=== PATIENT | male | born 1965 | race Caucasian/White ===

== ENCOUNTER 2016-12-27 15:36 | Emergency (ER) | payer OTHER, MEDICARE ==
[~2016-12-27] VITALS: Ht 170.2 cm; Wt 65.8 kg
[~2016-12-27 15:36] MED LIST: ALPRAZOLAM1 MG PO; ALPRAZOLAM2 MG PO; ALREX OT; AMOXICILLIN500 M1 PO; AZELASTINE HYDRO6 ML OPH; BACTRIM DS 8001 TAB PO; BENADRYL ALLERG25 M1 PO; BROMFED DM COU118 ML PO; CLINDAMYCIN HY300 MG PO; COMBIVENT RESPI1 SPR PO; CYCLOBENZAPRINE10 M1 PO; ENDOCET 325 MG-1 TA1 PO; EPIPEN ADULT A0.3 MG SC; FLEXERIL PO; FLEXERIL10 MG PO; HYDROCODONE/ACE1 TA1 PO; LEVETIRACETAM750 MG PO; LIDODERM 5% PAT1 PAT TOP; NAPROSYN500 MG PO; NORCO 325 MG-51 TAB PO; OMEPRAZOLE20 MG PO; OXY IR5 MG PO; OXYCODONE/APAP1 TAB PO; OXYCODONE5 M1 PO; OXYCONTIN15 MG PO; PERCOCET 325 MG1 TA2 PO; PERCOCET 325 MG1 TAB PO; TAMIFLU 75MG75 MG PO; TAMIFLU75 MG PO; TESSALON PERLE100 MG PO; TORADOL10 MG PO; TRAMADOL HCL50 M1 PO; TRAMADOL50 MG PO; TRAZODONE100 MG PO; TRAZODONE150 MG PO; TYLENOL TAB 32325 MG PO; ULTRAM(MONOGRAP50 MG PO; VICODIN 300 MG-1 TAB PO; VICODIN ES 3001 TAB PO; VICOPROFEN 7.51 TAB PO; VISTARIL25 M1 PO; XANAX1 MG PO; XANAX2 MG PO; ZITHROMAX Z-PA250 M1 PO; ZOFRAN ODT4 MG PO; ZOFRAN4 M1 SL; ZOLPIDEM TARTRA10 M1 PO; ZOLPIDEM TARTRA10 MG PO
--- NOTE | 2016-12-27 15:44 | ED PSYCHIATRIC COMPLAINT ---
History of Present Illness General Chief Complaint: General Adult Stated Complaint: FOUND UNRESPONSIVE Source: patient Exam Limitations: no limitations Vital Signs & Intake/Output Vital Signs & Intake/Output Vital Signs Date Time Temp Pulse Resp B/P B/P Pulse O2 O2 Flow FiO2 Mean Ox Delivery Rate 12/279 82 18 121/87 99 Room Air 12/27 1831 97.1 83 16 130/86 99 Nasal 3.0L Cannula 12/27 1549 Room Air 12/27 1549 87 12 114/77 92 Room Air ED Intake and Output 12/28 0000 12/27 1200 Intake Total Output Total Balance Patient 145 lb Weight Weight Estimated Measurement Method Allergies Coded Allergies: adalimumab (Severe, ANAPHYLAXIS 03/02/16) shellfish derived (Severe, SOB, SWELLING 03/02/16) venom-honey bee (BEE VENOM (HONEY BEE)) (Severe, SWELLING 03/02/16) Iodinated Contrast- Oral and IV Dye (IODINATED CONTRAST MEDIA - IV DYE) (UNKNOWN PER PT 03/02/16) infliximab (BLOTCHES, HIVES, DYSPNEA 03/02/16) Reconcile Medications Albuterol Sulfate 2.5 MG/3 ML (0.083 %) VIAL.NEB 1 Vial INH/ASHLEY AD PRN ASTHMA (Reported) Alprazolam 1 MG TABLET 1 TAB PO TID ANXIETY (Reported) Ipratropium/Albuterol Sulfate (Combivent Respimat Inhal [place]) 20 MCG-100 MCG/ ACTUATION MIST.INHAL 1 PUFF INH PRN ASTHMA (Reported) Levetiracetam (Keppra) 750 MG TABLET 2 TAB PO BID SEIZURES (Reported) Zolpidem Tartrate 10 MG TABLET 1 TAB PO QPMP SLEEP (Reported) Triage Nurses Notes Reviewed? yes Onset: Abrupt Duration: unknown duration HPI: 51-year-old male brought into emergency room after being found unresponsive at home by his parents. Was reports that there was some medical marijuana as well as cocaine and heroin found nearby. Patient denies any drug use. Denies alcohol use. He reports that he got sleepy and fell asleep on the couch because he does not sleep well and normally. Denies any pain currently. Slurring his words. Denies any other associated symptoms. (ABEL HART) Past History Medical History Any Pertinent Medical History? 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 No (ABEL HART) Review of Systems Review of Systems Constitutional: Reports: no symptoms. EENTM: Reports: no symptoms. Respiratory: Reports: no symptoms. Cardiovascular: Reports: no symptoms. GI: Reports: no symptoms. Genitourinary: Reports: no symptoms. Musculoskeletal: Reports: no symptoms. Skin: Reports: no symptoms. Neurological/Psychological: Reports: see HPI. Hematologic/Endocrine: Reports: no symptoms. Immunologic/Allergic: Reports: no symptoms. All Other Systems: Reviewed and Negative (ABEL HART) Physical Exam Physical Exam General Appearance: mild distress, intoxicated Head: atraumatic Eyes: Bilateral: normal appearance. Ears, Nose, Throat: normal ENT inspection, hearing grossly normal Neck: normal inspection Respiratory: normal breath sounds, no respiratory distress Cardiovascular: regular rate/rhythm Gastrointestinal: soft, non-tender Extremities: normal range of motion Neurological/Psychiatric: alert Appearance/Memory/Insight: disheveled Behavoir/Eye Contact/Speech: cooperative Thoughts/Hallucinations: no apparent hallucination Skin: intact, normal color, warm/dry SAD PERSONS Done? 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 1540 Active URINE DRUGS OF ABUSE 12/27 1540 Complete TROPONIN LEVEL 12/27 1540 Complete ETHANOL 12/27 1540 Complete COMPREHENSIVE METABOLIC PANEL 12/27 1540 Complete CBC WITHOUT DIFFERENTIAL 12/27 154 Complete EKG 12/27 1540 Active Laboratory Tests 12/27/16 1830: Urine Opiates Screen > 4000.00 H, Methadone Screen < 40, Barbiturate Screen < 60, Ur Phencyclidine Scrn < 6.00, Amphetamines Screen < 100, U Benzodiazepines Scrn > 800 H, Urine Cocaine Screen < 50, Urine Cannabis Screen < 5.00 12/27/16 1600: Anion Gap 13, Estimated GFR > 60, BUN/Creatinine Ratio 14.5, Glucose 108 H, Calcium 9.7, Total Bilirubin 0.4, AST 20, ALT 41, Alkaline Phosphatase 69, Troponin I < 0.01, Total Protein 7.8, Albumin 4.6, Globulin 3.2, Albumin/ Globulin Ratio 1.4, CBC w Diff NO MAN DIFF REQ, RBC 5.36, MCV 72.7 L, MCH 22.3 L, RDW 16.7 H, MPV 7.8, Gran % 80.9 H, Lymphocytes % 11.1 L, Monocytes % 4.4, Eosinophils % 3.3, Basophils % 0.3, Absolute Lymphocytes 1.6, Absolute Monocytes 0.6, Absolute Eosinophils 0.5, Absolute Basophils 0, PUBS MCHC 30.7 L, Serum Alcohol < 10.0 Initial ED EKG: normal intervals, normal p-waves, normal sinus rhythm, rate (88) Prior EKG: unchanged (JOJO CONTEH,ABEL) Departure Departure Disposition: HOME OR SELF CARE Condition: Stable Clinical Impression Primary Impression: Polysubstance abuse Referrals: ANGI SAGASTUME MD (PCP/Family) Additional Instructions: Use your Narcan at home as needed. You have declined seeing crisis at this time and wants to leave AGAINST MEDICAL ADVICE. Follow-up with [facility] for possible inpatient management. Address: [address] [place] [address], [place] [phone] Hours: Closed now Please go over all results of today's visit with your primary care doctor. Contact your primary care doctor to let them know you were here in the emergency room. There may be nonspecific findings which may not be related to your visit today here in the emergency room but may require further evaluation and chronic monitoring by your primary care doctor. If you had a laceration today the chance of foreign body always remains. You should follow-up with your primary care doctor for recheck in 3-5 days for a wound check. If you had an x-ray done there is a chance that a fracture could have been missed on initial read and you should follow-up with your primary care doctor for repeat x-rays if symptoms persist. If your blood pressure was elevated here in the emergency room please have rechecked by her primary care doctor within the next 48 hours by your primary care doctor. If you were prescribed a narcotic here in the emergency room or any type of controlled substances you're not allowed to drive while taking this medication or operate any type of heavy machinery. Narcotics can make you feel lightheaded dizziness nausea and can cause constipation. You may need to pick out hand a stool softener. Thank you for choosing [facility] emergency room. Please return to the emergency room immediately if you have any other concerns worsening of symptoms. Departure Forms: Customer Survey General Discharge Information Comments 12/27/2016 8:49:35 PM Patient is alert and oriented and clinically sober here in the emergency room. He is capable of making his own medical decisions. He is not suicidal or homicidal. He has been recommended the patient stayed to be further monitored and she crisis and he is refusing. His mother is here and she is going to drive him home. She will further observe him at home. He has no complaints of chest pain. No complaints of shortness of breath. He is verbally leaving AGAINST MEDICAL ADVICE. Case discussed with Dr. Beckman. Return if any concerns worsening symptoms. (JOJO CONTEH,ABEL) PA/CRM CONSULTANT Co-Sign Statement Statement: ED Attending supervision documentation- [] I saw and evaluated the patient. I have also reviewed all the pertinent lab results and diagnostic results. I agree with the findings and the plan of care as documented in the PA's/CRM CONSULTANT's documentation. [x] I have reviewed the ED Record and agree with the PA's/CRM CONSULTANT's documentation. [] Additions or exceptions (if any) to the PAs/CRM CONSULTANT's note and plan are summarized below: [] (TERESA CAPPS,TAWNYA Perez)
[2016-12-27 16:10] LABS: ABSOLUTE BASOPHIL COUNT 0 /CUMM (0.0-0.2); ABSOLUTE EOSINOPHIL COUNT 0.5 /CUMM (0.0-0.7); ABSOLUTE LYMPH COUNT 1.6 /CUMM (1.2-3.4); ABSOLUTE MONOCYTE COUNT 0.6 /CUMM (0.10-0.60); BASOPHIL % 0.3 % (0.0-2.0); GRANULOCYTE % 80.9 % (42.2-75.2); MEAN PLATELET VOLUME 7.8 FL (7.4-10.4); RED BLOOD CELL CT 5.36 /CUMM (4.70-6.10); WHITE BLOOD CELL COUNT 14.6 /CUMM (4.8-10.8)
[2016-12-27 16:27] LABS: MEAN CORPUSCULAR HGB 22.3 PG (27.0-31.0); MEAN CORPUSCULAR VOLUME 72.7 FL (80.0-94.0)
[2016-12-27 16:28] LABS: EOSINOPHIL % 3.3 % (0-5); MEAN CORPUSCULAR HGB CONC 30.7 G/DL (33.0-37.0); PLATELET COUNT 366 /CUMM (130-400); RBC DISTRIBUTION WIDTH 16.7 % (11.5-14.5)
[2016-12-27] MEDS ORDERED: COMBIVENT RESPIM4 GM INH (17:15)
[2016-12-27] MEDS ORDERED: KEPPRA750 M1 PO (17:15)
[2016-12-27] MEDS ORDERED: ALPRAZOLAM1 M2 PO (17:15)
[2016-12-27] MEDS ORDERED: ALBUTEROL2.5 MG/3 M INH/SOL (17:16)
[2016-12-27 20:49] VITALS: BP 121/87
== END 2016-12-27 21:06 ==
LOC: ERH 15:36
PROVIDERS: Physician Assistant Medical
DX: F12.10 Cannabis abuse, uncomplicated (principal); F14.10 Cocaine abuse, uncomplicated; F11.10 Opioid abuse, uncomplicated
CPT/HCPCS: 80307; 93005; 93010; 96374; 96375; G0480; J2310; J2405

== ENCOUNTER 2017-10-22 13:11 | Inpatient (IN) | payer OTHER, MEDICARE ==
[~2017-10-22] VITALS: Ht 172.7 cm; Wt 75.7 kg
[~2017-10-22 13:11] MED LIST changes: +ALBUTEROL2.5 MG/3 M INH/SOL; +ALPRAZOLAM0.5 M4 PO; +ASPIRIN EC81 M1 PO; +ATIVAN1 M1 PO; +COMBIVENT RESPIM4 GM INH; +ESCITALOPRAM OX10 MG PO; +KEPPRA750 M1 PO
[2017-10-22 13:56] LABS: ABSOLUTE BASOPHIL COUNT 0 /CUMM (0.0-0.2); ABSOLUTE EOSINOPHIL COUNT 0 /CUMM (0.0-0.7); ABSOLUTE GRANULOCYTE CT 26.5 /CUMM (1.4-6.5); ABSOLUTE LYMPH COUNT 0.8 /CUMM (1.2-3.4); ABSOLUTE MONOCYTE COUNT 1.1 /CUMM (0.10-0.60); BASOPHIL % 0.1 % (0.0-2.0); EOSINOPHIL % 0.1 % (0-5); GRANULOCYTE % 93.4 % (42.2-75.2); HEMATOCRIT 50.6 % (42-52); MEAN CORPUSCULAR HGB 27.7 PG (27.0-31.0); MEAN CORPUSCULAR HGB CONC 32.2 G/DL (33.0-37.0); MEAN CORPUSCULAR VOLUME 86.1 FL (80.0-94.0); MEAN PLATELET VOLUME 7.9 FL (7.4-10.4); PLATELET COUNT 280 /CUMM (130-400); RBC DISTRIBUTION WIDTH 15.3 % (11.5-14.5); RED BLOOD CELL CT 5.88 /CUMM (4.70-6.10); WHITE BLOOD CELL COUNT 28.3 /CUMM (4.8-10.8)
--- NOTE | 2017-10-22 14:02 | ED GENERAL ADULT ---
See Addendum History of Present Illness General Chief Complaint: ETOH/Drug Related Complaint Stated Complaint: OD, ?SEIZURE, FALL W/HEAD STRIKE, HYPOGLYCEMIA Source: patient, family, EMS Exam Limitations: no limitations Vital Signs & Intake/Output Vital Signs & Intake/Output Vital Signs Date Time Temp Pulse Resp B/P B/P Pulse O2 O2 Flow FiO2 Mean Ox Delivery Rate 10/22 1729 97.2 85 14 118/78 99 Nasal 2.0L Cannula 10/22 1612 97.2 84 14 123/66 97 Nasal 2.0L Cannula 10/22 1432 70/44 10/22 1348 96 Room Air 10/22 1318 97.1 101 16 97 Room Air Allergies Coded Allergies: adalimumab (Severe, ANAPHYLAXIS 03/02/16) shellfish derived (Severe, SOB, SWELLING 03/02/16) venom-honey bee (BEE VENOM (HONEY BEE)) (Severe, SWELLING 03/02/16) Iodinated Contrast- Oral and IV Dye (IODINATED CONTRAST MEDIA - IV DYE) (UNKNOWN PER PT 03/02/16) infliximab (BLOTCHES, HIVES, DYSPNEA 03/02/16) Triage Note: PT BIBA FROM HOME WITH MULTIPLE COMPLAINTS. PER EMS, PT LIVES AT HOME WITH HIS MOTHER. SHE WALKED INTO PT'S ROOM AND FOUND HIM UNRESPONSIVE ON THE FLOOR WITH SOME CYANOSIS. MOTHER ADMINISTERED 0.4 NARCAN INTRANASALLY WITH SOME EFFECT. EMS ON SCENE ADMINISTERED ANOTHER 0.4 INTRANASALLY AND PT WAS AWAKE AND ALERT. CYANOSIS RESOLVED. PT ARRIVES AWAKE. DENIES NARCOTIC USE. STATES HE CANNOT RECALL WHAT HE TOOK, BUT THAT HIS UNRESPONSIVENESS "MIGHT BE FROM A SEIZURE". MEMORY DEFICIT DUE TO SEIZURE HX. MOTHER AT BEDSIDE TO ANSWER H&P QUESTIONS. PER EMS, PT BLOOD GLUCOSE ON SCENE 39 WITH NO HX OF DM. SBP IN 90s. 250mL D-10 ADMINISTERED EN ROUTE WITH IMPROVEMENT TO 131. Triage Nurses Notes Reviewed? yes Onset: Gradual Duration: hour(s): Timing: single episode today Injury Environment: home Severity: severe HPI: 52yo male with hx of substance abuse, seizures, crohn's disease BIBA from home for possible overdose. Per EMS patient was found unresponsive by his mother who is a RN. Mother reports that he was foaming at the mouth, his eyes were rolling back, he appeared blue. Mother gave him 0.4 intranasal Narcan and noticed marginal effect. Upon EMS arrival patient was administered with second dose of 0.4 nasal Narcan. Patient became alert and awake with resolving cyanosis. Finger stick glucose level was 39, patient medicated with IV D-10 in route to hospital. Patient states he does not remember taking any medication today, he denies drug use. He does not remember incident from this morning. Patient currently complaining of pain in right arm. Patient denies suicidal ideation or intent, he denies intentional overdose. Patient denies dyspnea, pleuritic pain, chest pain. (Nydia CONTEH,Verna Tate) Reconcile Medications Albuterol Sulfate 2.5 MG/3 ML (0.083 %) VIAL.NEB 1 Vial INH/ASHLEY AD PRN ASTHMA (Reported) Alprazolam 0.5 MG TABLET 1 TAB PO 4 TIMES/DAY ANXIETY (Reported) Escitalopram Oxalate 10 MG TABLET 1 TAB PO DAILY MENTAL HEALTH (Reported) Ipratropium/Albuterol Sulfate (Combivent Respimat Inhal [place]) 20 MCG-100 MCG/ ACTUATION MIST.INHAL 1 PUFF INH PRN ASTHMA (Reported) Levetiracetam (Keppra) 750 MG TABLET 2 TAB PO BID SEIZURES (Reported) Multivitamin (Daily Multiple Vitamin) 1 EACH TABLET 1 TAB PO DAILY VITAMIN SUPPORT (Reported) Zolpidem Tartrate 10 MG TABLET 1 TAB PO QPMP SLEEP (Reported) (Shayy CAPPS,Otis Shields) Past History Medical History Any Pertinent Medical History? 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 FATHER, ; Cause: MVA (motor vehicle accident). Hx Contributory? No (Verna Meyers) Review of Systems Review of Systems Constitutional: Reports: see HPI. EENTM: Reports: no symptoms. Respiratory: Reports: no symptoms. Cardiovascular: Reports: no symptoms. GI: Reports: no symptoms. Genitourinary: Reports: no symptoms. Musculoskeletal: Reports: see HPI. Skin: Reports: no symptoms. Neurological/Psychological: Reports: see HPI. Hematologic/Endocrine: Reports: no symptoms. Immunologic/Allergic: Reports: no symptoms. All Other Systems: Reviewed and Negative (Nydia CONTEH,Verna Tate) Physical Exam Physical Exam General Appearance: alert, awake Head: atraumatic, normal appearance Eyes: Bilateral: normal appearance, PERRL, EOMI. Ears, Nose, Throat: hearing grossly normal Neck: posterior cervical tenderness without deformity Respiratory: normal breath sounds, no respiratory distress, lungs clear, abrasion to left chest Cardiovascular: regular rate/rhythm Gastrointestinal: normal bowel sounds, soft, non-tender, no organomegaly, colostomy bag present Back: normal inspection, normal range of motion Extremities: tenderness to right shoulder with limited ROM Neurologic/Psych: awake, alert, oriented x 3 Skin: abrasion to left chest Core Measures ACS in differential dx? Yes CVA/TIA Diagnosis: No Sepsis Present: No Sepsis Focused Exam Completed? No (Nydia CONTEH,Verna Tate) Progress Differential Diagnoses I considered the following diagnoses in my evaluation of the patient: [Drug intoxication, drug overdose, sepsis, electrolyte abnormality, acute intracranial abnormality, cholecystitis, fracture] Plan of Care: Orders Procedure Date/time Status LACTIC ACID 10/22 2115 Active Admit to inpatient 10/22 1942 Active EKG 10/22 1904 Active Tejeda, Insertion/Removal/Asses 10/22 1826 Active CULTURE,URINE 10/22 1826 Active Seizure Precautions 10/22 1819 Active Precautions 10/22 1819 Active CULTURE,URINE 10/22 1819 Active LOWER RESPIRATORY CULTURE 10/22 1819 Active Add-on Test (ER Only) 10/22 1817 Active LACTIC ACID 10/22 1815 Active Patient Data 10/22 1806 Active Patient Data 10/22 1753 Active BLOOD CULTURE 10/22 1748 Active Add-on Test (ER Only) 10/22 1709 Active Add-on Test (ER Only) 10/22 1436 Active ACETOMINOPHEN 10/22 1344 Complete TROPONIN LEVEL 10/22 1344 Complete SALICYLATE 10/22 1344 Complete MAGNESIUM 10/22 1344 Complete CREATINE PHOSPHOKINASE 10/22 1344 Complete URINE DRUG SCREEN FOR ER ONLY 10/22 1334 Complete URINALYSIS 10/22 1334 Complete ETHANOL 10/22 133 Complete COMPREHENSIVE METABOLIC PANEL 10/22 133 Complete CBC WITHOUT DIFFERENTIAL 10/22 133 Complete EKG 10/22 133 Active Current Medications Sig/Leigh Ann Start time Last Medication Dose Stop Time Status Admin Sodium Chloride 1,000 ML BOLUS ONE 10/22 1830 AC (Normal Saline 0.9%) 10/22 2028 Dextrose/Water 1,000 ML ONCE ONE 10/22 1445 AC 10/22 (D5W 1000) 10/23 2123 1505 Laboratory Tests 10/22/17 1400: Urine Opiates Screen 1659.00, Methadone Screen 68, Barbiturate Screen 88, Ur Phencyclidine Scrn < 6.00, Amphetamines Screen 149, U Benzodiazepines Scrn > 800 H, Urine Cocaine Screen > 1000 H, Urine Cannabis Screen 7.70, Urinalysis LIGHT H, Urine Color YEL, Urine Clarity HAZY H, Urine pH 6.0, Ur Specific [place] >= 1.030, Urine Protein 30 H, Urine Ketones NEG, Urine Nitrite NEG, Urine Bilirubin NEG, Urine Urobilinogen 0.2, Ur Leukocyte Esterase NEG, Ur Microscopic SEDIMENT EXAMINED, Urine RBC 1-3, Urine WBC 1-3 H, Ur Epithelial Cells FEW, Urine Bacteria RARE H, Hyaline Casts RARE H, Granular Casts RARE H, Urine Mucus MANY H, Urine Hemoglobin MOD H, Urine Glucose NEG 10/22/17 1344: Anion Gap 30 H, Estimated GFR 19 L, BUN/Creatinine Ratio 5.9 L, Glucose 211 H, Calcium 8.4, Magnesium 2.7 H, Total Bilirubin 0.7, AST 338 H, ALT 165 H, Alkaline Phosphatase 127 H, Creatine Kinase 13068 H, Troponin I 1.05 *H, Total Protein 8.2, Albumin 5.1 H, Globulin 3.1, Albumin/Globulin Ratio 1.6, CBC w Diff MAN DIFF ORDERED, RBC 5.88, MCV 86.1, MCH 27.7, MCHC 32.2 L, RDW 15.3 H, MPV 7.9, Gran % 93.4 H, Lymphocytes % 2.7 L, Monocytes % 3.7, Eosinophils % 0.1, Basophils % 0.1, Absolute Granulocytes 26.5 H, Segmented Neutrophils 68, Band Neutrophils 19 H, Absolute Lymphocytes 0.8 L, Lymphocytes 2 L, Monocytes 9, Absolute Monocytes 1.1 H, Absolute Eosinophils 0, Absolute Basophils 0, Metamyelocytes 2 H, Normocytic RBCs VERIFIED, Normochromic RBCs VERIFIED, Salicylates < 1.0, Acetaminophen < 10.0 L, Serum Alcohol < 10.0 Microbiology 10/22 184 BLOOD: Blood Culture - RECD 10/22 1826 URINE ROUT: Urine Culture - ORD 10/22 1818 URINE ROUT: Urine Culture - ORD 10/22 181 LOWER RESP: Respiratory Culture - ORD 10/22 1818 LOWER RESP: Gram Stain - ORD 10/22 1748 BLOOD: Blood Culture - ORD Patient arrives hypotensive, medicated with 2 L normal saline, 1 L D5. Patient has hyperkalemia, right bundle branch block on EKG however no peaked T waves. Patient medicated with IV calcium gluconate, dextrose, insulin. Patient's labs also show acute kidney injury. We'll obtain a noncontrast scan of head/neck, chest, abdomen/pelvis. CT head and neck is within normal limits. CT abdomen shows fluid around the gallbladder, possible acute gallbladder pathology. Patient has leukocytosis and hypotension. We'll treat empirically with broad-spectrum antibiotics. Meropenim. Urine drug screen is positive for benzodiazepines, opiates, cocaine. Patient's blood pressure has responded appropriately to fluid bolus. Given findings and patient's labs he requires ICU admission. Dr. Lucas spoke with Dr. Díaz regarding this patient's ICU admission. Diagnostic Imaging: Viewed by Me: CT Scan. Discussed w/RAD: CT Scan. Radiology Impression: PATIENT: PHYLLIS ASHLEY PRESENT AGE: 52 PATIENT ACCOUNT NO: [id number] : 67 LOCATION: [facility] ORDERING PHYSICIAN: Verna CONTEH SERVICE DATE: 10/22/17 EXAM TYPE: CAT - CT CERV SPINE WO IV CONTRAST; CT HEAD WO IV CONTRAST EXAMINATION: CT HEAD AND CERVICAL SPINE. CLINICAL INFORMATION: Status post overdose with head strike. Evaluate for intracranial hemorrhage. COMPARISON: CT scan of the head 2015. TECHNIQUE: Coding Tech images were obtained. CT acquisition of the head and cervical spine was performed without intravenous administration of contrast. Data was reformatted into multiplanar images at the acquisition workstation. DLP : 1031.37 mGy-cm. FINDINGS: Head: There is no acute intracranial hemorrhage or abnormal extra-axial collection. No intracranial mass effect or midline shift. Lateral and third ventricles are normal. No hydrocephalus. Moreno-white matter differentiation is grossly preserved and there is no evidence of acute territorial infarct. The calvarium and skull base are intact. Scattered foci of venous gas are visualized within the right distribution clerk space, right parapharyngeal space, and right orbit. Mastoid air cells and middle ear cavities are well-aerated. Visualized paranasal sinuses are well-aerated. Cervical spine: Alignment is normal. Vertebral body heights are preserved. There is no evidence of acute fracture. No abnormal prevertebral soft tissue swelling. There are chronic changes of an anterior cervical discectomy and fusion at C6-C7. The C5 and C6 vertebral segments are also chronically fused. Grossly no evidence of canal compromise. Uncovertebral joint spurring causes mild to moderate neuroforaminal encroachment at multiple levels. Venous gas is visualized within the right internal jugular vein, right subclavian vein, and innominate vein. Visualized lung apices are clear. IMPRESSION: Head: No acute intracranial hemorrhage. There are multiple foci of the venous gas within the neck and face that were presumably introduced with line placement. Cervical spine: No acute cervical spinal fracture. There chronic changes of an anterior cervical discectomy and fusion at C6-C7. Bridging bone fuses the C5-C7 vertebral segments. DICTATED BY: Yannick Mcclendon MD DATE/TIME DICTATED:10/22/171628 CONTRACT ADMINISTRATION MANAGER:CISCO DATE/TIME TRANSCRIBED:10/22/171628 CONFIDENTIAL, DO NOT COPY WITHOUT APPROPRIATE AUTHORIZATION. <Electronically signed in Other Vendor System> SIGNED BY: Yannick Mcclendon MD 10/22/17 1641, PATIENT: PHYLLIS ASHLEY PRESENT AGE: 52 PATIENT ACCOUNT NO: [id number] : 67 LOCATION: [facility] ORDERING PHYSICIAN: Verna CONTEH SERVICE DATE: 10/22/17022 EXAM TYPE: CAT - CT ABD & PELVIS W/O IV CONTRAS; CT CHEST WO IV CONTRAST EXAMINATION: CT CHEST, ABDOMEN AND PELVIS WITHOUT CONTRAST CLINICAL INFORMATION: Trauma. Abrasions to chest. Rib fracture. Overdose. JEAN. COMPARISON: CT abdomen and pelvis 02/09/2017. CTA chest 03/26/2017. TECHNIQUE: Multidetector volumetric CT imaging of the chest, abdomen and pelvis was obtained without oral or IV contrast. Coronal and sagittal reformatted images are performed at CT scanner. DLP: 520.12 mGy-cm. FINDINGS: CT CHEST: Lungs: The lungs are clear with no evidence of inflammation or nodules. Mediastinum: The mediastinum is normal. Pleura: There is no pleural effusion. No pleural mass or thickening. Axilla: No lymphadenopathy. CT ABDOMEN AND PELVIS: Liver, Gallbladder, and Biliary Tree: The liver is normal in size, shape, and attenuation. No focal hepatic lesion or biliary ductal dilatation is present. There is edema surrounding the gallbladder in the right upper quadrant and some of this fluid extends around the inferior liver margin. The gallbladder is moderately filled. There is no calcified stone in the gallbladder and there is no dilatation of the biliary tree. Pancreas: No acute change of the pancreas. No mass. No pancreatic duct dilatation. Spleen: Spleen normal in size and contour. No focal lesion. Adrenal Glands: Adrenal glands are normal in size. No focal mass. Kidneys and Ureters: There is a nonobstructive stone in the midpole of the left kidney measuring 2 mm. There is no ureteral calculi. There is no hydronephrosis. Bladder: Unremarkable. Gastrointestinal Tract: Status post right -sided colostomy with resection of the left colon with placement of a Todd's pouch. There is no acute change of the bowel. No bowel obstruction. No bowel wall thickening or edema. Mesentery: No focal inflammation. No free fluid. No free air. Abdominal Wall: No significant hernia is appreciated. Lymph Nodes: Normal. Vascular: There are small air collections in the vasculature in the upper extremities. Air droplets seen in the right subclavian vein and the right jugular vein and also there is a small air droplet also in the left subclavian vein. Correlate with iatrogenic etiology, IV punctures. Pelvic Viscera: Unremarkable. Osseous Structures: Orthopedic plate and screw at lower cervical spine from fusion. No acute osseous abnormality. No fracture. IMPRESSION: 1. Fluid around the gallbladder and inferior right lobe of liver. This raises question of biliary disease. This can be further assessed with right upper quadrant ultrasound. 2. Status post colostomy. Status post resection of the left colon with placement of a Todd's pouch. No acute change of the bowel. 3. Nonobstructive 2 mm stone in the midpole of left kidney. No hydronephrosis. DICTATED BY: Garcia Charlton MD DATE/TIME DICTATED:10/22/171631 CONTRACT ADMINISTRATION MANAGER :CISCO DATE/TIME TRANSCRIBED:10/22/171631 CONFIDENTIAL, DO NOT COPY WITHOUT APPROPRIATE AUTHORIZATION. <Electronically signed in Other Vendor System> SIGNED BY: Garcia Charlton MD 10/22/17 6086 Initial ED EKG: sinus rhythm @96bpm, IVCD Prior EKG: changed (03/27/17) (Nydia CONTEH,Verna Tate) Comments: 10/22/2017 4:14:06 PM I've just evaluated Phyllis for the second time during his emergency department visit. He is increasingly more alert and is complaining of pain. I've advised him that I cannot give him narcotic pain relievers given his presentation and a particular his low blood pressure on presentation. Fortunately his blood pressure has now normalized with IV fluid resuscitation. 10/22/2017 6:24:58 PM I have discussed this patient's case with Dr. Díaz. He agrees with ICU admission. Fortunately the patient's blood pressure is now normal. I will order a repeat basic metabolic panel to monitor renal functions and potassium. I will notify the house staff Dr. Díaz's recommendation for nephrology consult. 10/22/2017 7:42:49 PM patient is being evaluated by Dr. Díaz and admission orders are being placed. Dr. Díaz was concerned that the patient might be having an acute [place]. His repeat EKG shows improvement in the patient's right bundle-branch pattern and it appears to be resolving with treatment of his hyperkalemia. The patient also has acute rhabdomyolysis, acute kidney injury and an elevated troponin level likely due to the patient's overall clinical condition and likely prolonged unresponsive episode at home. (Shayy CAPPS,Otis Shields) Departure Departure Disposition: STILL A PATIENT Condition: Stable Clinical Impression Primary Impression: Hyperkalemia Secondary Impressions: Acute kidney injury Drug overdose Qualifiers: Encounter type: initial encounter Injury intent: accidental or unintentional Qualified Code: T50.901A - Poisoning by unspecified drugs, medicaments and biological substances, accidental (unintentional), initial encounter Polysubstance abuse Referrals: Fredy Pérez MD (PCP/Family) Departure Forms: Customer Survey General Discharge Information Admission Note Spoke With: Bre CAPPS,Puma Pedersen Documentation of Exam: Documentation of any treatments & extenuating circumstances including Concerns Regarding Discharge (functional status, medication knowledge or non-compliance, living conditions, etc.) that warrant an admission rather than observation: [ Acute kidney injury with hyperkalemia requiring IV fluids, ICU monitoring, repeat labs, fluid around gallbladder requiring ultrasound to assess for possible biliary infectious process., leukocytosis, requiring broad-spectrum IV antibiotics, patient presented initially hypotensive, close monitoring of vital signs as necessary, premature discharge medically unsafe] (Nydia CONTEH,Verna Tate) PA/FLOOR TECH Co-Sign Statement Statement: ED Attending supervision documentation- [X] I saw and evaluated the patient. I have also reviewed all the pertinent lab results and diagnostic results. I agree with the findings and the plan of care as documented in the PA's/FLOOR TECH's documentation. Patient presents for evaluation of possible overdose. He was found by his mother at home on the floor cyanotic. Physical examination reveals somewhat lethargic but otherwise interactive patient with mild abrasions of the face and chest. [] I have reviewed the ED Record and agree with the PA's/FLOOR TECH's documentation. [] Additions or exceptions (if any) to the PAs/FLOOR TECH's note and plan are summarized below: [] (Shayy CAPPS,Otis Shields) Critical Care Note Critical Care Note Critical Care Time: 30-74 min (Otis Lucas MD)
[2017-10-22] MEDS ORDERED: DAILY MULTIPLE1 EACH PO (14:49)
--- NOTE | 2017-10-22 16:41 | CT SCAN REPORT ---
EXAMINATION: CT HEAD AND CERVICAL SPINE. CLINICAL INFORMATION: Status post overdose with head strike. Evaluate for intracranial hemorrhage. COMPARISON: CT scan of the head 05/15/2016. TECHNIQUE: Revenue Collector images were obtained. CT acquisition of the head and cervical spine was performed without intravenous administration of contrast. Data was reformatted into multiplanar images at the acquisition workstation. DLP: 1031.37 mGy-cm. FINDINGS: Head: There is no acute intracranial hemorrhage or abnormal extra-axial collection. No intracranial mass effect or midline shift. Lateral and third ventricles are normal. No hydrocephalus. Moreno-white matter differentiation is grossly preserved and there is no evidence of acute territorial infarct. The calvarium and skull base are intact. Scattered foci of venous gas are visualized within the right mill tender warm up space, right parapharyngeal space, and right orbit. Mastoid air cells and middle ear cavities are well-aerated. Visualized paranasal sinuses are well-aerated. Cervical spine: Alignment is normal. Vertebral body heights are preserved. There is no evidence of acute fracture. No abnormal prevertebral soft tissue swelling. There are chronic changes of an anterior cervical discectomy and fusion at C6-C7. The C5 and C6 vertebral segments are also chronically fused. Grossly no evidence of canal compromise. Uncovertebral joint spurring causes mild to moderate neuroforaminal encroachment at multiple levels. Venous gas is visualized within the right internal jugular vein, right subclavian vein, and innominate vein. Visualized lung apices are clear. IMPRESSION: Head: No acute intracranial hemorrhage. There are multiple foci of the venous gas within the neck and face that were presumably introduced with line placement. Cervical spine: No acute cervical spinal fracture. There chronic changes of an anterior cervical discectomy and fusion at C6-C7. Bridging bone fuses the C5-C7 vertebral segments.
--- NOTE | 2017-10-22 17:25 | CT SCAN REPORT ---
EXAMINATION: CT CHEST, ABDOMEN AND PELVIS WITHOUT CONTRAST CLINICAL INFORMATION: Trauma. Abrasions to chest. Rib fracture. Overdose. JEAN. COMPARISON: CT abdomen and pelvis 02/09/2017. CTA chest 03/26/2017. TECHNIQUE: Multidetector volumetric CT imaging of the chest, abdomen and pelvis was obtained without oral or IV contrast. Coronal and sagittal reformatted images are performed at CT scanner. DLP: 520.12 mGy-cm. FINDINGS: CT CHEST: Lungs: The lungs are clear with no evidence of inflammation or nodules. Mediastinum: The mediastinum is normal. Pleura: There is no pleural effusion. No pleural mass or thickening. Axilla: No lymphadenopathy. CT ABDOMEN AND PELVIS: Liver, Gallbladder, and Biliary Tree: The liver is normal in size, shape, and attenuation. No focal hepatic lesion or biliary ductal dilatation is present. There is edema surrounding the gallbladder in the right upper quadrant and some of this fluid extends around the inferior liver margin. The gallbladder is moderately filled. There is no calcified stone in the gallbladder and there is no dilatation of the biliary tree. Pancreas: No acute change of the pancreas. No mass. No pancreatic duct dilatation. Spleen: Spleen normal in size and contour. No focal lesion. Adrenal Glands: Adrenal glands are normal in size. No focal mass. Kidneys and Ureters: There is a nonobstructive stone in the midpole of the left kidney measuring 2 mm. There is no ureteral calculi. There is no hydronephrosis. Bladder: Unremarkable. Gastrointestinal Tract: Status post right-sided colostomy with resection of the left colon with placement of a Todd's pouch. There is no acute change of the bowel. No bowel obstruction. No bowel wall thickening or edema. Mesentery: No focal inflammation. No free fluid. No free air. Abdominal Wall: No significant hernia is appreciated. Lymph Nodes: Normal. Vascular: There are small air collections in the vasculature in the upper extremities. Air droplets seen in the right subclavian vein and the right jugular vein and also there is a small air droplet also in the left subclavian vein. Correlate with iatrogenic etiology, IV punctures. Pelvic Viscera: Unremarkable. Osseous Structures: Orthopedic plate and screw at lower cervical spine from fusion. No acute osseous abnormality. No fracture. IMPRESSION: 1. Fluid around the gallbladder and inferior right lobe of liver. This raises question of biliary disease. This can be further assessed with right upper quadrant ultrasound. 2. Status post colostomy. Status post resection of the left colon with placement of a Todd's pouch. No acute change of the bowel. 3. Nonobstructive 2 mm stone in the midpole of left kidney. No hydronephrosis.
--- NOTE | 2017-10-22 18:38 | RADIOLOGY REPORT ---
EXAMINATION: XR SHOULDER, RIGHT CLINICAL INFORMATION: Shoulder pain. COMPARISON: None TECHNIQUE: Three views of the right shoulder. FINDINGS: No fracture. No dislocation. The glenohumeral joint and acromioclavicular joint are normal. No soft tissue calcification. Orthopedic plate and screw at lower cervical spine. IMPRESSION: Normal right shoulder.
--- NOTE | 2017-10-22 19:46 | History & Physical ---
General Information and [facility] MD Statement: I have seen and personally examined PHYLLIS ASHLEY and documented this H&P. The patient is a 52 year old M who presented with a patient stated chief complaint of episode of unresponsiveness this morning.[]. Source of Information: patient, family Exam Limitations: clinical condition, poor historian History of Present Illness: Patient is 52-year-old gentleman with past medical history significant for polysubstance abuse, benzo dependent, history of seizures on Keppra, history of asthma, history of Crohn's disease diagnosed in 1988 status post colon resection with colostomy bag, history of rectal fistula, severe cervical spine radiculopathy, anxiety/depression and narcotic dependency was brought in by ambulance when mother found him unresponsive around 9 AM this morning. Patient doesn't remember much of that event and most of the history was taken from his mother who was present at the time of interview. According to his mother who is RN that he was doing fine until 11:30 PM last night before going to bed. Around 9 AM this morning when she went to check on him she found him on corner of his bed where his head was stuck to side lamp and she found him unresponsive/ unconsciousness with blackish stuff coming out of his nose and also had peripheral cyanosis. She gave him intranasal Narcan 0.4 mg and he was slightly awake but later on again was very drowsy and lethargic when she called EMS around 12 midday. On arrival he was given again a dose of 0.4 mg Narcan with significant improvement in his mental status. He was also found to have hypoglycemia at that point and was given dextrose. By the time he came to ER he was alert and oriented. He denied any chest pain, chest pressure, headache, any urinary or bowel complaints. He felt very nauseous and had coffee-ground emesis in ER while I was interviewing him. His emesis as well as stool from ostomy bag were strongly guaiac positive. Patient with refusing any medications overdose even though on telling that his urine is showing benzos, opiates and cocaine. He said he doesn't remember anything what happened last night but he admits that he was partying with his friends and please note some cocaine but he refused injecting any heat when or other substances. He doesn't remember what happened last night. Mother denied any any fecal or urinary incontinence or tongue biting on finding him this morning. According to mother patient was very depressed and under a lot of stress lately and she is aware and sure that he is getting some kind of drugs most likely Xanax/cocaine from his friends or buying from streets. There is no history of melena, coffee-ground emesis or bleeding per rectum/ hematemesis in the past. Patient also denied any alcohol abuse. Patient is at home with his mother and his prescribed send exam Ambien are under her control. Initially on admission he was hypotensive to blood pressure 70/44 but responded well to fluid resuscitation. He remained afebrile. Admission labs are significant for WBC count 28.3, hemoglobin 16.3, hematocrit 50.6, platelet 280, Sodium 140, potassium 7.3, chloride 92, carbon dioxide 18, anion gap 30, BUN 20, creatinine 3.4, glucose 211, serum osmolality 303, magnesium 2.7, AST 338, ALT 165, creatinine kinase 89504, troponin 1.05, Urine toxicology showed positive for benzos and cocaine Initial EKG showed garsia waves in v4, V5 and V6, right bundle branch block which is new, T-wave inversions in anterolateral leads. Allergies/Medications Allergies: Coded Allergies: adalimumab (Severe, ANAPHYLAXIS 03/02/16) shellfish derived (Severe, SOB, SWELLING 03/02/16) venom-honey bee (BEE VENOM (HONEY BEE)) (Severe, SWELLING 03/02/16) Iodinated Contrast- Oral and IV Dye (IODINATED CONTRAST MEDIA - IV DYE) (UNKNOWN PER PT 03/02/16) infliximab (BLOTCHES, HIVES, DYSPNEA 03/02/16) Home Med list Albuterol Sulfate 2.5 MG/3 ML (0.083 %) VIAL.NEB 1 Vial INH/ASHLEY AD PRN ASTHMA (Reported) Alprazolam 0.5 MG TABLET 1 TAB PO 4 TIMES/DAY ANXIETY (Reported) Escitalopram Oxalate 10 MG TABLET 1 TAB PO DAILY MENTAL HEALTH (Reported) Ipratropium/Albuterol Sulfate (Combivent Respimat Inhal [place]) 20 MCG-100 MCG/ ACTUATION MIST.INHAL 1 PUFF INH PRN ASTHMA (Reported) Levetiracetam (Keppra) 750 MG TABLET 2 TAB PO BID SEIZURES (Reported) Multivitamin (Daily Multiple Vitamin) 1 EACH TABLET 1 TAB PO DAILY VITAMIN SUPPORT (Reported) Zolpidem Tartrate 10 MG TABLET 1 TAB PO QPMP SLEEP (Reported) Compliance With Home Meds: UNKNOWN Past History Travel History Traveled to [place] past 21 day No Medical History Neurological: seizure, SEVERE HEADACHES EENT: NONE Cardiovascular: NONE Respiratory: asthma, L COLLAPSED LUNG Gastrointestinal: Crohn's disease Hepatic: NONE Renal: NONE Musculoskeletal: fracture, ARTHRITIS RUPTURED DISC RIBS,LEGS,KNEE FX Psychiatric: anxiety, chronic pain disorder, insomnia Endocrine: NONE Blood Disorders: NONE Cancer(s): NONE 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 FATHER, ; Cause: MVA (motor vehicle accident). Psychosocial History Services at Home: None ETOH Use: 6 Functional Ability ADLs Independent: dressing, eating, toileting, bathing. Ambulation: independent Review of Systems Review of Systems Constitutional: Denies: chills, diaphoresis, fever. EENTM: Denies: double vision, visual changes. Cardiovascular: Denies: chest pain, edema, orthopena. Respiratory: Denies: hemoptysis, orthopnea, short of breath. GI: Reports: abdominal pain, nausea, vomiting. Genitourinary: Denies: frequency, hematuria. Musculoskeletal: Reports: muscle pain. Denies: gout. Skin: Reports: see HPI. Exam & Diagnostic Data Last 24 Hrs of Vital Signs/I&O Vital Signs Date Time Temp Pulse Resp B/P B/P Pulse O2 O2 Flow FiO2 Mean Ox Delivery Rate 10/22 2126 94.3 84 18 111/73 97 Nasal 2.0L Cannula 10/22 1937 97.3 84 16 112/74 99 Nasal 2.0L Cannula 10/22 1833 97.4 88 16 106/71 98 Nasal 2.0L Cannula 10/22 1729 97.2 85 14 118/78 99 Nasal 2.0L Cannula 10/22 1612 97.2 84 14 123/66 97 Nasal 2.0L Cannula 10/22 1432 70/44 05 1348 96 Room Air 10/22 1318 97.1 101 16 97 Room Air Physical Exam General Appearance Alert, Oriented X3, Cooperative, No Acute Distress Skin multiple bruises on for head and right arm HEENT Atraumatic, PERRLA, EOMI Neck Supple, No JVD Cardiovascular Regular Rate, Normal S1, Normal S2 Lungs Normal Air Movement Abdomen Soft, slight epigastric tenderness Colostomy bag in place no erythema around Neurological Normal Speech, Strength at 5/5 X4 Ext, Normal Tone, Sensation Intact Extremities No Clubbing, No Cyanosis, No Edema Diagnostic Data EKG Results garsia waves in v4, V5 and V6, right bundle branch block which is new, T-wave inversions in anterolateral leads. Other Results XAM TYPE: CAT - CT ABD & PELVIS W/O IV CONTRAS; CT CHEST WO IV CONTRAST EXAMINATION: CT CHEST, ABDOMEN AND PELVIS WITHOUT CONTRAST CLINICAL INFORMATION: Trauma. Abrasions to chest. Rib fracture. Overdose. JEAN. COMPARISON: CT abdomen and pelvis 02/09/2017. CTA chest 03/26/2017. TECHNIQUE: Multidetector volumetric CT imaging of the chest, abdomen and pelvis was obtained without oral or IV contrast. Coronal and sagittal reformatted images are performed at CT scanner. DLP: 520.12 mGy-cm. FINDINGS: CT CHEST: Lungs: The lungs are clear with no evidence of inflammation or nodules. Mediastinum: The mediastinum is normal. Pleura: There is no pleural effusion. No pleural mass or thickening. Axilla: No lymphadenopathy. CT ABDOMEN AND PELVIS: Liver, Gallbladder, and Biliary Tree: The liver is normal in size, shape, and attenuation. No focal hepatic lesion or biliary ductal dilatation is present. There is edema surrounding the gallbladder in the right upper quadrant and some of this fluid extends around the inferior liver margin. The gallbladder is moderately filled. There is no calcified stone in the gallbladder and there is no dilatation of the biliary tree. Pancreas: No acute change of the pancreas. No mass. No pancreatic duct dilatation. Spleen: Spleen normal in size and contour. No focal lesion. Adrenal Glands: Adrenal glands are normal in size. No focal mass. Kidneys and Ureters: There is a nonobstructive stone in the midpole of the left kidney measuring 2 mm. There is no ureteral calculi. There is no hydronephrosis. Bladder: Unremarkable. Gastrointestinal Tract: Status post right-sided colostomy with resection of the left colon with placement of a Todd's pouch. There is no acute change of the bowel. No bowel obstruction. No bowel wall thickening or edema. Mesentery: No focal inflammation. No free fluid. No free air. Abdominal Wall: No significant hernia is appreciated. Lymph Nodes: Normal. Vascular: There are small air collections in the vasculature in the upper extremities. Air droplets seen in the right subclavian vein and the right jugular vein and also there is a small air droplet also in the left subclavian vein. Correlate with iatrogenic etiology, IV punctures. Pelvic Viscera: Unremarkable. Osseous Structures: Orthopedic plate and screw at lower cervical spine from fusion. No acute osseous abnormality. No fracture. IMPRESSION: 1. Fluid around the gallbladder and inferior right lobe of liver. This raises question of biliary disease. This can be further assessed with right upper quadrant ultrasound. 2. Status post colostomy. Status post resection of the left colon with placement of a Todd's pouch. No acute change of the bowel. 3. Nonobstructive 2 mm stone in the midpole of left kidney. No hydronephrosis. Assessment/Plan Assessment: Patient is 52-year-old gentleman with past medical history significant for polysubstance abuse, benzo dependent, history of seizures on Keppra, history of asthma, history of Crohn's disease diagnosed in 1988 status post colon resection with colostomy bag, history of rectal fistula, severe cervical spine radiculopathy, anxiety/depression and narcotic dependency was brought in by ambulance when mother found him unresponsive around 9 AM this morning. On initial evaluation he was found to have most probably cocaine induced myocardial injury/UT, acute kidney injury with hyperkalemia due to drug overdose with oliguria/anuria, most probably cocaine induced rhabdomyolysis and leukocytosis, severe high anion gap metabolic acidosis/lactic acidosis, drug induced gastritis/peptic ulcer disease with coffee-ground emesis and transaminitis which most likely again drug induced. We will admit him in ICU and will take care for the following problems: Problem #1 elevated troponins with acute EKG changes could be cocaine induced myocardial infarction/cocaine induced coronary vasospasm Cardiology was called and patient was discussed with as a bar. For now we will monitor him closely and treat him conservatively with IV fluid hydration. Patient cannot get IV heparin given GI bleed. We will not start him on aspirin. As he has cocaine overdose we would not give him any beta blockers. In case he he would need any antihypertensives can give nitroglycerin or calcium channel aaron. His initial troponin which were add-on on admission labs came back 1.05 and repeat was 1.25. Cardiology was informed and if there is any dramatic change in his troponin or if he developed any acute EKG changes or chest pain we will inform cardiology stat and if needed would be transferred for cardiac cath. Of note patient is allergic to contrast and had acute kidney injury with creatinine of 3.4. We will trend troponins and EKGs Echocardiogram Cardiology will see patient in morning until urgent. Problem #2 severe hyperkalemia with EKG changes In ER patient was given insulin, dextrose and calcium gluconate for hyperkalemia. His potassium was 7.3 on admission and repeat after 5 hours was 5.6. We will give him Kayexalate and will recheck labs at 2 AM. EKG changes were slightly Riverted. Watch for any arrhythmias Problem #3 AK I most likely drug-induced/drug overdose Nephrology was called stat and patient was discussed with Dr. Goldsmith in detail around 8 PM. On his request stat labs were sent and get call back from him after an hour. On admission straight cath was done and 200 mL of guera colored urine was taken out. Tejeda's catheter was placed around 9 PM which initially patient was refusing but later on agreed. Only 60 mL of cold colored urine was taken out. Of note patient received almost 3500 mL of fluids in ER. At this point went repeat lab shows his potassium was trending down but his creatinine stayed same we will treat him conservatively with fluid management. We will give him D5 with 3 ampules/150 mEq of bicarbonate at rate 200 for now and will monitor output closely. We'll repeat his labs around 2 AM again. If he remained oliguric in next 12 hours according to nephrology he might need dialysis. We will call nephrology around 5 AM in the morning and will update and discuss further management. Dr. Glez will be here tomorrow morning and Dr. Goldsmith will update him. No NSAIDs or nephrotoxic's. Problem #4 rhabdomyolysis with elevated creatinine phosphokinase Conservative management with aggressive fluid hydration. Problem #5 transaminitis We will do right upper quadrant ultrasound and we'll check LFTs in a.m. Problem #6 high anion gap metabolic acidosis/lactic acidosis We will do ABGs on him. We will trend lactic acid We will start him on dextrose with and 50 mg of bicarbonate. We will monitor him closely if at any point he will be fluid overload or become hypoxic/chest crackles on auscultation will cut down fluids and inform nephrology. Problem #7 coffee-ground emesis most likely drug-induced gastritis Gastroenterology was called stat and Dr. Hong call back. Patient was discussed with him and he recommended IV Protonix and he is okay to keep him nothing by mouth and he will see patient tomorrow morning. If in case he will develop any further overt GI bleed we will call him stat. We will check CBCs at 2 AM and then ATN. Problem #8 history of Crohn's disease status post colon resection/colostomy Ostomy care, nothing by mouth Problem #9 leukocytosis could be due to cocaine toxicity/patient might aspirate with aspiration pneumonitis We will start him on Unasyn for probable aspiration pneumonitis. Will repeat chest x-ray in a.m. Problem #10 complaining of right shoulder/right arm pain Status post fall Chest x-ray was negative for any fracture. If he remained in significant pain we will consider right upper extremity CAT scan. We will call orthopedics. Problem #11 history of anxiety and depression/multiple events of overdose/benzos withdrawal We will call psychiatry in a.m. As he is benzos dependent we will give him Ativan when necessary for withdrawal. We will request social work consult as well Patient is full code We will keep him nothing by mouth Mechanical DVT prophylaxis As Ranked By This Provider Problem List: 1. Drug overdose Qualifiers Encounter type: initial encounter Injury intent: accidental or unintentional Qualified Code: T50.901A - Poisoning by unspecified drugs, medicaments and biological substances, accidental (unintentional), initial encounter 2. Acute kidney injury 3. Hyperkalemia 4. Elevated troponin 5. Polysubstance overdose Core Measures/Misc (03/07) Acute Coronary Syndrome ACS Diagnosis: Yes Congestive Heart Failure Congestive Heart Failure Diagnosis No Cerebrovascular Accident CVA/TIA Diagnosis: No VTE (View Protocol) VTE Risk Factors Age>40 No Mechanical VTE Prophylaxis d/t N/A MechProphylax Ordered No VTE Pharm Prophylaxis d/t Bleeding (Active) Sepsis (View protocol) Sepsis Present: No Resident Review Statement Resident Statement: examined this patient
--- NOTE | 2017-10-22 21:11 | ULTRASOUND REPORT ---
EXAMINATION: US ABDOMEN LIMITED CLINICAL INFORMATION: Transaminitis.. COMPARISON: CT from 02/09/2017 TECHNIQUE: Real-time imaging of the right upper quadrant abdominal viscera. FINDINGS: PANCREAS: Normal. LIVER: The liver appears enlarged with increased echogenicity. There is coarse echotexture. No biliary ductal dilatation or focal lesion. GALLBLADDER: The gallbladder demonstrates a thick wall, measuring up to 0.5 cm. There may be trace pericholecystic fluid. The gallbladder is physiologically distended without evidence of stones, sludge or polyps. COMMON BILE DUCT: Normal in caliber measuring 0.3 cm in diameter. RIGHT KIDNEY: Normal. No hydronephrosis. No renal calculi or focal parenchymal lesions. The kidney measures 10.7 cm in maximum dimension. FREE FLUID: None. IMPRESSION: Gallbladder wall thickening. No gallstones are seen. Trace pericholecystic fluid also present. These findings can be seen in the setting of liver disease, although acalculus cholecystitis is not excluded. There is hepatomegaly with increased hepatic echogenicity and coarse liver echotexture. While this could represent hepatic steatosis, underlying liver disease is also possible.
[2017-10-22 22:00] VITALS: BP 92/0
[2017-10-23] VITALS (12 sets, daily range): BP systolic 11–130; BP diastolic 0–97
[2017-10-23 03:16] LABS: ABSOLUTE BASOPHIL COUNT 0 /CUMM (0.0-0.2); ABSOLUTE EOSINOPHIL COUNT 0 /CUMM (0.0-0.7); ABSOLUTE GRANULOCYTE CT 27.6 /CUMM (1.4-6.5); ABSOLUTE LYMPH COUNT 0.7 /CUMM (1.2-3.4); ABSOLUTE MONOCYTE COUNT 1.1 /CUMM (0.10-0.60); BASOPHIL % 0 % (0.0-2.0); EOSINOPHIL % 0 % (0-5); GRANULOCYTE % 94.1 % (42.2-75.2); HEMATOCRIT 53.7 % (42-52); MEAN CORPUSCULAR HGB CONC 32.1 G/DL (33.0-37.0); MEAN CORPUSCULAR VOLUME 84.2 FL (80.0-94.0); MEAN PLATELET VOLUME 8.8 FL (7.4-10.4); PLATELET COUNT 194 /CUMM (130-400); RBC DISTRIBUTION WIDTH 15.4 % (11.5-14.5); RED BLOOD CELL CT 6.38 /CUMM (4.70-6.10); WHITE BLOOD CELL COUNT 29.4 /CUMM (4.8-10.8)
--- NOTE | 2017-10-23 07:15 | RADIOLOGY REPORT ---
EXAMINATION: XR PORTABLE CHEST CLINICAL INFORMATION: Unresponsive, emesis. Assess for aspiration pneumonia. COMPARISON: Portable chest 03/26/2017, 2 view chest 06/04/2015. TECHNIQUE: Portable upright AP view of the chest was obtained. FINDINGS: Exam is performed with slight lordotic patient positioning. There is subtle coarsening markings bilateral infrahilar regions which could be related to aspiration. The remainder of the lungs are clear. There is no dense airspace consolidation and no effusion. The costophrenic sulci are clear. The heart is normal in size and the hilar and mediastinal contours are normal. Bony structures are stable. IMPRESSION: Subtle coarsening bronchovascular markings bilateral infrahilar regions. This could be related to aspiration. Lungs otherwise clear. No effusion.
--- NOTE | 2017-10-23 08:46 | PN- Resident CRCU ---
Juan Jose Coronado 10/23/17 0842: Subjective HPI/CRCU Issues: Mr Stallworth was in mild distress this am. He was concerned about pain in his right upper extremity, and also had pain on the right side of the chest. No dyspnea. 24 Hour Events: MAXIMUM TEMPERATURE 97.1, respiration 18-20 Pulse rate 79-80, normal sinus rhythm Blood pressure 95-117/69-84 95% oxygen saturation, on 2 L nasal cannula. Total input 1986, output 545 ml. Urine output approximately 30 ml/hr. Objective Vital Signs & I&O Last 8 Hrs of Vitals and I&O: Vital Signs Date Time Temp Pulse Resp B/P B/P Pulse O2 O2 Flow FiO2 Mean Ox Delivery Rate 10/23 0600 81 18 89/75 05/ 0400 97.1 80 18 104/84 05/ 0400 95 Nasal 2.0L Cannula 10/23 0200 80 18 11/69 05/05 0000 96.6 80 20 117/70 05/05 0000 96.6 80 20 102/0 94 Nasal 2.0L Cannula 10/23 0000 94 Nasal 2.0L Cannula 05/ 2200 96.4 08 18 92/0 05/ 2200 96 Nasal 2.0L Cannula 05/ 2126 97.3 84 18 111/73 97 Nasal 2.0L Cannula 05/ 1937 97.3 84 16 112/74 99 Nasal 2.0L Cannula 05/04 1833 97.4 88 16 106/71 98 Nasal 2.0L Cannula 05/04 1729 97.2 85 14 118/78 99 Nasal 2.0L Cannula 05/ 1612 97.2 84 14 123/66 97 Nasal 2.0L Cannula 05/04 1432 70/44 05/04 1348 96 Room Air 05/04 1318 97.1 101 16 97 Room Air Intake & Output /05 1600 05/05 0800 05/05 0000 Intake Total 1792 1999 Output Total 345 Balance 1447 1999 Intake, IV 1792 1999 Output, Urine 345 Patient 161 lb Weight Weight Bed scale Measurement Method Exam General Appearance: mild distress Other Physical Findings: General Exam: AAOx3, No acute distress, Skin: No rashes, ulcer on the chest wall , likey rug injury;HEENT: PERRLA, EOMI;Neck: Supple, No JVD, No cervical lymphadenopathy;CVS: Reg Rate, Normal S1,S2, No MGR; Resp: Normal air entry, no ronchi/rales;Abdomen: Soft, No tenderness, Normal Bowel Sounds, colostomy bag in place.;Neuro: Normal Speech, Strength 5/5 b/l x 4 extremities, Sensation intact, CN III-XII NL, Reflexes 2+;Extremities: No cyanosis, no pedal edema, weakness and tenderness in right upper extremity, paresthesias on the right upper extermity. Biceps, triceps 2+ reflexes. Impression/Plan Impression/Problem List Impression: Mr Cabrales is a 52 year old man w/ a PMHx of polysubstance abuse, benzodiazepine use, Seizures, Asthma, Crohns disease( dx'ed 1988, s/p colon resection w/ colostomy bag ), h/o rectal fistula, cervial spine radiculopathy, anxiety was brought to the hospital with a chief concern of altered mental status, and unresponsiveness on a.m. of 10/22/2017. He was last known to be normal the night prior to presentation to the hospital. Reported recreational use of cocaine the night prior to the admission. He was found to be unresponsive by the patient's family, and was given Narcan. He was found to be covered in dark vomitus at that time, and did not respond to verbal or tactile stimuli. He was found to be lying on the right side, and hit his head on the coffee table. EMS was called after a few hours, and was given another narcan with some response in mentation. As per the pt, he did not have any re- collection of the events, except the going to bed. As per the notes, he was hypotensive at the time of presentatin to the ER, but didnt have any chest pain, dyspnea or palpitations. He was alert and oritented at the time of presentation. Vitals at the time of presentation. temp 97.1, WI 84, BP 70/44 ( improved to 123/66 after fluid resuscitation ), pulse ox 87% on room air. Currently on 2 L supplemental oxygen, SC. Pertinent lab findings- WBC 28.3 (5/)-->29.4 (5/)-->21.4 (5/) Granulocytosis, 93%, band neutrophils 19, left shift. Platelet count 280(5/)-->194(10/22)-->173(10/23) Electrolytes: Sodium 140 Potassium 7.3 (10/22)-->5.6(10/22)--> 6.5 (10/23) -->5.1 (10/23) Chloride 92(10/22)-->96 (10/23) Calcium 8.4 (10/22)-->5.9, Corrected 6.7 (10/23) Albumin 3.0. Phosphorous 7.8(10/22)-->5.5 (10/23) Magnesium 2.7(10/22)-->1.4(10/23) Liver chemistries: AST 338(10/22)-->908(10/23)-->975 (10/23) ? muscle breakdown ALT 165(10/22)-->381(10/22)-->454(10/23) Alk phos 127 Alb 3.0 INR- ordered. Renal funciton: BUN 20(10/22)-->27 (10/23) Sr Cr 3.4 (10/22)-->3.4 (10/23) Glucose 211 Lactic acid: 9.6-->7.1-->5.7-->5.8-->4.6 [place] [address]-->[address]796 Troponin I 1.05-->1.25-->0.85 PH 7.12, PCO2 37, PO2 85, pH 7.29, PCO2 44, PO2 86 Normal osmolal gap. U tox negative for salicylates, opiates 1659, negative for Tylenol, benzodiazepines greater than 800, cocaine greater than 1000, alcohol less than 10. EKG showed mckinnon waves, and non specific repolarization abnormaliites. No STTWI. Cultures: 1. Blood- pending. 2. Respiratory- pending 3. Urine- pending. Imaging: CT ABD & PELVIS W/O IV CONTRAST and CT CHEST WO IV CONTRAST 1. Fluid around the gallbladder and inferior right lobe of liver. This raises question of biliary disease. This can be further assessed with right upper quadrant ultrasound. 2. Status post colostomy. Status post resection of the left colon with placement of a Todd's pouch. No acute change of the bowel. 3. Nonobstructive 2 mm stone in the midpole of left kidney. No hydronephrosis. CT CERV SPINE WO IV CONTRAST; CT HEAD WO IV CONTRAST Head: No acute intracranial hemorrhage. There are multiple foci of the venous gas within the neck and face that were presumably introduced with line placement. Cervical spine: No acute cervical spinal fracture. There chronic changes of an anterior cervical discectomy and fusion at C6-C7. Bridging bone fuses the C5-C7 vertebral segments. US-LIMITED ABDOMEN Gallbladder wall thickening. No gallstones are seen. Trace pericholecystic fluid also present. These findings can be seen in the setting of liver disease, although acalculus cholecystitis is not excluded. There is hepatomegaly with increased hepatic echogenicity and coarse liver echotexture. While this could represent hepatic steatosis, underlying liver disease is also possible. XRY-SHOULDER COMPLETE-RIGHT No fracture. No dislocation. The glenohumeral joint and acromioclavicular joint are normal. No soft tissue calcification. Orthopedic plate and screw at lower cervical spine. XRY-PORTABLE CHEST XRAY Subtle coarsening bronchovascular markings bilateral infrahilar regions. This could be related to aspiration. Lungs otherwise clear. No effusion. Etiology in his case is likely acute cocaine toxicity, likely leading to electrolyte abnormalities, rhabdomyolysis, hypocalcemia, and acute kidney injury. Importantly, BP is currently stable, and doesnt have any tachycardia at this time, but likely had some cocaine induced cardiac ischemia with slightly elevated cardiac enzymes, which trended down. He had anion gap metabolic acidosis, and normal osmolal gap likely from JEAN and cocaine use, which is normalized with NaHCO3 drip. Hyperkalemia is due to rhabdomyolysis and JEAN, which should be aggressively treated w/ glucose+insulin at this time, and given his colostomy, suspect SPSS will be helpful. Other electrolytes such as hypocalcemia ( corrected low ), and hyperphosphatemia is due to his rhabdomyolysis, and would treat with calcium gluconate slowly. Other issues, of elevated AST+ALT and normal Alk phos could be due to acute liver failure, rhabdomyolysis contributing to elevated AST or cocaine induce transaminitis. US abdomen and CT adomen negative for any acute pathology. Other causes such as hepatic steatosis could be contributing. There is no acute GI blood loss at this time, and would attribute this GI bleed to cocaine induced gastritis, and currently on protonix. In regards to leucocytosis, it could be due to aspiration pneumonitis and would continue to treat with unasyn pending cultures. He should be on seizure precautions, since cocaine can cause decrease seizure threshold. Problem list: 1. Cocaine toxicity 2. Rhabdoymyolysis 4. Acute kidney injury 5. Anion gap metabolic acidosis 6. Leucocytosis, Sepsis 7. Lactic acidosis 8. Acute liver injury 9. Upper GI bleed 10. Hypocalcemia 11. Hyperphosphatemia 13. Hyperkalemia 14. h/o Crohns s/p colostomy 15. Right shoulder injury 16. Elevated cardiac enzymes secondary to cocaine use 17. Hypomagnesemia 18. Polysubstance abuse 19. Chronic benzodiazepine use. 20. h/o seizures Plan: 1. Respiratory- Stable at this time. - No e/o consolidation on CT scan - Aspiration pneumonitis in differential. - Continue Unasyn at this time. - Titrate off oxygen as tolerated. 2. Infectious- leukocytosis. - Monitor for any fever, worsening leukocytosis. - Continue antibiotics, pending cultures. - If he is stable, reevaluate the need for antibiotics. 3. Circulatory- elevated cardiac enzymes, hypotension - Cardiac enzymes trended. - Monitor for any chest pain, dyspnea; if worse, get a chest x-ray. - For tachycardia, avoid all beta blockers at this time. - Use nitroglycerin, or calcium channel blockers if needed as per wet end operator. - Monitor for any hypertension - Treat hypotension with fluids. Evaluate the need for central line. - No ASA or anticoagulation at this time. 4. Metabolic-acute kidney injury, rhabdomyolysis, electrolyte abnormalities - Continue to monitor CK every 12 hours, then daily - Check electrolytes, kidney function every 4 hourly, and decreased frequency to every 12 hourly if normal. - Monitor blood glucose levels given acute liver injury, and rhabdomyolysis - Strict ins and outs. - Bicarb drip to be changed to NS at 150ml/hr. 5. Hematology-monitor leukocytosis - Platelet stable at this time. 6. Alimentary-transaminitis, upper GI bleed - Check INR, and monitor for any further bleeding. -Continue Protonix at this time. -GI evaluation. - Avoid antiplatelets, anticoagulants at this time. - Strictly no NSAIDs - If needed, would need Tylenol very conservatively 7. Neurology- pain control, paresthesias in right upper extremity - Ortho evaluation done. - CT of the right arm, if worse. - Benzodiazepines for cocaine use and avoid benzodiazepine withdrawal. #1 DVT prophylaxis- Alps #2 nothing by mouth #3 full-code #1 Central line- none #2 Arterial line- none #3 Larson catheter- present 10/22/17 #4 Rectal tube- none. #5 NG tube- none. #6 IV/peripheral line- present 10/22/17 #7 IV drips- NS @150ml/hr #8 Vent settings none. #9 pressors- none. Evaluate the need for Hemodialysis cath, if electrolytes worsen as per Nephrology. Consults: #1 nephrology-Dr. Glez #2 cardiology-Dr. Loomis #3 gastroenterology-Dr. Hong Problem List: 1. Drug overdose 2. Acute kidney injury 3. Hyperkalemia 4. Demand ischemia of myocardium 5. Elevated troponin 6. Polysubstance overdose 7. Benzodiazepine dependence 8. Leukocytosis Pain Ratin Tomorrow's Labs & Rationales: right upper extremtiy Plan DVT/Prophylaxis: mechanical Bre [facility] [facility] 10/23/17 0911: Objective Current Medications: Current Medications Sig/Leigh Ann Start time Last Medication Dose Route Stop Time Status Admin Acetaminophen 1,000 MG ONCE ONE 10/22 1715 DC 10/22 N/A 1 UNIT IV 10/22 1729 1724 Acetaminophen 0 .STK-MED ONE 10/22 1711 DC IV Ampicillin Sodium/ 1,500 MG Q6H 10/23 0400 AC 10/23 Sulbactam Sodium IV 0313 Sodium Chloride 100 ML Ampicillin Sodium/ 0 .STK-MED ONE 10/22 2043 DC Sulbactam Sodium .ROUTE Ampicillin Sodium/ 1,500 MG Q6 10/22 1957 DC 10/22 Sulbactam Sodium IV 2051 Sodium Chloride 100 ML Calcium Gluconate 1 GM ONCE ONE 10/23 0500 DC 10/23 Sodium Chloride 100 ML IV 10/23 0559 0500 Calcium Gluconate 0 .STK-MED ONE 10/22 1507 DC IV Calcium Gluconate 1 GM ONCE ONE 10/22 1445 DC 10/22 Sodium Chloride 100 ML IV 10/22 1544 1505 Dextrose 25 GM ONCE ONE 10/23 0415 DC 05 IV 10/23 0416 0416 Dextrose 25 GM ONCE ONE 10/22 1445 DC 05/ IV 10/22 1446 1505 Dextrose/Sodium 1,000 ML Q8H 10/23 1999 DC 05 Chloride IV 2032 Dextrose/Water 1,000 ML ONCE ONE 10/22 1445 DC 05/ IV 10/22 2124 1505 Insulin Human Regular 6 UNITS ONCE ONE 10/23 0415 DC 05 IV 10/23 0416 0417 Insulin Human Regular 6 UNITS ONCE ONE 10/22 1445 DC 05 IV 10/22 1446 1505 Levetiracetam 1,500 MG Q12 10/23 1999 AC 10/22 N/A 1 UNIT IV 203 Lorazepam 0 .STK-MED ONE 10/22 2017 DC .ROUTE Lorazepam 1 MG Q6-PRN PRN 10/23 1999 AC 10/23 IV 0301 Meropenem 1 GM ONCE ONE 10/22 1800 DC 10/22 IV 10/22 1801 2051 Morphine Sulfate 1 MG Q6P PRN 10/23 1999 AC 10/23 IV 0650 Naloxone HCl 0.4 MG ONCE ONE 10/22 171 DC 10/22 IV 10/22 1716 1435 Naloxone HCl 0 .STK-MED ONE 10/22 1436 DC .ROUTE Nitroglycerin 0.5 GM Q6 PRN 10/22 2199 AC TOP Ondansetron HCl 0 .STK-MED ONE 10/22 171 DC .ROUTE Ondansetron HCl 4 MG ONCE ONE 10/22 1715 DC 10/22 IV 10/22 1716 1724 Pantoprazole Sodium 40 MG Q5H 10/22 2114 AC 10/23 Sodium Chloride 100 ML IV 030 Pantoprazole Sodium 0 .STK-MED ONE 10/22 202 DC IV Pantoprazole Sodium 40 MG BID 10/23 1999 DC 10/22 IV 203 Sodium Bicarbonate 150 MEQ CONTINOUS INFUSION 10/23 0300 CAN Dextrose/Water 1,000 ML IV 10/23 0759 Sodium Bicarbonate 150 MEQ Q5H 10/23 030 AC 10/23 Dextrose/Water 1,000 ML IV 0452 Sodium Bicarbonate 150 MEQ Q5H 10/22 220 DC Dextrose/Water 1,000 ML IV Sodium Bicarbonate 150 MEQ Q5H 10/22 220 DC Dextrose/Water 1,000 ML IV 10/23 0259 Sodium Bicarbonate 100 MEQ Q6H 10/22 2115 DC Dextrose/Water 1,000 ML IV Sodium Chloride 1,000 ML Q13H 10/22 2345 DC 05/ IV 2353 Sodium Chloride 1,000 ML BOLUS ONE 10/22 2030 DC 05/04 IV 10/22 2128 205 Sodium Chloride 1,000 ML BOLUS ONE 10/22 1830 DC 05/ IV 10/22 202 1902 Sodium Chloride 1,000 ML BOLUS ONE 10/22 1445 DC 05/ IV 10/22 1544 1454 Sodium Chloride 1,000 ML BOLUS ONE 10/22 1345 DC 05/04 IV / 1444 1345 Sodium Polystyrene 60 ML ONCE ONE 10/22 2114 DC Sulfonate PO 10/23 2115 Attending MD Review Statement Attending Sign Off Attending Cosign Statement: I have: examined this patient, reviewed al EMR data, personally reviewd images, discussd w/resident/PA/SCREEDMAN/LABORER, discussed mgmt plan w/terry, discussed mgmt plan w/CM, discussed mgmt plan w/pt, agreed w/resident/PA/SCREEDMAN/LABORER, amended to note. Other Findings: Seen and examined independently Still has pain in the rt arm and in the abg site Skin abarasion pain in the ant chest Awake and appears more comfortable Intake & Output 10/23 1600 10/23 0800 10/23 0000 Intake Total 1792 1999 Output Total 345 Balance 1447 1999 Intake, IV 1792 1999 Output, Urine 345 Patient 161 lb Weight Weight Bed scale Measurement Method Laboratory Tests 10/23 10/23 10/23 10/23 10/23 0825 0825 0620 0500 0230 Blood Gas pH (7.35 - 7.45 PH) 7.29 *L pCO2 (35 - 45 TORR) 44 pO2 (80 - 100 TORR) 86 HCO3 (21 - 28 MEQ/L) 20 L ABG O2 Sat (Measured) (>96.0 %) 95.0 L Carboxyhemoglobin (1.5 - 5.0 %) 0.4 L O2 Concentration % 2L O2 Delivery Method NC Chemistry Sodium Pending Potassium Pending Chloride Pending Carbon Dioxide Pending Anion Gap Pending BUN Pending Creatinine Pending Glucose Pending Lactic Acid (0.7 - 2.1 mmol/L) Pending 5.8 H 5.7 H Calcium Pending Phosphorus Pending Magnesium Pending Total Bilirubin Pending AST Pending ALT Pending Creatine Kinase Pending Albumin Pending Hematology CBC w Diff Pending WBC Pending RBC Pending Hgb Pending Hct Pending MCV Pending MCH Pending MCHC Pending RDW Pending Plt Count Pending MPV Pending Miscellaneous Phlebotomy Draw Site LEFT RADIAL 10/23 10/23 0230 0030 Chemistry Sodium (137 - 145 mmol/L) 136 L Potassium (3.5 - 5.1 mmol/L) 6.5 *H Chloride (98 - 107 mmol/L) 99 Carbon Dioxide (22 - 30 mmol/L) 19 L Anion Gap (5 - 16) 19 H BUN (9 - 20 mg/dL) 25 H Creatinine (0.7 - 1.2 mg/dL) 3.1 H Estimated GFR (>60 ml/min) 21 L Glucose (65 - 99 mg/dL) 251 H Lactic Acid (0.7 - 2.1 mmol/L) 7.1 H Calcium (8.4 - 10.2 mg/dL) 5.7 *L Phosphorus (2.5 - 4.5 mg/dL) 7.8 H Magnesium (1.6 - 2.3 mg/dL) 1.5 L Total Bilirubin (0.2 - 1.3 mg/dL) 0.5 AST (17 - 59 U/L) 908 H ALT (21 - 72 U/L) 381 H Troponin I (<0.11 ng/ml) 0.85 *H Albumin (3.5 - 5.0 g/dL) 3.2 L Hematology CBC w Diff MAN DIFF ORDERED WBC (4.8 - 10.8 /CUMM) 29.4 H RBC (4.70 - 6.10 /CUMM) 6.38 H Hgb (14.0 - 18.0 G/DL) 17.2 Hct (42 - 52 %) 53.7 H MCV (80.0 - 94.0 FL) 84.2 MCH (27.0 - 31.0 PG) 27.0 MCHC (33.0 - 37.0 G/DL) 32.1 L RDW (11.5 - 14.5 %) 15.4 H Plt Count (130 - 400 /CUMM) 194 MPV (7.4 - 10.4 FL) 8.8 Gran % (42.2 - 75.2 %) 94.1 H Lymphocytes % (20.5 - 51.1 %) 2.3 L Monocytes % (1.7 - 9.3 %) 3.6 Eosinophils % (0 - 5 %) 0 Basophils % (0.0 - 2.0 %) 0 Absolute Granulocytes (1.4 - 6.5 /CUMM) 27.6 H Segmented Neutrophils (42.2 - 75.2 %) 85 H Band Neutrophils (0.0 - 5.0 %) 12 H Absolute Lymphocytes (1.2 - 3.4 /CUMM) 0.7 L Lymphocytes (20.5 - 51.1 %) 2 L Monocytes (1.7 - 9.3 %) 1 L Absolute Monocytes (0.10 - 0.60 /CUMM) 1.1 H Eosinophils (0 - 5.0 %) 0 Absolute Eosinophils (0.0 - 0.7 /CUMM) 0 Absolute Basophils (0.0 - 0.2 /CUMM) 0 Platelet Estimate (ADEQUATE) ADEQUATE Normochromic RBCs VERIFIED Poikilocytosis 1+ 10/22 10/22 10/22 10/22 2245 5 2025 2025 Blood Gas pH (7.35 - 7.45 PH) 7.12 *L pCO2 (35 - 45 TORR) 37 pO2 (80 - 100 TORR) 85 HCO3 (21 - 28 MEQ/L) 12 L ABG O2 Sat (Measured) (>96.0 %) 94.0 L P-50 (Temp Corrected) Y Carboxyhemoglobin (1.5 - 5.0 %) 0.7 L O2 Concentration % 2L Temperature (97.0 - 100.0 FARH) 96.4 L O2 Delivery Method NC Chemistry Sodium (137 - 145 mmol/L) 139 Potassium (3.5 - 5.1 mmol/L) 5.6 H Chloride (98 - 107 mmol/L) 97 L Carbon Dioxide (22 - 30 mmol/L) 15 L Anion Gap (5 - 16) 27 H BUN (9 - 20 mg/dL) 21 H Creatinine (0.7 - 1.2 mg/dL) 3.4 H Estimated GFR (>60 ml/min) 19 L BUN/Creatinine Ratio (7 - 25 %) 6.2 L Lactic Acid (0.7 - 2.1 mmol/L) Cancelled 9.6 H Creatine Kinase (55 - 170 U/L) > 40171 H Troponin I (<0.11 ng/ml) 1.25 *H Miscellaneous Phlebotomy Draw Site RIGHT RADIAL 10/22 1400 Chemistry Creatine Kinase Cancelled Urines Urinalysis LIGHT H Urine Color (YEL,AMB,STR) YEL Urine Clarity (CLEAR) HAZY H Urine pH (5.0 - 8.0) 6.0 Ur Specific [place] (1.001 - 1.035) >= 1.030 Urine Protein (NEG,<30 MG/DL) 30 H Urine Ketones (NEG) NEG Urine Nitrite (NEG) NEG Urine Bilirubin (NEG) NEG Urine Urobilinogen (0.1 - 1.0 EU/dl) 0.2 Ur Leukocyte Esterase (NEG) NEG Ur Microscopic SEDIMENT EXAMINED Urine RBC (0 - 5 /HPF) 1-3 Urine WBC (0 - 2 /HPF) 1-3 H Ur Epithelial Cells (NONE,FEW) FEW Urine Bacteria (NEG/NONE) RARE H Hyaline Casts (0/LPF) RARE H Granular Casts (NONE /LPF) RARE H Urine Mucus (FEW,NONE) MANY H Urine Hemoglobin (NEG) MOD H Urine Glucose (N MG/DL) NEG 10/22 10/22 1400 1344 Chemistry Sodium (137 - 145 mmol/L) 140 Potassium (3.5 - 5.1 mmol/L) 7.3 *H Chloride (98 - 107 mmol/L) 92 L Carbon Dioxide (22 - 30 mmol/L) 18 L Anion Gap (5 - 16) 30 H BUN (9 - 20 mg/dL) 20 Creatinine (0.7 - 1.2 mg/dL) 3.4 H Estimated GFR (>60 ml/min) 19 L BUN/Creatinine Ratio (7 - 25 %) 5.9 L Glucose (65 - 99 mg/dL) 211 H Serum Osmolality (285 - 295 MOSM/KG) 303 H Calcium (8.4 - 10.2 mg/dL) 8.4 Magnesium (1.6 - 2.3 mg/dL) 2.7 H Total Bilirubin (0.2 - 1.3 mg/dL) 0.7 AST (17 - 59 U/L) 338 H ALT (21 - 72 U/L) 165 H Alkaline Phosphatase (< 127 U/L) 127 H Creatine Kinase (55 - 170 U/L) 58675 H Troponin I (<0.11 ng/ml) 1.05 *H Total Protein (6.3 - 8.2 g/dL) 8.2 Albumin (3.5 - 5.0 g/dL) 5.1 H Globulin (1.9 - 4.2 gm/dL) 3.1 Albumin/Globulin Ratio (1.1 - 2.2 %) 1.6 Hematology CBC w Diff MAN DIFF ORDERED WBC (4.8 - 10.8 /CUMM) 28.3 H RBC (4.70 - 6.10 /CUMM) 5.88 Hgb (14.0 - 18.0 G/DL) 16.3 Hct (42 - 52 %) 50.6 MCV (80.0 - 94.0 FL) 86.1 MCH (27.0 - 31.0 PG) 27.7 MCHC (33.0 - 37.0 G/DL) 32.2 L RDW (11.5 - 14.5 %) 15.3 H Plt Count (130 - 400 /CUMM) 280 MPV (7.4 - 10.4 FL) 7.9 Gran % (42.2 - 75.2 %) 93.4 H Lymphocytes % (20.5 - 51.1 %) 2.7 L Monocytes % (1.7 - 9.3 %) 3.7 Eosinophils % (0 - 5 %) 0.1 Basophils % (0.0 - 2.0 %) 0.1 Absolute Granulocytes (1.4 - 6.5 /CUMM) 26.5 H Segmented Neutrophils (42.2 - 75.2 %) 68 Band Neutrophils (0.0 - 5.0 %) 19 H Absolute Lymphocytes (1.2 - 3.4 /CUMM) 0.8 L Lymphocytes (20.5 - 51.1 %) 2 L Monocytes (1.7 - 9.3 %) 9 Absolute Monocytes (0.10 - 0.60 /CUMM) 1.1 H Absolute Eosinophils (0.0 - 0.7 /CUMM) 0 Absolute Basophils (0.0 - 0.2 /CUMM) 0 Metamyelocytes (0.0 - 1.0 %) 2 H Normocytic RBCs VERIFIED Normochromic RBCs VERIFIED Toxicology Salicylates (0 - 20.0 mg/dL) < 1.0 Urine Opiates Screen (>2000 NG/ML) 1659.00 Methadone Screen (>300 NG/ML) 68 Acetaminophen (10.0 - 30.0 ug/mL) < 10.0 L Barbiturate Screen (>200 NG/ML) 88 Ur Phencyclidine Scrn (>25 NG/ML) < 6.00 Amphetamines Screen (>1000 NG/ML) 149 U Benzodiazepines Scrn (>200 NG/ML) > 800 H Urine Cocaine Screen (>300 NG/ML) > 1000 H Urine Cannabis Screen (>50 NG/ML) 7.70 Serum Alcohol (<10 MG/DL) < 10.0 Urines Urine Osmolality (300 - 1000 MOSM/KG) 832 Ur Random Creatinine (mg/dL) 399.8 Ur Random Sodium (30 - 90 mmol/L) 15 L Ur Random Potassium (mmol/L) 135.2 Fraction Sodium Excret (<1% %) 0.1 Microbiology Date/Time Procedure - Status Source Growth 10/23 023 Urine Culture - RECD URINE ROUT 10/22 2229 Surveillance Culture - RECD UPPER RESP 10/22 2229 Surveillance Culture - RECD GI 10/22 2025 Blood Culture - RECD BLOOD 10/22 2002 Urine Culture - CAN URINE ROUT Cancelled: Cancelled via OE: PT NOW HAS LARSON 10/22 184 Blood Culture - RECD BLOOD 10/22 1818 Urine Culture - CAN URINE ROUT Cancelled: Cancelled via OE: PT NOW HAS LARSON 10/22 1818 Respiratory Culture - COLB LOWER RESP 10/22 1818 Gram Stain - COLB LOWER RESP General Appearance: alert, awake Head: atraumatic, normal appearance Eyes: Bilateral: normal appearance, PERRL, EOMI. Ears, Nose, Throat: hearing grossly normal Neck: posterior cervical tenderness without deformity Respiratory: normal breath sounds, no respiratory distress, lungs clear, abrasion to left chest Cardiovascular: regular rate/rhythm Gastrointestinal: normal bowel sounds, soft, non-tender, no organomegaly, colostomy bag present Back: normal inspection, normal range of motion Extremities: tenderness to right shoulder with limited ROM no sig evidence of necrotizing fascitis Neurologic/Psych: awake, alert, oriented x 3 IMPRESSION Patient is a 52-year-old male with history of seizure disorder, polysubstance abuse, asthma, crohn's disease s/p colostomy, arthritis and anxiety presents to the ER with decreased mental status with drug overdose with multiple substances, (prob unintentional) issues Resolving Sig met acidosis with muliple organ failure and dysfunction Cocaine and benzo od Rhabdo sig no evidence of necrotizing fascitis, but pt has rt arm pain Acute renal failiure with hyperkalemia with mild improvement renal to see Acute TX due to cocaine and rule out acs, prob cocaine induced heart injury vs mi, with lateral wall changes in the ekg Sig UGI bleed with vomiting with coffeeground yesterday with no drop in crit needs to be monitored REsolving Hig anion gap acidosis due to lactic acidosis FLuid around the gb with altered lft needs ultrasound and no clinical evidence of harshal PRevious colon resection / colostosy S/p fall and injury to the rt upper ext rule out soft tissue and bony injury Previous c spine surg with djd REC IVF to continue with FAD Follow sugar and rx hyperglycemia/hypoglycemia Watch ekg Iv ppi drip Larson to cont Cardio/renal and gi eval now Benzo with iv lorazepam for tachy and benzo withdrawal and rx of cocaine toxicity Ortho to see to eval rt upper arm injury and if worse ct of the rt upper arm Ok with abx Ok with nitro No beta or alpha blockers Follow lft Prog guarded Discussed with the patient's mother yesterday Pt critically ill tts 36
[2017-10-23 09:37] LABS: ABSOLUTE BASOPHIL COUNT 0 /CUMM (0.0-0.2); ABSOLUTE EOSINOPHIL COUNT 0 /CUMM (0.0-0.7); ABSOLUTE GRANULOCYTE CT 19.9 /CUMM (1.4-6.5); ABSOLUTE LYMPH COUNT 0.6 /CUMM (1.2-3.4); ABSOLUTE MONOCYTE COUNT 0.9 /CUMM (0.10-0.60); BASOPHIL % 0 % (0.0-2.0); EOSINOPHIL % 0 % (0-5); GRANULOCYTE % 93.1 % (42.2-75.2); HEMATOCRIT 52.6 % (42-52); MEAN CORPUSCULAR HGB CONC 31.9 G/DL (33.0-37.0); MEAN CORPUSCULAR VOLUME 84.6 FL (80.0-94.0); PLATELET COUNT 173 /CUMM (130-400); RBC DISTRIBUTION WIDTH 15.3 % (11.5-14.5); RED BLOOD CELL CT 6.21 /CUMM (4.70-6.10); WHITE BLOOD CELL COUNT 21.4 /CUMM (4.8-10.8)
--- NOTE | 2017-10-23 10:45 | Cons- Nephrology ---
General Information and HPI Consulting Request Date of Consult: 10/23/17 Requested By: Fredy Pérez MD Reason for Consult: jean History of Present Illness: 52 yo male with historyof substance abuse, asthma, Chron's disease (s/p colonic resection), seizure disorder. Mother found him unresponsive yesterday AM. He admits to using cocaine the night before. When he came to the ED his creatinine was 3.4, had normal creatiine in 2017. He was mildley acidotic, intial potassium of 7.3. He has refused kayexalte, was given insulin and glucose. [place] [id number]. He was making about 50 cc of urine per hour but this has decreased. He was intially hypotensive but now has normal bp not on any pressors. Tox screen positive for cocaine and benzodiazepines. FH: negative for kidney disease SH: no cigarette smoking, occassional EtOH. Allergies/Medications Allergies: Coded Allergies: adalimumab (Severe, ANAPHYLAXIS 03/02/16) shellfish derived (Severe, SOB, SWELLING 03/02/16) venom-honey bee (BEE VENOM (HONEY BEE)) (Severe, SWELLING 03/02/16) Iodinated Contrast- Oral and IV Dye (IODINATED CONTRAST MEDIA - IV DYE) (UNKNOWN PER PT 03/02/16) infliximab (BLOTCHES, HIVES, DYSPNEA 03/02/16) Home Med List: Albuterol Sulfate 2.5 MG/3 ML (0.083 %) VIAL.NEB 1 Vial INH/ASHLEY AD PRN ASTHMA (Reported) Alprazolam 0.5 MG TABLET 1 TAB PO 4 TIMES/DAY ANXIETY (Reported) Escitalopram Oxalate 10 MG TABLET 1 TAB PO DAILY MENTAL HEALTH (Reported) Ipratropium/Albuterol Sulfate (Combivent Respimat Inhal [place]) 20 MCG-100 MCG/ ACTUATION MIST.INHAL 1 PUFF INH PRN ASTHMA (Reported) Levetiracetam (Keppra) 750 MG TABLET 2 TAB PO BID SEIZURES (Reported) Multivitamin (Daily Multiple Vitamin) 1 EACH TABLET 1 TAB PO DAILY VITAMIN SUPPORT (Reported) Zolpidem Tartrate 10 MG TABLET 1 TAB PO QPMP SLEEP (Reported) Review of Systems Review of Systems: Negative except as noted above. 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 FATHER, ; Cause: MVA (motor vehicle accident). Psychosocial History Services at Home: None Smoking Status: Former Smoker ETOH Use: 6 Functional Ability ADLs Independent: dressing, eating, toileting, bathing. Ambulation: independent Exam & Diagnostic Data Vital Signs and I&O Vital Signs Date Time Temp Pulse Resp B/P B/P Pulse O2 O2 Flow FiO2 Mean Ox Delivery Rate 10/23 0600 81 18 89/75 05/ 0400 97.1 80 18 104/84 10/23 0400 95 Nasal 2.0L Cannula 10/23 0200 80 18 11/69 05/05 0000 96.6 80 20 117/70 0505 0000 96.6 80 20 102/0 94 Nasal 2.0L Cannula 10/23 0000 94 Nasal 2.0L Cannula 10/22 2200 96.4 08 18 92/0 05/ 2200 96 Nasal 2.0L Cannula / 2126 97.3 84 18 111/73 97 Nasal 2.0L Cannula 05/ 1937 97.3 84 16 112/74 99 Nasal 2.0L Cannula 05/ 1833 97.4 88 16 106/71 98 Nasal 2.0L Cannula 05/ 1729 97.2 85 14 118/78 99 Nasal 2.0L Cannula / 1612 97.2 84 14 123/66 97 Nasal 2.0L Cannula 05/04 1432 70/44 05/04 1348 96 Room Air 05/04 1318 97.1 101 16 97 Room Air Intake & Output 10/23 1600 05/05 0400 05/04 1600 05/ 0400 / 1600 05/ 0400 Intake Total 1792 1999 Output Total 345 Balance 1447 1999 Intake, IV 1792 1999 Output, Urine 345 Patient 161 lb Weight Weight Bed scale Measurement Method Physical Exam: Awake, NAD VS as above Eyes: anicteric, PERRLA. Neck: no mass or thryomegaly Nodes: negative cervical/inguinal Skin: no rash or induration CV: no rub/ murmur Abd: ileostomy with watery stools, nontender Exts: no edema, decreased pedal pulses Neuro: A&O, CN intact, no asterixis. Results Pertinent Lab Results: Laboratory Tests 10/23 10/23 10/23 0825 0825 0620 Blood Gas pH (7.35 - 7.45 PH) 7.29 *L pCO2 (35 - 45 TORR) 44 pO2 (80 - 100 TORR) 86 HCO3 (21 - 28 MEQ/L) 20 L ABG O2 Sat (Measured) (>96.0 %) 95.0 L Carboxyhemoglobin (1.5 - 5.0 %) 0.4 L O2 Concentration % 2L O2 Delivery Method NC Chemistry Sodium (137 - 145 mmol/L) 137 Potassium (3.5 - 5.1 mmol/L) 5.1 Chloride (98 - 107 mmol/L) 96 L Carbon Dioxide (22 - 30 mmol/L) 25 Anion Gap (5 - 16) 15 BUN (9 - 20 mg/dL) 27 H Creatinine (0.7 - 1.2 mg/dL) 3.4 H Estimated GFR (>60 ml/min) 19 L Glucose (65 - 99 mg/dL) 169 H Lactic Acid (0.7 - 2.1 mmol/L) 4.6 H Calcium (8.4 - 10.2 mg/dL) 5.9 *L Phosphorus (2.5 - 4.5 mg/dL) 5.5 H Magnesium (1.6 - 2.3 mg/dL) 1.4 L Total Bilirubin (0.2 - 1.3 mg/dL) 0.6 AST (17 - 59 U/L) 975 H ALT (21 - 72 U/L) 454 H Creatine Kinase (55 - 170 U/L) Pending Albumin (3.5 - 5.0 g/dL) 3.0 L Hematology CBC w Diff MAN DIFF ORDERED WBC (4.8 - 10.8 /CUMM) 21.4 H RBC (4.70 - 6.10 /CUMM) 6.21 H Hgb (14.0 - 18.0 G/DL) 16.7 Hct (42 - 52 %) 52.6 H MCV (80.0 - 94.0 FL) 84.6 MCH (27.0 - 31.0 PG) 27.0 MCHC (33.0 - 37.0 G/DL) 31.9 L RDW (11.5 - 14.5 %) 15.3 H Plt Count (130 - 400 /CUMM) 173 MPV (7.4 - 10.4 FL) 9.0 Gran % (42.2 - 75.2 %) 93.1 H Lymphocytes % (20.5 - 51.1 %) 2.8 L Monocytes % (1.7 - 9.3 %) 4.1 Eosinophils % (0 - 5 %) 0 Basophils % (0.0 - 2.0 %) 0 Absolute Granulocytes (1.4 - 6.5 /CUMM) 19.9 H Segmented Neutrophils (42.2 - 75.2 %) 79 H Band Neutrophils (0.0 - 5.0 %) 14 H Absolute Lymphocytes (1.2 - 3.4 /CUMM) 0.6 L Lymphocytes (20.5 - 51.1 %) 6 L Monocytes (1.7 - 9.3 %) 1 L Absolute Monocytes (0.10 - 0.60 /CUMM) 0.9 H Absolute Eosinophils (0.0 - 0.7 /CUMM) 0 Absolute Basophils (0.0 - 0.2 /CUMM) 0 Platelet Estimate (ADEQUATE) ADEQUATE Normocytic RBCs VERIFIED Normochromic RBCs VERIFIED Miscellaneous Phlebotomy Draw Site LEFT RADIAL 10/23 10/23 10/23 0500 0230 0230 Chemistry Sodium (137 - 145 mmol/L) 136 L Potassium (3.5 - 5.1 mmol/L) 6.5 *H Chloride (98 - 107 mmol/L) 99 Carbon Dioxide (22 - 30 mmol/L) 19 L Anion Gap (5 - 16) 19 H BUN (9 - 20 mg/dL) 25 H Creatinine (0.7 - 1.2 mg/dL) 3.1 H Estimated GFR (>60 ml/min) 21 L Glucose (65 - 99 mg/dL) 251 H Lactic Acid (0.7 - 2.1 mmol/L) 5.8 H 5.7 H Calcium (8.4 - 10.2 mg/dL) 5.7 *L Phosphorus (2.5 - 4.5 mg/dL) 7.8 H Magnesium (1.6 - 2.3 mg/dL) 1.5 L Total Bilirubin (0.2 - 1.3 mg/dL) 0.5 AST (17 - 59 U/L) 908 H ALT (21 - 72 U/L) 381 H Troponin I (<0.11 ng/ml) 0.85 *H Albumin (3.5 - 5.0 g/dL) 3.2 L Hematology CBC w Diff MAN DIFF ORDERED WBC (4.8 - 10.8 /CUMM) 29.4 H RBC (4.70 - 6.10 /CUMM) 6.38 H Hgb (14.0 - 18.0 G/DL) 17.2 Hct (42 - 52 %) 53.7 H MCV (80.0 - 94.0 FL) 84.2 MCH (27.0 - 31.0 PG) 27.0 MCHC (33.0 - 37.0 G/DL) 32.1 L RDW (11.5 - 14.5 %) 15.4 H Plt Count (130 - 400 /CUMM) 194 MPV (7.4 - 10.4 FL) 8.8 Gran % (42.2 - 75.2 %) 94.1 H Lymphocytes % (20.5 - 51.1 %) 2.3 L Monocytes % (1.7 - 9.3 %) 3.6 Eosinophils % (0 - 5 %) 0 Basophils % (0.0 - 2.0 %) 0 Absolute Granulocytes (1.4 - 6.5 /CUMM) 27.6 H Segmented Neutrophils (42.2 - 75.2 %) 85 H Band Neutrophils (0.0 - 5.0 %) 12 H Absolute Lymphocytes (1.2 - 3.4 /CUMM) 0.7 L Lymphocytes (20.5 - 51.1 %) 2 L Monocytes (1.7 - 9.3 %) 1 L Absolute Monocytes (0.10 - 0.60 /CUMM) 1.1 H Eosinophils (0 - 5.0 %) 0 Absolute Eosinophils (0.0 - 0.7 /CUMM) 0 Absolute Basophils (0.0 - 0.2 /CUMM) 0 Platelet Estimate (ADEQUATE) ADEQUATE Normochromic RBCs VERIFIED Poikilocytosis 1+ 10/23 10/22 10/22 10/22 0030 9024 8932 2025 Blood Gas pH (7.35 - 7.45 PH) 7.12 *L pCO2 (35 - 45 TORR) 37 pO2 (80 - 100 TORR) 85 HCO3 (21 - 28 MEQ/L) 12 L ABG O2 Sat (Measured) (>96.0 %) 94.0 L P-50 (Temp Corrected) Y Carboxyhemoglobin (1.5 - 5.0 %) 0.7 L O2 Concentration % 2L Temperature (97.0 - 100.0 FARH) 96.4 L O2 Delivery Method NC Chemistry Lactic Acid (0.7 - 2.1 mmol/L) 7.1 H Cancelled 9.6 H Miscellaneous Phlebotomy Draw Site RIGHT RADIAL 10/22 Chemistry Sodium (137 - 145 mmol/L) 139 Potassium (3.5 - 5.1 mmol/L) 5.6 H Chloride (98 - 107 mmol/L) 97 L Carbon Dioxide (22 - 30 mmol/L) 15 L Anion Gap (5 - 16) 27 H BUN (9 - 20 mg/dL) 21 H Creatinine (0.7 - 1.2 mg/dL) 3.4 H Estimated GFR (>60 ml/min) 19 L BUN/Creatinine Ratio (7 - 25 %) 6.2 L Creatine Kinase (55 - 170 U/L) > 98024 H Cancelled Troponin I (<0.11 ng/ml) 1.25 *H 10/22 10/22 1400 1400 Toxicology Urine Opiates Screen (>2000 NG/ML) 1659.00 Methadone Screen (>300 NG/ML) 68 Barbiturate Screen (>200 NG/ML) 88 Ur Phencyclidine Scrn (>25 NG/ML) < 6.00 Amphetamines Screen (>1000 NG/ML) 149 U Benzodiazepines Scrn (>200 NG/ML) > 800 H Urine Cocaine Screen (>300 NG/ML) > 1000 H Urine Cannabis Screen (>50 NG/ML) 7.70 Urines Urinalysis LIGHT H Urine Color (YEL,AMB,STR) YEL Urine Clarity (CLEAR) HAZY H Urine pH (5.0 - 8.0) 6.0 Ur Specific [place] (1.001 - 1.035) >= 1.030 Urine Protein (NEG,<30 MG/DL) 30 H Urine Ketones (NEG) NEG Urine Nitrite (NEG) NEG Urine Bilirubin (NEG) NEG Urine Urobilinogen (0.1 - 1.0 EU/dl) 0.2 Ur Leukocyte Esterase (NEG) NEG Ur Microscopic SEDIMENT EXAMINED Urine RBC (0 - 5 /HPF) 1-3 Urine WBC (0 - 2 /HPF) 1-3 H Ur Epithelial Cells (NONE,FEW) FEW Urine Bacteria (NEG/NONE) RARE H Hyaline Casts (0/LPF) RARE H Granular Casts (NONE /LPF) RARE H Urine Mucus (FEW,NONE) MANY H Urine Hemoglobin (NEG) MOD H Urine Osmolality (300 - 1000 MOSM/KG) 832 Ur Random Creatinine (mg/dL) 399.8 Ur Random Sodium (30 - 90 mmol/L) 15 L Ur Random Potassium (mmol/L) 135.2 Fraction Sodium Excret (<1% %) 0.1 Urine Glucose (N MG/DL) NEG 10/22 1344 Chemistry Sodium (137 - 145 mmol/L) 140 Potassium (3.5 - 5.1 mmol/L) 7.3 *H Chloride (98 - 107 mmol/L) 92 L Carbon Dioxide (22 - 30 mmol/L) 18 L Anion Gap (5 - 16) 30 H BUN (9 - 20 mg/dL) 20 Creatinine (0.7 - 1.2 mg/dL) 3.4 H Estimated GFR (>60 ml/min) 19 L BUN/Creatinine Ratio (7 - 25 %) 5.9 L Glucose (65 - 99 mg/dL) 211 H Serum Osmolality (285 - 295 MOSM/KG) 303 H Calcium (8.4 - 10.2 mg/dL) 8.4 Magnesium (1.6 - 2.3 mg/dL) 2.7 H Total Bilirubin (0.2 - 1.3 mg/dL) 0.7 AST (17 - 59 U/L) 338 H ALT (21 - 72 U/L) 165 H Alkaline Phosphatase (< 127 U/L) 127 H Creatine Kinase (55 - 170 U/L) 69433 H Troponin I (<0.11 ng/ml) 1.05 *H Total Protein (6.3 - 8.2 g/dL) 8.2 Albumin (3.5 - 5.0 g/dL) 5.1 H Globulin (1.9 - 4.2 gm/dL) 3.1 Albumin/Globulin Ratio (1.1 - 2.2 %) 1.6 Hematology CBC w Diff MAN DIFF ORDERED WBC (4.8 - 10.8 /CUMM) 28.3 H RBC (4.70 - 6.10 /CUMM) 5.88 Hgb (14.0 - 18.0 G/DL) 16.3 Hct (42 - 52 %) 50.6 MCV (80.0 - 94.0 FL) 86.1 MCH (27.0 - 31.0 PG) 27.7 MCHC (33.0 - 37.0 G/DL) 32.2 L RDW (11.5 - 14.5 %) 15.3 H Plt Count (130 - 400 /CUMM) 280 MPV (7.4 - 10.4 FL) 7.9 Gran % (42.2 - 75.2 %) 93.4 H Lymphocytes % (20.5 - 51.1 %) 2.7 L Monocytes % (1.7 - 9.3 %) 3.7 Eosinophils % (0 - 5 %) 0.1 Basophils % (0.0 - 2.0 %) 0.1 Absolute Granulocytes (1.4 - 6.5 /CUMM) 26.5 H Segmented Neutrophils (42.2 - 75.2 %) 68 Band Neutrophils (0.0 - 5.0 %) 19 H Absolute Lymphocytes (1.2 - 3.4 /CUMM) 0.8 L Lymphocytes (20.5 - 51.1 %) 2 L Monocytes (1.7 - 9.3 %) 9 Absolute Monocytes (0.10 - 0.60 /CUMM) 1.1 H Absolute Eosinophils (0.0 - 0.7 /CUMM) 0 Absolute Basophils (0.0 - 0.2 /CUMM) 0 Metamyelocytes (0.0 - 1.0 %) 2 H Normocytic RBCs VERIFIED Normochromic RBCs VERIFIED Toxicology Salicylates (0 - 20.0 mg/dL) < 1.0 Acetaminophen (10.0 - 30.0 ug/mL) < 10.0 L Serum Alcohol (<10 MG/DL) < 10.0 Imaging/Other Studies: CT of abdomen with normal kidneys Assessment/Plan Assessment/Recommendations Assessment: JEAN from [place], cocaine use. Unclear exactly how long patient was unresponsive as already had signficant renal failure on presentation. He has amild anion gap and lactic acidosis at present. Serum bicarb normalized with drip. Potassium currently acceptable but part of this may be due to shift with insulin /glucose. Not clear how effective kayexalate would be as patient does not have colon. Currenly not volume overloaded. Recommendations: Would d/c IV bicarb for now, give another liter NS fluid bolus and place back on NS at 200 cc/hr. Repeat labs in 4 hours. If calcium continues to drop may need some IV replacement, would give an amp of calcium gluconate (10 cc of 10% solution)over one hour. Run in slowly as don't wish acute spike in calcium given hyperphophatemia. Repleating magnesium may help raise calcium as well. Discussed with patient that he may need dialysis if potassium worsens, gets fluid overloaded or other severe electrolyte disorders. He is agreeable if necessary. Please rehcheck labs every 4 hours for now so we can trend potassium /bicarb/calciuim.
--- NOTE | 2017-10-23 12:47 | Cons- Cardiology ---
General Information and HPI Consulting Request Date of Consult: 10/23/17 Requested By: Fredy Pérez MD Reason for Consult: positive troponins and EKG changes History of Present Illness: Very pleasant 52 year old gentleman, who consumed cocaine and opiates 2 nights ago and was found unconscious on his bed by his mother in the morning, who had seen him in his usual state the previous eveing. Patient also had coffee ground appearing blood at the nostrils. He was taken to the ED, where he was found to have CPK 36881, metabolic acidosis with lactatemia, acute kidney injury and positive troponins. Patient has been hydrated aggressively and has recovered consciousness after receiving narcan. He mostly complains of pain in the right arm and left sternal border, where he has what appears to be a friction rash. He denies chest pains otherwise, denies palpitations at the moment, denies SOB. Patient has not experienced chest pains in the past, functional capacity is normal for age. There is no history of bleeding, hematochezia, hematemesis. He does have a long standing history of polysubstance abuse. Allergies/Medications Allergies: Coded Allergies: adalimumab (Severe, ANAPHYLAXIS 03/02/16) shellfish derived (Severe, SOB, SWELLING 03/02/16) venom-honey bee (BEE VENOM (HONEY BEE)) (Severe, SWELLING 03/02/16) Iodinated Contrast- Oral and IV Dye (IODINATED CONTRAST MEDIA - IV DYE) (UNKNOWN PER PT 03/02/16) infliximab (BLOTCHES, HIVES, DYSPNEA 03/02/16) Home Med List: Albuterol Sulfate 2.5 MG/3 ML (0.083 %) VIAL.NEB 1 Vial INH/ASHLEY AD PRN ASTHMA (Reported) Alprazolam 0.5 MG TABLET 1 TAB PO 4 TIMES/DAY ANXIETY (Reported) Escitalopram Oxalate 10 MG TABLET 1 TAB PO DAILY MENTAL HEALTH (Reported) Ipratropium/Albuterol Sulfate (Combivent Respimat Inhal [place]) 20 MCG-100 MCG/ ACTUATION MIST.INHAL 1 PUFF INH PRN ASTHMA (Reported) Levetiracetam (Keppra) 750 MG TABLET 2 TAB PO BID SEIZURES (Reported) Multivitamin (Daily Multiple Vitamin) 1 EACH TABLET 1 TAB PO DAILY VITAMIN SUPPORT (Reported) Zolpidem Tartrate 10 MG TABLET 1 TAB PO QPMP SLEEP (Reported) Current Medications: Current Medications Sig/Leigh Ann Start time Last Medication Dose Route Stop Time Status Admin Acetaminophen 1,000 MG ONCE ONE 10/22 1715 DC 10/22 N/A 1 UNIT IV 10/22 1729 1724 Acetaminophen 0 .STK-MED ONE 10/22 1711 DC IV Ampicillin Sodium/ 1,500 MG Q6H 10/23 0400 AC 10/23 Sulbactam Sodium IV 0954 Sodium Chloride 100 ML Ampicillin Sodium/ 0 .STK-MED ONE 10/22 2043 DC Sulbactam Sodium .ROUTE Ampicillin Sodium/ 1,500 MG Q6 10/22 1957 DC 10/22 Sulbactam Sodium IV 205 Sodium Chloride 100 ML Calcium Gluconate 1 GM ONCE ONE 10/23 0500 DC 10/23 Sodium Chloride 100 ML IV 10/23 0559 0500 Calcium Gluconate 0 .STK-MED ONE 10/22 1507 DC IV Calcium Gluconate 1 GM ONCE ONE 10/22 1445 DC 10/22 Sodium Chloride 100 ML IV 10/22 1544 1505 Dextrose 25 GM ONCE ONE 10/23 0415 DC 05 IV 05 0416 0416 Dextrose 25 GM ONCE ONE 10/22 1445 DC 05/ IV 05/ 1446 1505 Dextrose/Sodium 1,000 ML Q8H 10/23 1999 DC 05 Chloride IV 2032 Dextrose/Water 1,000 ML ONCE ONE 10/22 1445 DC 05/ IV 05/ 2124 1505 Insulin Human Regular 6 UNITS ONCE ONE 10/23 0415 DC 05 IV 05 0416 0417 Insulin Human Regular 6 UNITS ONCE ONE 10/22 1445 DC 05/ IV 05/ 1446 1505 Levetiracetam 1,500 MG Q12 10/23 1999 AC 10/23 N/A 1 UNIT IV 0954 Lorazepam 0 .STK-MED ONE 10/22 2017 DC .ROUTE Lorazepam 1 MG Q6-PRN PRN 10/23 1999 AC 05 IV 1110 Magnesium Sulfate 1 GM ONCE ONE 10/23 1100 AC Dextrose/Water 100 ML IV 10/23 1459 Meropenem 1 GM ONCE ONE 10/22 1800 DC 05 IV 10/22 1801 2051 Morphine Sulfate 1 MG ONCE ONE 10/23 1245 AC IV 10/23 1246 Morphine Sulfate 1 MG Q6P PRN 10/23 1999 AC 10/23 IV 0650 Naloxone HCl 0.4 MG ONCE ONE 10/22 171 DC / IV 10/22 171 1435 Naloxone HCl 0 .STK-MED ONE 10/22 1436 DC .ROUTE Nitroglycerin 0.5 GM Q6 PRN 10/22 220 AC TOP Ondansetron HCl 0 .STK-MED ONE 10/22 171 DC .ROUTE Ondansetron HCl 4 MG ONCE ONE 10/22 171 DC 10/22 IV 10/22 1716 1724 Pantoprazole Sodium 40 MG Q5H 10/22 2114 AC 10/23 Sodium Chloride 100 ML IV 0953 Pantoprazole Sodium 0 .STK-MED ONE 10/22 2028 DC IV Pantoprazole Sodium 40 MG BID 10/23 1999 DC 10/22 IV 2032 Sodium Bicarbonate 150 MEQ CONTINOUS INFUSION 10/23 0300 CAN Dextrose/Water 1,000 ML IV 10/23 0759 Sodium Bicarbonate 150 MEQ Q5H 10/23 0300 DC 05 Dextrose/Water 1,000 ML IV 0954 Sodium Bicarbonate 150 MEQ Q5H 10/22 220 DC Dextrose/Water 1,000 ML IV Sodium Bicarbonate 150 MEQ Q5H 10/22 220 DC Dextrose/Water 1,000 ML IV 10/23 0259 Sodium Bicarbonate 100 MEQ Q6H 10/22 2114 DC Dextrose/Water 1,000 ML IV Sodium Chloride 1,000 ML BOLUS ONE 10/23 1030 DC 05/05 IV 10/23 1129 1030 Sodium Chloride 1,000 ML ONCE ONE 10/23 1030 AC IV 10/23 1709 Sodium Chloride 1,000 ML Q13H 10/22 2345 DC 05/ IV 2353 Sodium Chloride 1,000 ML BOLUS ONE 10/22 2030 DC 05/ IV 10/22 2129 2051 Sodium Chloride 1,000 ML BOLUS ONE 10/22 1830 DC 05/ IV 10/22 2029 1902 Sodium Chloride 1,000 ML BOLUS ONE 10/22 1445 DC 05/04 IV 10/22 1544 1454 Sodium Chloride 1,000 ML BOLUS ONE 10/22 1345 DC 05/04 IV / 1444 1345 Sodium Polystyrene 60 ML ONCE ONE 10/22 211 DC Sulfonate PO 10/23 2115 Past History Travel History Traveled to [place] past 21 day No Medical History Neurological: seizure, SEVERE HEADACHES EENT: NONE Cardiovascular: NONE Respiratory: asthma, L COLLAPSED LUNG Gastrointestinal: Crohn's disease Hepatic: NONE Renal: NONE Musculoskeletal: fracture, ARTHRITIS RUPTURED DISC RIBS,LEGS,KNEE FX Psychiatric: anxiety, chronic pain disorder, insomnia Endocrine: NONE Blood Disorders: NONE Cancer(s): NONE EXHIBITS MANAGER/Reproductive: NONE Surgical History Surgical History: DISCECTOMY R MENISCUS/ACL Family History Relations & Conditions If Any: MOTHER, ; Cause: Cancer. FATHER, ; Cause: MVA (motor vehicle accident). Psychosocial History Services at Home: None Smoking Status: Former Smoker ETOH Use: 6 Functional Ability ADLs Independent: dressing, eating, toileting, bathing. Ambulation: independent Exam & Diagnostic Data Vital Signs and I&O Vital Signs Date Time Temp Pulse Resp B/P B/P Pulse O2 O2 Flow FiO2 Mean Ox Delivery Rate 05/05 1200 97.6 87 16 109/74 05/05 1200 97 Nasal 1.0L Cannula 05/05 1000 97.4 84 16 98/0 05/05 0800 97.4 80 16 92/70 05/05 0800 96 Nasal 2.0L Cannula 05/05 0800 97.4 80 16 92/70 96 Nasal 2.0L Cannula 05/05 0600 81 18 89/75 05/05 0400 97.1 80 18 104/84 05/05 0400 95 Nasal 2.0L Cannula 05/05 0200 80 18 11/69 05/05 0000 96.6 80 20 117/70 05/05 0000 96.6 80 20 102/0 94 Nasal 2.0L Cannula 05/05 0000 94 Nasal 2.0L Cannula 05/04 2200 96.4 08 18 92/0 05/04 2200 96 Nasal 2.0L Cannula 05/04 2126 97.3 84 18 111/73 97 Nasal 2.0L Cannula 05/04 1937 97.3 84 16 112/74 99 Nasal 2.0L Cannula 05/04 1833 97.4 88 16 106/71 98 Nasal 2.0L Cannula 05/04 1729 97.2 85 14 118/78 99 Nasal 2.0L Cannula 05/04 1612 97.2 84 14 123/66 97 Nasal 2.0L Cannula 05/04 1432 70/44 05/04 1348 96 Room Air 05/04 1318 97.1 101 16 97 Room Air Intake & Output 10/23 0000 10/22 0810/22 0000 Intake Total 1792 1999 Output Total 345 Balance 1447 1999 Intake, IV 1791999 Output, Urine 345 Patient 161 lb Weight Weight Bed scale Measurement Method Physical Exam General Appearance: no apparent distress, alert, awake Head: atraumatic Neck: supple, trachea mid line (no JVD) Respiratory: lungs clear (no wheezing.), rash on left sternal border Cardiovascular: regular rate/rhythm, no audible murmur, no friction rub, normal apical impact. Gastrointestinal: normal bowel sounds, soft, non-tender Extremities: normal capillary refill, no edema Labs/Sean Results: Laboratory Tests 10/23 10/23 10/23 0825 0825 0620 Blood Gas pH (7.35 - 7.45 PH) 7.29 *L pCO2 (35 - 45 TORR) 44 pO2 (80 - 100 TORR) 86 HCO3 (21 - 28 MEQ/L) 20 L ABG O2 Sat (Measured) (>96.0 %) 95.0 L Carboxyhemoglobin (1.5 - 5.0 %) 0.4 L O2 Concentration % 2L O2 Delivery Method NC Chemistry Sodium (137 - 145 mmol/L) 137 Potassium (3.5 - 5.1 mmol/L) 5.1 Chloride (98 - 107 mmol/L) 96 L Carbon Dioxide (22 - 30 mmol/L) 25 Anion Gap (5 - 16) 15 BUN (9 - 20 mg/dL) 27 H Creatinine (0.7 - 1.2 mg/dL) 3.4 H Estimated GFR (>60 ml/min) 19 L Glucose (65 - 99 mg/dL) 169 H Lactic Acid (0.7 - 2.1 mmol/L) 4.6 H Calcium (8.4 - 10.2 mg/dL) 5.9 *L Phosphorus (2.5 - 4.5 mg/dL) 5.5 H Magnesium (1.6 - 2.3 mg/dL) 1.4 L Total Bilirubin (0.2 - 1.3 mg/dL) 0.6 AST (17 - 59 U/L) 975 H ALT (21 - 72 U/L) 454 H Creatine Kinase (55 - 170 U/L) > 32920 H Albumin (3.5 - 5.0 g/dL) 3.0 L Hematology CBC w Diff MAN DIFF ORDERED WBC (4.8 - 10.8 /CUMM) 21.4 H RBC (4.70 - 6.10 /CUMM) 6.21 H Hgb (14.0 - 18.0 G/DL) 16.7 Hct (42 - 52 %) 52.6 H MCV (80.0 - 94.0 FL) 84.6 MCH (27.0 - 31.0 PG) 27.0 MCHC (33.0 - 37.0 G/DL) 31.9 L RDW (11.5 - 14.5 %) 15.3 H Plt Count (130 - 400 /CUMM) 173 MPV (7.4 - 10.4 FL) 9.0 Gran % (42.2 - 75.2 %) 93.1 H Lymphocytes % (20.5 - 51.1 %) 2.8 L Monocytes % (1.7 - 9.3 %) 4.1 Eosinophils % (0 - 5 %) 0 Basophils % (0.0 - 2.0 %) 0 Absolute Granulocytes (1.4 - 6.5 /CUMM) 19.9 H Segmented Neutrophils (42.2 - 75.2 %) 79 H Band Neutrophils (0.0 - 5.0 %) 14 H Absolute Lymphocytes (1.2 - 3.4 /CUMM) 0.6 L Lymphocytes (20.5 - 51.1 %) 6 L Monocytes (1.7 - 9.3 %) 1 L Absolute Monocytes (0.10 - 0.60 /CUMM) 0.9 H Absolute Eosinophils (0.0 - 0.7 /CUMM) 0 Absolute Basophils (0.0 - 0.2 /CUMM) 0 Platelet Estimate (ADEQUATE) ADEQUATE Normocytic RBCs VERIFIED Normochromic RBCs VERIFIED Miscellaneous Phlebotomy Draw Site LEFT RADIAL 10/23 10/23 10/23 0500 0230 0230 Chemistry Sodium (137 - 145 mmol/L) 136 L Potassium (3.5 - 5.1 mmol/L) 6.5 *H Chloride (98 - 107 mmol/L) 99 Carbon Dioxide (22 - 30 mmol/L) 19 L Anion Gap (5 - 16) 19 H BUN (9 - 20 mg/dL) 25 H Creatinine (0.7 - 1.2 mg/dL) 3.1 H Estimated GFR (>60 ml/min) 21 L Glucose (65 - 99 mg/dL) 251 H Lactic Acid (0.7 - 2.1 mmol/L) 5.8 H 5.7 H Calcium (8.4 - 10.2 mg/dL) 5.7 *L Phosphorus (2.5 - 4.5 mg/dL) 7.8 H Magnesium (1.6 - 2.3 mg/dL) 1.5 L Total Bilirubin (0.2 - 1.3 mg/dL) 0.5 AST (17 - 59 U/L) 908 H ALT (21 - 72 U/L) 381 H Troponin I (<0.11 ng/ml) 0.85 *H Albumin (3.5 - 5.0 g/dL) 3.2 L Hematology CBC w Diff MAN DIFF ORDERED WBC (4.8 - 10.8 /CUMM) 29.4 H RBC (4.70 - 6.10 /CUMM) 6.38 H Hgb (14.0 - 18.0 G/DL) 17.2 Hct (42 - 52 %) 53.7 H MCV (80.0 - 94.0 FL) 84.2 MCH (27.0 - 31.0 PG) 27.0 MCHC (33.0 - 37.0 G/DL) 32.1 L RDW (11.5 - 14.5 %) 15.4 H Plt Count (130 - 400 /CUMM) 194 MPV (7.4 - 10.4 FL) 8.8 Gran % (42.2 - 75.2 %) 94.1 H Lymphocytes % (20.5 - 51.1 %) 2.3 L Monocytes % (1.7 - 9.3 %) 3.6 Eosinophils % (0 - 5 %) 0 Basophils % (0.0 - 2.0 %) 0 Absolute Granulocytes (1.4 - 6.5 /CUMM) 27.6 H Segmented Neutrophils (42.2 - 75.2 %) 85 H Band Neutrophils (0.0 - 5.0 %) 12 H Absolute Lymphocytes (1.2 - 3.4 /CUMM) 0.7 L Lymphocytes (20.5 - 51.1 %) 2 L Monocytes (1.7 - 9.3 %) 1 L Absolute Monocytes (0.10 - 0.60 /CUMM) 1.1 H Eosinophils (0 - 5.0 %) 0 Absolute Eosinophils (0.0 - 0.7 /CUMM) 0 Absolute Basophils (0.0 - 0.2 /CUMM) 0 Platelet Estimate (ADEQUATE) ADEQUATE Normochromic RBCs VERIFIED Poikilocytosis 1+ 10/23 10/22 10/22 10/22 0030 2245 2114 2025 Blood Gas pH (7.35 - 7.45 PH) 7.12 *L pCO2 (35 - 45 TORR) 37 pO2 (80 - 100 TORR) 85 HCO3 (21 - 28 MEQ/L) 12 L ABG O2 Sat (Measured) (>96.0 %) 94.0 L P-50 (Temp Corrected) Y Carboxyhemoglobin (1.5 - 5.0 %) 0.7 L O2 Concentration % 2L Temperature (97.0 - 100.0 FARH) 96.4 L O2 Delivery Method NC Chemistry Lactic Acid (0.7 - 2.1 mmol/L) 7.1 H Cancelled 9.6 H Miscellaneous Phlebotomy Draw Site RIGHT RADIAL 10/22 Chemistry Sodium (137 - 145 mmol/L) 139 Potassium (3.5 - 5.1 mmol/L) 5.6 H Chloride (98 - 107 mmol/L) 97 L Carbon Dioxide (22 - 30 mmol/L) 15 L Anion Gap (5 - 16) 27 H BUN (9 - 20 mg/dL) 21 H Creatinine (0.7 - 1.2 mg/dL) 3.4 H Estimated GFR (>60 ml/min) 19 L BUN/Creatinine Ratio (7 - 25 %) 6.2 L Creatine Kinase (55 - 170 U/L) > 11037 H Cancelled Troponin I (<0.11 ng/ml) 1.25 *H 10/22 10/22 1400 1400 Toxicology Urine Opiates Screen (>2000 NG/ML) 1659.00 Methadone Screen (>300 NG/ML) 68 Barbiturate Screen (>200 NG/ML) 88 Ur Phencyclidine Scrn (>25 NG/ML) < 6.00 Amphetamines Screen (>1000 NG/ML) 149 U Benzodiazepines Scrn (>200 NG/ML) > 800 H Urine Cocaine Screen (>300 NG/ML) > 1000 H Urine Cannabis Screen (>50 NG/ML) 7.70 Urines Urinalysis LIGHT H Urine Color (YEL,AMB,STR) YEL Urine Clarity (CLEAR) HAZY H Urine pH (5.0 - 8.0) 6.0 Ur Specific [place] (1.001 - 1.035) >= 1.030 Urine Protein (NEG,<30 MG/DL) 30 H Urine Ketones (NEG) NEG Urine Nitrite (NEG) NEG Urine Bilirubin (NEG) NEG Urine Urobilinogen (0.1 - 1.0 EU/dl) 0.2 Ur Leukocyte Esterase (NEG) NEG Ur Microscopic SEDIMENT EXAMINED Urine RBC (0 - 5 /HPF) 1-3 Urine WBC (0 - 2 /HPF) 1-3 H Ur Epithelial Cells (NONE,FEW) FEW Urine Bacteria (NEG/NONE) RARE H Hyaline Casts (0/LPF) RARE H Granular Casts (NONE /LPF) RARE H Urine Mucus (FEW,NONE) MANY H Urine Hemoglobin (NEG) MOD H Urine Osmolality (300 - 1000 MOSM/KG) 832 Ur Random Creatinine (mg/dL) 399.8 Ur Random Sodium (30 - 90 mmol/L) 15 L Ur Random Potassium (mmol/L) 135.2 Fraction Sodium Excret (<1% %) 0.1 Urine Glucose (N MG/DL) NEG 10/22 1344 Chemistry Sodium (137 - 145 mmol/L) 140 Potassium (3.5 - 5.1 mmol/L) 7.3 *H Chloride (98 - 107 mmol/L) 92 L Carbon Dioxide (22 - 30 mmol/L) 18 L Anion Gap (5 - 16) 30 H BUN (9 - 20 mg/dL) 20 Creatinine (0.7 - 1.2 mg/dL) 3.4 H Estimated GFR (>60 ml/min) 19 L BUN/Creatinine Ratio (7 - 25 %) 5.9 L Glucose (65 - 99 mg/dL) 211 H Serum Osmolality (285 - 295 MOSM/KG) 303 H Calcium (8.4 - 10.2 mg/dL) 8.4 Magnesium (1.6 - 2.3 mg/dL) 2.7 H Total Bilirubin (0.2 - 1.3 mg/dL) 0.7 AST (17 - 59 U/L) 338 H ALT (21 - 72 U/L) 165 H Alkaline Phosphatase (< 127 U/L) 127 H Creatine Kinase (55 - 170 U/L) 85575 H Troponin I (<0.11 ng/ml) 1.05 *H Total Protein (6.3 - 8.2 g/dL) 8.2 Albumin (3.5 - 5.0 g/dL) 5.1 H Globulin (1.9 - 4.2 gm/dL) 3.1 Albumin/Globulin Ratio (1.1 - 2.2 %) 1.6 Hematology CBC w Diff MAN DIFF ORDERED WBC (4.8 - 10.8 /CUMM) 28.3 H RBC (4.70 - 6.10 /CUMM) 5.88 Hgb (14.0 - 18.0 G/DL) 16.3 Hct (42 - 52 %) 50.6 MCV (80.0 - 94.0 FL) 86.1 MCH (27.0 - 31.0 PG) 27.7 MCHC (33.0 - 37.0 G/DL) 32.2 L RDW (11.5 - 14.5 %) 15.3 H Plt Count (130 - 400 /CUMM) 280 MPV (7.4 - 10.4 FL) 7.9 Gran % (42.2 - 75.2 %) 93.4 H Lymphocytes % (20.5 - 51.1 %) 2.7 L Monocytes % (1.7 - 9.3 %) 3.7 Eosinophils % (0 - 5 %) 0.1 Basophils % (0.0 - 2.0 %) 0.1 Absolute Granulocytes (1.4 - 6.5 /CUMM) 26.5 H Segmented Neutrophils (42.2 - 75.2 %) 68 Band Neutrophils (0.0 - 5.0 %) 19 H Absolute Lymphocytes (1.2 - 3.4 /CUMM) 0.8 L Lymphocytes (20.5 - 51.1 %) 2 L Monocytes (1.7 - 9.3 %) 9 Absolute Monocytes (0.10 - 0.60 /CUMM) 1.1 H Absolute Eosinophils (0.0 - 0.7 /CUMM) 0 Absolute Basophils (0.0 - 0.2 /CUMM) 0 Metamyelocytes (0.0 - 1.0 %) 2 H Normocytic RBCs VERIFIED Normochromic RBCs VERIFIED Toxicology Salicylates (0 - 20.0 mg/dL) < 1.0 Acetaminophen (10.0 - 30.0 ug/mL) < 10.0 L Serum Alcohol (<10 MG/DL) < 10.0 Assessment/Plan Assessment/Plan Rise in troponin along with EKG changes in context of cocaine overdose, without evidence of STEMI. Severe rhabdomyolysis along with JEAN in context of cocaine use. Upper GI bleeding, again secondary to tissue ischemia. I would not begin any ASA today. Monitor Hb for 24 first. Echocardiogram. Maintain telemetry as he is still at risk of delayed of coronary vasospams. If chest pain recurrence, morphine and CCB are good options. Avoid betablockers. Patient main requirement is agressive hydration, clearance of CPK. Consult Acknowledgment - Thank you for your consult request.
--- NOTE | 2017-10-23 13:01 | Transfer of Care Summary ---
Hospital Course Course Hospital Course: Mr Cabrales is a 52 year old man w/ a PMHx of polysubstance abuse, benzodiazepine use, Seizures, Asthma, Crohns disease( dx'ed 1988, s/p colon resection w/ colostomy bag ), h/o rectal fistula, cervial spine radiculopathy, anxiety was brought to the hospital with a chief concern of altered mental status, and unresponsiveness on a.m. of 10/22/2017. Reported recreational use of cocaine the night prior to the admission. He was found to be unresponsive by the patient's family, and was found to be covered in dark vomitus at that time, and did not respond to verbal or tactile stimuli. and was given Narcan. He also fell on the right side of the chest and reported injury to the right arm and shoulder. At the time of admission-Vitals temp 97.1, TX 84, BP 70/44 ( improved to 123/66 after fluid resuscitation ), pulse ox 87% on room air. Pertinent lab findings- WBC 28.3 (10/22) bands 19-->10.3(10/26) Platelet count 280(10/22)-->122(/) Hb 16.3(/)-->11.3(/8) Electrolytes: Sodium 140(/)-->139(/8) Potassium 7.3 (5/4)-->3.9(5/5) Chloride 92(/)-->104(/8) Calcium 8.4 (/),5.7(/)-->6.9(/8) Phosphorous 7.8(/)-->4.7(/8) Liver chemistries: AST 338(5/)-->908(5/5)-->975 (5/5)-->340(/8) ALT 165(5/4)-->381(5/4)-->454(5/5)-->230(/8) Alk phos 127(/)-->56(/8) Alb 3.0 INR- 1.39(10/22)-->1.24(/8) Renal funciton: BUN 20(5/4)-->27 (5/5)-->56(5/8) Sr Cr 3.4 (5/4)-->3.4 (5/5)-->8.7(5/8) Glucose 211 Lactic acid: 9.6-->4.6-->1[place] [address]-->26882-->73666(5/8) Troponin I 1.05-->1.25-->0.85 PH 7.12, PCO2 37, PO2 85 pH 7.29, PCO2 44, PO2 86 Normal osmolal gap. U tox negative for salicylates, opiates 1659, negative for Tylenol, benzodiazepines greater than 800, cocaine greater than 1000, alcohol less than 10. EKG showed mckinnon waves, and non specific repolarization abnormaliites. No STTWI. Cultures: 1. Blood- negative 2. Respiratory- negative 3. Urine- negative Imaging: CT ABD & PELVIS W/O IV CONTRAST and CT CHEST WO IV CONTRAST 1. Fluid around the gallbladder and inferior right lobe of liver. This raises question of biliary disease. This can be further assessed with right upper quadrant ultrasound. 2. Status post colostomy. Status post resection of the left colon with placement of a Todd's pouch. No acute change of the bowel. 3. Nonobstructive 2 mm stone in the midpole of left kidney. No hydronephrosis. CT CERV SPINE WO IV CONTRAST; CT HEAD WO IV CONTRAST Head: No acute intracranial hemorrhage. There are multiple foci of the venous gas within the neck and face that were presumably introduced with line placement. Cervical spine: No acute cervical spinal fracture. There chronic changes of an anterior cervical discectomy and fusion at C6-C7. Bridging bone fuses the C5-C7 vertebral segments. US-LIMITED ABDOMEN Gallbladder wall thickening. No gallstones are seen. Trace pericholecystic fluid also present. These findings can be seen in the setting of liver disease, although acalculus cholecystitis is not excluded. There is hepatomegaly with increased hepatic echogenicity and coarse liver echotexture. While this could represent hepatic steatosis, underlying liver disease is also possible. XRY-SHOULDER COMPLETE-RIGHT No fracture. No dislocation. The glenohumeral joint and acromioclavicular joint are normal. No soft tissue calcification. Orthopedic plate and screw at lower cervical spine. XRY-PORTABLE CHEST XRAY Subtle coarsening bronchovascular markings bilateral infrahilar regions. This could be related to aspiration. Lungs otherwise clear. No effusion. Problem list: 1. Cocaine toxicity 2. Rhabdoymyolysis 4. Acute kidney injury 5. Anion gap metabolic acidosis 6. Leucocytosis, Sepsis 7. Lactic acidosis 8. Acute liver injury 9. Upper GI bleed 10. Hypocalcemia 11. Hyperphosphatemia 13. Hyperkalemia 14. h/o Crohns s/p colostomy 15. Right shoulder injury 16. Elevated cardiac enzymes secondary to cocaine use 17. Hypomagnesemia 18. Polysubstance abuse 19. Chronic benzodiazepine use. 20. h/o seizures Plan: He was admitted to intensive care unit for the management of acute kidney injury , and possible coronary spasm secondary to severe rhabdomyolysis from acute cocaine toxicity, likely leading to electrolyte abnormalities, rhabdomyolysis, acute kidney injury. He was initially hypotensive, and responded to fluid challenge. Vitals remained stable while he was in the intensive care unit. He didnt have any tachycardia at this time, but likely had possible cocaine induced cardiac ischemia with slightly elevated cardiac enzymes, which trended down. Troponin I: 1.05-->1.25-->0.85. No beta blockers were given at any time. He was found to have severe rhabdomyolysis secondary to cocaine use, with peak CK of greater than 100,000, and was trended down. This likely led to severe JEAN, with worsening sr creatinine and BUN; BUN 20(/)-->27 (/5)-->56(/8); Sr Cr 3.4 (/)-->3.4 (/5)-->8.7(/8). As per nephrology, the plan is to dialyze if the sr creatinine continues to trend up. Similarly, he had severe electrolyte abnormalities- Hyperkalemia, due to rhabdomyolysis and JEAN, which was treated w/ glucose+insulin, and given his colostomy, SPSS was not used. Other electrolytes such as hypocalcemia ( corrected low ), was treated w/ calcium gluconate. Other issues, of elevated AST+ALT and normal Alk phos was due acute liver failure, rhabdomyolysis contributing to elevated AST or cocaine induce transaminitis were in the differential. US abdomen and CT adomen was negative for any acute pathology. While he was in the ICU, liver enzymes improved. AST 338(5/4)-->908(5/5)-->975 (5/5)-->340(5/8), ALT 165(5/4)-->381(5/4)-->454(5/5)-- >230(5/8). There was also decreasing platelet count that was noted, without unclear etiology. He did not have any further GI blood loss during the stay in the ICU, and presenting symtom of GI bleed was attributed to cocaine induced gastritis, and was treated w/ protonix. No EGD was done. Dr Hong was consulted for advice. In regards to leucocytosis, it could be due to aspiration pneumonitis and would continue to treat with unasyn pending cultures. He was treated w/ bicarb drip for the management of severe Anion gap metabolic acidosis, and was transitioned to NS. Urine output was monitored closely w/ output range 40-50ml hr, averaging. Since he fell on the right side of the arm, and was found to have pain and swelling in the RUE, CT scan was done to rule out any acute pathology. Orthopedic surgery was consulted, who recommended conservative management at this time. He also recommended physical therapy at the time of discharge. #1 DVT prophylaxis- Alps, and changed to pharmacological when he was more stable. #2 diet advanced as tolerated. #3 full-code #1 Central line- none #2 Arterial line- none #3 Tejeda catheter- present 10/22/17 #4 Rectal tube- none. #5 NG tube- none. #6 IV/peripheral line- present 10/22/17 #7 IV drips- NS @50-150ml/hr #8 Vent settings none. #9 pressors- none. Evaluate the need for Hemodialysis cath, if electrolytes worsen as per Nephrology. Consults: #1 nephrology-Dr. Glez/Dr. Dunne #2 cardiology-Dr. Loomis #3 gastroenterology-Dr. Hong Assessment/Plan: as above Attending MD Review Statement Documenting Attending: Maxx CAPPS,Valerio 4. Metabolic-acute kidney injury, rhabdomyolysis, electrolyte abnormalities - Continue to monitor CK every 12 hours, then daily - Check electrolytes, kidney function every 4 hourly, and decreased frequency to every 12 hourly if normal. - Monitor blood glucose levels given acute liver injury, and rhabdomyolysis - Strict ins and outs. - Bicarb drip to be changed to NS at 150ml/hr. 5. Hematology-monitor leukocytosis - Platelet stable at this time. 6. Alimentary-transaminitis, upper GI bleed - Check INR, and monitor for any further bleeding. -Continue Protonix at this time. -GI evaluation. - Avoid antiplatelets, anticoagulants at this time. - Strictly no NSAIDs - If needed, would need Tylenol very conservatively 7. Neurology- pain control, paresthesias in right upper extremity - Ortho evaluation done. - CT of the right arm, if worse. - Benzodiazepines for cocaine use and avoid benzodiazepine withdrawal. #1 DVT prophylaxis- Alps #2 nothing by mouth #3 full-code #1 Central line- none #2 Arterial line- none #3 Tejeda catheter- present 10/22/17 #4 Rectal tube- none. #5 NG tube- none. #6 IV/peripheral line- present 10/22/17 #7 IV drips- NS @150ml/hr #8 Vent settings none. #9 pressors- none. Evaluate the need for Hemodialysis cath, if electrolytes worsen as per Nephrology. Consults: #1 nephrology-Dr. Glez #2 cardiology-Dr. Loomis #3 gastroenterology-Dr. Hong
--- NOTE | 2017-10-23 13:31 | Cons- Psychiatry ---
Psychiatric Consult Date of Consult: 10/23/17 Allergies: Coded Allergies: adalimumab (Severe, ANAPHYLAXIS 03/02/16) shellfish derived (Severe, SOB, SWELLING 03/02/16) venom-honey bee (BEE VENOM (HONEY BEE)) (Severe, SWELLING 03/02/16) Iodinated Contrast- Oral and IV Dye (IODINATED CONTRAST MEDIA - IV DYE) (UNKNOWN PER PT 03/02/16) infliximab (BLOTCHES, HIVES, DYSPNEA 03/02/16) Past History Past Medical History Neurological: seizure, SEVERE HEADACHES EENT: NONE Cardiovascular: NONE Respiratory: asthma, L COLLAPSED LUNG Gastrointestinal: Crohn's disease Hepatic: NONE Renal: NONE Musculoskeletal: fracture, ARTHRITIS RUPTURED DISC RIBS,LEGS,KNEE FX Psychiatric: anxiety, chronic pain disorder, insomnia Endocrine: NONE Blood Disorders: NONE Cancer(s): NONE 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 Patient seen at 12:55 PM. The patient is a 52-year-old single white male with past history of polysubstance abuse. He remembers me from when I did a consult on him on after he was found to be unresponsive by EMS and was given Narcan in the field with a positive response. This episode, the patient again was again found unresponsive. He lives with his mother. Mother administered Narcan with some effect. EMS administered more Narcan and patient woke up and cyanosis resolved. Patient is now on the critical care unit. He has had some EKG changes. Troponins were elevated. Patient has been hyperkalemic. He had some acute kidney injury. He has had rhabdomyolysis with elevated CPK. Also experiencing transaminitis, high anion gap metabolic acidosis/lactic acidosis, coffee ground emesis and he has a history of Crohn's disease status post colon resection/ colostomy. The patient denies this was an intentional overdose. Reports that mother controls and his supply of Ambien and Xanax and doles it out to him every day. He admits to recreational drug use and that this incident relates to an accidental overdose with recreational drugs. He confirms that he used some cocaine and there might have been some heroin involved. He concurs that whenever he took could have been tainted with something like fentanyl. Past psychiatric history: Reports he recently began medication management with Jun Galindo MD. Denies history of inpatient treatment. Denies suicide attempts. Substance use history: Denies use of tobacco. Reports occasional alcohol use. Reports using medical marijuana. He admits to cocaine and some heroin. Lab Serum Alcohol < 10.0 MG/DL 10/22/17 1344 U Benzodiazepines Scrn > 800 NG/ML H 10/22/17 1400 Urine Cocaine Screen > 1000 NG/ML H 10/22/17 1400 Urine Opiates Screen 1659.00 NG/ML 10/22/17 1400 Current medication list reviewed. In March, medications included levetiracetam 750 mg twice daily, Lexapro 10 mg daily and alprazolam 0.5 mg 4 times a day. Allergies: Please see above. Past medical history: Please see above. Family psychiatric and substance use history: Denies family history of mental illness, substance abuse and suicides. Social history: Per my last consult, patient's father was run over and killed by a motorcycle on 04/05/89. Patient lives with his mother. He pays her rent. He is resentful that she limits his freedom to do things. He likes to play [employer]. He would like to have his own cat and she forbids it. Patient does not have his own vehicle. Patient has a sister. Patient is single and has no children. High school graduate. On disability. Per note from March 2017, history of arrest for disorderly conduct in May 2016 and history of arrest for drug paraphernalia in car approximately 2011. Mental status examination: Patient seen in critical care unit. He is on MRSA isolation. He is a middle- aged male dressed in hospital garb, unshaven, wearing a nasal cannula. He is calm, polite and cooperative. He is mildly sedated. Speech is a little slow, normal in volume and tone. Affect is calm and blunted. Rates sad mood about 5/ 10 and anxiety about 6-7/10. Feels hopeless at times. Denies suicidal and homicidal ideation. Denies auditory and visual hallucinations and paranoid ideation. The patient is oriented 3 although he initially gave the month as November but corrected to October on prompting and he gave the year as 2016 but corrected to 2017 on prompting. Insight is limited to fair. Judgment has been poor based on accidental overdoses. Cognition is grossly intact. Memory is grossly intact. IMPRESSION: Status post unintentional overdose with recreational drugs. Polysubstance dependence. Unspecified anxiety disorder. The patient denies that this was an intentional overdose and I believe him. Nonetheless, he is at risk for repeat accidental overdose(s). He would benefit from substance abuse treatment after release. Recommend contacting social insurance adviser for help with referral to either an inpatient rehab or to an IOP. Historically, insurance limitations and benzodiazpines have been impediments to the patient going for substance treatment. Please reconsult psychiatry as needed.
--- NOTE | 2017-10-23 13:36 | Incdntl Nt Psy ---
Incidental Note Notation: Outpatient medications appear to have been: Lexapro 20 mg daily Keppra 750 mg, 4 pills/24 hours Ambien 10 mg qhs Xanax 0.5 mg 4 pills/24 hours Combivent 20/100
[2017-10-23 13:46] LABS: PT 15.2 SEC (9.4-12.5); PTT 27 SEC (25-37)
--- NOTE | 2017-10-23 13:50 | Cons- Gastroenterology ---
General Information and HPI Consulting Request Date of Consult: 10/23/17 Requested By: Fredy Pérez MD Reason for Consult: Hematemesis History of Present Illness: Full note follow The patient has a history of Crohn's, status post colectomy, followed in [place]; no details available. He is apparently not on any IBD medications. He has chronic abdominal pain. He has a history of perianal disease as well. History of substance abuse, including opioid addiction. Noted to have black hematemesis both at home, and in hospital. No recurrence. Diarrhea per ileostomy is usual, but without melena or bright red blood. Usual abdominal pain, persistent in hospital. Allergies/Medications Allergies: Coded Allergies: adalimumab (Severe, ANAPHYLAXIS 03/02/16) shellfish derived (Severe, SOB, SWELLING 03/02/16) venom-honey bee (BEE VENOM (HONEY BEE)) (Severe, SWELLING 03/02/16) Iodinated Contrast- Oral and IV Dye (IODINATED CONTRAST MEDIA - IV DYE) (UNKNOWN PER PT 03/02/16) infliximab (BLOTCHES, HIVES, DYSPNEA 03/02/16) Home Med List: Albuterol Sulfate 2.5 MG/3 ML (0.083 %) VIAL.NEB 1 Vial INH/ASHLEY AD PRN ASTHMA (Reported) Alprazolam 0.5 MG TABLET 1 TAB PO 4 TIMES/DAY ANXIETY (Reported) Escitalopram Oxalate 10 MG TABLET 1 TAB PO DAILY MENTAL HEALTH (Reported) Ipratropium/Albuterol Sulfate (Combivent Respimat Inhal [place]) 20 MCG-100 MCG/ ACTUATION MIST.INHAL 1 PUFF INH PRN ASTHMA (Reported) Levetiracetam (Keppra) 750 MG TABLET 2 TAB PO BID SEIZURES (Reported) Multivitamin (Daily Multiple Vitamin) 1 EACH TABLET 1 TAB PO DAILY VITAMIN SUPPORT (Reported) Zolpidem Tartrate 10 MG TABLET 1 TAB PO QPMP SLEEP (Reported) Current Medications: Current Medications Sig/Leigh Ann Start time Last Medication Dose Route Stop Time Status Admin Acetaminophen 1,000 MG ONCE ONE 10/22 1715 DC 10/22 N/A 1 UNIT IV 10/22 1729 1724 Acetaminophen 0 .STK-MED ONE 10/22 1711 DC IV Ampicillin Sodium/ 1,500 MG Q6H 10/23 0400 AC 10/23 Sulbactam Sodium IV 0954 Sodium Chloride 100 ML Ampicillin Sodium/ 0 .STK-MED ONE 10/22 2043 DC Sulbactam Sodium .ROUTE Ampicillin Sodium/ 1,500 MG Q6 10/22 1957 DC 05 Sulbactam Sodium IV 205 Sodium Chloride 100 ML Calcium Gluconate 1 GM ONCE ONE 10/23 0500 DC 05 Sodium Chloride 100 ML IV 05 0559 0500 Calcium Gluconate 0 .STK-MED ONE 10/22 1507 DC IV Calcium Gluconate 1 GM ONCE ONE 10/22 1445 DC 05 Sodium Chloride 100 ML IV 05 1544 1505 Dextrose 25 GM ONCE ONE 10/23 0415 DC 05 IV 05 0416 0416 Dextrose 25 GM ONCE ONE 10/22 1445 DC 10/22 IV 10/22 1446 1505 Dextrose/Sodium 1,000 ML Q8H 10/23 1999 DC 05 Chloride IV 2032 Dextrose/Water 1,000 ML ONCE ONE 10/22 1445 DC 05/ IV 05 2124 1505 Insulin Human Regular 6 UNITS ONCE ONE 10/23 0415 DC 05 IV 05 0416 0417 Insulin Human Regular 6 UNITS ONCE ONE 10/22 1445 DC 05/ IV 05 1446 1505 Levetiracetam 1,500 MG Q12 10/23 1999 AC 10/23 N/A 1 UNIT IV 0954 Lorazepam 0 .STK-MED ONE 10/22 2017 DC .ROUTE Lorazepam 1 MG Q6-PRN PRN 10/23 1999 AC 10/23 IV 1110 Magnesium Sulfate 1 GM ONCE ONE 10/23 1100 AC 10/23 Dextrose/Water 100 ML IV 10/23 1459 1200 Meropenem 1 GM ONCE ONE 10/22 1800 DC 05/ IV 05/ 1801 2051 Morphine Sulfate 1 MG ONCE ONE 10/23 1245 DC 05 IV 05 1246 1145 Morphine Sulfate 1 MG Q6P PRN 10/23 1999 AC 10/23 IV 0650 Naloxone HCl 0.4 MG ONCE ONE 10/22 1715 DC 05 IV 10/22 1716 1435 Naloxone HCl 0 .STK-MED ONE 10/22 1436 DC .ROUTE Nitroglycerin 0.5 GM Q6 PRN 10/22 2200 AC TOP Ondansetron HCl 0 .STK-MED ONE 10/22 1717 DC .ROUTE Ondansetron HCl 4 MG ONCE ONE 10/22 171 DC 05/ IV 10/22 171 1724 Pantoprazole Sodium 40 MG Q5H 10/22 211 AC 10/23 Sodium Chloride 100 ML IV 0953 Pantoprazole Sodium 0 .STK-MED ONE 10/22 2028 DC IV Pantoprazole Sodium 40 MG BID 10/23 1999 DC 05 IV 203 Sodium Bicarbonate 150 MEQ CONTINOUS INFUSION 10/23 0300 CAN Dextrose/Water 1,000 ML IV 10/23 0759 Sodium Bicarbonate 150 MEQ Q5H 10/23 0300 DC 05 Dextrose/Water 1,000 ML IV 0954 Sodium Bicarbonate 150 MEQ Q5H 10/22 2200 DC Dextrose/Water 1,000 ML IV Sodium Bicarbonate 150 MEQ Q5H 10/22 2200 DC Dextrose/Water 1,000 ML IV 10/23 0259 Sodium Bicarbonate 100 MEQ Q6H 10/22 211 DC Dextrose/Water 1,000 ML IV Sodium Chloride 1,000 ML BOLUS ONE 10/23 1030 DC 05/05 IV 10/23 1129 1030 Sodium Chloride 1,000 ML ONCE ONE 10/23 1030 AC 05 IV 10/23 1709 1244 Sodium Chloride 1,000 ML Q13H 10/22 2345 DC 05/ IV 2353 Sodium Chloride 1,000 ML BOLUS ONE 10/22 2030 DC 05/ IV 10/22 212 2051 Sodium Chloride 1,000 ML BOLUS ONE 10/22 1830 DC 05/ IV 10/22 202 1902 Sodium Chloride 1,000 ML BOLUS ONE 10/22 1445 DC 05/04 IV / 1544 1454 Sodium Chloride 1,000 ML BOLUS ONE 10/22 1345 DC 05/04 IV 05/ 1444 1345 Sodium Polystyrene 60 ML ONCE ONE 10/22 2114 DC Sulfonate PO 10/23 2115 Past History Travel History Traveled to [place] past 21 day No Medical History Neurological: seizure, SEVERE HEADACHES EENT: NONE Cardiovascular: NONE Respiratory: asthma, L COLLAPSED LUNG Gastrointestinal: Crohn's disease Hepatic: NONE Renal: NONE Musculoskeletal: fracture, ARTHRITIS RUPTURED DISC RIBS,LEGS,KNEE FX Psychiatric: anxiety, chronic pain disorder, insomnia Endocrine: NONE Blood Disorders: NONE Cancer(s): NONE 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 FATHER, ; Cause: MVA (motor vehicle accident). Psychosocial History Services at Home: None Smoking Status: Former Smoker ETOH Use: 6 Functional Ability ADLs Independent: dressing, eating, toileting, bathing. Ambulation: independent Exam & Diagnostic Data Vital Signs and I&O Vital Signs Date Time Temp Pulse Resp B/P B/P Pulse O2 O2 Flow FiO2 Mean Ox Delivery Rate 10/23 1200 97.6 87 16 109/74 05 1200 97 Nasal 1.0L Cannula 10/23 1000 97.4 84 16 98/0 / 0800 97.4 80 16 92/70 / 0800 96 Nasal 2.0L Cannula 10/23 0800 97.4 80 16 92/70 96 Nasal 2.0L Cannula / 0600 81 18 89/75 05/ 0400 97.1 80 18 104/84 05/ 0400 95 Nasal 2.0L Cannula 10/23 0200 80 18 11/69 05/05 0000 96.6 80 20 117/70 05/05 0000 96.6 80 20 102/0 94 Nasal 2.0L Cannula 10/23 0000 94 Nasal 2.0L Cannula 10/22 2200 96.4 08 18 92/0 05/ 2200 96 Nasal 2.0L Cannula / 2126 97.3 84 18 111/73 97 Nasal 2.0L Cannula / 1937 97.3 84 16 112/74 99 Nasal 2.0L Cannula / 1833 97.4 88 16 106/71 98 Nasal 2.0L Cannula / 1729 97.2 85 14 118/78 99 Nasal 2.0L Cannula / 1612 97.2 84 14 123/66 97 Nasal 2.0L Cannula 05/04 1432 70/44 05/04 1348 96 Room Air Intake & Output 10/23 1600 05/05 0400 / 1600 10/22 0400 10/21 1600 / 0400 Intake Total 1792 1999 Output Total 345 Balance 1447 1999 Intake, IV 1792 1999 Output, Urine 345 Patient 161 lb Weight Weight Bed scale Measurement Method Physical Exam: Right-sided ileostomy. Abdomen otherwise normal. Results Pertinent Lab Results: Laboratory Tests 10/23 10/23 05 1255 0825 0825 Chemistry Sodium (137 - 145 mmol/L) Pending 137 Potassium (3.5 - 5.1 mmol/L) Pending 5.1 Chloride (98 - 107 mmol/L) Pending 96 L Carbon Dioxide (22 - 30 mmol/L) Pending 25 Anion Gap (5 - 16) Pending 15 BUN (9 - 20 mg/dL) Pending 27 H Creatinine (0.7 - 1.2 mg/dL) Pending 3.4 H Estimated GFR (>60 ml/min) 19 L Glucose (65 - 99 mg/dL) Pending 169 H Lactic Acid (0.7 - 2.1 mmol/L) Pending 4.6 H Calcium (8.4 - 10.2 mg/dL) Pending 5.9 *L Phosphorus (2.5 - 4.5 mg/dL) Pending 5.5 H Magnesium (1.6 - 2.3 mg/dL) Pending 1.4 L Total Bilirubin (0.2 - 1.3 mg/dL) Pending 0.6 AST (17 - 59 U/L) Pending 975 H ALT (21 - 72 U/L) Pending 454 H Creatine Kinase (55 - 170 U/L) > 85913 H Albumin (3.5 - 5.0 g/dL) Pending 3.0 L TSH &T3 &Free T4 Intrp Pending Coagulation PT Pending INR Pending APTT Pending Hematology CBC w Diff MAN DIFF ORDERED WBC (4.8 - 10.8 /CUMM) 21.4 H RBC (4.70 - 6.10 /CUMM) 6.21 H Hgb (14.0 - 18.0 G/DL) 16.7 Hct (42 - 52 %) 52.6 H MCV (80.0 - 94.0 FL) 84.6 MCH (27.0 - 31.0 PG) 27.0 MCHC (33.0 - 37.0 G/DL) 31.9 L RDW (11.5 - 14.5 %) 15.3 H Plt Count (130 - 400 /CUMM) 173 MPV (7.4 - 10.4 FL) 9.0 Gran % (42.2 - 75.2 %) 93.1 H Lymphocytes % (20.5 - 51.1 %) 2.8 L Monocytes % (1.7 - 9.3 %) 4.1 Eosinophils % (0 - 5 %) 0 Basophils % (0.0 - 2.0 %) 0 Absolute Granulocytes (1.4 - 6.5 /CUMM) 19.9 H Segmented Neutrophils (42.2 - 75.2 %) 79 H Band Neutrophils (0.0 - 5.0 %) 14 H Absolute Lymphocytes (1.2 - 3.4 /CUMM) 0.6 L Lymphocytes (20.5 - 51.1 %) 6 L Monocytes (1.7 - 9.3 %) 1 L Absolute Monocytes (0.10 - 0.60 /CUMM) 0.9 H Absolute Eosinophils (0.0 - 0.7 /CUMM) 0 Absolute Basophils (0.0 - 0.2 /CUMM) 0 Platelet Estimate (ADEQUATE) ADEQUATE Normocytic RBCs VERIFIED Normochromic RBCs VERIFIED 10/23 10/23 10/23 0620 0500 0230 Blood Gas pH (7.35 - 7.45 PH) 7.29 *L pCO2 (35 - 45 TORR) 44 pO2 (80 - 100 TORR) 86 HCO3 (21 - 28 MEQ/L) 20 L ABG O2 Sat (Measured) (>96.0 %) 95.0 L Carboxyhemoglobin (1.5 - 5.0 %) 0.4 L O2 Concentration % 2L O2 Delivery Method NC Chemistry Lactic Acid (0.7 - 2.1 mmol/L) 5.8 H 5.7 H Miscellaneous Phlebotomy Draw Site LEFT RADIAL 10/23 10/23 0230 0030 Chemistry Sodium (137 - 145 mmol/L) 136 L Potassium (3.5 - 5.1 mmol/L) 6.5 *H Chloride (98 - 107 mmol/L) 99 Carbon Dioxide (22 - 30 mmol/L) 19 L Anion Gap (5 - 16) 19 H BUN (9 - 20 mg/dL) 25 H Creatinine (0.7 - 1.2 mg/dL) 3.1 H Estimated GFR (>60 ml/min) 21 L Glucose (65 - 99 mg/dL) 251 H Lactic Acid (0.7 - 2.1 mmol/L) 7.1 H Calcium (8.4 - 10.2 mg/dL) 5.7 *L Phosphorus (2.5 - 4.5 mg/dL) 7.8 H Magnesium (1.6 - 2.3 mg/dL) 1.5 L Total Bilirubin (0.2 - 1.3 mg/dL) 0.5 AST (17 - 59 U/L) 908 H ALT (21 - 72 U/L) 381 H Troponin I (<0.11 ng/ml) 0.85 *H Albumin (3.5 - 5.0 g/dL) 3.2 L Hematology CBC w Diff MAN DIFF ORDERED WBC (4.8 - 10.8 /CUMM) 29.4 H RBC (4.70 - 6.10 /CUMM) 6.38 H Hgb (14.0 - 18.0 G/DL) 17.2 Hct (42 - 52 %) 53.7 H MCV (80.0 - 94.0 FL) 84.2 MCH (27.0 - 31.0 PG) 27.0 MCHC (33.0 - 37.0 G/DL) 32.1 L RDW (11.5 - 14.5 %) 15.4 H Plt Count (130 - 400 /CUMM) 194 MPV (7.4 - 10.4 FL) 8.8 Gran % (42.2 - 75.2 %) 94.1 H Lymphocytes % (20.5 - 51.1 %) 2.3 L Monocytes % (1.7 - 9.3 %) 3.6 Eosinophils % (0 - 5 %) 0 Basophils % (0.0 - 2.0 %) 0 Absolute Granulocytes (1.4 - 6.5 /CUMM) 27.6 H Segmented Neutrophils (42.2 - 75.2 %) 85 H Band Neutrophils (0.0 - 5.0 %) 12 H Absolute Lymphocytes (1.2 - 3.4 /CUMM) 0.7 L Lymphocytes (20.5 - 51.1 %) 2 L Monocytes (1.7 - 9.3 %) 1 L Absolute Monocytes (0.10 - 0.60 /CUMM) 1.1 H Eosinophils (0 - 5.0 %) 0 Absolute Eosinophils (0.0 - 0.7 /CUMM) 0 Absolute Basophils (0.0 - 0.2 /CUMM) 0 Platelet Estimate (ADEQUATE) ADEQUATE Normochromic RBCs VERIFIED Poikilocytosis 1+ 10/22 10/22 10/22 10/22 4309 9 2025 2025 Blood Gas pH (7.35 - 7.45 PH) 7.12 *L pCO2 (35 - 45 TORR) 37 pO2 (80 - 100 TORR) 85 HCO3 (21 - 28 MEQ/L) 12 L ABG O2 Sat (Measured) (>96.0 %) 94.0 L P-50 (Temp Corrected) Y Carboxyhemoglobin (1.5 - 5.0 %) 0.7 L O2 Concentration % 2L Temperature (97.0 - 100.0 FARH) 96.4 L O2 Delivery Method NC Chemistry Sodium (137 - 145 mmol/L) 139 Potassium (3.5 - 5.1 mmol/L) 5.6 H Chloride (98 - 107 mmol/L) 97 L Carbon Dioxide (22 - 30 mmol/L) 15 L Anion Gap (5 - 16) 27 H BUN (9 - 20 mg/dL) 21 H Creatinine (0.7 - 1.2 mg/dL) 3.4 H Estimated GFR (>60 ml/min) 19 L BUN/Creatinine Ratio (7 - 25 %) 6.2 L Lactic Acid (0.7 - 2.1 mmol/L) Cancelled 9.6 H Creatine Kinase (55 - 170 U/L) > 69475 H Troponin I (<0.11 ng/ml) 1.25 *H Miscellaneous Phlebotomy Draw Site RIGHT RADIAL 10/22 1400 Chemistry Creatine Kinase Cancelled Urines Urinalysis LIGHT H Urine Color (YEL,AMB,STR) YEL Urine Clarity (CLEAR) HAZY H Urine pH (5.0 - 8.0) 6.0 Ur Specific [place] (1.001 - 1.035) >= 1.030 Urine Protein (NEG,<30 MG/DL) 30 H Urine Ketones (NEG) NEG Urine Nitrite (NEG) NEG Urine Bilirubin (NEG) NEG Urine Urobilinogen (0.1 - 1.0 EU/dl) 0.2 Ur Leukocyte Esterase (NEG) NEG Ur Microscopic SEDIMENT EXAMINED Urine RBC (0 - 5 /HPF) 1-3 Urine WBC (0 - 2 /HPF) 1-3 H Ur Epithelial Cells (NONE,FEW) FEW Urine Bacteria (NEG/NONE) RARE H Hyaline Casts (0/LPF) RARE H Granular Casts (NONE /LPF) RARE H Urine Mucus (FEW,NONE) MANY H Urine Hemoglobin (NEG) MOD H Urine Glucose (N MG/DL) NEG 10/22 10/22 1400 1344 Chemistry Sodium (137 - 145 mmol/L) 140 Potassium (3.5 - 5.1 mmol/L) 7.3 *H Chloride (98 - 107 mmol/L) 92 L Carbon Dioxide (22 - 30 mmol/L) 18 L Anion Gap (5 - 16) 30 H BUN (9 - 20 mg/dL) 20 Creatinine (0.7 - 1.2 mg/dL) 3.4 H Estimated GFR (>60 ml/min) 19 L BUN/Creatinine Ratio (7 - 25 %) 5.9 L Glucose (65 - 99 mg/dL) 211 H Serum Osmolality (285 - 295 MOSM/KG) 303 H Calcium (8.4 - 10.2 mg/dL) 8.4 Magnesium (1.6 - 2.3 mg/dL) 2.7 H Total Bilirubin (0.2 - 1.3 mg/dL) 0.7 AST (17 - 59 U/L) 338 H ALT (21 - 72 U/L) 165 H Alkaline Phosphatase (< 127 U/L) 127 H Creatine Kinase (55 - 170 U/L) 26586 H Troponin I (<0.11 ng/ml) 1.05 *H Total Protein (6.3 - 8.2 g/dL) 8.2 Albumin (3.5 - 5.0 g/dL) 5.1 H Globulin (1.9 - 4.2 gm/dL) 3.1 Albumin/Globulin Ratio (1.1 - 2.2 %) 1.6 Hematology CBC w Diff MAN DIFF ORDERED WBC (4.8 - 10.8 /CUMM) 28.3 H RBC (4.70 - 6.10 /CUMM) 5.88 Hgb (14.0 - 18.0 G/DL) 16.3 Hct (42 - 52 %) 50.6 MCV (80.0 - 94.0 FL) 86.1 MCH (27.0 - 31.0 PG) 27.7 MCHC (33.0 - 37.0 G/DL) 32.2 L RDW (11.5 - 14.5 %) 15.3 H Plt Count (130 - 400 /CUMM) 280 MPV (7.4 - 10.4 FL) 7.9 Gran % (42.2 - 75.2 %) 93.4 H Lymphocytes % (20.5 - 51.1 %) 2.7 L Monocytes % (1.7 - 9.3 %) 3.7 Eosinophils % (0 - 5 %) 0.1 Basophils % (0.0 - 2.0 %) 0.1 Absolute Granulocytes (1.4 - 6.5 /CUMM) 26.5 H Segmented Neutrophils (42.2 - 75.2 %) 68 Band Neutrophils (0.0 - 5.0 %) 19 H Absolute Lymphocytes (1.2 - 3.4 /CUMM) 0.8 L Lymphocytes (20.5 - 51.1 %) 2 L Monocytes (1.7 - 9.3 %) 9 Absolute Monocytes (0.10 - 0.60 /CUMM) 1.1 H Absolute Eosinophils (0.0 - 0.7 /CUMM) 0 Absolute Basophils (0.0 - 0.2 /CUMM) 0 Metamyelocytes (0.0 - 1.0 %) 2 H Normocytic RBCs VERIFIED Normochromic RBCs VERIFIED Toxicology Salicylates (0 - 20.0 mg/dL) < 1.0 Urine Opiates Screen (>2000 NG/ML) 1659.00 Methadone Screen (>300 NG/ML) 68 Acetaminophen (10.0 - 30.0 ug/mL) < 10.0 L Barbiturate Screen (>200 NG/ML) 88 Ur Phencyclidine Scrn (>25 NG/ML) < 6.00 Amphetamines Screen (>1000 NG/ML) 149 U Benzodiazepines Scrn (>200 NG/ML) > 800 H Urine Cocaine Screen (>300 NG/ML) > 1000 H Urine Cannabis Screen (>50 NG/ML) 7.70 Serum Alcohol (<10 MG/DL) < 10.0 Urines Urine Osmolality (300 - 1000 MOSM/KG) 832 Ur Random Creatinine (mg/dL) 399.8 Ur Random Sodium (30 - 90 mmol/L) 15 L Ur Random Potassium (mmol/L) 135.2 Fraction Sodium Excret (<1% %) 0.1 Imaging/Other Studies: CT scan without contrast: IMPRESSION: 1. Fluid around the gallbladder and inferior right lobe of liver. This raises question of biliary disease. This can be further assessed with right upper quadrant ultrasound. 2. Status post colostomy. Status post resection of the left colon with placement of a Todd's pouch. No acute change of the bowel. 3. Nonobstructive 2 mm stone in the midpole of left kidney. No hydronephrosis. Assessment/Plan Assessment/Recommendations: 1. Hematemesis. This appears to be minor, without bright red blood, melena, or drop in hematocrit. Indeed the patient seems to be hemoconcentrated. There is a reported history of peptic ulcer disease (unreliable). Differential diagnosis includes stress gastritis, cocaine-induced gastritis, peptic ulcer, esophagitis, Noemí-Trejo tear, etc. Given current clinical condition and multisystem organ failure, there is no indication for urgent EGD. 2. Elevated LFTs. Likely a combination of ischemic hepatitis and rhabdomyolysis. 3. Crohn's disease. Details of evaluation/management unavailable. Recommendations * Follow-up CBC, LFTs, and INR daily * IV PPI twice a day * No urgent EGD * Call with evidence of rebleeding, especially with significant (red emesis, melena) * Obtain recent office records from [place] [facility]. Consult Acknowledgment - Thank you for your consult request.
--- NOTE | 2017-10-23 15:33 | Event Note ---
Event Note Event Note: Mr Stallworth continues to have pain in his right upper extremity, and CT scan of the right upper extremity was ordered. He was evaluated by Orthopedic surgeon in the am, and reached out to the surgeon, if we need to rule out any worsening swelling that might lead to compartment syndrome. PE revealed, severe pain on movement of right arm, swelling R > L, numbness in right upper extremity, no change in color, radial pulse present. There is a concern for increased swelling unilaterally which could just be from his injury, and increased use of fluids; and reached out to surgeon certified personal chef for evaluation. Await call back. Called the surgical service again, when I didnt get a call back in the next 20 minutes. Await a call back. Spoke to Dr. Gifford, who recommended discuss w/ Dr. Carr. As per Dr. Carr, who said that a surgical PA would evaluate him today. As per the surgical PA who evaluated the pt, who recommended the iv line be removed on right arm. At this time, would watch him closely with neuro checks regularly. Informed Dr. Díaz, and relayed the information to the night team to follow closely. In regards to fluids, which were changed from bicarb drip to NS this am. He was given bolus of one liter to see if there would be an improvement in urine out. Mr Stallworth continued to have improvement in all the lab parameters, but continued to have worsening renal function which was likely due to renal injury secondary to severe rhabdo. DIscussed w/ Dr. Glez and decreased the rate of fluids from 200 cc-->100 cc/hr to avoid fluid overload. Discussed with Mr Stallworth, the possibility of undergoing dialysis, if renal function doesnt improve.
--- NOTE | 2017-10-23 17:10 | CT SCAN REPORT ---
EXAMINATION: CT UPPER EXTREMITY WITHOUT CONTRAST, RIGHT CLINICAL INFORMATION: Evaluate for necrotizing fasciitis or fractures. COMPARISON: None TECHNIQUE: Helical scanning was performed with submillimeter collimation in the axial plane with multiplanar 2-D reconstructions. DLP: 3457.28 mGy-cm FINDINGS: No fractures identified in the right upper extremity. There is a focal intravenous catheter in the volar-medial aspect of the elbow-proximal forearm. There is a small amount of air in the subcutaneous tissues just distal to the catheter. There is scattered subcutaneous edema in the forearm and distal aspect of the upper arm. A moderate amount of streak artifact is identified which somewhat obscures evaluation of the muscles. A few scattered areas of low attenuation in a few of the forearm muscles is of uncertain significance. This could be artifactual. Cannot exclude edema related to possible myositis. In addition, CT is suboptimal for subtle soft tissue abnormalities. IMPRESSION: Intravenous catheter in the volar-medial aspect of the elbow-proximal forearm. There are a few scattered bubbles of air in the subcutaneous tissues distal to the catheter. There is scattered nonspecific subcutaneous edema. There is a suggestion of some low density in a few forearm muscles but this could also be artifact. MRI without and with contrast may be considered for further evaluation. This would be much more sensitive for muscle abnormalities.
[2017-10-23 23:01] LABS: ABSOLUTE BASOPHIL COUNT 0 /CUMM (0.0-0.2); ABSOLUTE EOSINOPHIL COUNT 0 /CUMM (0.0-0.7); ABSOLUTE GRANULOCYTE CT 13.2 /CUMM (1.4-6.5); ABSOLUTE LYMPH COUNT 0.5 /CUMM (1.2-3.4); BASOPHIL % 0 % (0.0-2.0); EOSINOPHIL % 0 % (0-5); MEAN CORPUSCULAR VOLUME 84.4 FL (80.0-94.0); MEAN PLATELET VOLUME 9.2 FL (7.4-10.4); PLATELET COUNT 153 /CUMM (130-400); RBC DISTRIBUTION WIDTH 15.2 % (11.5-14.5); RED BLOOD CELL CT 5.14 /CUMM (4.70-6.10); WHITE BLOOD CELL COUNT 14.7 /CUMM (4.8-10.8)
[2017-10-23 23:05] LABS: HEMATOCRIT 43.4 % (42-52)
[2017-10-23 23:07] LABS: GRANULOCYTE % 89.6 % (42.2-75.2)
[2017-10-24] VITALS (11 sets, daily range): BP systolic 118–159; BP diastolic 70–100
[2017-10-24 03:59] LABS: ABSOLUTE BASOPHIL COUNT 0 /CUMM (0.0-0.2); ABSOLUTE EOSINOPHIL COUNT 0 /CUMM (0.0-0.7); ABSOLUTE GRANULOCYTE CT 10.6 /CUMM (1.4-6.5); ABSOLUTE LYMPH COUNT 0.6 /CUMM (1.2-3.4); ABSOLUTE MONOCYTE COUNT 1.1 /CUMM (0.10-0.60); BASOPHIL % 0.1 % (0.0-2.0); EOSINOPHIL % 0.1 % (0-5); GRANULOCYTE % 86.2 % (42.2-75.2); HEMATOCRIT 40.3 % (42-52); MEAN CORPUSCULAR HGB 27.2 PG (27.0-31.0); MEAN CORPUSCULAR HGB CONC 32.5 G/DL (33.0-37.0); MEAN CORPUSCULAR VOLUME 83.8 FL (80.0-94.0); MEAN PLATELET VOLUME 8.9 FL (7.4-10.4); PLATELET COUNT 140 /CUMM (130-400); RBC DISTRIBUTION WIDTH 15.4 % (11.5-14.5); RED BLOOD CELL CT 4.81 /CUMM (4.70-6.10)
[2017-10-24 04:02] LABS: PT 14.4 SEC (9.4-12.5)
[2017-10-24 04:28] LABS: WHITE BLOOD CELL COUNT 12.4 /CUMM (4.8-10.8)
--- NOTE | 2017-10-24 06:17 | PN- Orthopedic ---
Surgical Brief Attending Note Brief Attending Note: please refer to Dr. Carr's full consult to follow, as he saw pt earlier yesterday. Ortho called yesterday pm to evaluate RUE, ?compartment syndrome. On eval, pt felt his arm was less tender than earlier in the day. RUE with area of firmness distal to elbow, remainder of arm soft. entire are slightly tender. palp brachial/radial pulses. +edema entire arm/hand. limited active ROM, +passive ROM in wrist/elbow, no increased pain with flexion/extension of wrist/elbow. peripheral IV (not being used) in area of question. sensate intact, somewhat limited in affected area- likely due to swelling. no pain out of proportion. Rec: elevate warm compress remove iv in the area of question monitor closely. call ortho if clinically worsens
--- NOTE | 2017-10-24 09:25 | PN- CRCU ---
Subjective HPI/Critical Care Issues: Feels better Events and data reviewed Says his arm pain is much better Occ hiccoughs Urine out put around 30 cc Creat 4.9 Gap Narrowed Creat still very high LFts high wbc down IMPRESSION: Intravenous catheter in the volar-medial aspect of the elbow-proximal forearm. There are a few scattered bubbles of air in the subcutaneous tissues distal to the catheter. There is scattered nonspecific subcutaneous edema. There is a suggestion of some low density in a few forearm muscles but this could also be artifact. MRI without and with contrast may be considered for further evaluation. This would be much more sensitive for muscle abnormalities. DICTATED BY: John Wallace MD DATE/TIME DICTATED:10/23/171634 Objective Current Medications: Current Medications Sig/Leigh Ann Start time Last Medication Dose Route Stop Time Status Admin Ampicillin Sodium/ 1,500 MG Q6H 10/23 0400 AC 10/24 Sulbactam Sodium IV 0916 Sodium Chloride 100 ML Calcium Gluconate 1 GM ONCE ONE 10/23 2345 DC 10/24 Sodium Chloride 100 ML IV 10/24 0044 0012 Calcium Gluconate 1 GM ONCE ONE 10/23 1400 DC 10/23 Sodium Chloride 100 ML IV 10/23 1459 1405 Levetiracetam 1,500 MG Q12 10/23 1999 AC 10/24 N/A 1 UNIT IV 0752 Lorazepam 1 MG Q6-PRN PRN 10/23 1999 AC 10/23 IV 2122 Magnesium Sulfate 1 GM ONCE ONE 10/23 2345 DC / Dextrose/Water 100 ML IV 10/24 0344 0012 Magnesium Sulfate 1 GM ONCE ONE 10/23 1100 DC 05 Dextrose/Water 100 ML IV 10/23 1459 1200 Morphine Sulfate 1 MG ONCE ONE 10/23 1245 DC 05/ IV 05 1246 1145 Morphine Sulfate 1 MG Q6P PRN 10/23 1999 AC 10/24 IV 0653 Nitroglycerin 0.5 GM Q6 PRN 10/22 2200 AC TOP Pantoprazole Sodium 40 MG BID 10/23 2100 AC 10/24 IV 0752 Pantoprazole Sodium 40 MG Q5H / 2115 DC 05/ Sodium Chloride 100 ML IV 0953 Sodium Bicarbonate 150 MEQ Q5H 10/23 0300 DC 05 Dextrose/Water 1,000 ML IV 0954 Sodium Chloride 1,000 ML Q10H 05/05 2200 AC 05/06 IV 0800 Sodium Chloride 1,000 ML ONCE ONE 05/ 1415 DC 05/05 IV 05/05 1914 1400 Sodium Chloride 1,000 ML BOLUS ONE 05/ 1030 DC 05/05 IV 05/05 1129 1030 Sodium Chloride 1,000 ML ONCE ONE 05/05 1030 DC 05/05 IV 05/05 1709 1244 Vital Signs & I&O Last 24 Hrs of Vitals and I&O: Vital Signs Date Time Temp Pulse Resp B/P B/P Pulse O2 O2 Flow FiO2 Mean Ox Delivery Rate 05/ 0800 97.8 90 16 118/70 05/06 0800 95 Nasal 1.0L Cannula 05/ 0800 97.8 90 16 118/70 95 Nasal 1.0L Cannula 05/ 0600 93 18 147/97 05/06 0400 98.4 92 18 142/90 05/06 0400 94 Nasal 1.0L Cannula 05/06 0000 98.8 94 18 130/80 05/06 0000 98.6 94 18 130/80 95 Nasal 1.0L Cannula 05/06 0000 95 Nasal 1.0L Cannula 05/05 2200 96 18 117/97 05/05 2000 99.3 92 18 130/80 05/05 2000 94 Nasal 1.0L Cannula 05/05 1800 98.2 90 16 128/82 05/05 1600 98.3 86 16 114/68 05/05 1600 96 Nasal 1.0L Cannula 05/05 1600 98.3 86 16 114/68 96 Nasal 1.0L Cannula 05/05 1400 89 16 110/81 05/05 1200 97.6 87 16 109/74 05/05 1200 97 Nasal 1.0L Cannula 05/05 1000 97.4 84 16 98/0 Intake & Output 05/06 1600 05/06 0800 05/06 0000 Intake Total 1025 1626 Output Total 565 437 Balance 460 1189 Intake, IV 985 1586 Intake, Oral 40 40 Output, Stool 300 250 Output, Urine 265 187 Impression/Plan Impression/Plan Impression/Plan: Head: atraumatic, normal appearance Eyes: Bilateral: normal appearance, PERRL, EOMI. Ears, Nose, Throat: hearing grossly normal Neck: posterior cervical tenderness without deformity Respiratory: normal breath sounds, no respiratory distress, lungs clear, abrasion to left chest Cardiovascular: regular rate/rhythm Gastrointestinal: normal bowel sounds, soft, non-tender, no organomegaly, colostomy bag present Back: normal inspection, normal range of motion Extremities: tenderness to right shoulder with limited ROM no sig evidence of necrotizing fascitis Neurologic/Psych: awake, alert, oriented x 3 IMPRESSION Patient is a 52-year-old male with history of seizure disorder, polysubstance abuse, asthma, crohn's disease s/p colostomy, arthritis and anxiety presents to the ER with decreased mental status with drug overdose with multiple substances, (prob unintentional) issues Resolving Sig met acidosis with muliple organ failure and dysfunction Cocaine and benzo od Rhabdo sig no evidence of necrotizing fascitis, but pt has rt arm pain, ct noted and clinically seems to have improved pain Acute renal failiure with hyperkalemia now better, but renal failure persists Hypocalcemia and hence FAD has been stopped Acute TN due to cocaine and rule out acs, prob cocaine induced heart injury vs mi, with lateral wall changes in the ekg Sig UGI bleed with vomiting with coffeeground yesterday with no drop in crit needs to be monitored REsolving Hig anion gap acidosis due to lactic acidosis FLuid around the gb with altered lft needs ultrasound and no clinical evidence of harshal PRevious colon resection / colostosy S/p fall and injury to the rt upper ext rule out soft tissue and bony injury Previous c spine surg with djd REC IVF to continue Gentle and watch for chf, echo pending FAD stopped due to hypocalcemia now hydration ongoing with saline and renal on board Follow sugar and rx hyperglycemia/hypoglycemia Watch ekg Iv ppi Tejeda to cont Cardio/renal and gi eval now Benzo with iv lorazepam for tachy and benzo withdrawal and rx of cocaine toxicity Ortho to follow to eval rt upper arm injury and to monitor for any fascitis Ok with abx Ok with nitro No beta or alpha blockers Follow lfts Prog guarded Pt critically ill tts 38
--- NOTE | 2017-10-24 09:25 | PN- CRCU ---
Subjective HPI/Critical Care Issues: Patient seen and examined this morning. His right upper extremity edema and pain is better than yesterday. He remained afebrile and hemodynamically stable. HEENT urine output is still below on average 30-40 mL per hour in last few hours but total output in 24 hours is 300 mL. His intake is 1127. Renal function is worsening with creatinine of 5.3 at 8 AM which was 4.9 this morning at 3 AM. His potassium remained normal to 4.6, calcium was 6.3 with albumin 2.6 and corrected calcium of 7.4. Magnesium was low to 1.9. She was given mag and calcium this morning. Nephrology was called and I discussed worsening creatinine with Dr. Glez and he want to cut back on fluids from 100 mL to 50 mL for now and watch closely not to fluid overload him and most likely patient would need dialysis if he would not turn around. We will watch strict intake and output. Objective Current Medications: Current Medications Sig/Leigh Ann Start time Last Medication Dose Route Stop Time Status Admin Ampicillin Sodium/ 1,500 MG Q6H 10/23 0400 AC 10/24 Sulbactam Sodium IV 0916 Sodium Chloride 100 ML Calcium Gluconate 1 GM ONCE ONE 10/23 2345 DC 10/24 Sodium Chloride 100 ML IV 10/24 0044 0012 Calcium Gluconate 1 GM ONCE ONE 10/23 1400 DC 10/23 Sodium Chloride 100 ML IV 10/23 1459 1405 Levetiracetam 1,500 MG Q12 10/23 1999 AC 10/24 N/A 1 UNIT IV 0752 Lorazepam 1 MG Q6-PRN PRN 10/23 1999 AC 10/23 IV 2122 Magnesium Sulfate 1 GM ONCE ONE 10/23 2345 DC 05/ Dextrose/Water 100 ML IV 10/24 0344 0012 Magnesium Sulfate 1 GM ONCE ONE 10/23 1100 DC 05/ Dextrose/Water 100 ML IV 10/23 1459 1200 Morphine Sulfate 1 MG ONCE ONE 10/23 1245 DC 05 IV 10/23 1246 1145 Morphine Sulfate 1 MG Q6P PRN 10/23 1999 AC 10/24 IV 0653 Nitroglycerin 0.5 GM Q6 PRN 10/22 2200 AC TOP Pantoprazole Sodium 40 MG BID 10/23 2100 AC 10/24 IV 0752 Pantoprazole Sodium 40 MG Q5H 10/22 2115 DC 05/ Sodium Chloride 100 ML IV 0953 Sodium Bicarbonate 150 MEQ Q5H 05/05 0300 DC 05/05 Dextrose/Water 1,000 ML IV 0954 Sodium Chloride 1,000 ML Q10H 05/ 2200 AC 05/06 IV 0800 Sodium Chloride 1,000 ML ONCE ONE 10/23 1415 DC 05/05 IV 05/05 1914 1400 Sodium Chloride 1,000 ML BOLUS ONE 10/23 1030 DC 05/05 IV 05/ 1129 1030 Sodium Chloride 1,000 ML ONCE ONE 10/23 1030 DC 05/05 IV 05/05 1709 1244 Vital Signs & I&O Last 24 Hrs of Vitals and I&O: Vital Signs Date Time Temp Pulse Resp B/P B/P Pulse O2 O2 Flow FiO2 Mean Ox Delivery Rate / 0800 97.8 90 16 118/70 05/ 0800 95 Nasal 1.0L Cannula / 0800 97.8 90 16 118/70 95 Nasal 1.0L Cannula / 0600 93 18 147/97 05/ 0400 98.4 92 18 142/90 05/ 0400 94 Nasal 1.0L Cannula 05/ 0000 98.8 94 18 130/80 05/06 0000 98.6 94 18 130/80 95 Nasal 1.0L Cannula 05/ 0000 95 Nasal 1.0L Cannula 05/ 2200 96 18 117/97 05/05 2000 99.3 92 18 130/80 05/05 2000 94 Nasal 1.0L Cannula 05/05 1800 98.2 90 16 128/82 05/05 1600 98.3 86 16 114/68 05/05 1600 96 Nasal 1.0L Cannula 05/ 1600 98.3 86 16 114/68 96 Nasal 1.0L Cannula 05/05 1400 89 16 110/81 05/05 1200 97.6 87 16 109/74 05/05 1200 97 Nasal 1.0L Cannula Intake & Output / 1600 05/06 0800 05/06 0000 Intake Total 1025 1626 Output Total 565 437 Balance 460 1189 Intake, IV 985 1586 Intake, Oral 40 40 Output, Stool 300 250 Output, Urine 265 187 Exam General Appearance: no apparent distress, alert, awake Head: atraumatic Ears, Nose, Throat: normal pharynx Neck: normal inspection, supple Respiratory: normal breath sounds, chest non-tender Cardiovascular: regular rate/rhythm Abdomen: soft, colostomy bag in place Extremities: normal inspection, no edema Results Last 24 Hrs of Lab Results: Laboratory Tests 10/24/17 0900: Sodium Cancelled, Potassium Cancelled, Chloride Cancelled, Carbon Dioxide Cancelled, Anion Gap Cancelled, BUN Cancelled, Creatinine Cancelled, Glucose Cancelled, Calcium Cancelled, Phosphorus Cancelled, Magnesium Cancelled, Total Bilirubin Cancelled, AST Cancelled, ALT Cancelled, Albumin Cancelled 10/24/17 0815: Anion Gap 10, Estimated GFR 12 L, Glucose 108 H, Calcium 6.1 L, Phosphorus 5.1 H, Magnesium 1.9, Total Bilirubin 0.7, AST 756 H, ALT 353 H, Albumin 2.6 L 10/24/17 0300: Anion Gap 10, Estimated GFR 13 L, Glucose 106 H, Calcium 6.3 L, Phosphorus 4.8 H, Magnesium 1.6, Total Bilirubin 0.7, AST 820 H, ALT 377 H, Creatine Kinase > 13533 H, Albumin 2.6 L, PT 14.4 H, INR 1.32 H, CBC w Diff NO MAN DIFF REQ, RBC 4.81, MCV 83.8, MCH 27.2, MCHC 32.5 L, RDW 15.4 H, MPV 8.9, Gran % 86.2 H, Lymphocytes % 4.9 L, Monocytes % 8.7, Eosinophils % 0.1, Basophils % 0.1, Absolute Granulocytes 10.6 H, Absolute Lymphocytes 0.6 L, Absolute Monocytes 1.1 H, Absolute Eosinophils 0, Absolute Basophils 0 10/23/172114: Lactic Acid 1.7 10/23/172044: Anion Gap 13, Estimated GFR 16 L, Glucose 90, Calcium 5.8 *L, Phosphorus 4.4, Magnesium 1.5 L, Total Bilirubin 0.8, AST 905 H, ALT 408 H, Albumin 2.7 L, CBC w Diff NO MAN DIFF REQ, RBC 5.14, MCV 84.4, MCH 27.0, MCHC 32.0 L, RDW 15.2 H, MPV 9.2, Gran % 89.6 H, Lymphocytes % 3.4 L, Monocytes % 7.0, Eosinophils % 0, Basophils % 0, Absolute Granulocytes 13.2 H, Absolute Lymphocytes 0.5 L, Absolute Monocytes 1.0 H, Absolute Eosinophils 0, Absolute Basophils 0 10/23/17 1910: Lactic Acid 2.1 10/23/17 1630: Anion Gap 11, Estimated GFR 17 L, Glucose 92, Lactic Acid 2.4 H, Calcium 6.0 L, Phosphorus 4.7 H, Magnesium 1.6, Total Bilirubin 0.7, AST 959 H, ALT 444 H , Albumin 2.9 L 10/23/17 1255: Anion Gap 10, Estimated GFR 19 L, Glucose 113 H, Lactic Acid 2.7 H, Calcium 5.7 *L, Phosphorus 5.2 H, Magnesium 1.8, Total Bilirubin 0.6, AST 887 H, ALT 414 H, Albumin 2.6 L, Free T4 1.20, Total T3 0.88 L, TSH &T3 &Free T4 Intrp 7.180 H, PT 15.2 H, INR 1.39 H, APTT 27 Impression/Plan Impression/Plan Impression/Plan: Patient is 52-year-old gentleman with past medical history significant for polysubstance abuse, benzo dependent, history of seizures on Keppra, history of asthma, history of Crohn's disease diagnosed in 1988 status post colon resection with colostomy bag, history of rectal fistula, severe cervical spine radiculopathy, anxiety/depression and narcotic dependency was brought in by ambulance when mother found him unresponsive around 9 AM this morning. On initial evaluation he was found to have most probably cocaine induced myocardial injury/PR, acute kidney injury with hyperkalemia due to drug overdose with oliguria/anuria, most probably cocaine induced rhabdomyolysis and leukocytosis, severe high anion gap metabolic acidosis/lactic acidosis, drug induced gastritis/peptic ulcer disease with coffee-ground emesis and transaminitis which most likely again drug induced. We will admit him in ICU and will take care for the following problems: Problem #1 elevated troponins with acute EKG changes could be cocaine induced myocardial infarction/cocaine induced coronary vasospasm Troponins are trending down. He remains chest pain-free. Bedside echocardiogram was done yesterday by drilling rig operator didn't show any wall motion abnormality. Still needs close monitoring for any event of cardiac vasospasm. Will start him on aspirin 81 mg today, GI is ok wit that. Problem #2 severe hyperkalemia with EKG changes Potassium trended down and remained stable last 24 hours. Problem #3 AK I most likely drug-induced/drug overdose His creatinine is still trending up. It was 4.9 this morning and in 4 hours came up to 5.3. Dr. Glez was called and discussed patient with him. He is recommending to cut back on fluids at 50 mL/h and we will monitor his creatinine and urine output closely and if he did not responded next 24 hours might need dialysis. No NSAIDs or nephrotoxic's. Problem #4 rhabdomyolysis with elevated creatinine phosphokinase His severe rhabdomyolysis is causing JEAN/ATN and we will conservatively manage him with fluids. Problem #5 transaminitis LFTs are trending down. Problem #6 high anion gap metabolic acidosis/lactic acidosis Resolved and bicarbonate drip was stopped yesterday. Problem #7 coffee-ground emesis most likely drug-induced gastritis We will watch him closely for any GI bleed. His H&H remained stable. No need of urgent EGD. We will advance his diet and will fade Problem #8 leukocytosis Improving and currently patient is on Unasyn for aspiration pneumonia Problem #9 complaining of right shoulder/right arm pain Status post fall Orthopedics on board. IV line was removed from right upper extremity and his edema and pain is better. Watch closely for any signs of compartment syndrome. Problem #10 history of anxiety and depression/multiple events of overdose/benzos withdrawal Psychiatry evaluation appreciated. Recommend contacting social worker for help with referral to either an inpatient rehab or to an [facility]. Patient is full code regular diet full liquid with low potassium Mechanical DVT prophylaxis Code Status: Full Code Problem List: 1. ? ASPIRATION PNEUMONIA 2. Drug overdose 3. Acute kidney injury 4. Polysubstance overdose 5. Benzodiazepine dependence
--- NOTE | 2017-10-24 11:01 | PN- Nephrology ---
Assessment/Plan Nephrology Assessment: JEAN from rhabdo/cocaine. Net positive fluid balance. Electrolytes acceptable. No dialsyis need and UO may be increasing. Suggestion: Decrease NS to 50 cc per hour as don't wish to volume overload. Follow labs. Not clear if renal will plateau or if he will require dialysis in next few days. Subjective Subjective: Patient complaining of some left arm pain, otherwise fine. No N/V/SOB Objective Vital Signs and I&Os Vital Signs Date Time Temp Pulse Resp B/P B/P Pulse O2 O2 Flow FiO2 Mean Ox Delivery Rate / 0800 97.8 90 16 118/70 05/ 0800 95 Nasal 1.0L Cannula / 0800 97.8 90 16 118/70 95 Nasal 1.0L Cannula / 0600 93 18 147/97 05/ 0400 98.4 92 18 142/90 05/ 0400 94 Nasal 1.0L Cannula 05/06 0000 98.8 94 18 130/80 05/06 0000 98.6 94 18 130/80 95 Nasal 1.0L Cannula 05/06 0000 95 Nasal 1.0L Cannula 05/05 2200 96 18 117/97 05/05 2000 99.3 92 18 130/80 05/05 2000 94 Nasal 1.0L Cannula 05/05 1800 98.2 90 16 128/82 05/05 1600 98.3 86 16 114/68 05/05 1600 96 Nasal 1.0L Cannula 05/05 1600 98.3 86 16 114/68 96 Nasal 1.0L Cannula 05/05 1400 89 16 110/81 05/05 1200 97.6 87 16 109/74 05/05 1200 97 Nasal 1.0L Cannula Intake & Output / 1600 05/06 0400 05/05 1600 05/05 0400 05/ 1600 05/ 0400 Intake Total 1025 1626 4078.8 2000 Output Total 565 437 470 Balance 460 1189 3608.8 2000 Intake, IV 985 1586 4048.8 2000 Intake, Oral 40 40 30 Number 0 Bowel Movements Output, Stool 300 250 Output, Urine 265 187 470 Patient 161 lb Weight Weight Bed scale Measurement Method Physical Exam: NAD VS as above Lungs: clear CV: no rub Abd: nontender Exts: no edema except right arm Neuro: A&O no asterixis. Current Medications: Current Medications Sig/Leigh Ann Start time Last Medication Dose Route Stop Time Status Admin Ampicillin Sodium/ 1,500 MG Q6H 10/23 0400 AC 10/24 Sulbactam Sodium IV 0916 Sodium Chloride 100 ML Calcium Gluconate 1 GM ONCE ONE 10/23 2345 DC 10/24 Sodium Chloride 100 ML IV 10/24 0044 0012 Calcium Gluconate 1 GM ONCE ONE 10/23 1400 DC 10/23 Sodium Chloride 100 ML IV 10/23 1459 1405 Levetiracetam 1,500 MG Q12 10/23 1999 AC 10/24 N/A 1 UNIT IV 0752 Lorazepam 1 MG Q6-PRN PRN 10/23 1999 AC 10/23 IV 2122 Magnesium Sulfate 1 GM ONCE ONE 10/23 2345 DC 10/24 Dextrose/Water 100 ML IV 10/24 0344 0012 Magnesium Sulfate 1 GM ONCE ONE 10/23 1100 DC 10/23 Dextrose/Water 100 ML IV 10/23 1459 1200 Morphine Sulfate 1 MG ONCE ONE 10/23 1245 DC 10/23 IV 10/23 1246 1145 Morphine Sulfate 1 MG Q6P PRN 10/23 1999 AC 10/24 IV 0653 Nitroglycerin 0.5 GM Q6 PRN 10/22 2200 AC TOP Pantoprazole Sodium 40 MG BID 10/23 2100 AC 10/24 IV 0752 Pantoprazole Sodium 40 MG Q5H 10/22 2115 DC 05 Sodium Chloride 100 ML IV 0953 Sodium Chloride 1,000 ML Q10H 10/23 2200 AC 05 IV 0800 Sodium Chloride 1,000 ML ONCE ONE 10/23 1415 DC 05 IV 05 1914 1400 Sodium Chloride 1,000 ML BOLUS ONE 10/23 1030 DC 05 IV 05 1129 1030 Sodium Chloride 1,000 ML ONCE ONE 10/23 1030 DC 05 IV 0505 1709 1244 Results Pertinent Lab Results: Laboratory Tests 10/24 04/ 05/ 0900 0815 0300 Chemistry Sodium (137 - 145 mmol/L) Cancelled 136 L 135 L Potassium (3.5 - 5.1 mmol/L) Cancelled 4.6 4.9 Chloride (98 - 107 mmol/L) Cancelled 101 100 Carbon Dioxide (22 - 30 mmol/L) Cancelled 25 25 Anion Gap (5 - 16) Cancelled 10 10 BUN (9 - 20 mg/dL) Cancelled 42 H 38 H Creatinine (0.7 - 1.2 mg/dL) Cancelled 5.3 *H 4.9 H Estimated GFR (>60 ml/min) 12 L 13 L Glucose (65 - 99 mg/dL) Cancelled 108 H 106 H Calcium (8.4 - 10.2 mg/dL) Cancelled 6.1 L 6.3 L Phosphorus (2.5 - 4.5 mg/dL) Cancelled 5.1 H 4.8 H Magnesium (1.6 - 2.3 mg/dL) Cancelled 1.9 1.6 Total Bilirubin (0.2 - 1.3 mg/dL) Cancelled 0.7 0.7 AST (17 - 59 U/L) Cancelled 756 H 820 H ALT (21 - 72 U/L) Cancelled 353 H 377 H Creatine Kinase (55 - 170 U/L) > 66150 H Albumin (3.5 - 5.0 g/dL) Cancelled 2.6 L 2.6 L Coagulation PT (9.4 - 12.5 SEC) 14.4 H INR (0.90 - 1.17) 1.32 H Hematology CBC w Diff NO MAN DIFF REQ WBC (4.8 - 10.8 /CUMM) 12.4 H RBC (4.70 - 6.10 /CUMM) 4.81 Hgb (14.0 - 18.0 G/DL) 13.1 L Hct (42 - 52 %) 40.3 L MCV (80.0 - 94.0 FL) 83.8 MCH (27.0 - 31.0 PG) 27.2 MCHC (33.0 - 37.0 G/DL) 32.5 L RDW (11.5 - 14.5 %) 15.4 H Plt Count (130 - 400 /CUMM) 140 MPV (7.4 - 10.4 FL) 8.9 Gran % (42.2 - 75.2 %) 86.2 H Lymphocytes % (20.5 - 51.1 %) 4.9 L Monocytes % (1.7 - 9.3 %) 8.7 Eosinophils % (0 - 5 %) 0.1 Basophils % (0.0 - 2.0 %) 0.1 Absolute Granulocytes (1.4 - 6.5 /CUMM) 10.6 H Absolute Lymphocytes (1.2 - 3.4 /CUMM) 0.6 L Absolute Monocytes (0.10 - 0.60 /CUMM) 1.1 H Absolute Eosinophils (0.0 - 0.7 /CUMM) 0 Absolute Basophils (0.0 - 0.2 /CUMM) 0 10/23 1910 1630 Chemistry Sodium (137 - 145 mmol/L) 137 137 Potassium (3.5 - 5.1 mmol/L) 5.5 H 5.6 H Chloride (98 - 107 mmol/L) 99 98 Carbon Dioxide (22 - 30 mmol/L) 25 28 Anion Gap (5 - 16) 13 11 BUN (9 - 20 mg/dL) 34 H 31 H Creatinine (0.7 - 1.2 mg/dL) 4.0 H 3.8 H Estimated GFR (>60 ml/min) 16 L 17 L Glucose (65 - 99 mg/dL) 90 92 Lactic Acid (0.7 - 2.1 mmol/L) 1.7 2.1 2.4 H Calcium (8.4 - 10.2 mg/dL) 5.8 *L 6.0 L Phosphorus (2.5 - 4.5 mg/dL) 4.4 4.7 H Magnesium (1.6 - 2.3 mg/dL) 1.5 L 1.6 Total Bilirubin (0.2 - 1.3 mg/dL) 0.8 0.7 AST (17 - 59 U/L) 905 H 959 H ALT (21 - 72 U/L) 408 H 444 H Albumin (3.5 - 5.0 g/dL) 2.7 L 2.9 L Hematology CBC w Diff NO MAN DIFF REQ WBC (4.8 - 10.8 /CUMM) 14.7 H RBC (4.70 - 6.10 /CUMM) 5.14 Hgb (14.0 - 18.0 G/DL) 13.9 L Hct (42 - 52 %) 43.4 MCV (80.0 - 94.0 FL) 84.4 MCH (27.0 - 31.0 PG) 27.0 MCHC (33.0 - 37.0 G/DL) 32.0 L RDW (11.5 - 14.5 %) 15.2 H Plt Count (130 - 400 /CUMM) 153 MPV (7.4 - 10.4 FL) 9.2 Gran % (42.2 - 75.2 %) 89.6 H Lymphocytes % (20.5 - 51.1 %) 3.4 L Monocytes % (1.7 - 9.3 %) 7.0 Eosinophils % (0 - 5 %) 0 Basophils % (0.0 - 2.0 %) 0 Absolute Granulocytes (1.4 - 6.5 /CUMM) 13.2 H Absolute Lymphocytes (1.2 - 3.4 /CUMM) 0.5 L Absolute Monocytes (0.10 - 0.60 /CUMM) 1.0 H Absolute Eosinophils (0.0 - 0.7 /CUMM) 0 Absolute Basophils (0.0 - 0.2 /CUMM) 0 / 05 1255 0825 Chemistry Sodium (137 - 145 mmol/L) 135 L Potassium (3.5 - 5.1 mmol/L) 4.9 Chloride (98 - 107 mmol/L) 99 Carbon Dioxide (22 - 30 mmol/L) 27 Anion Gap (5 - 16) 10 BUN (9 - 20 mg/dL) 30 H Creatinine (0.7 - 1.2 mg/dL) 3.5 H Estimated GFR (>60 ml/min) 19 L Glucose (65 - 99 mg/dL) 113 H Lactic Acid (0.7 - 2.1 mmol/L) 2.7 H 4.6 H Calcium (8.4 - 10.2 mg/dL) 5.7 *L Phosphorus (2.5 - 4.5 mg/dL) 5.2 H Magnesium (1.6 - 2.3 mg/dL) 1.8 Total Bilirubin (0.2 - 1.3 mg/dL) 0.6 AST (17 - 59 U/L) 887 H ALT (21 - 72 U/L) 414 H Albumin (3.5 - 5.0 g/dL) 2.6 L Free T4 (0.64 - 1.79 ng/dL) 1.20 Total T3 (0.97 - 1.69 ng/mL) 0.88 L TSH &T3 &Free T4 Intrp (0.27 - 4.20 uIU/mL) 7.180 H Coagulation PT (9.4 - 12.5 SEC) 15.2 H INR (0.90 - 1.17) 1.39 H APTT (25 - 37 SEC) 27 10/23 10/23 10/23 0825 0620 0500 Blood Gas pH (7.35 - 7.45 PH) 7.29 *L pCO2 (35 - 45 TORR) 44 pO2 (80 - 100 TORR) 86 HCO3 (21 - 28 MEQ/L) 20 L ABG O2 Sat (Measured) (>96.0 %) 95.0 L Carboxyhemoglobin (1.5 - 5.0 %) 0.4 L O2 Concentration % 2L O2 Delivery Method NC Chemistry Sodium (137 - 145 mmol/L) 137 Potassium (3.5 - 5.1 mmol/L) 5.1 Chloride (98 - 107 mmol/L) 96 L Carbon Dioxide (22 - 30 mmol/L) 25 Anion Gap (5 - 16) 15 BUN (9 - 20 mg/dL) 27 H Creatinine (0.7 - 1.2 mg/dL) 3.4 H Estimated GFR (>60 ml/min) 19 L Glucose (65 - 99 mg/dL) 169 H Lactic Acid (0.7 - 2.1 mmol/L) 5.8 H Calcium (8.4 - 10.2 mg/dL) 5.9 *L Phosphorus (2.5 - 4.5 mg/dL) 5.5 H Magnesium (1.6 - 2.3 mg/dL) 1.4 L Total Bilirubin (0.2 - 1.3 mg/dL) 0.6 AST (17 - 59 U/L) 975 H ALT (21 - 72 U/L) 454 H Creatine Kinase (55 - 170 U/L) > 27805 H Albumin (3.5 - 5.0 g/dL) 3.0 L Hematology CBC w Diff MAN DIFF ORDERED WBC (4.8 - 10.8 /CUMM) 21.4 H RBC (4.70 - 6.10 /CUMM) 6.21 H Hgb (14.0 - 18.0 G/DL) 16.7 Hct (42 - 52 %) 52.6 H MCV (80.0 - 94.0 FL) 84.6 MCH (27.0 - 31.0 PG) 27.0 MCHC (33.0 - 37.0 G/DL) 31.9 L RDW (11.5 - 14.5 %) 15.3 H Plt Count (130 - 400 /CUMM) 173 MPV (7.4 - 10.4 FL) 9.0 Gran % (42.2 - 75.2 %) 93.1 H Lymphocytes % (20.5 - 51.1 %) 2.8 L Monocytes % (1.7 - 9.3 %) 4.1 Eosinophils % (0 - 5 %) 0 Basophils % (0.0 - 2.0 %) 0 Absolute Granulocytes (1.4 - 6.5 /CUMM) 19.9 H Segmented Neutrophils (42.2 - 75.2 %) 79 H Band Neutrophils (0.0 - 5.0 %) 14 H Absolute Lymphocytes (1.2 - 3.4 /CUMM) 0.6 L Lymphocytes (20.5 - 51.1 %) 6 L Monocytes (1.7 - 9.3 %) 1 L Absolute Monocytes (0.10 - 0.60 /CUMM) 0.9 H Absolute Eosinophils (0.0 - 0.7 /CUMM) 0 Absolute Basophils (0.0 - 0.2 /CUMM) 0 Platelet Estimate (ADEQUATE) ADEQUATE Normocytic RBCs VERIFIED Normochromic RBCs VERIFIED Miscellaneous Phlebotomy Draw Site LEFT RADIAL 10/23 10/23 10/23 0230 0230 0030 Chemistry Sodium (137 - 145 mmol/L) 136 L Potassium (3.5 - 5.1 mmol/L) 6.5 *H Chloride (98 - 107 mmol/L) 99 Carbon Dioxide (22 - 30 mmol/L) 19 L Anion Gap (5 - 16) 19 H BUN (9 - 20 mg/dL) 25 H Creatinine (0.7 - 1.2 mg/dL) 3.1 H Estimated GFR (>60 ml/min) 21 L Glucose (65 - 99 mg/dL) 251 H Lactic Acid (0.7 - 2.1 mmol/L) 5.7 H 7.1 H Calcium (8.4 - 10.2 mg/dL) 5.7 *L Phosphorus (2.5 - 4.5 mg/dL) 7.8 H Magnesium (1.6 - 2.3 mg/dL) 1.5 L Total Bilirubin (0.2 - 1.3 mg/dL) 0.5 AST (17 - 59 U/L) 908 H ALT (21 - 72 U/L) 381 H Troponin I (<0.11 ng/ml) 0.85 *H Albumin (3.5 - 5.0 g/dL) 3.2 L Hematology CBC w Diff MAN DIFF ORDERED WBC (4.8 - 10.8 /CUMM) 29.4 H RBC (4.70 - 6.10 /CUMM) 6.38 H Hgb (14.0 - 18.0 G/DL) 17.2 Hct (42 - 52 %) 53.7 H MCV (80.0 - 94.0 FL) 84.2 MCH (27.0 - 31.0 PG) 27.0 MCHC (33.0 - 37.0 G/DL) 32.1 L RDW (11.5 - 14.5 %) 15.4 H Plt Count (130 - 400 /CUMM) 194 MPV (7.4 - 10.4 FL) 8.8 Gran % (42.2 - 75.2 %) 94.1 H Lymphocytes % (20.5 - 51.1 %) 2.3 L Monocytes % (1.7 - 9.3 %) 3.6 Eosinophils % (0 - 5 %) 0 Basophils % (0.0 - 2.0 %) 0 Absolute Granulocytes (1.4 - 6.5 /CUMM) 27.6 H Segmented Neutrophils (42.2 - 75.2 %) 85 H Band Neutrophils (0.0 - 5.0 %) 12 H Absolute Lymphocytes (1.2 - 3.4 /CUMM) 0.7 L Lymphocytes (20.5 - 51.1 %) 2 L Monocytes (1.7 - 9.3 %) 1 L Absolute Monocytes (0.10 - 0.60 /CUMM) 1.1 H Eosinophils (0 - 5.0 %) 0 Absolute Eosinophils (0.0 - 0.7 /CUMM) 0 Absolute Basophils (0.0 - 0.2 /CUMM) 0 Platelet Estimate (ADEQUATE) ADEQUATE Normochromic RBCs VERIFIED Poikilocytosis 1+ 10/22 10/22 10/22 10/22 4985 4 2025 2025 Blood Gas pH (7.35 - 7.45 PH) 7.12 *L pCO2 (35 - 45 TORR) 37 pO2 (80 - 100 TORR) 85 HCO3 (21 - 28 MEQ/L) 12 L ABG O2 Sat (Measured) (>96.0 %) 94.0 L P-50 (Temp Corrected) Y Carboxyhemoglobin (1.5 - 5.0 %) 0.7 L O2 Concentration % 2L Temperature (97.0 - 100.0 FARH) 96.4 L O2 Delivery Method NC Chemistry Sodium (137 - 145 mmol/L) 139 Potassium (3.5 - 5.1 mmol/L) 5.6 H Chloride (98 - 107 mmol/L) 97 L Carbon Dioxide (22 - 30 mmol/L) 15 L Anion Gap (5 - 16) 27 H BUN (9 - 20 mg/dL) 21 H Creatinine (0.7 - 1.2 mg/dL) 3.4 H Estimated GFR (>60 ml/min) 19 L BUN/Creatinine Ratio (7 - 25 %) 6.2 L Lactic Acid (0.7 - 2.1 mmol/L) Cancelled 9.6 H Creatine Kinase (55 - 170 U/L) > 86511 H Troponin I (<0.11 ng/ml) 1.25 *H Miscellaneous Phlebotomy Draw Site RIGHT RADIAL 10/22 1400 Chemistry Creatine Kinase Cancelled Urines Urinalysis LIGHT H Urine Color (YEL,AMB,STR) YEL Urine Clarity (CLEAR) HAZY H Urine pH (5.0 - 8.0) 6.0 Ur Specific [place] (1.001 - 1.035) >= 1.030 Urine Protein (NEG,<30 MG/DL) 30 H Urine Ketones (NEG) NEG Urine Nitrite (NEG) NEG Urine Bilirubin (NEG) NEG Urine Urobilinogen (0.1 - 1.0 EU/dl) 0.2 Ur Leukocyte Esterase (NEG) NEG Ur Microscopic SEDIMENT EXAMINED Urine RBC (0 - 5 /HPF) 1-3 Urine WBC (0 - 2 /HPF) 1-3 H Ur Epithelial Cells (NONE,FEW) FEW Urine Bacteria (NEG/NONE) RARE H Hyaline Casts (0/LPF) RARE H Granular Casts (NONE /LPF) RARE H Urine Mucus (FEW,NONE) MANY H Urine Hemoglobin (NEG) MOD H Urine Glucose (N MG/DL) NEG 10/22 10/22 1400 1344 Chemistry Sodium (137 - 145 mmol/L) 140 Potassium (3.5 - 5.1 mmol/L) 7.3 *H Chloride (98 - 107 mmol/L) 92 L Carbon Dioxide (22 - 30 mmol/L) 18 L Anion Gap (5 - 16) 30 H BUN (9 - 20 mg/dL) 20 Creatinine (0.7 - 1.2 mg/dL) 3.4 H Estimated GFR (>60 ml/min) 19 L BUN/Creatinine Ratio (7 - 25 %) 5.9 L Glucose (65 - 99 mg/dL) 211 H Serum Osmolality (285 - 295 MOSM/KG) 303 H Calcium (8.4 - 10.2 mg/dL) 8.4 Magnesium (1.6 - 2.3 mg/dL) 2.7 H Total Bilirubin (0.2 - 1.3 mg/dL) 0.7 AST (17 - 59 U/L) 338 H ALT (21 - 72 U/L) 165 H Alkaline Phosphatase (< 127 U/L) 127 H Creatine Kinase (55 - 170 U/L) 92508 H Troponin I (<0.11 ng/ml) 1.05 *H Total Protein (6.3 - 8.2 g/dL) 8.2 Albumin (3.5 - 5.0 g/dL) 5.1 H Globulin (1.9 - 4.2 gm/dL) 3.1 Albumin/Globulin Ratio (1.1 - 2.2 %) 1.6 Hematology CBC w Diff MAN DIFF ORDERED WBC (4.8 - 10.8 /CUMM) 28.3 H RBC (4.70 - 6.10 /CUMM) 5.88 Hgb (14.0 - 18.0 G/DL) 16.3 Hct (42 - 52 %) 50.6 MCV (80.0 - 94.0 FL) 86.1 MCH (27.0 - 31.0 PG) 27.7 MCHC (33.0 - 37.0 G/DL) 32.2 L RDW (11.5 - 14.5 %) 15.3 H Plt Count (130 - 400 /CUMM) 280 MPV (7.4 - 10.4 FL) 7.9 Gran % (42.2 - 75.2 %) 93.4 H Lymphocytes % (20.5 - 51.1 %) 2.7 L Monocytes % (1.7 - 9.3 %) 3.7 Eosinophils % (0 - 5 %) 0.1 Basophils % (0.0 - 2.0 %) 0.1 Absolute Granulocytes (1.4 - 6.5 /CUMM) 26.5 H Segmented Neutrophils (42.2 - 75.2 %) 68 Band Neutrophils (0.0 - 5.0 %) 19 H Absolute Lymphocytes (1.2 - 3.4 /CUMM) 0.8 L Lymphocytes (20.5 - 51.1 %) 2 L Monocytes (1.7 - 9.3 %) 9 Absolute Monocytes (0.10 - 0.60 /CUMM) 1.1 H Absolute Eosinophils (0.0 - 0.7 /CUMM) 0 Absolute Basophils (0.0 - 0.2 /CUMM) 0 Metamyelocytes (0.0 - 1.0 %) 2 H Normocytic RBCs VERIFIED Normochromic RBCs VERIFIED Toxicology Salicylates (0 - 20.0 mg/dL) < 1.0 Urine Opiates Screen (>2000 NG/ML) 1659.00 Methadone Screen (>300 NG/ML) 68 Acetaminophen (10.0 - 30.0 ug/mL) < 10.0 L Barbiturate Screen (>200 NG/ML) 88 Ur Phencyclidine Scrn (>25 NG/ML) < 6.00 Amphetamines Screen (>1000 NG/ML) 149 U Benzodiazepines Scrn (>200 NG/ML) > 800 H Urine Cocaine Screen (>300 NG/ML) > 1000 H Urine Cannabis Screen (>50 NG/ML) 7.70 Serum Alcohol (<10 MG/DL) < 10.0 Urines Urine Osmolality (300 - 1000 MOSM/KG) 832 Ur Random Creatinine (mg/dL) 399.8 Ur Random Sodium (30 - 90 mmol/L) 15 L Ur Random Potassium (mmol/L) 135.2 Fraction Sodium Excret (<1% %) 0.1
--- NOTE | 2017-10-24 11:53 | PN- Cardiology ---
Subjective Subjective: feeling better this morning. Left arm still in pain. CPK still stagnating around 30 000. Oliguric. No chest pains. Echocardiogram does not reveal any wall motion abnormality. Review of Systems: see HPI Objective Vital Signs and I&Os Vital Signs Date Time Temp Pulse Resp B/P B/P Pulse O2 O2 Flow FiO2 Mean Ox Delivery Rate 05/ 0800 97.8 90 16 118/70 05/06 0800 95 Nasal 1.0L Cannula 05/06 0800 97.8 90 16 118/70 95 Nasal 1.0L Cannula 05/06 0600 93 18 147/97 05/06 0400 98.4 92 18 142/90 05/06 0400 94 Nasal 1.0L Cannula 05/06 0000 98.8 94 18 130/80 05/06 0000 98.6 94 18 130/80 95 Nasal 1.0L Cannula 05/06 0000 95 Nasal 1.0L Cannula 05/05 2200 96 18 117/97 05/05 2000 99.3 92 18 130/80 05/05 2000 94 Nasal 1.0L Cannula 05/05 1800 98.2 90 16 128/82 05/05 1600 98.3 86 16 114/68 05/05 1600 96 Nasal 1.0L Cannula 05/05 1600 98.3 86 16 114/68 96 Nasal 1.0L Cannula 05/05 1400 89 16 110/81 05/05 1200 97.6 87 16 109/74 05/05 1200 97 Nasal 1.0L Cannula Intake & Output 05/ 1600 05/06 0800 05/06 0000 05/05 1600 05/05 0800 05/05 0000 Intake Total 1025 1626 2286.8 1792 2000 Output Total 565 437 125 345 Balance 460 1189 2161.8 1447 1999 Intake, IV 985 1586 2256.8 1792 1999 Intake, Oral 40 40 30 Number 0 Bowel Movements Output, Stool 300 250 Output, Urine 265 187 125 345 Patient 161 lb Weight Weight Bed scale Measurement Method Physical Exam: General Appearance: no apparent distress, alert, awake Head: atraumatic, oral mucosa pink and moist, PERRLA Neck: supple, trachea mid line (no JVD) Respiratory: lungs clear (no wheezing.), rash on left sternal border Cardiovascular: regular rate/rhythm, no audible murmur, no friction rub, normal apical impact. Gastrointestinal: normal bowel sounds, soft, non-tender Extremities: normal capillary refill, no edema Current Medications: Current Medications Sig/Leigh Ann Start time Last Medication Dose Route Stop Time Status Admin Ampicillin Sodium/ 1,500 MG Q6H 10/23 0400 10/24 Sulbactam Sodium IV 0916 Sodium Chloride 100 ML Calcium Gluconate 1 GM ONCE ONE 10/23 2345 DC 10/24 Sodium Chloride 100 ML IV 10/24 0044 0012 Calcium Gluconate 1 GM ONCE ONE 10/23 1400 DC 10/23 Sodium Chloride 100 ML IV 10/23 1459 1405 Levetiracetam 1,500 MG Q12 10/23 1999 10/24 N/A 1 UNIT IV 0752 Lorazepam 1 MG Q6-PRN PRN 10/23 1999 10/23 IV 2122 Magnesium Sulfate 1 GM ONCE ONE 10/23 2345 DC 10/24 Dextrose/Water 100 ML IV 10/24 0344 0012 Magnesium Sulfate 1 GM ONCE ONE 10/23 1100 DC 10/23 Dextrose/Water 100 ML IV 10/23 1459 1200 Morphine Sulfate 1 MG ONCE ONE 10/23 1245 DC 05 IV 05 1246 1145 Morphine Sulfate 1 MG Q6P PRN 10/23 1999 10/24 IV 0653 Nitroglycerin 0.5 GM Q6 PRN 10/22 220 AC TOP Pantoprazole Sodium 40 MG BID 10/23 2100 AC 10/24 IV 0752 Pantoprazole Sodium 40 MG Q5H 10/22 2115 DC 05 Sodium Chloride 100 ML IV 0953 Sodium Chloride 1,000 ML Q10H 10/23 2200 AC 10/24 IV 0800 Sodium Chloride 1,000 ML ONCE ONE 10/23 1415 DC 05 IV 05 1914 1400 Sodium Chloride 1,000 ML ONCE ONE 10/23 1030 DC 05/ IV 05/ 1709 1244 Results Last 48 Hrs of Labs/Mics: Laboratory Tests 10/24/17 0900: Sodium Cancelled, Potassium Cancelled, Chloride Cancelled, Carbon Dioxide Cancelled, Anion Gap Cancelled, BUN Cancelled, Creatinine Cancelled, Glucose Cancelled, Calcium Cancelled, Phosphorus Cancelled, Magnesium Cancelled, Total Bilirubin Cancelled, AST Cancelled, ALT Cancelled, Albumin Cancelled 10/24/17 0815: Anion Gap 10, Estimated GFR 12 L, Glucose 108 H, Calcium 6.1 L, Phosphorus 5.1 H, Magnesium 1.9, Total Bilirubin 0.7, AST 756 H, ALT 353 H, Albumin 2.6 L 10/24/17 0300: Anion Gap 10, Estimated GFR 13 L, Glucose 106 H, Calcium 6.3 L, Phosphorus 4.8 H, Magnesium 1.6, Total Bilirubin 0.7, AST 820 H, ALT 377 H, Creatine Kinase > 49811 H, Albumin 2.6 L, PT 14.4 H, INR 1.32 H, CBC w Diff NO MAN DIFF REQ, RBC 4.81, MCV 83.8, MCH 27.2, MCHC 32.5 L, RDW 15.4 H, MPV 8.9, Gran % 86.2 H, Lymphocytes % 4.9 L, Monocytes % 8.7, Eosinophils % 0.1, Basophils % 0.1, Absolute Granulocytes 10.6 H, Absolute Lymphocytes 0.6 L, Absolute Monocytes 1.1 H, Absolute Eosinophils 0, Absolute Basophils 0 10/23/172114: Lactic Acid 1.7 10/23/172044: Anion Gap 13, Estimated GFR 16 L, Glucose 90, Calcium 5.8 *L, Phosphorus 4.4, Magnesium 1.5 L, Total Bilirubin 0.8, AST 905 H, ALT 408 H, Albumin 2.7 L, CBC w Diff NO MAN DIFF REQ, RBC 5.14, MCV 84.4, MCH 27.0, MCHC 32.0 L, RDW 15.2 H, MPV 9.2, Gran % 89.6 H, Lymphocytes % 3.4 L, Monocytes % 7.0, Eosinophils % 0, Basophils % 0, Absolute Granulocytes 13.2 H, Absolute Lymphocytes 0.5 L, Absolute Monocytes 1.0 H, Absolute Eosinophils 0, Absolute Basophils 0 10/23/17 1910: Lactic Acid 2.1 10/23/17 1630: Anion Gap 11, Estimated GFR 17 L, Glucose 92, Lactic Acid 2.4 H, Calcium 6.0 L, Phosphorus 4.7 H, Magnesium 1.6, Total Bilirubin 0.7, AST 959 H, ALT 444 H , Albumin 2.9 L 10/23/17 1255: Anion Gap 10, Estimated GFR 19 L, Glucose 113 H, Lactic Acid 2.7 H, Calcium 5.7 *L, Phosphorus 5.2 H, Magnesium 1.8, Total Bilirubin 0.6, AST 887 H, ALT 414 H, Albumin 2.6 L, Free T4 1.20, Total T3 0.88 L, TSH &T3 &Free T4 Intrp 7.180 H, PT 15.2 H, INR 1.39 H, APTT 27 10/23/17 0825: Lactic Acid 4.6 H 10/23/17 0825: Anion Gap 15, Estimated GFR 19 L, Glucose 169 H, Calcium 5.9 *L, Phosphorus 5.5 H, Magnesium 1.4 L, Total Bilirubin 0.6, AST 975 H, ALT 454 H, Creatine Kinase > 23130 H, Albumin 3.0 L, CBC w Diff MAN DIFF ORDERED, RBC 6.21 H, MCV 84.6, MCH 27.0, MCHC 31.9 L, RDW 15.3 H, MPV 9.0, Gran % 93.1 H, Lymphocytes % 2.8 L, Monocytes % 4.1, Eosinophils % 0, Basophils % 0, Absolute Granulocytes 19.9 H, Segmented Neutrophils 79 H, Band Neutrophils 14 H, Absolute Lymphocytes 0.6 L, Lymphocytes 6 L, Monocytes 1 L, Absolute Monocytes 0.9 H, Absolute Eosinophils 0, Absolute Basophils 0, Platelet Estimate ADEQUATE, Normocytic RBCs VERIFIED, Normochromic RBCs VERIFIED 10/23/17 0620: pH 7.29 *L, pCO2 44, pO2 86, HCO3 20 L, ABG O2 Sat (Measured) 95.0 L, Carboxyhemoglobin 0.4 L, O2 Concentration % 2L, O2 Delivery Method NC, Phlebotomy Draw Site LEFT RADIAL 10/23/17 0500: Lactic Acid 5.8 H 10/23/17 0230: Lactic Acid 5.7 H 10/23/17 0230: Anion Gap 19 H, Estimated GFR 21 L, Glucose 251 H, Calcium 5.7 *L, Phosphorus 7.8 H, Magnesium 1.5 L, Total Bilirubin 0.5, AST 908 H, ALT 381 H, Troponin I 0.85 *H, Albumin 3.2 L, CBC w Diff MAN DIFF ORDERED, RBC 6.38 H, MCV 84.2, MCH 27.0, MCHC 32.1 L, RDW 15.4 H, MPV 8.8, Gran % 94.1 H, Lymphocytes % 2.3 L, Monocytes % 3.6, Eosinophils % 0, Basophils % 0, Absolute Granulocytes 27.6 H, Segmented Neutrophils 85 H, Band Neutrophils 12 H, Absolute Lymphocytes 0.7 L, Lymphocytes 2 L, Monocytes 1 L, Absolute Monocytes 1.1 H, Eosinophils 0, Absolute Eosinophils 0, Absolute Basophils 0, Platelet Estimate ADEQUATE, Normochromic RBCs VERIFIED, Poikilocytosis 1+ 10/23/17 0030: Lactic Acid 7.1 H 10/22/17 2245: pH 7.12 *L, pCO2 37, pO2 85, HCO3 12 L, ABG O2 Sat (Measured) 94.0 L, P-50 ( Temp Corrected) Y, Carboxyhemoglobin 0.7 L, O2 Concentration % 2L, Temperature 96.4 L, O2 Delivery Method NC, Phlebotomy Draw Site RIGHT RADIAL 10/22/172114: Lactic Acid Cancelled 10/22/172025: Lactic Acid 9.6 H 10/22/172025: Anion Gap 27 H, Estimated GFR 19 L, BUN/Creatinine Ratio 6.2 L, Creatine Kinase > 90633 H, Troponin I 1.25 *H 10/22/172021: Creatine Kinase Cancelled 10/22/17 1400: Urinalysis LIGHT H, Urine Color YEL, Urine Clarity HAZY H, Urine pH 6.0, Ur Specific [place] >= 1.030, Urine Protein 30 H, Urine Ketones NEG, Urine Nitrite NEG, Urine Bilirubin NEG, Urine Urobilinogen 0.2, Ur Leukocyte Esterase NEG, Ur Microscopic SEDIMENT EXAMINED, Urine RBC 1-3, Urine WBC 1-3 H, Ur Epithelial Cells FEW, Urine Bacteria RARE H, Hyaline Casts RARE H, Granular Casts RARE H , Urine Mucus MANY H, Urine Hemoglobin MOD H, Urine Glucose NEG 10/22/17 1400: Urine Opiates Screen 1659.00, Methadone Screen 68, Barbiturate Screen 88, Ur Phencyclidine Scrn < 6.00, Amphetamines Screen 149, U Benzodiazepines Scrn > 800 H, Urine Cocaine Screen > 1000 H, Urine Cannabis Screen 7.70, Urine Osmolality 832, Ur Random Creatinine 399.8, Ur Random Sodium 15 L, Ur Random Potassium 135.2, Fraction Sodium Excret 0.1 10/22/17 1344: Anion Gap 30 H, Estimated GFR 19 L, BUN/Creatinine Ratio 5.9 L, Glucose 211 H, Serum Osmolality 303 H, Calcium 8.4, Magnesium 2.7 H, Total Bilirubin 0.7, AST 338 H, ALT 165 H, Alkaline Phosphatase 127 H, Creatine Kinase 69983 H, Troponin I 1.05 *H, Total Protein 8.2, Albumin 5.1 H, Globulin 3.1, Albumin/ Globulin Ratio 1.6, CBC w Diff MAN DIFF ORDERED, RBC 5.88, MCV 86.1, MCH 27.7, MCHC 32.2 L, RDW 15.3 H, MPV 7.9, Gran % 93.4 H, Lymphocytes % 2.7 L, Monocytes % 3.7, Eosinophils % 0.1, Basophils % 0.1, Absolute Granulocytes 26.5 H, Segmented Neutrophils 68, Band Neutrophils 19 H, Absolute Lymphocytes 0.8 L , Lymphocytes 2 L, Monocytes 9, Absolute Monocytes 1.1 H, Absolute Eosinophils 0, Absolute Basophils 0, Metamyelocytes 2 H, Normocytic RBCs VERIFIED, Normochromic RBCs VERIFIED, Salicylates < 1.0, Acetaminophen < 10.0 L, Serum Alcohol < 10.0 Microbiology 10/22 2229 UPPER RESP: Surveillance Culture - COMP 10/22 2229 GI: Surveillance Culture - COMP Assessment/Plan Assessment/Plan Severe rhabdomyolysis post cocaine abuse, with secondary acute kidney injury, and acidosis. Positive troponins and acute EKG changes in the setting of severe hyperkalemia. EKG changes have resolved with resolution of hyperkalemia and acidosis. There is no evidence of coronary spasm at the moment and no myocardial damage observed on echocardiogram, thus the patient likely had mild coronary spasms during his episode of cocaine consumption as well as demand ischemia in the setting of acidosis. No anticoagulation. ASA when hemoglobin stable (I would begin ASA today) along with PPI. maintain on telemetry for the moment. Continue telemetry? Yes
--- NOTE | 2017-10-24 15:45 | PN- Gastroenterology ---
Assessment/Plan GI Assessment/Recommendations: 1. Hematemesis. Without recurrence. Hemoglobin stable after fluid resuscitation. 2. Elevated LFTs. Likely a combination of ischemic hepatitis and rhabdomyolysis. Downward trend. Acceptable INR. 3. Crohn's disease. Details of outpatient evaluation/management unavailable. Recommendations * Continue to follow CBC, LFTs, and INR daily * Continue IV PPI twice a day * No urgent EGD * Call with evidence of rebleeding, especially with significant (red emesis, melena) * Obtain recent office records from [facility]. Subjective Subjective: No hematemesis, melena. Reported dark green stool via ostomy. Positive abdominal pain. Objective Vital Signs and I&Os Vital Signs Date Time Temp Pulse Resp B/P B/P Pulse O2 O2 Flow FiO2 Mean Ox Delivery Rate / 1400 98.3 91 16 138/100 05/ 1200 98.2 93 16 140/88 05/ 1200 96 Nasal 1.0L Cannula 05/ 1000 98.0 94 18 134/93 05/06 0800 97.8 90 16 118/70 05/06 0800 95 Nasal 1.0L Cannula 05/06 0800 97.8 90 16 118/70 95 Nasal 1.0L Cannula 05/06 0600 93 18 147/97 05/06 0400 98.4 92 18 142/90 05/06 0400 94 Nasal 1.0L Cannula 05/06 0000 98.8 94 18 130/80 05/06 0000 98.6 94 18 130/80 95 Nasal 1.0L Cannula 05/06 0000 95 Nasal 1.0L Cannula 05/05 2200 96 18 117/97 05/05 2000 99.3 92 18 130/80 05/05 2000 94 Nasal 1.0L Cannula 05/05 1800 98.2 90 16 128/82 05/05 1600 98.3 86 16 114/68 05/05 1600 96 Nasal 1.0L Cannula 05/05 1600 98.3 86 16 114/68 96 Nasal 1.0L Cannula Intake & Output / 1600 05/06 0400 05/ 1600 05/05 0400 05/ 1600 05/ 0400 Intake Total 1785 1626 4078.8 1999 Output Total 825 437 470 Balance 960 1189 3608.8 1999 Intake, IV 1645 1586 4048.8 1999 Intake, Oral 140 40 30 Number 0 Bowel Movements Output, Stool 300 250 Output, Urine 525 187 470 Patient 161 lb Weight Weight Bed scale Measurement Method Physical Exam: Sclera anicteric. Abdomen soft, nondistended, mildly tender. Current Medications: Current Medications Sig/Leigh Ann Start time Last Medication Dose Route Stop Time Status Admin Ampicillin Sodium/ 1,500 MG Q6H / 0400 AC 10/24 Sulbactam Sodium IV 1535 Sodium Chloride 100 ML Aspirin 81 MG DAILY 10/24 1300 AC 10/24 PO 1413 Calcium Gluconate 1 GM ONCE ONE 10/23 234 DC 10/24 Sodium Chloride 100 ML IV 10/24 0044 0012 Levetiracetam 1,500 MG Q12 10/23 1999 AC 10/24 N/A 1 UNIT IV 0752 Lorazepam 1 MG Q6-PRN PRN 10/23 1999 AC 10/24 IV 1419 Magnesium Sulfate 1 GM ONCE ONE 10/23 234 DC 10/24 Dextrose/Water 100 ML IV 10/24 0344 0012 Morphine Sulfate 1 MG Q6P PRN 10/23 1999 AC 10/24 IV 1420 Nitroglycerin 0.5 GM Q6 PRN 10/22 220 AC TOP Pantoprazole Sodium 40 MG BID 10/23 2100 AC 10/24 IV 0752 Pantoprazole Sodium 40 MG Q5H 10/22 2115 DC 10/23 Sodium Chloride 100 ML IV 0953 Sodium Chloride 1,000 ML Q10H 10/23 2200 AC / IV 0800 Sodium Chloride 1,000 ML ONCE ONE 10/23 1415 DC 05 IV 10/23 1914 1400 Sodium Chloride 1,000 ML ONCE ONE 10/23 1030 DC 05 IV 05 1709 1244 Results Pertinent Lab Results: Laboratory Tests 10/24 10/24 05/ 0900 0815 0300 Chemistry Sodium (137 - 145 mmol/L) Cancelled 136 L 135 L Potassium (3.5 - 5.1 mmol/L) Cancelled 4.6 4.9 Chloride (98 - 107 mmol/L) Cancelled 101 100 Carbon Dioxide (22 - 30 mmol/L) Cancelled 25 25 Anion Gap (5 - 16) Cancelled 10 10 BUN (9 - 20 mg/dL) Cancelled 42 H 38 H Creatinine (0.7 - 1.2 mg/dL) Cancelled 5.3 *H 4.9 H Estimated GFR (>60 ml/min) 12 L 13 L Glucose (65 - 99 mg/dL) Cancelled 108 H 106 H Calcium (8.4 - 10.2 mg/dL) Cancelled 6.1 L 6.3 L Phosphorus (2.5 - 4.5 mg/dL) Cancelled 5.1 H 4.8 H Magnesium (1.6 - 2.3 mg/dL) Cancelled 1.9 1.6 Total Bilirubin (0.2 - 1.3 mg/dL) Cancelled 0.7 0.7 AST (17 - 59 U/L) Cancelled 756 H 820 H ALT (21 - 72 U/L) Cancelled 353 H 377 H Creatine Kinase (55 - 170 U/L) > 03662 H Albumin (3.5 - 5.0 g/dL) Cancelled 2.6 L 2.6 L Coagulation PT (9.4 - 12.5 SEC) 14.4 H INR (0.90 - 1.17) 1.32 H Hematology CBC w Diff NO MAN DIFF REQ WBC (4.8 - 10.8 /CUMM) 12.4 H RBC (4.70 - 6.10 /CUMM) 4.81 Hgb (14.0 - 18.0 G/DL) 13.1 L Hct (42 - 52 %) 40.3 L MCV (80.0 - 94.0 FL) 83.8 MCH (27.0 - 31.0 PG) 27.2 MCHC (33.0 - 37.0 G/DL) 32.5 L RDW (11.5 - 14.5 %) 15.4 H Plt Count (130 - 400 /CUMM) 140 MPV (7.4 - 10.4 FL) 8.9 Gran % (42.2 - 75.2 %) 86.2 H Lymphocytes % (20.5 - 51.1 %) 4.9 L Monocytes % (1.7 - 9.3 %) 8.7 Eosinophils % (0 - 5 %) 0.1 Basophils % (0.0 - 2.0 %) 0.1 Absolute Granulocytes (1.4 - 6.5 /CUMM) 10.6 H Absolute Lymphocytes (1.2 - 3.4 /CUMM) 0.6 L Absolute Monocytes (0.10 - 0.60 /CUMM) 1.1 H Absolute Eosinophils (0.0 - 0.7 /CUMM) 0 Absolute Basophils (0.0 - 0.2 /CUMM) 0 /10/23 1910 1630 Chemistry Sodium (137 - 145 mmol/L) 137 137 Potassium (3.5 - 5.1 mmol/L) 5.5 H 5.6 H Chloride (98 - 107 mmol/L) 99 98 Carbon Dioxide (22 - 30 mmol/L) 25 28 Anion Gap (5 - 16) 13 11 BUN (9 - 20 mg/dL) 34 H 31 H Creatinine (0.7 - 1.2 mg/dL) 4.0 H 3.8 H Estimated GFR (>60 ml/min) 16 L 17 L Glucose (65 - 99 mg/dL) 90 92 Lactic Acid (0.7 - 2.1 mmol/L) 1.7 2.1 2.4 H Calcium (8.4 - 10.2 mg/dL) 5.8 *L 6.0 L Phosphorus (2.5 - 4.5 mg/dL) 4.4 4.7 H Magnesium (1.6 - 2.3 mg/dL) 1.5 L 1.6 Total Bilirubin (0.2 - 1.3 mg/dL) 0.8 0.7 AST (17 - 59 U/L) 905 H 959 H ALT (21 - 72 U/L) 408 H 444 H Albumin (3.5 - 5.0 g/dL) 2.7 L 2.9 L Hematology CBC w Diff NO MAN DIFF REQ WBC (4.8 - 10.8 /CUMM) 14.7 H RBC (4.70 - 6.10 /CUMM) 5.14 Hgb (14.0 - 18.0 G/DL) 13.9 L Hct (42 - 52 %) 43.4 MCV (80.0 - 94.0 FL) 84.4 MCH (27.0 - 31.0 PG) 27.0 MCHC (33.0 - 37.0 G/DL) 32.0 L RDW (11.5 - 14.5 %) 15.2 H Plt Count (130 - 400 /CUMM) 153 MPV (7.4 - 10.4 FL) 9.2 Gran % (42.2 - 75.2 %) 89.6 H Lymphocytes % (20.5 - 51.1 %) 3.4 L Monocytes % (1.7 - 9.3 %) 7.0 Eosinophils % (0 - 5 %) 0 Basophils % (0.0 - 2.0 %) 0 Absolute Granulocytes (1.4 - 6.5 /CUMM) 13.2 H Absolute Lymphocytes (1.2 - 3.4 /CUMM) 0.5 L Absolute Monocytes (0.10 - 0.60 /CUMM) 1.0 H Absolute Eosinophils (0.0 - 0.7 /CUMM) 0 Absolute Basophils (0.0 - 0.2 /CUMM) 0 10/23 10/23 1255 0825 Chemistry Sodium (137 - 145 mmol/L) 135 L Potassium (3.5 - 5.1 mmol/L) 4.9 Chloride (98 - 107 mmol/L) 99 Carbon Dioxide (22 - 30 mmol/L) 27 Anion Gap (5 - 16) 10 BUN (9 - 20 mg/dL) 30 H Creatinine (0.7 - 1.2 mg/dL) 3.5 H Estimated GFR (>60 ml/min) 19 L Glucose (65 - 99 mg/dL) 113 H Lactic Acid (0.7 - 2.1 mmol/L) 2.7 H 4.6 H Calcium (8.4 - 10.2 mg/dL) 5.7 *L Phosphorus (2.5 - 4.5 mg/dL) 5.2 H Magnesium (1.6 - 2.3 mg/dL) 1.8 Total Bilirubin (0.2 - 1.3 mg/dL) 0.6 AST (17 - 59 U/L) 887 H ALT (21 - 72 U/L) 414 H Albumin (3.5 - 5.0 g/dL) 2.6 L Free T4 (0.64 - 1.79 ng/dL) 1.20 Total T3 (0.97 - 1.69 ng/mL) 0.88 L TSH &T3 &Free T4 Intrp (0.27 - 4.20 uIU/mL) 7.180 H Coagulation PT (9.4 - 12.5 SEC) 15.2 H INR (0.90 - 1.17) 1.39 H APTT (25 - 37 SEC) 27 10/23 10/23 10/23 0825 0620 0500 Blood Gas pH (7.35 - 7.45 PH) 7.29 *L pCO2 (35 - 45 TORR) 44 pO2 (80 - 100 TORR) 86 HCO3 (21 - 28 MEQ/L) 20 L ABG O2 Sat (Measured) (>96.0 %) 95.0 L Carboxyhemoglobin (1.5 - 5.0 %) 0.4 L O2 Concentration % 2L O2 Delivery Method NC Chemistry Sodium (137 - 145 mmol/L) 137 Potassium (3.5 - 5.1 mmol/L) 5.1 Chloride (98 - 107 mmol/L) 96 L Carbon Dioxide (22 - 30 mmol/L) 25 Anion Gap (5 - 16) 15 BUN (9 - 20 mg/dL) 27 H Creatinine (0.7 - 1.2 mg/dL) 3.4 H Estimated GFR (>60 ml/min) 19 L Glucose (65 - 99 mg/dL) 169 H Lactic Acid (0.7 - 2.1 mmol/L) 5.8 H Calcium (8.4 - 10.2 mg/dL) 5.9 *L Phosphorus (2.5 - 4.5 mg/dL) 5.5 H Magnesium (1.6 - 2.3 mg/dL) 1.4 L Total Bilirubin (0.2 - 1.3 mg/dL) 0.6 AST (17 - 59 U/L) 975 H ALT (21 - 72 U/L) 454 H Creatine Kinase (55 - 170 U/L) > 65832 H Albumin (3.5 - 5.0 g/dL) 3.0 L Hematology CBC w Diff MAN DIFF ORDERED WBC (4.8 - 10.8 /CUMM) 21.4 H RBC (4.70 - 6.10 /CUMM) 6.21 H Hgb (14.0 - 18.0 G/DL) 16.7 Hct (42 - 52 %) 52.6 H MCV (80.0 - 94.0 FL) 84.6 MCH (27.0 - 31.0 PG) 27.0 MCHC (33.0 - 37.0 G/DL) 31.9 L RDW (11.5 - 14.5 %) 15.3 H Plt Count (130 - 400 /CUMM) 173 MPV (7.4 - 10.4 FL) 9.0 Gran % (42.2 - 75.2 %) 93.1 H Lymphocytes % (20.5 - 51.1 %) 2.8 L Monocytes % (1.7 - 9.3 %) 4.1 Eosinophils % (0 - 5 %) 0 Basophils % (0.0 - 2.0 %) 0 Absolute Granulocytes (1.4 - 6.5 /CUMM) 19.9 H Segmented Neutrophils (42.2 - 75.2 %) 79 H Band Neutrophils (0.0 - 5.0 %) 14 H Absolute Lymphocytes (1.2 - 3.4 /CUMM) 0.6 L Lymphocytes (20.5 - 51.1 %) 6 L Monocytes (1.7 - 9.3 %) 1 L Absolute Monocytes (0.10 - 0.60 /CUMM) 0.9 H Absolute Eosinophils (0.0 - 0.7 /CUMM) 0 Absolute Basophils (0.0 - 0.2 /CUMM) 0 Platelet Estimate (ADEQUATE) ADEQUATE Normocytic RBCs VERIFIED Normochromic RBCs VERIFIED Miscellaneous Phlebotomy Draw Site LEFT RADIAL 10/23 10/23 10/23 0230 0230 0030 Chemistry Sodium (137 - 145 mmol/L) 136 L Potassium (3.5 - 5.1 mmol/L) 6.5 *H Chloride (98 - 107 mmol/L) 99 Carbon Dioxide (22 - 30 mmol/L) 19 L Anion Gap (5 - 16) 19 H BUN (9 - 20 mg/dL) 25 H Creatinine (0.7 - 1.2 mg/dL) 3.1 H Estimated GFR (>60 ml/min) 21 L Glucose (65 - 99 mg/dL) 251 H Lactic Acid (0.7 - 2.1 mmol/L) 5.7 H 7.1 H Calcium (8.4 - 10.2 mg/dL) 5.7 *L Phosphorus (2.5 - 4.5 mg/dL) 7.8 H Magnesium (1.6 - 2.3 mg/dL) 1.5 L Total Bilirubin (0.2 - 1.3 mg/dL) 0.5 AST (17 - 59 U/L) 908 H ALT (21 - 72 U/L) 381 H Troponin I (<0.11 ng/ml) 0.85 *H Albumin (3.5 - 5.0 g/dL) 3.2 L Hematology CBC w Diff MAN DIFF ORDERED WBC (4.8 - 10.8 /CUMM) 29.4 H RBC (4.70 - 6.10 /CUMM) 6.38 H Hgb (14.0 - 18.0 G/DL) 17.2 Hct (42 - 52 %) 53.7 H MCV (80.0 - 94.0 FL) 84.2 MCH (27.0 - 31.0 PG) 27.0 MCHC (33.0 - 37.0 G/DL) 32.1 L RDW (11.5 - 14.5 %) 15.4 H Plt Count (130 - 400 /CUMM) 194 MPV (7.4 - 10.4 FL) 8.8 Gran % (42.2 - 75.2 %) 94.1 H Lymphocytes % (20.5 - 51.1 %) 2.3 L Monocytes % (1.7 - 9.3 %) 3.6 Eosinophils % (0 - 5 %) 0 Basophils % (0.0 - 2.0 %) 0 Absolute Granulocytes (1.4 - 6.5 /CUMM) 27.6 H Segmented Neutrophils (42.2 - 75.2 %) 85 H Band Neutrophils (0.0 - 5.0 %) 12 H Absolute Lymphocytes (1.2 - 3.4 /CUMM) 0.7 L Lymphocytes (20.5 - 51.1 %) 2 L Monocytes (1.7 - 9.3 %) 1 L Absolute Monocytes (0.10 - 0.60 /CUMM) 1.1 H Eosinophils (0 - 5.0 %) 0 Absolute Eosinophils (0.0 - 0.7 /CUMM) 0 Absolute Basophils (0.0 - 0.2 /CUMM) 0 Platelet Estimate (ADEQUATE) ADEQUATE Normochromic RBCs VERIFIED Poikilocytosis 1+ 10/22 10/22 10/22 10/22 3766 4161 2025 2025 Blood Gas pH (7.35 - 7.45 PH) 7.12 *L pCO2 (35 - 45 TORR) 37 pO2 (80 - 100 TORR) 85 HCO3 (21 - 28 MEQ/L) 12 L ABG O2 Sat (Measured) (>96.0 %) 94.0 L P-50 (Temp Corrected) Y Carboxyhemoglobin (1.5 - 5.0 %) 0.7 L O2 Concentration % 2L Temperature (97.0 - 100.0 FARH) 96.4 L O2 Delivery Method NC Chemistry Sodium (137 - 145 mmol/L) 139 Potassium (3.5 - 5.1 mmol/L) 5.6 H Chloride (98 - 107 mmol/L) 97 L Carbon Dioxide (22 - 30 mmol/L) 15 L Anion Gap (5 - 16) 27 H BUN (9 - 20 mg/dL) 21 H Creatinine (0.7 - 1.2 mg/dL) 3.4 H Estimated GFR (>60 ml/min) 19 L BUN/Creatinine Ratio (7 - 25 %) 6.2 L Lactic Acid (0.7 - 2.1 mmol/L) Cancelled 9.6 H Creatine Kinase (55 - 170 U/L) > 96216 H Troponin I (<0.11 ng/ml) 1.25 *H Miscellaneous Phlebotomy Draw Site RIGHT RADIAL 10/22 1400 Chemistry Creatine Kinase Cancelled Urines Urinalysis LIGHT H Urine Color (YEL,AMB,STR) YEL Urine Clarity (CLEAR) HAZY H Urine pH (5.0 - 8.0) 6.0 Ur Specific Browns (1.001 - 1.035) >= 1.030 Urine Protein (NEG,<30 MG/DL) 30 H Urine Ketones (NEG) NEG Urine Nitrite (NEG) NEG Urine Bilirubin (NEG) NEG Urine Urobilinogen (0.1 - 1.0 EU/dl) 0.2 Ur Leukocyte Esterase (NEG) NEG Ur Microscopic SEDIMENT EXAMINED Urine RBC (0 - 5 /HPF) 1-3 Urine WBC (0 - 2 /HPF) 1-3 H Ur Epithelial Cells (NONE,FEW) FEW Urine Bacteria (NEG/NONE) RARE H Hyaline Casts (0/LPF) RARE H Granular Casts (NONE /LPF) RARE H Urine Mucus (FEW,NONE) MANY H Urine Hemoglobin (NEG) MOD H Urine Glucose (N MG/DL) NEG 10/22 10/22 1400 1344 Chemistry Sodium (137 - 145 mmol/L) 140 Potassium (3.5 - 5.1 mmol/L) 7.3 *H Chloride (98 - 107 mmol/L) 92 L Carbon Dioxide (22 - 30 mmol/L) 18 L Anion Gap (5 - 16) 30 H BUN (9 - 20 mg/dL) 20 Creatinine (0.7 - 1.2 mg/dL) 3.4 H Estimated GFR (>60 ml/min) 19 L BUN/Creatinine Ratio (7 - 25 %) 5.9 L Glucose (65 - 99 mg/dL) 211 H Serum Osmolality (285 - 295 MOSM/KG) 303 H Calcium (8.4 - 10.2 mg/dL) 8.4 Magnesium (1.6 - 2.3 mg/dL) 2.7 H Total Bilirubin (0.2 - 1.3 mg/dL) 0.7 AST (17 - 59 U/L) 338 H ALT (21 - 72 U/L) 165 H Alkaline Phosphatase (< 127 U/L) 127 H Creatine Kinase (55 - 170 U/L) 64762 H Troponin I (<0.11 ng/ml) 1.05 *H Total Protein (6.3 - 8.2 g/dL) 8.2 Albumin (3.5 - 5.0 g/dL) 5.1 H Globulin (1.9 - 4.2 gm/dL) 3.1 Albumin/Globulin Ratio (1.1 - 2.2 %) 1.6 Hematology CBC w Diff MAN DIFF ORDERED WBC (4.8 - 10.8 /CUMM) 28.3 H RBC (4.70 - 6.10 /CUMM) 5.88 Hgb (14.0 - 18.0 G/DL) 16.3 Hct (42 - 52 %) 50.6 MCV (80.0 - 94.0 FL) 86.1 MCH (27.0 - 31.0 PG) 27.7 MCHC (33.0 - 37.0 G/DL) 32.2 L RDW (11.5 - 14.5 %) 15.3 H Plt Count (130 - 400 /CUMM) 280 MPV (7.4 - 10.4 FL) 7.9 Gran % (42.2 - 75.2 %) 93.4 H Lymphocytes % (20.5 - 51.1 %) 2.7 L Monocytes % (1.7 - 9.3 %) 3.7 Eosinophils % (0 - 5 %) 0.1 Basophils % (0.0 - 2.0 %) 0.1 Absolute Granulocytes (1.4 - 6.5 /CUMM) 26.5 H Segmented Neutrophils (42.2 - 75.2 %) 68 Band Neutrophils (0.0 - 5.0 %) 19 H Absolute Lymphocytes (1.2 - 3.4 /CUMM) 0.8 L Lymphocytes (20.5 - 51.1 %) 2 L Monocytes (1.7 - 9.3 %) 9 Absolute Monocytes (0.10 - 0.60 /CUMM) 1.1 H Absolute Eosinophils (0.0 - 0.7 /CUMM) 0 Absolute Basophils (0.0 - 0.2 /CUMM) 0 Metamyelocytes (0.0 - 1.0 %) 2 H Normocytic RBCs VERIFIED Normochromic RBCs VERIFIED Toxicology Salicylates (0 - 20.0 mg/dL) < 1.0 Urine Opiates Screen (>2000 NG/ML) 1659.00 Methadone Screen (>300 NG/ML) 68 Acetaminophen (10.0 - 30.0 ug/mL) < 10.0 L Barbiturate Screen (>200 NG/ML) 88 Ur Phencyclidine Scrn (>25 NG/ML) < 6.00 Amphetamines Screen (>1000 NG/ML) 149 U Benzodiazepines Scrn (>200 NG/ML) > 800 H Urine Cocaine Screen (>300 NG/ML) > 1000 H Urine Cannabis Screen (>50 NG/ML) 7.70 Serum Alcohol (<10 MG/DL) < 10.0 Urines Urine Osmolality (300 - 1000 MOSM/KG) 832 Ur Random Creatinine (mg/dL) 399.8 Ur Random Sodium (30 - 90 mmol/L) 15 L Ur Random Potassium (mmol/L) 135.2 Fraction Sodium Excret (<1% %) 0.1
--- NOTE | 2017-10-24 17:21 | Event Note ---
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
[2017-10-25] VITALS (8 sets, daily range): BP systolic 103–150; BP diastolic 76–100
[2017-10-25 05:00] LABS: ABSOLUTE BASOPHIL COUNT 0 /CUMM (0.0-0.2); ABSOLUTE EOSINOPHIL COUNT 0 /CUMM (0.0-0.7); ABSOLUTE LYMPH COUNT 0.5 /CUMM (1.2-3.4); ABSOLUTE MONOCYTE COUNT 0.6 /CUMM (0.10-0.60); EOSINOPHIL % 0.1 % (0-5); MEAN CORPUSCULAR HGB 27.3 PG (27.0-31.0)
[2017-10-25 05:22] LABS: PT 13.3 SEC (9.4-12.5)
[2017-10-25 05:31] LABS: ABSOLUTE GRANULOCYTE CT 9.4 /CUMM (1.4-6.5); BASOPHIL % 0.3 % (0.0-2.0); GRANULOCYTE % 89.1 % (42.2-75.2); MEAN CORPUSCULAR VOLUME 82.6 FL (80.0-94.0); PLATELET COUNT 117 /CUMM (130-400); RBC DISTRIBUTION WIDTH 15.5 % (11.5-14.5); RED BLOOD CELL CT 4.25 /CUMM (4.70-6.10); WHITE BLOOD CELL COUNT 10.6 /CUMM (4.8-10.8)
[2017-10-25 05:51] LABS: HEMATOCRIT 35.1 % (42-52)
--- NOTE | 2017-10-25 07:29 | PN- Resident CRCU ---
Subjective HPI/CRCU Issues: problem list 1. Cocaine toxicity 2. Rhabdoymyolysis 4. Acute kidney injury 5. Anion gap metabolic acidosis 6. Leucocytosis, Sepsis 7. Lactic acidosis 8. Acute liver injury 9. Upper GI bleed 10. Hypocalcemia 11. Hyperphosphatemia 13. Hyperkalemia 14. h/o Crohns s/p colostomy 15. Right shoulder injury 16. Elevated cardiac enzymes secondary to cocaine use 17. Hypomagnesemia 18. Polysubstance abuse 19. Chronic benzodiazepine use. 20. h/o seizures 24 Hour Events: Patient was seen and examined this morning He is alert awake and oriented to time place and person No acute events noticed overnight Continues to report mild right upper extremity pain, swelling. No numbness or tingling sensation, no paresthesias. Denies any chest pain, fever, chills, short of breath, palpitations. No abdominal pain, nausea, vomiting, mentation changes. Vitals afebrile, heart rate 100, respiratory rate 20, blood pressure 100/83, saturating at 93 RA Urine output 30-45 mL per hour throughout the night Objective Vital Signs & I&O Last 8 Hrs of Vitals and I&O: Vital Signs Date Time Temp Pulse Resp B/P B/P Pulse O2 O2 Flow FiO2 Mean Ox Delivery Rate 10/25 0600 99.0 100 20 103/83 05/ 0400 99.1 105 20 150/92 05/ 0400 93 Nasal 1.0L Cannula / 0200 99.0 110 20 125/91 05/07 0000 98.6 98 18 144/100 05/ 0000 92 Room Air 05/ 0000 98.6 98 18 144/100 92 Room Air 05/06 2200 99.2 95 16 145/91 05/06 1999 99.0 93 18 138/98 05/ 2000 95 Nasal 1.0L Cannula / 1800 98.6 93 18 159/100 05/06 1600 98.9 93 18 148/90 05/06 1600 96 Nasal 1.0L Cannula / 1600 98.9 93 18 148/90 96 Nasal 1.0L Cannula 05/06 1400 98.3 91 16 138/100 Intake & Output /07 1600 05/07 0800 05/ 0000 Intake Total 743 850 Output Total 700 350 Balance 43 500 Intake, IV 503 600 Intake, Oral 240 250 Number 0 Bowel Movements Output, Stool 300 Output, Urine 400 350 Patient 73.028 kg Weight Intake & Output 10/25 1600 Intake Total Output Total Balance Patient 73.028 kg Weight Exam General Appearance: well developed/nourished, no apparent distress, alert, awake , comfortable Other Physical Findings: General Exam: AAOx3, No acute distress, Skin: No rashes, ulcer on the chest wall , likey rug injury;HEENT: PERRLA, EOMI;Neck: Supple, No JVD, No cervical lymphadenopathy;CVS: Reg Rate, Normal S1,S2, No MGR; Resp: Normal air entry, no ronchi/rales;Abdomen: Soft, No tenderness, Normal Bowel Sounds, colostomy bag in place.;Neuro: Normal Speech, Strength 5/5 b/l x 4 extremities, Sensation intact, CN III-XII NL, Reflexes 2+;Extremities: No cyanosis, no pedal edema, weakness and tenderness in right upper extremity, paresthesias on the right upper extermity. Biceps, triceps 2+ reflexes Current Medications: Current Medications Sig/Leigh Ann Start time Last Medication Dose Route Stop Time Status Admin Ampicillin Sodium/ 1,500 MG Q6H 10/23 0400 AC 10/25 Sulbactam Sodium IV 0940 Sodium Chloride 100 ML Aspirin 81 MG DAILY 10/24 1300 AC 10/25 PO 0941 Chlorpromazine 25 MG TIDPRN PRN 10/25 0045 DC 10/25 PO 0101 Heparin Sodium 5,000 UNIT Q8 10/25 1400 AC (Porcine) SC Levetiracetam 1,500 MG Q12 10/23 1999 AC 10/25 N/A 1 UNIT IV 0940 Lorazepam 1 MG Q6-PRN PRN 10/23 1999 AC 10/24 IV 2122 Morphine Sulfate 1 MG Q6P PRN 10/23 1999 AC 10/25 IV 0955 Nitroglycerin 0.5 GM Q6 PRN 10/22 2199 AC TOP Pantoprazole Sodium 40 MG BID 10/23 2099 AC 10/25 IV 0941 Sodium Chloride 1,000 ML Q10H 10/23 220 AC / IV 2250 Impression/Plan Impression/Problem List Impression: Mr Cabrales is a 52 year old man w/ a PMHx of polysubstance abuse, benzodiazepine use, Seizures, Asthma, Crohns disease( dx'ed 1988, s/p colon resection w/ colostomy bag ), h/o rectal fistula, cervial spine radiculopathy, anxiety was brought to the hospital with a chief concern of altered mental status, and unresponsiveness on a.m. of 10/22/2017. problem list 1. Cocaine toxicity 2. Rhabdoymyolysis 4. Acute kidney injury 5. Anion gap metabolic acidosis 6. Leucocytosis, Sepsis 7. Lactic acidosis 8. Acute liver injury 9. Upper GI bleed 10. Hypocalcemia 11. Hyperphosphatemia 13. Hyperkalemia 14. h/o Crohns s/p colostomy 15. Right shoulder injury 16. Elevated cardiac enzymes secondary to cocaine use 17. Hypomagnesemia 18. Polysubstance abuse 19. Chronic benzodiazepine use. 20. h/o seizures 1. Respiratory- Stable at this time. - No e/o consolidation on CT scan - Aspiration pneumonitis in differential. - Continue Unasyn day 3 at this time. - Titrate off oxygen as tolerated. 2. Infectious- leukocytosis. In regards to leucocytosis, it could be due to aspiration pneumonitis and would continue to treat with unasyn pending cultures. - Monitor for any fever, worsening leukocytosis. - Continue antibiotics unasyn day3 pending cultures. - If he is stable, will reevaluate the need for antibiotics. 3. Circulatory- elevated cardiac enzymes, hypotension patient had some cocaine induced cardiac ischemia with slightly elevated cardiac enzymes, which trended down, without evidence of STEMI. Severe rhabdomyolysis due to cocaine overdose with accompanying rise in troponins without evidence of ongoing coronary spasm or thrombus upon admission. Mild anterolateral hypokinesis related to spasm during the event, without complete occlusion to blood flow/STEMI (modest rise in troponins, no akinesis on echocardiogram). - Cardiac enzymes trended 1.05, 1.25, 0.85 - Monitor for any chest pain, dyspnea - For tachycardia, avoid all beta blockers at this time. - Use nitroglycerin, or calcium channel blockers if needed as per horseradish maker. - Treat hypotension with fluids. - continue baby aspirin - ECHO Pending - Maintain telemetry as he is still at risk of delayed of coronary vasospams. 4. Metabolic-acute kidney injury, rhabdomyolysis, electrolyte abnormalities Etiology in his case is likely acute cocaine toxicity, likely leading to electrolyte abnormalities, rhabdomyolysis, hypocalcemia,hyperkalemia and acute kidney injury. He had anion gap metabolic acidosis, and normal osmolal gap likely from JEAN and cocaine use, which is normalized with NaHCO3 drip. Hyperkalemia is due to rhabdomyolysis and JEAN. Other electrolytes such as hypocalcemia ( corrected low ), and hyperphosphatemia is due to his rhabdomyolysis. - Continue to monitor CK every 12 hours - Check electrolytes, kidney function every 12 hourly - Low threshold for dialysis. - Dialysis in case of fluid overload, hyperkalemia, severe acidosis, uremia. - Monitor blood glucose levels given acute liver injury, and rhabdomyolysis - Strict ins and outs. - Bicarb drip to be changed to NS at 50ml/hr. 5. Hematology-monitor leukocytosis - Platelet stable at this time. 6. Alimentary-transaminitis, upper GI bleed He has elevated AST+ALT and normal Alk phos could be due to acute liver failure, rhabdomyolysis contributing to elevated AST or cocaine induce transaminitis. US abdomen and CT adomen negative for any acute pathology.There is no acute GI blood loss at this time, and would attribute this GI bleed to cocaine induced gastritis, and currently on protonix. - monitor for any further bleeding. - Continue Protonix 40 bid at this time. - GI on board - Strictly no NSAIDs - If needed, would need Tylenol very conservatively. -Follow-up daily LFT, INR 7. Neurology- paresthesias in right upper extremity CT of the right arm showed scattered bubbles of air in the subcutaneous tissues distal to the catheter. There is scattered nonspecific subcutaneous edema. ortho was consulted to evaluate right upper extremity pain for any compartment syndrome. -Elevation of extremity, warm compressers -We will get ultrasound Doppler to rule out DVT Cocaine overdose/benzo withdrawal/polysubstance abuse - Benzodiazepines for cocaine use and avoid benzodiazepine withdrawal. - He should be on seizure precautions, since cocaine can cause decrease seizure threshold. other chronic medical problems crohns- Prior colon resection, w/ colostomy bag depression -Lexapro 20 mg daily on hold seizures -Keppra 750 mg, 4 pills/24 hours Insomina- Ambien 10 mg qhs on hold anxiety- Xanax 0.5 mg 4 pills/24 hours on hold #1 DVT prophylaxis- Alps/sc heparin #2 regular diet with low potassium #3 full-code #1 Central line- none #2 Arterial line- none #3 Tejeda catheter- present 10/22/17 #4 Rectal tube- none. #5 NG tube- none. #6 IV/peripheral line- present 10/22/17 #7 IV drips- NS @50ml/hr #8 Vent settings none. #9 pressors- none. Consults: #1 nephrology-Dr. Glez #2 cardiology-Dr. Loomis #3 gastroenterology-Dr. Hong #4 ortho- Dr duncan #5 psych- Dr limon Problem List: 1. Acute kidney injury 2. Demand ischemia of myocardium 3. Hyperkalemia 4. Hypoxia Pain Ratin Tomorrow's Labs & Rationales: cbc icu lab Plan DVT/Prophylaxis: mechanical Code Status: Full Code
--- NOTE | 2017-10-25 09:44 | PN- CRCU ---
Subjective HPI/Critical Care Issues: Afebrile Still has sig rt UE pain and swelling Hiccoughs continues occ No fever Urine output adequate despite renal failure Labs noted Laboratory Tests 10/25 10/24 10/24 0420 1615 0900 Chemistry Sodium (137 - 145 mmol/L) 137 136 L Cancelled Potassium (3.5 - 5.1 mmol/L) 4.4 4.5 Cancelled Chloride (98 - 107 mmol/L) 104 102 Cancelled Carbon Dioxide (22 - 30 mmol/L) 21 L 22 Cancelled Anion Gap (5 - 16) 12 12 Cancelled BUN (9 - 20 mg/dL) 56 H 47 H Cancelled Creatinine (0.7 - 1.2 mg/dL) 7.0 *H 5.9 *H Cancelled Estimated GFR (>60 ml/min) 8 L 10 L Glucose (65 - 99 mg/dL) 80 92 Cancelled Calcium (8.4 - 10.2 mg/dL) 6.4 L 6.3 L Cancelled Phosphorus (2.5 - 4.5 mg/dL) 5.0 H 5.2 H Cancelled Magnesium (1.6 - 2.3 mg/dL) 1.9 1.9 Cancelled Total Bilirubin (0.2 - 1.3 mg/dL) 0.9 0.8 Cancelled AST (17 - 59 U/L) 607 H 701 H Cancelled ALT (21 - 72 U/L) 299 H 337 H Cancelled Creatine Kinase (55 - 170 U/L) > 70755 H Albumin (3.5 - 5.0 g/dL) 2.5 L 2.5 L Cancelled Coagulation PT (9.4 - 12.5 SEC) 13.3 H INR (0.90 - 1.17) 1.22 H Hematology CBC w Diff MAN DIFF ORDERED WBC (4.8 - 10.8 /CUMM) 10.6 RBC (4.70 - 6.10 /CUMM) 4.25 L Hgb (14.0 - 18.0 G/DL) 11.6 L Hct (42 - 52 %) 35.1 L MCV (80.0 - 94.0 FL) 82.6 MCH (27.0 - 31.0 PG) 27.3 MCHC (33.0 - 37.0 G/DL) 33.0 RDW (11.5 - 14.5 %) 15.5 H Plt Count (130 - 400 /CUMM) 117 L MPV (7.4 - 10.4 FL) 9.0 Gran % (42.2 - 75.2 %) 89.1 H Lymphocytes % (20.5 - 51.1 %) 4.7 L Monocytes % (1.7 - 9.3 %) 5.8 Eosinophils % (0 - 5 %) 0.1 Basophils % (0.0 - 2.0 %) 0.3 Absolute Granulocytes (1.4 - 6.5 /CUMM) 9.4 H Segmented Neutrophils (42.2 - 75.2 %) 77 H Band Neutrophils (0.0 - 5.0 %) 12 H Absolute Lymphocytes (1.2 - 3.4 /CUMM) 0.5 L Lymphocytes (20.5 - 51.1 %) 5 L Monocytes (1.7 - 9.3 %) 4 Absolute Monocytes (0.10 - 0.60 /CUMM) 0.6 Absolute Eosinophils (0.0 - 0.7 /CUMM) 0 Basophils (0.0 - 2.0 %) 2 Absolute Basophils (0.0 - 0.2 /CUMM) 0 Platelet Estimate (ADEQUATE) DECREASED Basophilic Stippling 1+ Anisocytosis 1+ [place] Cells FEW Elliptocytes FEW 10/24 10/24 10/23 0815 0300 2115 Chemistry Sodium (137 - 145 mmol/L) 136 L 135 L Potassium (3.5 - 5.1 mmol/L) 4.6 4.9 Chloride (98 - 107 mmol/L) 101 100 Carbon Dioxide (22 - 30 mmol/L) 25 25 Anion Gap (5 - 16) 10 10 BUN (9 - 20 mg/dL) 42 H 38 H Creatinine (0.7 - 1.2 mg/dL) 5.3 *H 4.9 H Estimated GFR (>60 ml/min) 12 L 13 L Glucose (65 - 99 mg/dL) 108 H 106 H Lactic Acid (0.7 - 2.1 mmol/L) 1.7 Calcium (8.4 - 10.2 mg/dL) 6.1 L 6.3 L Phosphorus (2.5 - 4.5 mg/dL) 5.1 H 4.8 H Magnesium (1.6 - 2.3 mg/dL) 1.9 1.6 Total Bilirubin (0.2 - 1.3 mg/dL) 0.7 0.7 AST (17 - 59 U/L) 756 H 820 H ALT (21 - 72 U/L) 353 H 377 H Creatine Kinase (55 - 170 U/L) > 50393 H Albumin (3.5 - 5.0 g/dL) 2.6 L 2.6 L Coagulation PT (9.4 - 12.5 SEC) 14.4 H INR (0.90 - 1.17) 1.32 H Hematology CBC w Diff NO MAN DIFF REQ WBC (4.8 - 10.8 /CUMM) 12.4 H RBC (4.70 - 6.10 /CUMM) 4.81 Hgb (14.0 - 18.0 G/DL) 13.1 L Hct (42 - 52 %) 40.3 L MCV (80.0 - 94.0 FL) 83.8 MCH (27.0 - 31.0 PG) 27.2 MCHC (33.0 - 37.0 G/DL) 32.5 L RDW (11.5 - 14.5 %) 15.4 H Plt Count (130 - 400 /CUMM) 140 MPV (7.4 - 10.4 FL) 8.9 Gran % (42.2 - 75.2 %) 86.2 H Lymphocytes % (20.5 - 51.1 %) 4.9 L Monocytes % (1.7 - 9.3 %) 8.7 Eosinophils % (0 - 5 %) 0.1 Basophils % (0.0 - 2.0 %) 0.1 Absolute Granulocytes (1.4 - 6.5 /CUMM) 10.6 H Absolute Lymphocytes (1.2 - 3.4 /CUMM) 0.6 L Absolute Monocytes (0.10 - 0.60 /CUMM) 1.1 H Absolute Eosinophils (0.0 - 0.7 /CUMM) 0 Absolute Basophils (0.0 - 0.2 /CUMM) 0 10/23 1910 1630 Chemistry Sodium (137 - 145 mmol/L) 137 137 Potassium (3.5 - 5.1 mmol/L) 5.5 H 5.6 H Chloride (98 - 107 mmol/L) 99 98 Carbon Dioxide (22 - 30 mmol/L) 25 28 Anion Gap (5 - 16) 13 11 BUN (9 - 20 mg/dL) 34 H 31 H Creatinine (0.7 - 1.2 mg/dL) 4.0 H 3.8 H Estimated GFR (>60 ml/min) 16 L 17 L Glucose (65 - 99 mg/dL) 90 92 Lactic Acid (0.7 - 2.1 mmol/L) 2.1 2.4 H Calcium (8.4 - 10.2 mg/dL) 5.8 *L 6.0 L Phosphorus (2.5 - 4.5 mg/dL) 4.4 4.7 H Magnesium (1.6 - 2.3 mg/dL) 1.5 L 1.6 Total Bilirubin (0.2 - 1.3 mg/dL) 0.8 0.7 AST (17 - 59 U/L) 905 H 959 H ALT (21 - 72 U/L) 408 H 444 H Albumin (3.5 - 5.0 g/dL) 2.7 L 2.9 L Hematology CBC w Diff NO MAN DIFF REQ WBC (4.8 - 10.8 /CUMM) 14.7 H RBC (4.70 - 6.10 /CUMM) 5.14 Hgb (14.0 - 18.0 G/DL) 13.9 L Hct (42 - 52 %) 43.4 MCV (80.0 - 94.0 FL) 84.4 MCH (27.0 - 31.0 PG) 27.0 MCHC (33.0 - 37.0 G/DL) 32.0 L RDW (11.5 - 14.5 %) 15.2 H Plt Count (130 - 400 /CUMM) 153 MPV (7.4 - 10.4 FL) 9.2 Gran % (42.2 - 75.2 %) 89.6 H Lymphocytes % (20.5 - 51.1 %) 3.4 L Monocytes % (1.7 - 9.3 %) 7.0 Eosinophils % (0 - 5 %) 0 Basophils % (0.0 - 2.0 %) 0 Absolute Granulocytes (1.4 - 6.5 /CUMM) 13.2 H Absolute Lymphocytes (1.2 - 3.4 /CUMM) 0.5 L Absolute Monocytes (0.10 - 0.60 /CUMM) 1.0 H Absolute Eosinophils (0.0 - 0.7 /CUMM) 0 Absolute Basophils (0.0 - 0.2 /CUMM) 0 10/23 1255 Chemistry Sodium (137 - 145 mmol/L) 135 L Potassium (3.5 - 5.1 mmol/L) 4.9 Chloride (98 - 107 mmol/L) 99 Carbon Dioxide (22 - 30 mmol/L) 27 Anion Gap (5 - 16) 10 BUN (9 - 20 mg/dL) 30 H Creatinine (0.7 - 1.2 mg/dL) 3.5 H Estimated GFR (>60 ml/min) 19 L Glucose (65 - 99 mg/dL) 113 H Lactic Acid (0.7 - 2.1 mmol/L) 2.7 H Calcium (8.4 - 10.2 mg/dL) 5.7 *L Phosphorus (2.5 - 4.5 mg/dL) 5.2 H Magnesium (1.6 - 2.3 mg/dL) 1.8 Total Bilirubin (0.2 - 1.3 mg/dL) 0.6 AST (17 - 59 U/L) 887 H ALT (21 - 72 U/L) 414 H Albumin (3.5 - 5.0 g/dL) 2.6 L Free T4 (0.64 - 1.79 ng/dL) 1.20 Total T3 (0.97 - 1.69 ng/mL) 0.88 L TSH &T3 &Free T4 Intrp (0.27 - 4.20 uIU/mL) 7.180 H Coagulation PT (9.4 - 12.5 SEC) 15.2 H INR (0.90 - 1.17) 1.39 H APTT (25 - 37 SEC) 27 Microbiology Date/Time Procedure - Status Source Growth 10/23 023 Urine Culture - COMP URINE ROUT 10/22 2229 Surveillance Culture - COMP UPPER RESP 10/22 2229 Surveillance Culture - COMP GI 10/22 2025 Blood Culture - RES BLOOD 10/22 2002 Urine Culture - CAN URINE ROUT Cancelled: Cancelled via OE: PT NOW HAS LARSON 10/22 184 Blood Culture - RES BLOOD 10/22 1818 Urine Culture - CAN URINE ROUT Cancelled: Cancelled via OE: PT NOW HAS LARSON 10/22 1818 Respiratory Culture - CAN LOWER RESP Cancelled: SPECIMEN NOT RECEIVED IN LABORATORY 05/04 1819 Gram Stain - CAN LOWER RESP Cancelled: SPECIMEN NOT RECEIVED IN LABORATORY Objective Current Medications: Current Medications Sig/Leigh Ann Start time Last Medication Dose Route Stop Time Status Admin Ampicillin Sodium/ 1,500 MG Q6H 10/23 0400 AC 10/25 Sulbactam Sodium IV 0358 Sodium Chloride 100 ML Aspirin 81 MG DAILY 10/24 1300 AC 10/24 PO 1413 Chlorpromazine 25 MG TIDPRN PRN 10/25 0045 AC 10/25 PO 0101 Levetiracetam 1,500 MG Q12 10/23 1999 AC 10/24 N/A 1 UNIT IV 212 Lorazepam 1 MG Q6-PRN PRN 10/23 1999 AC 10/24 IV 212 Morphine Sulfate 1 MG Q6P PRN 10/23 1999 AC 10/24 IV 2002 Nitroglycerin 0.5 GM Q6 PRN 10/22 2199 AC TOP Pantoprazole Sodium 40 MG BID 10/23 2099 AC 10/24 IV 212 Sodium Chloride 1,000 ML Q10H 10/23 220 AC 10/24 IV 2250 Vital Signs & I&O Last 24 Hrs of Vitals and I&O: Vital Signs Date Time Temp Pulse Resp B/P B/P Pulse O2 O2 Flow FiO2 Mean Ox Delivery Rate 10/25 599 99.0 100 20 103/83 10/25 0400 99.1 105 20 150/92 10/25 0400 93 Nasal 1.0L Cannula 10/25 0200 99.0 110 20 125/91 05/ 0000 98.6 98 18 144/100 05/ 0000 92 Room Air / 0000 98.6 98 18 144/100 92 Room Air / 2200 99.2 95 16 145/91 /1999 99.0 93 18 138/98 /1999 95 Nasal 1.0L Cannula / 1800 98.6 93 18 159/100 05/ 1600 98.9 93 18 148/90 05/06 1600 96 Nasal 1.0L Cannula / 1600 98.9 93 18 148/90 96 Nasal 1.0L Cannula / 1400 98.3 91 16 138/100 05/06 1200 98.2 93 16 140/88 05/ 1200 96 Nasal 1.0L Cannula 10/24 1000 98.0 94 18 134/93 Intake & Output 1600 05/07 0800 0507 0000 Intake Total 743 850 Output Total 700 350 Balance 43 500 Intake, IV 503 600 Intake, Oral 240 250 Number 0 Bowel Movements Output, Stool 300 Output, Urine 400 350 Impression/Plan Impression/Plan Impression/Plan: Head: atraumatic, normal appearance Eyes: Bilateral: normal appearance, PERRL, EOMI. Ears, Nose, Throat: hearing grossly normal Neck: posterior cervical tenderness without deformity Respiratory: normal breath sounds, no respiratory distress, lungs clear, abrasion to left chest Cardiovascular: regular rate/rhythm Gastrointestinal: normal bowel sounds, soft, non-tender, no organomegaly, colostomy bag present Back: normal inspection, normal range of motion Extremities: tenderness to right shoulder with limited ROM no sig evidence of necrotizing fascitis, swelling persists Neurologic/Psych: awake, alert, oriented x 3 IMPRESSION Patient is a 52-year-old male with history of seizure disorder, polysubstance abuse, asthma, crohn's disease s/p colostomy, arthritis and anxiety presents to the ER with decreased mental status with drug overdose with multiple substances, (prob unintentional) issues Resolving Sig met acidosis with muliple organ failure and dysfunction Cocaine and benzo od Severe Rhabdo sig no evidence of necrotizing fascitis, but pt has rt arm pain, and swelling ct noted and clinically seems to have improved pain, but swelling persists Acute renal failiure worsening creatinine but has adequate urineoutput Hypocalcemia and hence FAD has been stopped Acute NV due to cocaine and rule out acs, prob cocaine induced heart injury vs mi, with lateral wall changes in the ekg Sig UGI bleed with vomiting with coffeeground on admission with some drop in crit needs to be monitored REsolving High anion gap acidosis due to lactic acidosis FLuid around the gb with altered lft needs ultrasound and no clinical evidence of harshal PRevious colon resection / colostosy S/p fall and injury to the rt upper ext rule out soft tissue and bony injury orhto on board Previous c spine surg with djd REC IVF to continue Gentle and watch for chf, echo pending Dc Chlorpromazine (antipsycotic high risk for worsening rhabdo) FAD stopped due to hypocalcemia now hydration ongoing with saline and renal on board Follow sugar and rx hyperglycemia/hypoglycemia Watch ekg daily Iv ppi Larson to cont Cardio/renal and gi eval appretiated Benzo with iv lorazepam for tachy and benzo withdrawal and rx of cocaine toxicity Order rt upper ext doppler to rule out dvt, Start heparin sub cut (no further active gi bleed noted ) Ortho to follow to eval rt upper arm injury and to monitor for any fascitis Ok with abx Ok with nitro No beta or alpha blockers Follow lfts Prog guarded Pt critically ill tts 40 mins Code Status: Full Code
--- NOTE | 2017-10-25 10:01 | PN- Nephrology ---
Assessment/Plan Nephrology Assessment: JEAN due to cocaine/rhabdomyolysis. CK > 32K (dilutional 100K on Wednesday per medical team). Cr up but GFR same (very low). eGFR is not accurate with a changing creatinine. Given the rate of rise his GFR was < 5cc / min on admission (Cr 3.4) and is still < 5cc/min today (Cr 7.0). No urgent need for dialysis but will likely come to dialysis sometime this week. Monitor K/volume. As discussed with you would do timed urine (8-12 hrs) collection for creatinine and calculate a Cr Cl (I will help u with this as we discussed this morning). Continue supportive care for now. Excellent management by ICU team over weekend! Yannick Dunne MD Suggestion: . Subjective Subjective: U.O okay (700 cc/24hrs) Cr up to 7. K / volume are okay. Objective Vital Signs and I&Os M in ICU 103/83 100 99 Lungs clear Cor RRR Abd soft Ext 1+ R arm edema Results Pertinent Lab Results: Laboratory Tests 10/25 10/24 10/24 0420 1615 0900 Chemistry Sodium (137 - 145 mmol/L) 137 136 L Cancelled Potassium (3.5 - 5.1 mmol/L) 4.4 4.5 Cancelled Chloride (98 - 107 mmol/L) 104 102 Cancelled Carbon Dioxide (22 - 30 mmol/L) 21 L 22 Cancelled Anion Gap (5 - 16) 12 12 Cancelled BUN (9 - 20 mg/dL) 56 H 47 H Cancelled Creatinine (0.7 - 1.2 mg/dL) 7.0 *H 5.9 *H Cancelled Estimated GFR (>60 ml/min) 8 L 10 L Glucose (65 - 99 mg/dL) 80 92 Cancelled Calcium (8.4 - 10.2 mg/dL) 6.4 L 6.3 L Cancelled Phosphorus (2.5 - 4.5 mg/dL) 5.0 H 5.2 H Cancelled Magnesium (1.6 - 2.3 mg/dL) 1.9 1.9 Cancelled Total Bilirubin (0.2 - 1.3 mg/dL) 0.9 0.8 Cancelled AST (17 - 59 U/L) 607 H 701 H Cancelled ALT (21 - 72 U/L) 299 H 337 H Cancelled Creatine Kinase (55 - 170 U/L) > 87803 H Albumin (3.5 - 5.0 g/dL) 2.5 L 2.5 L Cancelled Coagulation PT (9.4 - 12.5 SEC) 13.3 H INR (0.90 - 1.17) 1.22 H Hematology CBC w Diff MAN DIFF ORDERED WBC (4.8 - 10.8 /CUMM) 10.6 RBC (4.70 - 6.10 /CUMM) 4.25 L Hgb (14.0 - 18.0 G/DL) 11.6 L Hct (42 - 52 %) 35.1 L MCV (80.0 - 94.0 FL) 82.6 MCH (27.0 - 31.0 PG) 27.3 MCHC (33.0 - 37.0 G/DL) 33.0 RDW (11.5 - 14.5 %) 15.5 H Plt Count (130 - 400 /CUMM) 117 L MPV (7.4 - 10.4 FL) 9.0 Gran % (42.2 - 75.2 %) 89.1 H Lymphocytes % (20.5 - 51.1 %) 4.7 L Monocytes % (1.7 - 9.3 %) 5.8 Eosinophils % (0 - 5 %) 0.1 Basophils % (0.0 - 2.0 %) 0.3 Absolute Granulocytes (1.4 - 6.5 /CUMM) 9.4 H Segmented Neutrophils (42.2 - 75.2 %) 77 H Band Neutrophils (0.0 - 5.0 %) 12 H Absolute Lymphocytes (1.2 - 3.4 /CUMM) 0.5 L Lymphocytes (20.5 - 51.1 %) 5 L Monocytes (1.7 - 9.3 %) 4 Absolute Monocytes (0.10 - 0.60 /CUMM) 0.6 Absolute Eosinophils (0.0 - 0.7 /CUMM) 0 Basophils (0.0 - 2.0 %) 2 Absolute Basophils (0.0 - 0.2 /CUMM) 0 Platelet Estimate (ADEQUATE) DECREASED Basophilic Stippling 1+ Anisocytosis 1+ [place] Cells FEW Elliptocytes FEW 10/24 10/24 10/23 0815 0300 2115 Chemistry Sodium (137 - 145 mmol/L) 136 L 135 L Potassium (3.5 - 5.1 mmol/L) 4.6 4.9 Chloride (98 - 107 mmol/L) 101 100 Carbon Dioxide (22 - 30 mmol/L) 25 25 Anion Gap (5 - 16) 10 10 BUN (9 - 20 mg/dL) 42 H 38 H Creatinine (0.7 - 1.2 mg/dL) 5.3 *H 4.9 H Estimated GFR (>60 ml/min) 12 L 13 L Glucose (65 - 99 mg/dL) 108 H 106 H Lactic Acid (0.7 - 2.1 mmol/L) 1.7 Calcium (8.4 - 10.2 mg/dL) 6.1 L 6.3 L Phosphorus (2.5 - 4.5 mg/dL) 5.1 H 4.8 H Magnesium (1.6 - 2.3 mg/dL) 1.9 1.6 Total Bilirubin (0.2 - 1.3 mg/dL) 0.7 0.7 AST (17 - 59 U/L) 756 H 820 H ALT (21 - 72 U/L) 353 H 377 H Creatine Kinase (55 - 170 U/L) > 96724 H Albumin (3.5 - 5.0 g/dL) 2.6 L 2.6 L Coagulation PT (9.4 - 12.5 SEC) 14.4 H INR (0.90 - 1.17) 1.32 H Hematology CBC w Diff NO MAN DIFF REQ WBC (4.8 - 10.8 /CUMM) 12.4 H RBC (4.70 - 6.10 /CUMM) 4.81 Hgb (14.0 - 18.0 G/DL) 13.1 L Hct (42 - 52 %) 40.3 L MCV (80.0 - 94.0 FL) 83.8 MCH (27.0 - 31.0 PG) 27.2 MCHC (33.0 - 37.0 G/DL) 32.5 L RDW (11.5 - 14.5 %) 15.4 H Plt Count (130 - 400 /CUMM) 140 MPV (7.4 - 10.4 FL) 8.9 Gran % (42.2 - 75.2 %) 86.2 H Lymphocytes % (20.5 - 51.1 %) 4.9 L Monocytes % (1.7 - 9.3 %) 8.7 Eosinophils % (0 - 5 %) 0.1 Basophils % (0.0 - 2.0 %) 0.1 Absolute Granulocytes (1.4 - 6.5 /CUMM) 10.6 H Absolute Lymphocytes (1.2 - 3.4 /CUMM) 0.6 L Absolute Monocytes (0.10 - 0.60 /CUMM) 1.1 H Absolute Eosinophils (0.0 - 0.7 /CUMM) 0 Absolute Basophils (0.0 - 0.2 /CUMM) 0 10/23 1630 Chemistry Sodium (137 - 145 mmol/L) 137 137 Potassium (3.5 - 5.1 mmol/L) 5.5 H 5.6 H Chloride (98 - 107 mmol/L) 99 98 Carbon Dioxide (22 - 30 mmol/L) 25 28 Anion Gap (5 - 16) 13 11 BUN (9 - 20 mg/dL) 34 H 31 H Creatinine (0.7 - 1.2 mg/dL) 4.0 H 3.8 H Estimated GFR (>60 ml/min) 16 L 17 L Glucose (65 - 99 mg/dL) 90 92 Lactic Acid (0.7 - 2.1 mmol/L) 2.1 2.4 H Calcium (8.4 - 10.2 mg/dL) 5.8 *L 6.0 L Phosphorus (2.5 - 4.5 mg/dL) 4.4 4.7 H Magnesium (1.6 - 2.3 mg/dL) 1.5 L 1.6 Total Bilirubin (0.2 - 1.3 mg/dL) 0.8 0.7 AST (17 - 59 U/L) 905 H 959 H ALT (21 - 72 U/L) 408 H 444 H Albumin (3.5 - 5.0 g/dL) 2.7 L 2.9 L Hematology CBC w Diff NO MAN DIFF REQ WBC (4.8 - 10.8 /CUMM) 14.7 H RBC (4.70 - 6.10 /CUMM) 5.14 Hgb (14.0 - 18.0 G/DL) 13.9 L Hct (42 - 52 %) 43.4 MCV (80.0 - 94.0 FL) 84.4 MCH (27.0 - 31.0 PG) 27.0 MCHC (33.0 - 37.0 G/DL) 32.0 L RDW (11.5 - 14.5 %) 15.2 H Plt Count (130 - 400 /CUMM) 153 MPV (7.4 - 10.4 FL) 9.2 Gran % (42.2 - 75.2 %) 89.6 H Lymphocytes % (20.5 - 51.1 %) 3.4 L Monocytes % (1.7 - 9.3 %) 7.0 Eosinophils % (0 - 5 %) 0 Basophils % (0.0 - 2.0 %) 0 Absolute Granulocytes (1.4 - 6.5 /CUMM) 13.2 H Absolute Lymphocytes (1.2 - 3.4 /CUMM) 0.5 L Absolute Monocytes (0.10 - 0.60 /CUMM) 1.0 H Absolute Eosinophils (0.0 - 0.7 /CUMM) 0 Absolute Basophils (0.0 - 0.2 /CUMM) 0 10/23 10/23 1255 0825 Chemistry Sodium (137 - 145 mmol/L) 135 L Potassium (3.5 - 5.1 mmol/L) 4.9 Chloride (98 - 107 mmol/L) 99 Carbon Dioxide (22 - 30 mmol/L) 27 Anion Gap (5 - 16) 10 BUN (9 - 20 mg/dL) 30 H Creatinine (0.7 - 1.2 mg/dL) 3.5 H Estimated GFR (>60 ml/min) 19 L Glucose (65 - 99 mg/dL) 113 H Lactic Acid (0.7 - 2.1 mmol/L) 2.7 H 4.6 H Calcium (8.4 - 10.2 mg/dL) 5.7 *L Phosphorus (2.5 - 4.5 mg/dL) 5.2 H Magnesium (1.6 - 2.3 mg/dL) 1.8 Total Bilirubin (0.2 - 1.3 mg/dL) 0.6 AST (17 - 59 U/L) 887 H ALT (21 - 72 U/L) 414 H Albumin (3.5 - 5.0 g/dL) 2.6 L Free T4 (0.64 - 1.79 ng/dL) 1.20 Total T3 (0.97 - 1.69 ng/mL) 0.88 L TSH &T3 &Free T4 Intrp (0.27 - 4.20 uIU/mL) 7.180 H Coagulation PT (9.4 - 12.5 SEC) 15.2 H INR (0.90 - 1.17) 1.39 H APTT (25 - 37 SEC) 27 10/23 10/23 10/23 0825 0620 0500 Blood Gas pH (7.35 - 7.45 PH) 7.29 *L pCO2 (35 - 45 TORR) 44 pO2 (80 - 100 TORR) 86 HCO3 (21 - 28 MEQ/L) 20 L ABG O2 Sat (Measured) (>96.0 %) 95.0 L Carboxyhemoglobin (1.5 - 5.0 %) 0.4 L O2 Concentration % 2L O2 Delivery Method NC Chemistry Sodium (137 - 145 mmol/L) 137 Potassium (3.5 - 5.1 mmol/L) 5.1 Chloride (98 - 107 mmol/L) 96 L Carbon Dioxide (22 - 30 mmol/L) 25 Anion Gap (5 - 16) 15 BUN (9 - 20 mg/dL) 27 H Creatinine (0.7 - 1.2 mg/dL) 3.4 H Estimated GFR (>60 ml/min) 19 L Glucose (65 - 99 mg/dL) 169 H Lactic Acid (0.7 - 2.1 mmol/L) 5.8 H Calcium (8.4 - 10.2 mg/dL) 5.9 *L Phosphorus (2.5 - 4.5 mg/dL) 5.5 H Magnesium (1.6 - 2.3 mg/dL) 1.4 L Total Bilirubin (0.2 - 1.3 mg/dL) 0.6 AST (17 - 59 U/L) 975 H ALT (21 - 72 U/L) 454 H Creatine Kinase (55 - 170 U/L) > 32145 H Albumin (3.5 - 5.0 g/dL) 3.0 L Hematology CBC w Diff MAN DIFF ORDERED WBC (4.8 - 10.8 /CUMM) 21.4 H RBC (4.70 - 6.10 /CUMM) 6.21 H Hgb (14.0 - 18.0 G/DL) 16.7 Hct (42 - 52 %) 52.6 H MCV (80.0 - 94.0 FL) 84.6 MCH (27.0 - 31.0 PG) 27.0 MCHC (33.0 - 37.0 G/DL) 31.9 L RDW (11.5 - 14.5 %) 15.3 H Plt Count (130 - 400 /CUMM) 173 MPV (7.4 - 10.4 FL) 9.0 Gran % (42.2 - 75.2 %) 93.1 H Lymphocytes % (20.5 - 51.1 %) 2.8 L Monocytes % (1.7 - 9.3 %) 4.1 Eosinophils % (0 - 5 %) 0 Basophils % (0.0 - 2.0 %) 0 Absolute Granulocytes (1.4 - 6.5 /CUMM) 19.9 H Segmented Neutrophils (42.2 - 75.2 %) 79 H Band Neutrophils (0.0 - 5.0 %) 14 H Absolute Lymphocytes (1.2 - 3.4 /CUMM) 0.6 L Lymphocytes (20.5 - 51.1 %) 6 L Monocytes (1.7 - 9.3 %) 1 L Absolute Monocytes (0.10 - 0.60 /CUMM) 0.9 H Absolute Eosinophils (0.0 - 0.7 /CUMM) 0 Absolute Basophils (0.0 - 0.2 /CUMM) 0 Platelet Estimate (ADEQUATE) ADEQUATE Normocytic RBCs VERIFIED Normochromic RBCs VERIFIED Miscellaneous Phlebotomy Draw Site LEFT RADIAL 10/23 10/23 10/23 0230 0230 0030 Chemistry Sodium (137 - 145 mmol/L) 136 L Potassium (3.5 - 5.1 mmol/L) 6.5 *H Chloride (98 - 107 mmol/L) 99 Carbon Dioxide (22 - 30 mmol/L) 19 L Anion Gap (5 - 16) 19 H BUN (9 - 20 mg/dL) 25 H Creatinine (0.7 - 1.2 mg/dL) 3.1 H Estimated GFR (>60 ml/min) 21 L Glucose (65 - 99 mg/dL) 251 H Lactic Acid (0.7 - 2.1 mmol/L) 5.7 H 7.1 H Calcium (8.4 - 10.2 mg/dL) 5.7 *L Phosphorus (2.5 - 4.5 mg/dL) 7.8 H Magnesium (1.6 - 2.3 mg/dL) 1.5 L Total Bilirubin (0.2 - 1.3 mg/dL) 0.5 AST (17 - 59 U/L) 908 H ALT (21 - 72 U/L) 381 H Troponin I (<0.11 ng/ml) 0.85 *H Albumin (3.5 - 5.0 g/dL) 3.2 L Hematology CBC w Diff MAN DIFF ORDERED WBC (4.8 - 10.8 /CUMM) 29.4 H RBC (4.70 - 6.10 /CUMM) 6.38 H Hgb (14.0 - 18.0 G/DL) 17.2 Hct (42 - 52 %) 53.7 H MCV (80.0 - 94.0 FL) 84.2 MCH (27.0 - 31.0 PG) 27.0 MCHC (33.0 - 37.0 G/DL) 32.1 L RDW (11.5 - 14.5 %) 15.4 H Plt Count (130 - 400 /CUMM) 194 MPV (7.4 - 10.4 FL) 8.8 Gran % (42.2 - 75.2 %) 94.1 H Lymphocytes % (20.5 - 51.1 %) 2.3 L Monocytes % (1.7 - 9.3 %) 3.6 Eosinophils % (0 - 5 %) 0 Basophils % (0.0 - 2.0 %) 0 Absolute Granulocytes (1.4 - 6.5 /CUMM) 27.6 H Segmented Neutrophils (42.2 - 75.2 %) 85 H Band Neutrophils (0.0 - 5.0 %) 12 H Absolute Lymphocytes (1.2 - 3.4 /CUMM) 0.7 L Lymphocytes (20.5 - 51.1 %) 2 L Monocytes (1.7 - 9.3 %) 1 L Absolute Monocytes (0.10 - 0.60 /CUMM) 1.1 H Eosinophils (0 - 5.0 %) 0 Absolute Eosinophils (0.0 - 0.7 /CUMM) 0 Absolute Basophils (0.0 - 0.2 /CUMM) 0 Platelet Estimate (ADEQUATE) ADEQUATE Normochromic RBCs VERIFIED Poikilocytosis 1+ 10/22 10/22 10/22 10/22 8362 2 2025 2025 Blood Gas pH (7.35 - 7.45 PH) 7.12 *L pCO2 (35 - 45 TORR) 37 pO2 (80 - 100 TORR) 85 HCO3 (21 - 28 MEQ/L) 12 L ABG O2 Sat (Measured) (>96.0 %) 94.0 L P-50 (Temp Corrected) Y Carboxyhemoglobin (1.5 - 5.0 %) 0.7 L O2 Concentration % 2L Temperature (97.0 - 100.0 FARH) 96.4 L O2 Delivery Method NC Chemistry Sodium (137 - 145 mmol/L) 139 Potassium (3.5 - 5.1 mmol/L) 5.6 H Chloride (98 - 107 mmol/L) 97 L Carbon Dioxide (22 - 30 mmol/L) 15 L Anion Gap (5 - 16) 27 H BUN (9 - 20 mg/dL) 21 H Creatinine (0.7 - 1.2 mg/dL) 3.4 H Estimated GFR (>60 ml/min) 19 L BUN/Creatinine Ratio (7 - 25 %) 6.2 L Lactic Acid (0.7 - 2.1 mmol/L) Cancelled 9.6 H Creatine Kinase (55 - 170 U/L) > 67838 H Troponin I (<0.11 ng/ml) 1.25 *H Miscellaneous Phlebotomy Draw Site RIGHT RADIAL 10/22 1400 Chemistry Creatine Kinase Cancelled Urines Urinalysis LIGHT H Urine Color (YEL,AMB,STR) YEL Urine Clarity (CLEAR) HAZY H Urine pH (5.0 - 8.0) 6.0 Ur Specific [place] (1.001 - 1.035) >= 1.030 Urine Protein (NEG,<30 MG/DL) 30 H Urine Ketones (NEG) NEG Urine Nitrite (NEG) NEG Urine Bilirubin (NEG) NEG Urine Urobilinogen (0.1 - 1.0 EU/dl) 0.2 Ur Leukocyte Esterase (NEG) NEG Ur Microscopic SEDIMENT EXAMINED Urine RBC (0 - 5 /HPF) 1-3 Urine WBC (0 - 2 /HPF) 1-3 H Ur Epithelial Cells (NONE,FEW) FEW Urine Bacteria (NEG/NONE) RARE H Hyaline Casts (0/LPF) RARE H Granular Casts (NONE /LPF) RARE H Urine Mucus (FEW,NONE) MANY H Urine Hemoglobin (NEG) MOD H Urine Glucose (N MG/DL) NEG 10/22 10/22 1400 1344 Chemistry Sodium (137 - 145 mmol/L) 140 Potassium (3.5 - 5.1 mmol/L) 7.3 *H Chloride (98 - 107 mmol/L) 92 L Carbon Dioxide (22 - 30 mmol/L) 18 L Anion Gap (5 - 16) 30 H BUN (9 - 20 mg/dL) 20 Creatinine (0.7 - 1.2 mg/dL) 3.4 H Estimated GFR (>60 ml/min) 19 L BUN/Creatinine Ratio (7 - 25 %) 5.9 L Glucose (65 - 99 mg/dL) 211 H Serum Osmolality (285 - 295 MOSM/KG) 303 H Calcium (8.4 - 10.2 mg/dL) 8.4 Magnesium (1.6 - 2.3 mg/dL) 2.7 H Total Bilirubin (0.2 - 1.3 mg/dL) 0.7 AST (17 - 59 U/L) 338 H ALT (21 - 72 U/L) 165 H Alkaline Phosphatase (< 127 U/L) 127 H Creatine Kinase (55 - 170 U/L) 90243 H Troponin I (<0.11 ng/ml) 1.05 *H Total Protein (6.3 - 8.2 g/dL) 8.2 Albumin (3.5 - 5.0 g/dL) 5.1 H Globulin (1.9 - 4.2 gm/dL) 3.1 Albumin/Globulin Ratio (1.1 - 2.2 %) 1.6 Hematology CBC w Diff MAN DIFF ORDERED WBC (4.8 - 10.8 /CUMM) 28.3 H RBC (4.70 - 6.10 /CUMM) 5.88 Hgb (14.0 - 18.0 G/DL) 16.3 Hct (42 - 52 %) 50.6 MCV (80.0 - 94.0 FL) 86.1 MCH (27.0 - 31.0 PG) 27.7 MCHC (33.0 - 37.0 G/DL) 32.2 L RDW (11.5 - 14.5 %) 15.3 H Plt Count (130 - 400 /CUMM) 280 MPV (7.4 - 10.4 FL) 7.9 Gran % (42.2 - 75.2 %) 93.4 H Lymphocytes % (20.5 - 51.1 %) 2.7 L Monocytes % (1.7 - 9.3 %) 3.7 Eosinophils % (0 - 5 %) 0.1 Basophils % (0.0 - 2.0 %) 0.1 Absolute Granulocytes (1.4 - 6.5 /CUMM) 26.5 H Segmented Neutrophils (42.2 - 75.2 %) 68 Band Neutrophils (0.0 - 5.0 %) 19 H Absolute Lymphocytes (1.2 - 3.4 /CUMM) 0.8 L Lymphocytes (20.5 - 51.1 %) 2 L Monocytes (1.7 - 9.3 %) 9 Absolute Monocytes (0.10 - 0.60 /CUMM) 1.1 H Absolute Eosinophils (0.0 - 0.7 /CUMM) 0 Absolute Basophils (0.0 - 0.2 /CUMM) 0 Metamyelocytes (0.0 - 1.0 %) 2 H Normocytic RBCs VERIFIED Normochromic RBCs VERIFIED Toxicology Salicylates (0 - 20.0 mg/dL) < 1.0 Urine Opiates Screen (>2000 NG/ML) 1659.00 Methadone Screen (>300 NG/ML) 68 Acetaminophen (10.0 - 30.0 ug/mL) < 10.0 L Barbiturate Screen (>200 NG/ML) 88 Ur Phencyclidine Scrn (>25 NG/ML) < 6.00 Amphetamines Screen (>1000 NG/ML) 149 U Benzodiazepines Scrn (>200 NG/ML) > 800 H Urine Cocaine Screen (>300 NG/ML) > 1000 H Urine Cannabis Screen (>50 NG/ML) 7.70 Serum Alcohol (<10 MG/DL) < 10.0 Urines Urine Osmolality (300 - 1000 MOSM/KG) 832 Ur Random Creatinine (mg/dL) 399.8 Ur Random Sodium (30 - 90 mmol/L) 15 L Ur Random Potassium (mmol/L) 135.2 Fraction Sodium Excret (<1% %) 0.1
--- NOTE | 2017-10-25 10:24 | ECHOCARDIOGRAM REPORT ---
PHYLLIS ASHLEY Age: 52 : 1965 Gender: M Exam Date: 10/24/2017 08:17 Exam Location: [facility] Ht (in): 68 Wt (lb): 140 BSA: 1.74 BP: 130 / 80 Ordering Physician: Michelle Stovall MD Referring Physician: Glen Loomis MD Technologist: Nicole Chandler [facility] Room Number: [id number] Indications: CHEST PAIN Rhythm: Sinus Technical Quality: difficult FINDINGS Left Ventricle Normal left ventricular size. Mild hypokinesis of mid to distal alejandrina lateral wall, under reserve of difficulty obtaining good short axis views of LV. Normal left ventricular diastolic filling pattern for age. The ejection fraction is visually estimated at 55 Right Ventricle The right ventricle is normal in size and function. Right Atrium The right atrium is normal in size. Left Atrium The left atrium is normal in size. The interatrial septum is intact. Mitral Valve The mitral valve is normal in structure and function. There is trace mitral regurgitation. Aortic Valve Structurally normal aortic valve without significant sclerosis or stenosis. There is no aortic regurgitation. Tricuspid Valve The tricuspid valve is normal in structure and function. There is mild tricuspid regurgitation. Pulmonary artery systolic pressure is normal. Pulmonic Valve Structurally normal pulmonic valve. There is no pulmonic regurgitation. Pericardium Normal pericardium without effusion. Epicardial fat. No pleural effusion. Great Vessels Normal aortic root dimension. The aortic arch and great vessels are well seen and are normal. CONCLUSIONS Normal left ventricular size. Mild hypokinesis of mid to distal alejandrina-lateral wall, under reserve of difficulty obtaining good short axis views of LV. The ejection fraction is visually estimated at 55 %. Normal left ventricular diastolic filling pattern for age. The right ventricle is normal in size and function. The left atrium is normal in size. There is trace mitral regurgitation. Structurally normal aortic valve without significant sclerosis or stenosis. There is mild tricuspid regurgitation. Pulmonary artery systolic pressure is normal. Normal pericardium without effusion. Epicardial fat. Glen Loomis M.D. (Electronically Signed) Final Date: 25 Oct 2017 10:24 MEASUREMENTS (Male / Female) Normal Values 2D ECHO LV Diastolic Diameter PLAX 3.2 cm 4.2 - 5.9 / 3.9 - 5.3 cm LV Systolic Diameter PLAX 2.0 cm 2.1 - 4.0 cm LV Fractional Shortening PLAX 37.5 % 25 - 46 % LV Ejection Fraction 2D Teich 68.9 % IVS Diastolic Thickness 1.0 cm LVPW Diastolic Thickness 1.1 cm LV Relative Wall Thickness 0.7 RV Internal Dim ED PLAX 2.6 cm 1.9 - 3.8 cm LVOT Diameter 1.7 cm LA Systolic Diameter LX 3.0 cm 3.0 - 4.0 / 2.7 - 3.8 cm LA Volume 31.0 cm 18 - 58 / 22 - 52 cm DOPPLER AV Peak Velocity 108.0 cm/s AV Peak Gradient 4.7 mmHg AV Mean Velocity 80.7 cm/s AV Mean Gradient 3.0 mmHg AV Velocity Time Integral 20.2 cm LVOT Peak Velocity 85.7 cm/s LVOT Peak Gradient 2.9 mmHg LVOT Mean Velocity 55.7 cm/s LVOT Mean Gradient 1.0 mmHg LVOT Velocity Time Integral 15.9 cm LVOT Stroke Volume 36.1 cm AV Area Cont Eq vti 1.8 cm AV Area Cont Eq pk 1.8 cm MV Peak Velocity 84.7 cm/s MV Peak Gradient 2.9 mmHg MV Mean Velocity 52.6 cm/s MV Mean Gradient 1.0 mmHg Mitral E Point Velocity 77.0 cm/s Mitral A Point Velocity 73.1 cm/s Mitral E to A Ratio 1.1 MV PHT Velocity 90.2 cm/s MV Deceleration Barbour 463.0 cm/s MV Pressure Half Time 58.4 ms MV Area PHT 3.8 cm MV Deceleration Time 185.0 ms TR Peak Velocity 248.0 cm/s TR Peak Gradient 24.6 mmHg Right Atrial Pressure 5.0 mmHg Pulmonary Artery Systolic Pressu 29.6 mmHg Right Ventricular Systolic Press 29.6 mmHg PV Peak Velocity 95.1 cm/s PV Peak Gradient 3.6 mmHg PV Mean Velocity 62.3 cm/s PV Mean Gradient 2.0 mmHg PV Velocity Time Integral 16.0 cm LV E' Lateral Velocity 16.8 cm/s Mitral E to LV E' Lateral Ratio 4.6 LV E' Septal Velocity 12.2 cm/s Mitral E to LV E' Septal Ratio 6.3
--- NOTE | 2017-10-25 10:29 | PN- Cardiology ---
Subjective Subjective: No acute events. still complaining of right arm pain/swelling. No significant arrhythmia on telemetry. Denies chest pains. Echocardiogram shows mild hypokinesis of anterolateral wall , mid to distal. Good diuresis but creatinine rising. Objective Vital Signs and I&Os Vital Signs Date Time Temp Pulse Resp B/P B/P Pulse O2 O2 Flow FiO2 Mean Ox Delivery Rate 10/25 0600 99.0 100 20 103/83 10/25 0400 99.1 105 20 150/92 10/25 0400 93 Nasal 1.0L Cannula 10/25 0200 99.0 110 20 125/91 05/ 0000 98.6 98 18 144/100 05/ 0000 92 Room Air / 0000 98.6 98 18 144/100 92 Room Air / 2200 99.2 95 16 145/91 / 2000 99.0 93 18 138/98 05/ 2000 95 Nasal 1.0L Cannula / 1800 98.6 93 18 159/100 05/ 1600 98.9 93 18 148/90 05/ 1600 96 Nasal 1.0L Cannula / 1600 98.9 93 18 148/90 96 Nasal 1.0L Cannula / 1400 98.3 91 16 138/100 05/ 1200 98.2 93 16 140/88 05/ 1200 96 Nasal 1.0L Cannula Intake & Output 10/25 1600 / 0800 05/ 0000 05/ 1600 05/ 0800 05/ 0000 Intake Total 743 718 637 4246 1626 Output Total 700 350 260 565 437 Balance 43 500 814 522 9762 Intake, IV 503 600 257 673 0104 Intake, Oral 240 250 100 40 40 Number 0 Bowel Movements Output, Stool 300 300 250 Output, Urine 400 350 260 265 187 Physical Exam: General Appearance: no apparent distress, alert, awake Head: atraumatic, oral mucosa pink and moist, PERRLA Neck: supple, trachea mid line (no JVD) Respiratory: lungs clear (no wheezing.), rash on left sternal border Cardiovascular: regular rate/rhythm, no audible murmur, no friction rub, normal apical impact. Gastrointestinal: normal bowel sounds, soft, non-tender Extremities: normal capillary refill, no edema Current Medications: Current Medications Sig/Leigh Ann Start time Last Medication Dose Route Stop Time Status Admin Ampicillin Sodium/ 1,500 MG Q6H 10/23 0400 AC 10/25 Sulbactam Sodium IV 0940 Sodium Chloride 100 ML Aspirin 81 MG DAILY 10/24 1300 AC 10/25 PO 0941 Chlorpromazine 25 MG TIDPRN PRN 10/25 0045 DC 10/25 PO 0101 Heparin Sodium 5,000 UNIT Q8 10/25 1400 AC (Porcine) SC Levetiracetam 1,500 MG Q12 10/23 1999 AC 10/25 N/A 1 UNIT IV 0940 Lorazepam 1 MG Q6-PRN PRN 10/23 1999 AC 10/24 IV 2122 Morphine Sulfate 1 MG Q6P PRN 10/23 1999 AC 10/25 IV 0955 Nitroglycerin 0.5 GM Q6 PRN 10/22 2199 AC TOP Pantoprazole Sodium 40 MG BID 10/23 2099 AC 10/25 IV 0941 Sodium Chloride 1,000 ML Q10H 10/23 220 AC 10/24 IV 2250 Results Last 48 Hrs of Labs/Mics: Laboratory Tests 10/25/17 0420: Anion Gap 12, Estimated GFR 8 L, Glucose 80, Calcium 6.4 L, Phosphorus 5.0 H, Magnesium 1.9, Total Bilirubin 0.9, AST 607 H, ALT 299 H, Creatine Kinase > 30983 H, Albumin 2.5 L, PT 13.3 H, INR 1.22 H, CBC w Diff MAN DIFF ORDERED, RBC 4.25 L, MCV 82.6, MCH 27.3, MCHC 33.0, RDW 15.5 H, MPV 9.0, Gran % 89.1 H , Lymphocytes % 4.7 L, Monocytes % 5.8, Eosinophils % 0.1, Basophils % 0.3, Absolute Granulocytes 9.4 H, Segmented Neutrophils 77 H, Band Neutrophils 12 H, Absolute Lymphocytes 0.5 L, Lymphocytes 5 L, Monocytes 4, Absolute Monocytes 0.6, Absolute Eosinophils 0, Basophils 2, Absolute Basophils 0, Platelet Estimate DECREASED, Basophilic Stippling 1+, Anisocytosis 1+, [place] Cells FEW, Elliptocytes FEW 10/24/17 1615: Anion Gap 12, Estimated GFR 10 L, Glucose 92, Calcium 6.3 L, Phosphorus 5.2 H , Magnesium 1.9, Total Bilirubin 0.8, AST 701 H, ALT 337 H, Albumin 2.5 L 10/24/17 0900: Sodium Cancelled, Potassium Cancelled, Chloride Cancelled, Carbon Dioxide Cancelled, Anion Gap Cancelled, BUN Cancelled, Creatinine Cancelled, Glucose Cancelled, Calcium Cancelled, Phosphorus Cancelled, Magnesium Cancelled, Total Bilirubin Cancelled, AST Cancelled, ALT Cancelled, Albumin Cancelled 10/24/17 0815: Anion Gap 10, Estimated GFR 12 L, Glucose 108 H, Calcium 6.1 L, Phosphorus 5.1 H, Magnesium 1.9, Total Bilirubin 0.7, AST 756 H, ALT 353 H, Albumin 2.6 L 10/24/17 0300: Anion Gap 10, Estimated GFR 13 L, Glucose 106 H, Calcium 6.3 L, Phosphorus 4.8 H, Magnesium 1.6, Total Bilirubin 0.7, AST 820 H, ALT 377 H, Creatine Kinase > 47215 H, Albumin 2.6 L, PT 14.4 H, INR 1.32 H, CBC w Diff NO MAN DIFF REQ, RBC 4.81, MCV 83.8, MCH 27.2, MCHC 32.5 L, RDW 15.4 H, MPV 8.9, Gran % 86.2 H, Lymphocytes % 4.9 L, Monocytes % 8.7, Eosinophils % 0.1, Basophils % 0.1, Absolute Granulocytes 10.6 H, Absolute Lymphocytes 0.6 L, Absolute Monocytes 1.1 H, Absolute Eosinophils 0, Absolute Basophils 0 10/23/172114: Lactic Acid 1.7 10/23/172044: Anion Gap 13, Estimated GFR 16 L, Glucose 90, Calcium 5.8 *L, Phosphorus 4.4, Magnesium 1.5 L, Total Bilirubin 0.8, AST 905 H, ALT 408 H, Albumin 2.7 L, CBC w Diff NO MAN DIFF REQ, RBC 5.14, MCV 84.4, MCH 27.0, MCHC 32.0 L, RDW 15.2 H, MPV 9.2, Gran % 89.6 H, Lymphocytes % 3.4 L, Monocytes % 7.0, Eosinophils % 0, Basophils % 0, Absolute Granulocytes 13.2 H, Absolute Lymphocytes 0.5 L, Absolute Monocytes 1.0 H, Absolute Eosinophils 0, Absolute Basophils 0 10/23/17 1910: Lactic Acid 2.1 10/23/17 1630: Anion Gap 11, Estimated GFR 17 L, Glucose 92, Lactic Acid 2.4 H, Calcium 6.0 L, Phosphorus 4.7 H, Magnesium 1.6, Total Bilirubin 0.7, AST 959 H, ALT 444 H , Albumin 2.9 L 10/23/17 1255: Anion Gap 10, Estimated GFR 19 L, Glucose 113 H, Lactic Acid 2.7 H, Calcium 5.7 *L, Phosphorus 5.2 H, Magnesium 1.8, Total Bilirubin 0.6, AST 887 H, ALT 414 H, Albumin 2.6 L, Free T4 1.20, Total T3 0.88 L, TSH &T3 &Free T4 Intrp 7.180 H, PT 15.2 H, INR 1.39 H, APTT 27 Assessment/Plan Assessment/Plan Severe rhabdomyolysis due to cocaine overdose with accompanying rise in troponins without evidence of ongoing coronary spasm or thrombus upon admission. Mild anterolateral hypokinesis related to spasm during the event, without complete occlusion to blood flow/STEMI (modest rise in troponins, no akinesis on echocardiogram). ASA started. I would not add anything to his treatment at the moment. gastritis/hematemesis and ischemic hepatitis, improved with fluid rescusitation. JEAN due to rhabdomyolysis, CK > [address]64, diuresis preserved and no dialysis criteria at the moment according to nephrology. Continue telemetry? Yes
--- NOTE | 2017-10-25 10:29 | PN- Att Addend ---
Attending Addendum Attending Brief Note Events over the weekend noted patient admitted after cocaine and benzo overdose. Patient told me, and remember what happened was in the intensive care unit over the weekend patient is alert today with his blood pressures a little high his upper extremity still a little swollen and tender and has occasional hiccups. The urine output seems adequate despite the renal failure. The hyperkalemia resolved so did the EKG changes patient was seen by cardiology and outplacement consultant Dr. Díaz commendations were appreciated in the EKG changes have resolved after the potassium came down. Brick Paver suggested that the coronary spasms were secondary to the cocaine use and so were the EKG changes. Patient was admitted with severe rhabdomyolysis post cocaine abuse benzo abuse. Kidney insufficiency acidosis positive troponins patient had an echocardiogram showed no wall abnormalities, probably demand ischemia patient continued to be observed monitoring the labs, social sciences instructor input psych input and psych input. Intake & Output 10/25 040 Intake Total 900 984 8294 1626 4078.8 1999 Output Total 700 350 825 437 470 Balance 43 833 276 2033 3608.8 1999 Intake, IV 251 206 1154 1586 4048.8 1999 Intake, Oral 240 250 140 40 30 Number 0 0 Bowel Movements Output, Stool 300 300 250 Output, Urine 400 350 525 187 470 Patient 161 lb Weight Weight Bed scale Measurement Method Current Medications Sig/Leigh Ann Start time Last Medication Dose Route Stop Time Status Admin Ampicillin Sodium/ 1,500 MG Q6H 10/23 0400 AC 10/25 Sulbactam Sodium IV 0940 Sodium Chloride 100 ML Aspirin 81 MG DAILY 10/24 1300 AC 10/25 PO 0941 Chlorpromazine 25 MG TIDPRN PRN 10/25 0045 DC 10/25 PO 0101 Heparin Sodium 5,000 UNIT Q8 10/25 1400 AC (Porcine) SC Levetiracetam 1,500 MG Q12 10/22 N/A 1 UNIT IV 0940 Lorazepam 1 MG Q6-PRN PRN 10/23 1999 AC 10/24 IV 2122 Morphine Sulfate 1 MG Q6P PRN 10/23 1999 AC 10/25 IV 0955 Nitroglycerin 0.5 GM Q6 PRN 10/22 2200 AC TOP Pantoprazole Sodium 40 MG BID 10/23 2099 AC 10/25 IV 0941 Sodium Chloride 1,000 ML Q10H 10/23 2200 AC 10/24 IV 2250 Laboratory Tests 10/25/17 0420: Anion Gap 12, Estimated GFR 8 L, Glucose 80, Calcium 6.4 L, Phosphorus 5.0 H, Magnesium 1.9, Total Bilirubin 0.9, AST 607 H, ALT 299 H, Creatine Kinase > 02954 H, Albumin 2.5 L, PT 13.3 H, INR 1.22 H, CBC w Diff MAN DIFF ORDERED, RBC 4.25 L, MCV 82.6, MCH 27.3, MCHC 33.0, RDW 15.5 H, MPV 9.0, Gran % 89.1 H , Lymphocytes % 4.7 L, Monocytes % 5.8, Eosinophils % 0.1, Basophils % 0.3, Absolute Granulocytes 9.4 H, Segmented Neutrophils 77 H, Band Neutrophils 12 H, Absolute Lymphocytes 0.5 L, Lymphocytes 5 L, Monocytes 4, Absolute Monocytes 0.6, Absolute Eosinophils 0, Basophils 2, Absolute Basophils 0, Platelet Estimate DECREASED, Basophilic Stippling 1+, Anisocytosis 1+, [place] Cells FEW, Elliptocytes FEW 10/24/17 1615: Anion Gap 12, Estimated GFR 10 L, Glucose 92, Calcium 6.3 L, Phosphorus 5.2 H , Magnesium 1.9, Total Bilirubin 0.8, AST 701 H, ALT 337 H, Albumin 2.5 L 10/24/17 0900: Sodium Cancelled, Potassium Cancelled, Chloride Cancelled, Carbon Dioxide Cancelled, Anion Gap Cancelled, BUN Cancelled, Creatinine Cancelled, Glucose Cancelled, Calcium Cancelled, Phosphorus Cancelled, Magnesium Cancelled, Total Bilirubin Cancelled, AST Cancelled, ALT Cancelled, Albumin Cancelled 10/24/17 0815: Anion Gap 10, Estimated GFR 12 L, Glucose 108 H, Calcium 6.1 L, Phosphorus 5.1 H, Magnesium 1.9, Total Bilirubin 0.7, AST 756 H, ALT 353 H, Albumin 2.6 L 10/24/17 0300: Anion Gap 10, Estimated GFR 13 L, Glucose 106 H, Calcium 6.3 L, Phosphorus 4.8 H, Magnesium 1.6, Total Bilirubin 0.7, AST 820 H, ALT 377 H, Creatine Kinase > 81687 H, Albumin 2.6 L, PT 14.4 H, INR 1.32 H, CBC w Diff NO MAN DIFF REQ, RBC 4.81, MCV 83.8, MCH 27.2, MCHC 32.5 L, RDW 15.4 H, MPV 8.9, Gran % 86.2 H, Lymphocytes % 4.9 L, Monocytes % 8.7, Eosinophils % 0.1, Basophils % 0.1, Absolute Granulocytes 10.6 H, Absolute Lymphocytes 0.6 L, Absolute Monocytes 1.1 H, Absolute Eosinophils 0, Absolute Basophils 0 10/23/172114: Lactic Acid 1.7 10/23/172044: Anion Gap 13, Estimated GFR 16 L, Glucose 90, Calcium 5.8 *L, Phosphorus 4.4, Magnesium 1.5 L, Total Bilirubin 0.8, AST 905 H, ALT 408 H, Albumin 2.7 L, CBC w Diff NO MAN DIFF REQ, RBC 5.14, MCV 84.4, MCH 27.0, MCHC 32.0 L, RDW 15.2 H, MPV 9.2, Gran % 89.6 H, Lymphocytes % 3.4 L, Monocytes % 7.0, Eosinophils % 0, Basophils % 0, Absolute Granulocytes 13.2 H, Absolute Lymphocytes 0.5 L, Absolute Monocytes 1.0 H, Absolute Eosinophils 0, Absolute Basophils 0 10/23/17 1910: Lactic Acid 2.1 10/23/17 1630: Anion Gap 11, Estimated GFR 17 L, Glucose 92, Lactic Acid 2.4 H, Calcium 6.0 L, Phosphorus 4.7 H, Magnesium 1.6, Total Bilirubin 0.7, AST 959 H, ALT 444 H , Albumin 2.9 L 10/23/17 1255: Anion Gap 10, Estimated GFR 19 L, Glucose 113 H, Lactic Acid 2.7 H, Calcium 5.7 *L, Phosphorus 5.2 H, Magnesium 1.8, Total Bilirubin 0.6, AST 887 H, ALT 414 H, Albumin 2.6 L, Free T4 1.20, Total T3 0.88 L, TSH &T3 &Free T4 Intrp 7.180 H, PT 15.2 H, INR 1.39 H, APTT 27 10/23/17 0825: Lactic Acid 4.6 H 10/23/17 0825: Anion Gap 15, Estimated GFR 19 L, Glucose 169 H, Calcium 5.9 *L, Phosphorus 5.5 H, Magnesium 1.4 L, Total Bilirubin 0.6, AST 975 H, ALT 454 H, Creatine Kinase > 77418 H, Albumin 3.0 L, CBC w Diff MAN DIFF ORDERED, RBC 6.21 H, MCV 84.6, MCH 27.0, MCHC 31.9 L, RDW 15.3 H, MPV 9.0, Gran % 93.1 H, Lymphocytes % 2.8 L, Monocytes % 4.1, Eosinophils % 0, Basophils % 0, Absolute Granulocytes 19.9 H, Segmented Neutrophils 79 H, Band Neutrophils 14 H, Absolute Lymphocytes 0.6 L, Lymphocytes 6 L, Monocytes 1 L, Absolute Monocytes 0.9 H, Absolute Eosinophils 0, Absolute Basophils 0, Platelet Estimate ADEQUATE, Normocytic RBCs VERIFIED, Normochromic RBCs VERIFIED 10/23/17 0620: pH 7.29 *L, pCO2 44, pO2 86, HCO3 20 L, ABG O2 Sat (Measured) 95.0 L, Carboxyhemoglobin 0.4 L, O2 Concentration % 2L, O2 Delivery Method NC, Phlebotomy Draw Site LEFT RADIAL 10/23/17 0500: Lactic Acid 5.8 H 10/23/17 0230: Lactic Acid 5.7 H 10/23/17 0230: Anion Gap 19 H, Estimated GFR 21 L, Glucose 251 H, Calcium 5.7 *L, Phosphorus 7.8 H, Magnesium 1.5 L, Total Bilirubin 0.5, AST 908 H, ALT 381 H, Troponin I 0.85 *H, Albumin 3.2 L, CBC w Diff MAN DIFF ORDERED, RBC 6.38 H, MCV 84.2, MCH 27.0, MCHC 32.1 L, RDW 15.4 H, MPV 8.8, Gran % 94.1 H, Lymphocytes % 2.3 L, Monocytes % 3.6, Eosinophils % 0, Basophils % 0, Absolute Granulocytes 27.6 H, Segmented Neutrophils 85 H, Band Neutrophils 12 H, Absolute Lymphocytes 0.7 L, Lymphocytes 2 L, Monocytes 1 L, Absolute Monocytes 1.1 H, Eosinophils 0, Absolute Eosinophils 0, Absolute Basophils 0, Platelet Estimate ADEQUATE, Normochromic RBCs VERIFIED, Poikilocytosis 1+ 10/23/17 0030: Lactic Acid 7.1 H 10/22/175: pH 7.12 *L, pCO2 37, pO2 85, HCO3 12 L, ABG O2 Sat (Measured) 94.0 L, P-50 ( Temp Corrected) Y, Carboxyhemoglobin 0.7 L, O2 Concentration % 2L, Temperature 96.4 L, O2 Delivery Method NC, Phlebotomy Draw Site RIGHT RADIAL 10/22/172114: Lactic Acid Cancelled 10/22/172025: Lactic Acid 9.6 H 10/22/172025: Anion Gap 27 H, Estimated GFR 19 L, BUN/Creatinine Ratio 6.2 L, Creatine Kinase > 61468 H, Troponin I 1.25 *H 10/22/172021: Creatine Kinase Cancelled 10/22/17 1400: Urinalysis LIGHT H, Urine Color YEL, Urine Clarity HAZY H, Urine pH 6.0, Ur Specific Barnard >= 1.030, Urine Protein 30 H, Urine Ketones NEG, Urine Nitrite NEG, Urine Bilirubin NEG, Urine Urobilinogen 0.2, Ur Leukocyte Esterase NEG, Ur Microscopic SEDIMENT EXAMINED, Urine RBC 1-3, Urine WBC 1-3 H, Ur Epithelial Cells FEW, Urine Bacteria RARE H, Hyaline Casts RARE H, Granular Casts RARE H , Urine Mucus MANY H, Urine Hemoglobin MOD H, Urine Glucose NEG 10/22/17 1400: Urine Opiates Screen 1659.00, Methadone Screen 68, Barbiturate Screen 88, Ur Phencyclidine Scrn < 6.00, Amphetamines Screen 149, U Benzodiazepines Scrn > 800 H, Urine Cocaine Screen > 1000 H, Urine Cannabis Screen 7.70, Urine Osmolality 832, Ur Random Creatinine 399.8, Ur Random Sodium 15 L, Ur Random Potassium 135.2, Fraction Sodium Excret 0.1 10/22/17 1344: Anion Gap 30 H, Estimated GFR 19 L, BUN/Creatinine Ratio 5.9 L, Glucose 211 H, Serum Osmolality 303 H, Calcium 8.4, Magnesium 2.7 H, Total Bilirubin 0.7, AST 338 H, ALT 165 H, Alkaline Phosphatase 127 H, Creatine Kinase 40426 H, Troponin I 1.05 *H, Total Protein 8.2, Albumin 5.1 H, Globulin 3.1, Albumin/ Globulin Ratio 1.6, CBC w Diff MAN DIFF ORDERED, RBC 5.88, MCV 86.1, MCH 27.7, MCHC 32.2 L, RDW 15.3 H, MPV 7.9, Gran % 93.4 H, Lymphocytes % 2.7 L, Monocytes % 3.7, Eosinophils % 0.1, Basophils % 0.1, Absolute Granulocytes 26.5 H, Segmented Neutrophils 68, Band Neutrophils 19 H, Absolute Lymphocytes 0.8 L , Lymphocytes 2 L, Monocytes 9, Absolute Monocytes 1.1 H, Absolute Eosinophils 0, Absolute Basophils 0, Metamyelocytes 2 H, Normocytic RBCs VERIFIED, Normochromic RBCs VERIFIED, Salicylates < 1.0, Acetaminophen < 10.0 L, Serum Alcohol < 10.0 Microbiology 10/23 229 URINE ROUT: Urine Culture - COMP 10/22 2229 UPPER RESP: Surveillance Culture - COMP 10/22 2229 GI: Surveillance Culture - COMP 10/22 2025 BLOOD: Blood Culture - RES 10/22 2002 URINE ROUT: Urine Culture - CAN Cancelled: Cancelled via OE: PT NOW HAS LARSON 10/22 1842 BLOOD: Blood Culture - RES 10/22 1818 URINE ROUT: Urine Culture - CAN Cancelled: Cancelled via OE: PT NOW HAS LARSON 10/22 1818 LOWER RESP: Respiratory Culture - CAN Cancelled: SPECIMEN NOT RECEIVED IN LABORATORY 10/22 1818 LOWER RESP: Gram Stain - CAN Cancelled: SPECIMEN NOT RECEIVED IN LABORATORY Microbiology 10/23 229 URINE ROUT: Urine Culture - COMP 10/22 2229 UPPER RESP: Surveillance Culture - COMP 10/22 2229 GI: Surveillance Culture - COMP 10/22 2025 BLOOD: Blood Culture - RES 10/22 2002 URINE ROUT: Urine Culture - CAN Cancelled: Cancelled via OE: PT NOW HAS LARSON 10/22 1842 BLOOD: Blood Culture - RES 10/22 1818 URINE ROUT: Urine Culture - CAN Cancelled: Cancelled via OE: PT NOW HAS LARSON 10/22 1818 LOWER RESP: Respiratory Culture - CAN Cancelled: SPECIMEN NOT RECEIVED IN LABORATORY 10/22 1818 LOWER RESP: Gram Stain - CAN Cancelled: SPECIMEN NOT RECEIVED IN LABORATORY Vital Signs Date Time Temp Pulse Resp B/P B/P Pulse O2 O2 Flow FiO2 Mean Ox Delivery Rate 10/25 06 99.0 100 20 103/83 10/26 399 99.1 105 20 150/92 10/26 399 93 Nasal 1.0L Cannula 05/07 0200 99.0 110 20 125/91 05/07 0000 98.6 98 18 144/100 05/07 0000 92 Room Air 05/07 0000 98.6 98 18 144/100 92 Room Air 05/06 2200 99.2 95 16 145/91 05/06 2000 99.0 93 18 138/98 05/06 2000 95 Nasal 1.0L Cannula 05/06 1800 98.6 93 18 159/100 05/06 1600 98.9 93 18 148/90 05/06 1600 96 Nasal 1.0L Cannula 05/06 1600 98.9 93 18 148/90 96 Nasal 1.0L Cannula 05/06 1400 98.3 91 16 138/100 05/06 1200 98.2 93 16 140/88 05/06 1200 96 Nasal 1.0L Cannula
--- NOTE | 2017-10-25 12:00 | Cons- Orthopedic ---
General Information and HPI Consulting Request Date of Consult: 10/23/17 Requested By: Dr. Díaz ICU Team Reason for Consult: Previous cervical spine surgery now with right shoulder and arm pain after period of unconsciousness apparently related to combination use of prescription medication and nonprescription controlled substances. Source of Information: patient, old records Exam Limitations: Sedated. Only partially awake and alert although sufficiently arousable and responsive to answer most simple questions and follow most simple commands with encouragement. History of Present Illness: Aaron Cabrales is a 52 year old RHWM with Hx of SZ and remote Hx of ACDF ( Marguerite/Hira) without residual UE deficit who is seen in consult in the ICU at the request of the ICU team after being found unconscious at home by his mother presumably related to combination use of prescription medication and nonprescription controlled substances. He is awake, alert, is able to follow simple commands and is able to confirm basic history with brief (mostly binary or trinary choice) answers but is not able to elaborate or give detailed history. He has swelling of his right arm and weakness in elevation of his right shoulder. He was likely unconscious overnight (approximately 8 hours) and may have been in hyper-externally rotated shoulder position, possibly with head pressure to the upper arm without the typical position change associated with normal sleep for several hours. His initial workup and labs suggest rhabdo and, given that he does not have other areas of swelling or pressure changes evident, the degree of muscular pressure injury in the right upper extremity is likely very severe. The outcome from this type of severe focal pressure phenomenon sufficient to cause significant laboratory change is difficult to predict but can be much more severe, prolonged and even permanent than a more diffuse process involving larger muscle groups (such as the more typical torso, gluteal and lower extremity cases). He reported some initial distal numbness and tingling but this has resolved which improves at least his functional prognosis to a fair degree. Obviously his shoulder elevation may take quite some time to improve and may not improve which might limit him considerably despite preserved distal function. He does not report any other direct injuries and workup has not suggested other areas of injury or deficit. His previous neck surgery does not appear to be involved with his current shoulder deficit although this cannot be ruled out. He has adjacent segment DDD which may actually be more likely to be causing some difficulty than his previously operated level in this case. Allergies/Medications Allergies: Coded Allergies: adalimumab (Severe, ANAPHYLAXIS 03/02/16) shellfish derived (Severe, SOB, SWELLING 03/02/16) venom-honey bee (BEE VENOM (HONEY BEE)) (Severe, SWELLING 03/02/16) Iodinated Contrast- Oral and IV Dye (IODINATED CONTRAST MEDIA - IV DYE) (UNKNOWN PER PT 03/02/16) infliximab (BLOTCHES, HIVES, DYSPNEA 03/02/16) Home Med List: Albuterol Sulfate 2.5 MG/3 ML (0.083 %) VIAL.NEB 1 Vial INH/ASHLEY AD PRN ASTHMA (Reported) Alprazolam 0.5 MG TABLET 1 TAB PO 4 TIMES/DAY ANXIETY (Reported) Escitalopram Oxalate 10 MG TABLET 1 TAB PO DAILY MENTAL HEALTH (Reported) Ipratropium/Albuterol Sulfate (Combivent Respimat Inhal Springer) 20 MCG-100 MCG/ ACTUATION MIST.INHAL 1 PUFF INH PRN ASTHMA (Reported) Levetiracetam (Keppra) 750 MG TABLET 2 TAB PO BID SEIZURES (Reported) Multivitamin (Daily Multiple Vitamin) 1 EACH TABLET 1 TAB PO DAILY VITAMIN SUPPORT (Reported) Zolpidem Tartrate 10 MG TABLET 1 TAB PO QPMP SLEEP (Reported) Current Medications: Current Medications Sig/Leigh Nan Start time Last Medication Dose Route Stop Time Status Admin Ampicillin Sodium/ 1,500 MG Q6H 10/23 0400 AC 10/25 Sulbactam Sodium IV 0940 Sodium Chloride 100 ML Aspirin 81 MG DAILY 10/24 1300 AC 10/25 PO 0941 Chlorpromazine 25 MG TIDPRN PRN 10/25 0045 DC 10/25 PO 0101 Heparin Sodium 5,000 UNIT Q8 10/25 1400 AC (Porcine) SC Levetiracetam 1,500 MG Q12 10/23 1999 AC 10/25 N/A 1 UNIT IV 0940 Lorazepam 1 MG Q6-PRN PRN 10/23 1999 AC 10/24 IV 2122 Morphine Sulfate 1 MG ONCE ONE 10/25 1215 DC 10/25 IV 10/25 1216 1214 Morphine Sulfate 1 MG Q6P PRN 10/23 1999 AC 10/25 IV 0955 Nitroglycerin 0.5 GM Q6 PRN 10/22 2200 AC TOP Pantoprazole Sodium 40 MG BID 10/23 2100 AC 10/25 IV 0941 Sodium Chloride 1,000 ML Q10H 10/23 2200 AC 10/24 IV 2250 Past History Medical History Neurological: seizure, SEVERE HEADACHES EENT: NONE Cardiovascular: NONE Respiratory: asthma, L COLLAPSED LUNG Gastrointestinal: Crohn's disease Hepatic: NONE Renal: NONE Musculoskeletal: fracture, ARTHRITIS RUPTURED DISC RIBS,LEGS,KNEE FX Psychiatric: anxiety, chronic pain disorder, insomnia Endocrine: NONE Blood Disorders: NONE Cancer(s): NONE ASPARAGUS BUNCHER/Reproductive: NONE Surgical History Pertinent Surgical History: DISCECTOMY R MENISCUS/ACL Family History Relations & Conditions If Any: MOTHER, ; Cause: Cancer. FATHER, ; Cause: MVA (motor vehicle accident). Psychosocial History Services at Home: None Smoking Status: Former Smoker ETOH Use: 6 Functional Ability ADLs Independent: dressing, eating, toileting, bathing. Ambulation: independent Review of Systems Review of Systems: The patient's past medical and surgical history, medications, allergies, social history, family history and review of systems was briefly reviewed as it pertained to his orthopaedic care but given his sedation and intensive care status he was only able to confirm and could provide only limited additional information beyond what has been previously documented in the primary medical service admission history & physical examination as well as the subspecialty medical consultation documents reviewed in the EMR. Refer to those documents for details. No significant additional information particularly as it relates to his orthopaedic care was given by the patient for this consultation. Exam & Diagnostic Data Vital Signs and I&O Vital Signs AVSS Physical Exam: Neck ROM full with no pain at the extremes and no radiation (even to the right shoulder) with active Spurling or Lhermittes. Passive provocative testing was felt to be necessary and was therefore not performed particularly given that patient's ability to recognize and vocalize a protective pain response may be impaired. There was no pain to palpation. No history of high risk mechanism of cervical or cranial injury was given and therefore observation and serial evaluation by the primary team should be sufficient to rule out occult injury that might require further workup, immobilization and other treatment or reconsultation. Given today's findings, the presence of unrecognized significant occult injury is highly unlikely. His right shoulder is swollen but distal UE is improving and almost resolved by report. He has 5/5 distal RUE strength and normal sensation including the shoulder region. His shoulder abduction is 3+/5 in short arc (up to 20 degrees) and then more severely limited even against gravity when the arm is raised and he is asked to actively resist gravity. Similar findings in flexion. This suggests RTC defict which could be a tear but, by mechanism, is more likely a pressure phenomenon given the lab evidence of rhabdo (which would be considered a severe case of focal rhabdo if this degree of lab change is solely related to shoulder injury). Cervical radicular or brachial plexus branch stretch nerve palsy might also explain the deficit but not the rhabdo. His left UE by comparison is NVI with no deficit. Reflexes were not formally tested but there were no abnormal reflexes, motions or fasciculations. Imaging Results: CSpine Instrumented ACDF with mature fusion. Adjacent segment DDD and spondylosis with foraminal narrowing not likely significantly contributing to current condition or clinical presentation for which Ortho spine service is being consulted. Assessment/Plan Assessment/Plan Aaron Cabrales is a 52 year old RHWM with Hx of SZ and remote Hx of ACDF ( Marguerite/Hira) who now presents with loss of consciousness, possible fall, pressure muscular injury to the right shoulder, associated rhabdomyolysis ( likely severe in the area of involvement when a relatively small and focal area reusults in prominent lab changes), possible RTC traumatic deficit (tear), possible lesser pressure nerve palsy, swelling and shoulder dysfunction and acute multiorgan primarily metabolic injury related to combination prescription and nonprescription polypharmacy. His condition is stabilizing and W/U for SZ and other underlying conditions is negative thus far although he still has signs of renal and possibly other organ ststem injury which are not resolving with his metabolic correction and therefore may represent more chronic conditions. Detailed additional survey screening trauma evaluation was performed and did not reveal or suggest any other areas of injury, deficit or contribution to his rhabdomyolysis. His right shoulder should improve (although it may be very slow given the severity of his rhabdo from such a focal injury to an intermediate size muscular group) with PT as well as supportive symptomatic, physiologic and functional care including ice, elevation, PT, frequent active and krebcd-[id number]-ndwxjiyr motion exercises, topical and/or oral NSAIA (if not contraindicated). Steroid taper might be an option but, to my knowledge, has not shown definitive benefit in this type of presentation. He can be followed in the office after 4-6 weeks of outpatient PT or sooner if he fails to improve at all (even slowly) over the next few weeks or worsens at any point in the interim. He is a very good candidate for an inpatient rehabilitation program both to accelerate any return that he can get with regard to right shoulder function but also as an adjunct to medication and drug abuse rehabilitation so as to minimize his risk of recurrence or other (potentially more severe) consequences of his underlying causative issues. At present the patient does not require any further orthopedic evaluation or management. The orthopedic consultation service will therefore sign off at this time. Please do not hesitate to reconsult if the patients clinical condition significantly changes with regard to his neck, right shoulder or right upper extremity or we can be of additional assistance with his overall inpatient or follow-up outpatient orthopedic management. Thank you for consulting Dr. Carr and [facility] regarding Mr. Cabrales orthopaedic cervical spine and right shoulder management. Copies To: Lilly CAPPS,Jun Nogueira Consult Acknowledgment - Thank you for your consult request. Attending MD Review Statement Attending Statement Attending MD Statement: examined this patient, discuss w/resident/PA[employer], agreed w/resident/[employer], reviewed EMR data (avail), reviewed images Attending Assessment/Plan: See above Assessment/Plan Section (completed by consulting orthopaedic surgery attending, Jun Carr M.D.).
--- NOTE | 2017-10-25 13:07 | ULTRASOUND REPORT ---
EXAMINATION: US RIGHT UPPER EXTREMITY VENOUS CLINICAL INFORMATION: Right arm pain and swelling COMPARISON: None. TECHNIQUE: Doppler spectral analysis and color flow Doppler imaging was performed of the right upper extremity. Compression and augmentation maneuvers were performed. FINDINGS: The right internal jugular vein, subclavian vein, axillary vein, brachial vein, basilic vein, cephalic vein, and visualized forearm veins were well identified and normal. They demonstrate normal compressibility and color fill-in. IMPRESSION: No evidence for right upper extremity deep vein thrombosis.
[2017-10-25 20:41] LABS: ABSOLUTE BASOPHIL COUNT 0 /CUMM (0.0-0.2); ABSOLUTE EOSINOPHIL COUNT 0 /CUMM (0.0-0.7); ABSOLUTE GRANULOCYTE CT 10.2 /CUMM (1.4-6.5); ABSOLUTE LYMPH COUNT 0.5 /CUMM (1.2-3.4); ABSOLUTE MONOCYTE COUNT 0.5 /CUMM (0.10-0.60); BASOPHIL % 0.2 % (0.0-2.0); EOSINOPHIL % 0.4 % (0-5); HEMATOCRIT 35.7 % (42-52); MEAN CORPUSCULAR HGB 27.3 PG (27.0-31.0); MEAN CORPUSCULAR HGB CONC 32.9 G/DL (33.0-37.0); MEAN CORPUSCULAR VOLUME 83.1 FL (80.0-94.0); WHITE BLOOD CELL COUNT 11.2 /CUMM (4.8-10.8)
[2017-10-25 20:53] LABS: GRANULOCYTE % 91.1 % (42.2-75.2)
[2017-10-25 20:54] LABS: PLATELET COUNT 113 /CUMM (130-400)
[2017-10-26] VITALS: BP 144/82
[2017-10-26 05:07] LABS: ABSOLUTE BASOPHIL COUNT 0 /CUMM (0.0-0.2); ABSOLUTE EOSINOPHIL COUNT 0.1 /CUMM (0.0-0.7); ABSOLUTE GRANULOCYTE CT 9.1 /CUMM (1.4-6.5); ABSOLUTE LYMPH COUNT 0.5 /CUMM (1.2-3.4); ABSOLUTE MONOCYTE COUNT 0.6 /CUMM (0.10-0.60); BASOPHIL % 0.2 % (0.0-2.0); EOSINOPHIL % 0.6 % (0-5); GRANULOCYTE % 88.5 % (42.2-75.2); HEMATOCRIT 34.2 % (42-52); MEAN CORPUSCULAR HGB 27.2 PG (27.0-31.0); MEAN CORPUSCULAR VOLUME 82.6 FL (80.0-94.0); MEAN PLATELET VOLUME 8.8 FL (7.4-10.4); PLATELET COUNT 122 /CUMM (130-400); RBC DISTRIBUTION WIDTH 15.4 % (11.5-14.5); RED BLOOD CELL CT 4.14 /CUMM (4.70-6.10); WHITE BLOOD CELL COUNT 10.3 /CUMM (4.8-10.8)
[2017-10-26 05:10] LABS: PT 13.5 SEC (9.4-12.5)
--- NOTE | 2017-10-26 07:24 | PN- Resident CRCU ---
See Addendum Subjective HPI/CRCU Issues: 1. Cocaine toxicity 2. Rhabdoymyolysis 4. Acute kidney injury 5. Anion gap metabolic acidosis 6. Leucocytosis, Sepsis 7. Lactic acidosis 8. Acute liver injury 9. Upper GI bleed 10. Hypocalcemia 11. Hyperphosphatemia 13. Hyperkalemia 14. h/o Crohns s/p colostomy 15. Right shoulder injury 16. Elevated cardiac enzymes secondary to cocaine use 17. Hypomagnesemia 18. Polysubstance abuse 19. Chronic benzodiazepine use. 20. h/o seizures 24 Hour Events: Patient was seen and examined this morning He is alert awake and oriented to time place and person No acute events noticed overnight Continues to report mild right upper extremity pain, swelling. No numbness or tingling sensation, no paresthesias. Denies any chest pain, fever, chills, short of breath, palpitations. No abdominal pain, nausea, vomiting, mentation changes. Vitals afebrile, heart rate 90, respiratory rate 20, blood pressure 140/83, saturating at 93 RA Urine output 40-60 mL per hour throughout the night Objective Vital Signs & I&O Last 8 Hrs of Vitals and I&O: Vital Signs Date Time Temp Pulse Resp B/P B/P Pulse O2 O2 Flow FiO2 Mean Ox Delivery Rate 05/08 0800 99.0 90 22 160/80 95 Room Air Exam General Appearance: well developed/nourished, no apparent distress, alert, awake , anxious Other Physical Findings: General Exam: AAOx3, No acute distress, Skin: No rashes, ulcer on the chest wall , likey rug injury;HEENT: PERRLA, EOMI;Neck: Supple, No JVD, No cervical lymphadenopathy;CVS: Reg Rate, Normal S1,S2, No MGR; Resp: Normal air entry, no ronchi/rales;Abdomen: Soft, No tenderness, Normal Bowel Sounds, colostomy bag in place.;Neuro: Normal Speech, Strength 5/5 b/l x 4 extremities, Sensation intact, CN III-XII NL, Reflexes 2+;Extremities: No cyanosis, no pedal edema, weakness and tenderness in right upper extremity, paresthesias on the right upper extermity. Biceps, triceps 2+ reflexes Current Medications: Current Medications Sig/Leigh Ann Start time Last Medication Dose Route Stop Time Status Admin Ampicillin Sodium/ 1,500 MG Q24H 10/25 2100 AC 10/25 Sulbactam Sodium IV 2205 Sodium Chloride 100 ML Ampicillin Sodium/ 1,500 MG Q6H 10/23 0400 DC 10/25 Sulbactam Sodium IV 0940 Sodium Chloride 100 ML Aspirin 81 MG DAILY 10/24 1300 AC / PO 0904 Escitalopram Oxalate 10 MG DAILY 10/26 1054 DC 10/26 PO 1200 Heparin Sodium 5,000 UNIT Q8 10/25 1400 AC 10/26 (Porcine) SC 0629 Levetiracetam 1,500 MG Q12 10/23 1999 AC 10/26 N/A 1 UNIT IV 0904 Lorazepam 1 MG Q6-PRN PRN 10/23 1999 AC 10/26 IV 0429 Morphine Sulfate 1 MG Q6P PRN 10/23 1999 AC 10/26 IV 0920 Nitroglycerin 0.5 GM Q6 PRN 10/22 2200 AC TOP Pantoprazole Sodium 40 MG BID 10/23 2100 AC 10/26 IV 0904 Sodium Chloride 1,000 ML Q10H 10/23 2200 AC 10/26 IV 0904 Impression/Plan Impression/Problem List Impression: Mr Cabrales is a 52 year old man w/ a PMHx of polysubstance abuse, benzodiazepine use, Seizures, Asthma, Crohns disease( dx'ed 1988, s/p colon resection w/ colostomy bag ), h/o rectal fistula, cervial spine radiculopathy, anxiety was brought to the hospital with a chief concern of altered mental status, and unresponsiveness on a.m. of 10/22/2017. problem list 1. Cocaine toxicity 2. Rhabdoymyolysis 4. Acute kidney injury 5. Anion gap metabolic acidosis 6. Leucocytosis, Sepsis 7. Lactic acidosis 8. Acute liver injury 9. Upper GI bleed 10. Hypocalcemia 11. Hyperphosphatemia 13. Hyperkalemia 14. h/o Crohns s/p colostomy 15. Right shoulder injury 16. Elevated cardiac enzymes secondary to cocaine use 17. Hypomagnesemia 18. Polysubstance abuse 19. Chronic benzodiazepine use. 20. h/o seizures 1. Respiratory- Stable at this time. - No e/o consolidation on CT scan - Aspiration pneumonitis in differential. - Continue Unasyn day 4 at this time. - Titrate off oxygen as tolerated. 2. Infectious- leukocytosis. In regards to leucocytosis, it could be due to aspiration pneumonitis and would continue to treat with unasyn pending cultures. - Monitor for any fever, worsening leukocytosis. - Continue antibiotics unasyn day 4 pending cultures. - If he is stable, will reevaluate the need for antibiotics. 3. Circulatory- elevated cardiac enzymes, hypotension patient had some cocaine induced cardiac ischemia with slightly elevated cardiac enzymes, which trended down, without evidence of STEMI. Severe rhabdomyolysis due to cocaine overdose with accompanying rise in troponins without evidence of ongoing coronary spasm or thrombus upon admission. Mild anterolateral hypokinesis related to spasm during the event, without complete occlusion to blood flow/STEMI (modest rise in troponins, no akinesis on echocardiogram). - Cardiac enzymes trended 1.05, 1.25, 0.85 - Monitor for any chest pain, dyspnea - For tachycardia, avoid all beta blockers at this time. - Use nitroglycerin, or calcium channel blockers if needed as per occupational therapy aide. - Treat hypotension with fluids. - continue baby aspirin - ECHO showed mild hypokinesis of mid to distal anterolateral wall, ejection fraction 55% - Maintain telemetry as he is still at risk of delayed of coronary vasospams. - Appreciate cardio recommendations 4. Metabolic-acute kidney injury, rhabdomyolysis, electrolyte abnormalities Etiology in his case is likely acute cocaine toxicity, likely leading to electrolyte abnormalities, rhabdomyolysis, hypocalcemia,hyperkalemia and acute kidney injury. He had anion gap metabolic acidosis, and normal osmolal gap likely from JEAN and cocaine use, which is normalized with NaHCO3 drip. Hyperkalemia is due to rhabdomyolysis and JEAN. Other electrolytes such as hypocalcemia ( corrected low ), and hyperphosphatemia is due to his rhabdomyolysis. - Continue to monitor CK DAILY-trending down - Check electrolytes, kidney functions daily - Worsening creatinine 3.4, 4, 4.9, 5.9, 7, 7.6, 8.7 - off note patient has good urine output 45-65 mL per hour - Low threshold for dialysis. - Dialysis in case of fluid overload, hyperkalemia, severe acidosis, uremia. - Monitor blood glucose levels given acute liver injury, and rhabdomyolysis - Strict ins and outs. - Bicarb drip to be changed to NS at 50ml/hr. -Appreciate nephro recommendations 5. Hematology-monitor leukocytosis - Platelet stable at this time. 6. Alimentary-transaminitis, upper GI bleed He has elevated AST+ALT and normal Alk phos could be due to acute liver failure, rhabdomyolysis contributing to elevated AST or cocaine induce transaminitis. US abdomen and CT adomen negative for any acute pathology.There is no acute GI blood loss at this time, and would attribute this GI bleed to cocaine induced gastritis, and currently on protonix. - monitor for any further bleeding. - Continue Protonix 40 bid at this time. - GI on board - Strictly no NSAIDs - If needed, would need Tylenol very conservatively. -Follow-up daily LFT, INR 7. Neurology- paresthesias in right upper extremity Patient has right upper extremity pain, swelling, paresthesia status post fall .CT of the right arm showed scattered bubbles of air in the subcutaneous tissues distal to the catheter. There is scattered nonspecific subcutaneous edema. ortho was consulted to evaluate right upper extremity pain for any compartment syndrome. No recommendations were provided, ruled out compartment syndrome. Ultrasound Doppler was done, ruled out DVT. -Elevation of extremity, warm compressers - pain management Cocaine overdose/benzo withdrawal/polysubstance abuse - Benzodiazepines for cocaine use and avoid benzodiazepine withdrawal. - He should be on seizure precautions, since cocaine can cause decrease seizure threshold. -Continue home dose of Keppra 1500 mg twice daily other chronic medical problems crohns- Prior colon resection, w/ colostomy bag depression -Lexapro 20 mg daily on hold seizures -Keppra 750 mg, 4 pills/24 hours Insomina- Ambien 10 mg qhs on hold anxiety- Xanax 0.5 mg 4 pills/24 hours on hold #1 DVT prophylaxis- Alps/sc heparin #2 regular diet with low potassium #3 full-code #1 Central line- none #2 Arterial line- none #3 Tejeda catheter- present 10/22/17 #4 Rectal tube- none. #5 NG tube- none. #6 IV/peripheral line- present 10/22/17 #7 IV drips- NS @50ml/hr #8 Vent settings none. #9 pressors- none. Consults: #1 nephrology-Dr. Glez #2 cardiology-Dr. Loomis #3 gastroenterology-Dr. Hong #4 ortho- Dr duncan #5 psych- Dr limon Problem List: 1. Drug overdose 2. Acute kidney injury 3. Hyperkalemia 4. Demand ischemia of myocardium 5. Hypoxia 6. Elevated troponin 7. Polysubstance overdose 8. Benzodiazepine dependence 9. Benzodiazepine abuse, continuous 10. Opiate abuse, continuous 11. Leukocytosis 12. Pulmonary nodule 13. Nausea & vomiting Pain Ratin Tomorrow's Labs & Rationales: cbc icu bundle Plan DVT/Prophylaxis: mechanical Code Status: Full Code
[2017-10-26 08:00] VITALS: BP 160/80
--- NOTE | 2017-10-26 10:04 | PN- Att Addend ---
Attending Addendum Attending Brief Note Patient still in ICU, patient is alert and oriented, still complaining of a hiccups. Vital signs are stable temp max 99 6. No major changes on physical seems to be having urinary output but his creatinine is going up. Collecting 24-hour urine samples nephrology consult requested. WBCs 10,300 potassium 3.9 BUN 59, getting 8.7, calcium 6.9, liver function [place] [address]. Continue close observation and follow nephrology's recommendations. Intake & Output 10/26 040 Intake Total 997 1060 2595 884 7182 1626 Output Total 511 384 4380 350 825 437 Balance 262 175 403 618 615 4891 Intake, IV 557 600 647 159 2286 1586 Intake, Oral 440 460 600 250 140 40 Number 0 Bowel Movements Output, Stool 250 400 300 300 250 Output, Urine 485 485 800 350 525 187 Patient 161 lb Weight Current Medications Sig/Leigh Ann Start time Last Medication Dose Route Stop Time Status Admin Ampicillin Sodium/ 1,500 MG Q24H 10/25 2099 AC 10/25 Sulbactam Sodium IV 2205 Sodium Chloride 100 ML Ampicillin Sodium/ 1,500 MG Q6H 10/23 0400 DC 10/25 Sulbactam Sodium IV 0940 Sodium Chloride 100 ML Aspirin 81 MG DAILY 10/24 1300 AC 10/26 PO 0904 Heparin Sodium 5,000 UNIT Q8 10/25 1400 AC 10/26 (Porcine) SC 0629 Levetiracetam 1,500 MG Q12 10/22 N/A 1 UNIT IV 0904 Lorazepam 1 MG Q6-PRN PRN 10/23 1999 AC 10/26 IV 0429 Morphine Sulfate 1 MG ONCE ONE 10/25 1215 DC 10/25 IV 10/25 1216 1214 Morphine Sulfate 1 MG Q6P PRN 10/23 1999 AC 10/26 IV 0920 Nitroglycerin 0.5 GM Q6 PRN 10/22 2199 AC TOP Pantoprazole Sodium 40 MG BID 10/23 2099 AC 10/26 IV 0904 Sodium Chloride 1,000 ML Q10H 10/23 220 AC 10/26 IV 0904 Laboratory Tests 10/26/17 0415: Anion Gap 12, Estimated GFR 7 L, Glucose 101 H, Calcium 6.9 L, Phosphorus 4.7 H, Magnesium 2.0, Total Bilirubin 1.1, AST 340 H, ALT 230 H, Alkaline Phosphatase 56, Creatine Kinase 93152 H, Albumin 2.5 L, PT 13.5 H, INR 1.24 H, CBC w Diff MAN DIFF ORDERED, RBC 4.14 L, MCV 82.6, MCH 27.2, MCHC 33.0, RDW 15.4 H, MPV 8.8, Gran % 88.5 H, Lymphocytes % 5.3 L, Monocytes % 5.4, Eosinophils % 0.6, Basophils % 0.2, Absolute Granulocytes 9.1 H, Segmented Neutrophils 88 H, Band Neutrophils 9 H, Absolute Lymphocytes 0.5 L, Monocytes 3, Absolute Monocytes 0.6, Absolute Eosinophils 0.1, Absolute Basophils 0, Platelet Estimate ADEQUATE, Normochromic RBCs VERIFIED, Ovalocytes FEW, Fld Total RBCs Counted 100 10/25/171999: Anion Gap 12, Estimated GFR 8 L, Glucose 104 H, Calcium 6.3 L, Phosphorus 4.6 H, Magnesium 1.9, Total Bilirubin 1.0, AST 415 H, ALT 244 H, Creatine Kinase 18919 H, Albumin 2.4 L, CBC w Diff NO MAN DIFF REQ, RBC 4.30 L, MCV 83.1, MCH 27.3, MCHC 32.9 L, RDW 15.0 H, MPV 9.0, Gran % 91.1 H, Lymphocytes % 4.1 L, Monocytes % 4.2, Eosinophils % 0.4, Basophils % 0.2, Absolute Granulocytes 10.2 H, Absolute Lymphocytes 0.5 L, Absolute Monocytes 0.5, Absolute Eosinophils 0, Absolute Basophils 0, Hepatitis A IgM Ab Pending, Hep Bs Antigen NONREACTIVE, Hep B Core IgM Ab Conf Pending, Hepatitis C Antibody Pending 10/25/17 0420: Anion Gap 12, Estimated GFR 8 L, Glucose 80, Calcium 6.4 L, Phosphorus 5.0 H, Magnesium 1.9, Total Bilirubin 0.9, AST 607 H, ALT 299 H, Creatine Kinase > 26458 H, Albumin 2.5 L, PT 13.3 H, INR 1.22 H, CBC w Diff MAN DIFF ORDERED, RBC 4.25 L, MCV 82.6, MCH 27.3, MCHC 33.0, RDW 15.5 H, MPV 9.0, Gran % 89.1 H , Lymphocytes % 4.7 L, Monocytes % 5.8, Eosinophils % 0.1, Basophils % 0.3, Absolute Granulocytes 9.4 H, Segmented Neutrophils 77 H, Band Neutrophils 12 H, Absolute Lymphocytes 0.5 L, Lymphocytes 5 L, Monocytes 4, Absolute Monocytes 0.6, Absolute Eosinophils 0, Basophils 2, Absolute Basophils 0, Platelet Estimate DECREASED, Basophilic Stippling 1+, Anisocytosis 1+, Manor Cells FEW, Elliptocytes FEW 10/24/17 1615: Anion Gap 12, Estimated GFR 10 L, Glucose 92, Calcium 6.3 L, Phosphorus 5.2 H , Magnesium 1.9, Total Bilirubin 0.8, AST 701 H, ALT 337 H, Albumin 2.5 L 10/24/17 0900: Sodium Cancelled, Potassium Cancelled, Chloride Cancelled, Carbon Dioxide Cancelled, Anion Gap Cancelled, BUN Cancelled, Creatinine Cancelled, Glucose Cancelled, Calcium Cancelled, Phosphorus Cancelled, Magnesium Cancelled, Total Bilirubin Cancelled, AST Cancelled, ALT Cancelled, Albumin Cancelled 10/24/17 0815: Anion Gap 10, Estimated GFR 12 L, Glucose 108 H, Calcium 6.1 L, Phosphorus 5.1 H, Magnesium 1.9, Total Bilirubin 0.7, AST 756 H, ALT 353 H, Albumin 2.6 L 10/24/17 0300: Anion Gap 10, Estimated GFR 13 L, Glucose 106 H, Calcium 6.3 L, Phosphorus 4.8 H, Magnesium 1.6, Total Bilirubin 0.7, AST 820 H, ALT 377 H, Creatine Kinase > 48969 H, Albumin 2.6 L, PT 14.4 H, INR 1.32 H, CBC w Diff NO MAN DIFF REQ, RBC 4.81, MCV 83.8, MCH 27.2, MCHC 32.5 L, RDW 15.4 H, MPV 8.9, Gran % 86.2 H, Lymphocytes % 4.9 L, Monocytes % 8.7, Eosinophils % 0.1, Basophils % 0.1, Absolute Granulocytes 10.6 H, Absolute Lymphocytes 0.6 L, Absolute Monocytes 1.1 H, Absolute Eosinophils 0, Absolute Basophils 0 10/23/175: Lactic Acid 1.7 10/23/172044: Anion Gap 13, Estimated GFR 16 L, Glucose 90, Calcium 5.8 *L, Phosphorus 4.4, Magnesium 1.5 L, Total Bilirubin 0.8, AST 905 H, ALT 408 H, Albumin 2.7 L, CBC w Diff NO MAN DIFF REQ, RBC 5.14, MCV 84.4, MCH 27.0, MCHC 32.0 L, RDW 15.2 H, MPV 9.2, Gran % 89.6 H, Lymphocytes % 3.4 L, Monocytes % 7.0, Eosinophils % 0, Basophils % 0, Absolute Granulocytes 13.2 H, Absolute Lymphocytes 0.5 L, Absolute Monocytes 1.0 H, Absolute Eosinophils 0, Absolute Basophils 0 10/23/17 191: Lactic Acid 2.1 10/23/17 1630: Anion Gap 11, Estimated GFR 17 L, Glucose 92, Lactic Acid 2.4 H, Calcium 6.0 L, Phosphorus 4.7 H, Magnesium 1.6, Total Bilirubin 0.7, AST 959 H, ALT 444 H , Albumin 2.9 L 10/23/17 1255: Anion Gap 10, Estimated GFR 19 L, Glucose 113 H, Lactic Acid 2.7 H, Calcium 5.7 *L, Phosphorus 5.2 H, Magnesium 1.8, Total Bilirubin 0.6, AST 887 H, ALT 414 H, Albumin 2.6 L, Free T4 1.20, Total T3 0.88 L, TSH &T3 &Free T4 Intrp 7.180 H, PT 15.2 H, INR 1.39 H, APTT 27 Vital Signs Date Time Temp Pulse Resp B/P B/P Pulse O2 O2 Flow FiO2 Mean Ox Delivery Rate 10/26 0800 99.0 90 22 160/80 95 Room Air 10/26 0400 92 Room Air 10/26 0000 99.6 95 20 144/82 05/ 0000 99.6 95 20 144/82 96 Room Air 10/26 1999 99.5 93 20 136/80 05/07 1999 95 05/07 1600 100 20 140/76 05/ 1600 98 Room Air 10/25 1400 95 20 130/80
--- NOTE | 2017-10-26 12:19 | Incdntl Nt Psy ---
Incidental Note Notation: Spoke with ICU resident concerning restarting lexapro. Would not restart until labs are wnl.
--- NOTE | 2017-10-26 13:37 | PN- Nephrology ---
Assessment/Plan Nephrology Assessment: JEAN due to cocaine induced rhabdomyolysis. Excellent management by ICU team. Good U.O but cr continues to climb (GFR < 5 cc/min). Will watch over next day or so but if cr doesn't plateau (suggesting beginning of recovery) will likely need to start dialysis (pt aware). Yannick peres MD Suggestion: . Subjective Subjective: Good U.O. Cr up 1.7 mg / dl (8.7 today) Objective Vital Signs and I&Os M NAD Lungs clear Cor RRR Abd soft Ext neg edema Results Pertinent Lab Results: 139 / 104/ 59 / 3.9 / 23 / 8.7\ [place] [address] (10/24) 77343 (10/25)
[2017-10-26 16:00] VITALS: BP 150/92
[2017-10-27] VITALS: BP 160/100
[2017-10-27 03:56] LABS: ABSOLUTE BASOPHIL COUNT 0 /CUMM (0.0-0.2); ABSOLUTE EOSINOPHIL COUNT 0.1 /CUMM (0.0-0.7); ABSOLUTE GRANULOCYTE CT 11.7 /CUMM (1.4-6.5); ABSOLUTE LYMPH COUNT 0.5 /CUMM (1.2-3.4); ABSOLUTE MONOCYTE COUNT 0.8 /CUMM (0.10-0.60); BASOPHIL % 0.3 % (0.0-2.0); EOSINOPHIL % 0.7 % (0-5); GRANULOCYTE % 89.3 % (42.2-75.2); HEMATOCRIT 36.6 % (42-52); MEAN CORPUSCULAR HGB 27.2 PG (27.0-31.0); MEAN CORPUSCULAR HGB CONC 32.9 G/DL (33.0-37.0); MEAN CORPUSCULAR VOLUME 82.6 FL (80.0-94.0); MEAN PLATELET VOLUME 8.3 FL (7.4-10.4); PLATELET COUNT 138 /CUMM (130-400); RBC DISTRIBUTION WIDTH 14.7 % (11.5-14.5); RED BLOOD CELL CT 4.43 /CUMM (4.70-6.10); WHITE BLOOD CELL COUNT 13.1 /CUMM (4.8-10.8)
[2017-10-27 04:03] LABS: PT 13.1 SEC (9.4-12.5)
[2017-10-27 08:00] VITALS: BP 150/90
--- NOTE | 2017-10-27 09:19 | Event Note ---
Event Note Event Note: Output from colostomy bag noted to be maroon color stool (Guaic positive), he was complaining of abdominal pain at the site of colostomy bag earlier today, he totally refused to be evaluated by our GI specialists, he stated that he usually has this kind of bowel movement which is related to Crohn's disease, he is very determined that he doesn't want to be evaluated by our GI specialists and he stated that he is going to talk to his GI doctor Dr. Lavell Martin at [place]. At this point I'm going to hold on calling his doctor as his H&H is stable and he is hemodynamically stable, I'll repeat CBC later in the afternoon. If at any point his H&H dropped or he became hemodynamically unstable further plan to follow such as transfusion, and discuss with him again to be evaluated by our GI team. Will keep him today on IV PPI, if H&H remains stable will switch to po at am.
--- NOTE | 2017-10-27 09:27 | PN- CRCU ---
Subjective HPI/Critical Care Issues: Improving Still has significant right upper extremity edema and pain Afebrile Occasional hiccups ongoing No significant abdominal pain nausea vomiting Review of symptoms otherwise unremarkable Significant data creatinine 9.5 and continues to have significant urine output Anion gap is now 13 Magnesium is normal phosphorus is elevated His LFTs are improving Alviso CPK down to 11,400 now troponin has been 0.85. His last TSH was 7.1 and free T4 was adequate suggestive of sick euthyroid. White count up to 13.1 hemoglobin stable his lately it to 138 his granulocytes 11.7. His INR was 1.2 Cultures so far unremarkable Objective Current Medications: Current Medications Sig/Leigh Ann Start time Last Medication Dose Route Stop Time Status Admin Ampicillin Sodium/ 1,500 MG Q24H 10/25 2099 DC 10/26 Sulbactam Sodium IV 10/27 0000 2132 Sodium Chloride 100 ML Aspirin 81 MG DAILY 10/24 1300 AC 10/27 PO 0831 Escitalopram Oxalate 10 MG DAILY 10/26 1054 DC 10/26 PO 1200 Heparin Sodium 5,000 UNIT Q8 10/25 1400 AC 10/27 (Porcine) SC 0538 Levetiracetam 1,500 MG BID 10/26 2099 AC 10/27 PO 0831 Levetiracetam 1,500 MG Q12 10/23 1999 DC 10/26 N/A 1 UNIT IV 0904 Lorazepam 1 MG Q6-PRN PRN 10/23 1999 AC 10/26 IV 0429 Morphine Sulfate 1 MG Q6P PRN 10/23 1999 AC 10/27 IV 0832 Nitroglycerin 0.5 GM Q6 PRN 10/22 2199 AC TOP Pantoprazole Sodium 40 MG BID 10/23 2099 AC 10/27 IV 0831 Sodium Chloride 1,000 ML Q10H 10/23 220 AC 10/26 IV 0904 Laboratory Tests 10/27 10/26 0343 0415 Chemistry Sodium (137 - 145 mmol/L) 140 139 Potassium (3.5 - 5.1 mmol/L) 4.1 3.9 Chloride (98 - 107 mmol/L) 107 104 Carbon Dioxide (22 - 30 mmol/L) 21 L 23 Anion Gap (5 - 16) 13 12 BUN (9 - 20 mg/dL) 65 H 59 H Creatinine (0.7 - 1.2 mg/dL) 9.5 *H 8.7 *H Estimated GFR (>60 ml/min) 6 L 7 L Glucose (65 - 99 mg/dL) 106 H 101 H Calcium (8.4 - 10.2 mg/dL) 7.5 L 6.9 L Phosphorus (2.5 - 4.5 mg/dL) 5.3 H 4.7 H Magnesium (1.6 - 2.3 mg/dL) 2.0 2.0 Total Bilirubin (0.2 - 1.3 mg/dL) 1.1 1.1 AST (17 - 59 U/L) 239 H 340 H ALT (21 - 72 U/L) 197 H 230 H Alkaline Phosphatase (< 127 U/L) 57 56 Creatine Kinase (55 - 170 U/L) 72831 H 63802 H Albumin (3.5 - 5.0 g/dL) 2.6 L 2.5 L Coagulation PT (9.4 - 12.5 SEC) 13.1 H 13.5 H INR (0.90 - 1.17) 1.20 H 1.24 H Hematology CBC w Diff MAN DIFF ORDERED MAN DIFF ORDERED WBC (4.8 - 10.8 /CUMM) 13.1 H 10.3 RBC (4.70 - 6.10 /CUMM) 4.43 L 4.14 L Hgb (14.0 - 18.0 G/DL) 12.0 L 11.3 L Hct (42 - 52 %) 36.6 L 34.2 L MCV (80.0 - 94.0 FL) 82.6 82.6 MCH (27.0 - 31.0 PG) 27.2 27.2 MCHC (33.0 - 37.0 G/DL) 32.9 L 33.0 RDW (11.5 - 14.5 %) 14.7 H 15.4 H Plt Count (130 - 400 /CUMM) 138 122 L MPV (7.4 - 10.4 FL) 8.3 8.8 Gran % (42.2 - 75.2 %) 89.3 H 88.5 H Lymphocytes % (20.5 - 51.1 %) 3.9 L 5.3 L Monocytes % (1.7 - 9.3 %) 5.8 5.4 Eosinophils % (0 - 5 %) 0.7 0.6 Basophils % (0.0 - 2.0 %) 0.3 0.2 Absolute Granulocytes (1.4 - 6.5 /CUMM) 11.7 H 9.1 H Segmented Neutrophils (42.2 - 75.2 %) 91 H 88 H Band Neutrophils (0.0 - 5.0 %) 9 H Absolute Lymphocytes (1.2 - 3.4 /CUMM) 0.5 L 0.5 L Lymphocytes (20.5 - 51.1 %) 3 L Monocytes (1.7 - 9.3 %) 6 3 Absolute Monocytes (0.10 - 0.60 /CUMM) 0.8 H 0.6 Absolute Eosinophils (0.0 - 0.7 /CUMM) 0.1 0.1 Absolute Basophils (0.0 - 0.2 /CUMM) 0 0 Platelet Estimate (ADEQUATE) ADEQUATE ADEQUATE Normochromic RBCs VERIFIED Polychromasia 1+ Hypochromic-Microcytic 1+ Ovalocytes FEW FEW Other Body Source Fld Total RBCs Counted (%) 100 100 10/26 1999 Chemistry Sodium (137 - 145 mmol/L) 139 Potassium (3.5 - 5.1 mmol/L) 3.9 Chloride (98 - 107 mmol/L) 106 Carbon Dioxide (22 - 30 mmol/L) 21 L Anion Gap (5 - 16) 12 BUN (9 - 20 mg/dL) 57 H Creatinine (0.7 - 1.2 mg/dL) 7.6 *H Estimated GFR (>60 ml/min) 8 L Glucose (65 - 99 mg/dL) 104 H Calcium (8.4 - 10.2 mg/dL) 6.3 L Phosphorus (2.5 - 4.5 mg/dL) 4.6 H Magnesium (1.6 - 2.3 mg/dL) 1.9 Total Bilirubin (0.2 - 1.3 mg/dL) 1.0 AST (17 - 59 U/L) 415 H ALT (21 - 72 U/L) 244 H Creatine Kinase (55 - 170 U/L) 36964 H Albumin (3.5 - 5.0 g/dL) 2.4 L Hematology CBC w Diff NO MAN DIFF REQ WBC (4.8 - 10.8 /CUMM) 11.2 H RBC (4.70 - 6.10 /CUMM) 4.30 L Hgb (14.0 - 18.0 G/DL) 11.8 L Hct (42 - 52 %) 35.7 L MCV (80.0 - 94.0 FL) 83.1 MCH (27.0 - 31.0 PG) 27.3 MCHC (33.0 - 37.0 G/DL) 32.9 L RDW (11.5 - 14.5 %) 15.0 H Plt Count (130 - 400 /CUMM) 113 L MPV (7.4 - 10.4 FL) 9.0 Gran % (42.2 - 75.2 %) 91.1 H Lymphocytes % (20.5 - 51.1 %) 4.1 L Monocytes % (1.7 - 9.3 %) 4.2 Eosinophils % (0 - 5 %) 0.4 Basophils % (0.0 - 2.0 %) 0.2 Absolute Granulocytes (1.4 - 6.5 /CUMM) 10.2 H Absolute Lymphocytes (1.2 - 3.4 /CUMM) 0.5 L Absolute Monocytes (0.10 - 0.60 /CUMM) 0.5 Absolute Eosinophils (0.0 - 0.7 /CUMM) 0 Absolute Basophils (0.0 - 0.2 /CUMM) 0 Serology Hepatitis A IgM Ab (NONREACTIVE) NONREACTIVE Hep Bs Antigen (NONREACTIVE) NONREACTIVE Hep B Core IgM Ab Conf (NONREACTIVE) NONREACTIVE Hepatitis C Antibody (NONREACTIVE) NONREACTIVE Vital Signs & I&O Last 24 Hrs of Vitals and I&O: Vital Signs Date Time Temp Pulse Resp B/P B/P Pulse O2 O2 Flow FiO2 Mean Ox Delivery Rate 10/28 799 98.8 80 24 150/90 97 Room Air 10/27 0400 95 10/27 0000 94 Room Air 10/27 0000 99.2 88 13 160/100 94 Room Air 10/26 2000 94 Room Air 10/26 1600 98.2 83 22 150/92 95 Room Air Intake & Output 10/27 1600 10/27 0800 10/27 0000 Intake Total 640 1036 Output Total 900 600 Balance -260 436 Intake, IV 400 476 Intake, Oral 240 560 Output, Stool 300 Output, Urine 600 600 Impression/Plan Impression/Plan Impression/Plan: Head: atraumatic, normal appearance Eyes: Bilateral: normal appearance, PERRL, EOMI. Ears, Nose, Throat: hearing grossly normal Neck: posterior cervical tenderness without deformity Respiratory: normal breath sounds, no respiratory distress, lungs clear, abrasion to left chest Cardiovascular: regular rate/rhythm Gastrointestinal: normal bowel sounds, soft, non-tender, no organomegaly, colostomy bag present Back: normal inspection, normal range of motion Extremities: tenderness to right shoulder with limited ROM no sig evidence of necrotizing fascitis, swelling persists Neurologic/Psych: awake, alert, oriented x 3 IMPRESSION Patient is a 52-year-old male with history of seizure disorder, polysubstance abuse, asthma, crohn's disease s/p colostomy, arthritis and anxiety presents to the ER with decreased mental status with drug overdose with multiple substances, (prob unintentional) issues Acute renal failure due to rhabdo due to cocaine and rt upper ext injury and swelling,,worsening creatinine but has adequate urineoutput, on IV fluids Resolved Sig met acidosis with muliple organ failure and dysfunction Cocaine and benzo od better Improving Severe Rhabdo sig no evidence of necrotizing fascitis, but pt has rt arm pain, and swelling ct noted and clinically seems to have improved pain, but swelling persists Hypocalcemia and hence FAD has been stopped Acute IA due to cocaine and rule out acs, prob cocaine induced heart injury vs mi, with lateral wall changes in the ekg, EKG now stable, echocardiogram does show wall motion abnormality probably related to coronary vasospasm. Resolved Sig UGI bleed with vomiting with coffeeground on admission, now stable REsolving High anion gap acidosis due to lactic acidosis FLuid around the gb with altered lft needs ultrasound and no clinical evidence of harshal PRevious colon resection / colostosy S/p fall and injury to the rt upper ext rule out soft tissue and bony injury ortho on board Previous c spine surg with djd REC IVF to continue Gentle and watch for chf Can increase and liberate his diet Follow sugar and rx hyperglycemia/hypoglycemia Watch ekg daily Cont ot elevate thed arm and rpt ultrasound in am to rule out dvt of IJ etc Change to po ppi Tej[place] to cont Cardio/renal and gi eval appretiated Benzo with iv lorazepam for tachy and benzo withdrawal and rx of cocaine toxicity Continue heparin Continue to watch his upper extremity Discontinue his antibiotics and observe No beta or alpha blockers Follow lfts qod Prog guarded Pt critically ill tts 41 mins Code Status: Full Code
--- NOTE | 2017-10-27 12:54 | PN- Resident CRCU ---
Subjective HPI/CRCU Issues: 1. Cocaine toxicity 2. Rhabdoymyolysis 4. Acute kidney injury 5. Anion gap metabolic acidosis 6. Leucocytosis, Sepsis 7. Lactic acidosis 8. Acute liver injury 9. Upper GI bleed 10. Hypocalcemia 11. Hyperphosphatemia 13. Hyperkalemia 14. h/o Crohns s/p colostomy 15. Right shoulder injury 16. Elevated cardiac enzymes secondary to cocaine use 17. Hypomagnesemia 18. Polysubstance abuse 19. Chronic benzodiazepine use. 20. h/o seizures 24 Hour Events: Patient was seen and examined this morning He is alert awake and oriented to time place and person No acute events noticed overnight, however his colostomy bag was noted to be maroon color guaiac-positive this a.m., he reported abdominal pain at colostomy site on the right upper quadrant Continues to report mild right upper extremity pain, swelling. No numbness or tingling sensation, no paresthesias. Denies any chest pain, fever, chills, short of breath, palpitations. Vitals afebrile, heart rate 90, respiratory rate 20, blood pressure 140/83, saturating at 97 RA Urine output 40-60 mL per hour throughout the night Objective Vital Signs & I&O Last 8 Hrs of Vitals and I&O: Tmax 98.8, pulse 80, RR 24, BP 150/90 mmHg, oxygen saturation 97 on room air Exam General Appearance: well developed/nourished, no apparent distress, alert, awake , comfortable Neck: normal inspection, supple Respiratory: normal breath sounds, chest non-tender, no respiratory distress Cardiovascular: regular rate/rhythm, normal peripheral pulses Gastrointestinal: normal bowel sounds, soft, tenderness on the right upper quadrant Extremities: pain on the right upper extremity, with swelling (() Nutrition Nutrition: P.O. diet Current Medications: Current Medications Sig/Leigh Ann Start time Last Medication Dose Route Stop Time Status Admin Ampicillin Sodium/ 1,500 MG Q24H 10/25 2100 DC 10/26 Sulbactam Sodium IV 10/27 0000 2132 Sodium Chloride 100 ML Aspirin 81 MG DAILY 10/24 1300 AC 10/27 PO 0831 Heparin Sodium 5,000 UNIT Q8 10/25 1400 AC 10/27 (Porcine) SC 0538 Levetiracetam 1,500 MG BID 10/26 2100 AC 10/27 PO 0831 Levetiracetam 1,500 MG Q12 10/23 1999 DC 10/26 N/A 1 UNIT IV 0904 Lorazepam 1 MG Q6-PRN PRN 10/23 1999 AC 10/26 IV 0429 Morphine Sulfate 1 MG Q6P PRN 10/23 1999 AC 10/27 IV 0832 Nitroglycerin 0.5 GM Q6 PRN 10/22 2199 AC TOP Pantoprazole Sodium 40 MG BID 10/23 2099 AC 10/27 IV 0831 Sodium Chloride 1,000 ML Q10H 10/23 220 AC 10/26 IV 0904 Impression/Plan Impression/Problem List Impression: Mr Cabrales is a 52 year old man w/ a PMHx of polysubstance abuse, benzodiazepine use, Seizures, Asthma, Crohns disease( dx'ed 1988, s/p colon resection w/ colostomy bag ), h/o rectal fistula, cervial spine radiculopathy, anxiety was brought to the hospital with a chief concern of altered mental status, and unresponsiveness on a.m. of 10/22/2017. 1. Respiratory- Stable at this time. - No e/o consolidation on CT scan - Aspiration pneumonitis in differential. - Continue Unasyn day 4 at this time. - Titrate off oxygen as tolerated. 2. Infectious- leukocytosis. In regards to leucocytosis, it could be due to aspiration pneumonitis and would continue to treat with unasyn pending cultures. - Monitor for any fever, worsening leukocytosis. -Antibiotic discontinued 3. Circulatory- elevated cardiac enzymes, hypotension patient had some cocaine induced cardiac ischemia with slightly elevated cardiac enzymes, which trended down, without evidence of STEMI. Severe rhabdomyolysis due to cocaine overdose with accompanying rise in troponins without evidence of ongoing coronary spasm or thrombus upon admission. Mild anterolateral hypokinesis related to spasm during the event, without complete occlusion to blood flow/STEMI (modest rise in troponins, no akinesis on echocardiogram). - Cardiac enzymes trended 1.05, 1.25, 0.85 - Monitor for any chest pain, dyspnea - For tachycardia, avoid all beta blockers at this time. - Use nitroglycerin, or calcium channel blockers if needed as per beater dumper. - Treat hypotension with fluids. - continue baby aspirin - ECHO showed mild hypokinesis of mid to distal anterolateral wall, ejection fraction 55% - Maintain telemetry as he is still at risk of delayed of coronary vasospams. - Appreciate cardio recommendations 4. Metabolic-acute kidney injury, rhabdomyolysis, electrolyte abnormalities Etiology in his case is likely acute cocaine toxicity, likely leading to electrolyte abnormalities, rhabdomyolysis, hypocalcemia,hyperkalemia and acute kidney injury. He had anion gap metabolic acidosis, and normal osmolal gap likely from JEAN and cocaine use, which is normalized with NaHCO3 drip. Hyperkalemia is due to rhabdomyolysis and JEAN. Other electrolytes such as hypocalcemia ( corrected low ), and hyperphosphatemia is due to his rhabdomyolysis. - Continue to monitor CK DAILY-trending down today [id number] from - Check electrolytes, kidney functions daily - Worsening creatinine 3.4, 4, 4.9, 5.9, 7, 7.6, 8.7, today 9.5. Seen by cowlman today who recommended to continue supportive care -Currently on IV NS @50ml per hour - off note patient has good urine output 45-65 mL per hour - Low threshold for dialysis. - Dialysis in case of fluid overload, hyperkalemia, severe acidosis, uremia. - Monitor blood glucose levels given acute liver injury, and rhabdomyolysis - Strict ins and outs. -Appreciate nephro recommendations Patient has rahbdomyolysis from pressure injusry to the right shoulder muscle which is sever in the area of the involvement to cause that range of lab changes , he needs to follow up with Dr. Carr at his office after 4-6 weeks of outpatient PT or sooner if he fails to improve at all (even slowly) over the next few weeks or worsens at any point in the interim. He is a very good candidate for an inpatient rehabilitation program both to accelerate any return that he can get with regard to right shoulder function but also as an adjunct to medication and drug abuse rehabilitation so as to minimize his risk of recurrence or other (potentially more severe) consequences of his underlying causative issues. 5. Hematology-monitor leukocytosis - H&H and paletlet is stable at this time -Patient noted to have maroon colored stool today, he is stable. he refused to be seen by our GI specialist. please refer to the events note. 6. Alimentary-transaminitis, upper GI bleed He has elevated AST+ALT and normal Alk phos could be due to acute liver failure, rhabdomyolysis contributing to elevated AST or cocaine induce transaminitis. US abdomen and CT adomen negative for any acute pathology.There is no acute GI blood loss at this time, and would attribute this GI bleed to cocaine induced gastritis, and currently on protonix. LFT continue to improve today - monitor for any further bleeding. - Continue Protonix IV 40 bid at this time. tomorrow will switch to PO if remains hemodynamically stable. - GI on board - Strictly no NSAIDs - If needed, would need Tylenol very conservatively. -Follow-up daily LFT, INR 7. Neurology- paresthesias in right upper extremity Patient has right upper extremity pain, swelling, paresthesia status post fall .CT of the right arm showed scattered bubbles of air in the subcutaneous tissues distal to the catheter. There is scattered nonspecific subcutaneous edema. ortho was consulted to evaluate right upper extremity pain for any compartment syndrome. No recommendations were provided, ruled out compartment syndrome. Ultrasound Doppler was done, ruled out DVT. -Elevation of extremity, warm compressers - pain management Cocaine overdose/benzo withdrawal/polysubstance abuse - Benzodiazepines for cocaine use and avoid benzodiazepine withdrawal. - He should be on seizure precautions, since cocaine can cause decrease seizure threshold. -Continue home dose of Keppra 1500 mg twice daily other chronic medical problems crohns- Prior colon resection, w/ colostomy bag depression -Lexapro 20 mg daily on hold seizures -Keppra 750 mg, 4 pills/24 hours Insomina- Ambien 10 mg qhs on hold anxiety- Xanax 0.5 mg 4 pills/24 hours on hold #1 DVT prophylaxis- Alps/sc heparin #2 regular diet with low potassium #3 full-code Problem List: 1. Drug overdose 2. Acute kidney injury Pain Ratin Tomorrow's Labs & Rationales: ICU labe bundle Plan DVT/Prophylaxis: mechanical Code Status: Full Code
--- NOTE | 2017-10-27 13:57 | PN- Nephrology ---
Assessment/Plan Nephrology Assessment: JEAN due to cocaine induced rhabdomyolysis. U.O. up and rate of rise in cr a bit slower. Could continue to watch for now. Hopefully creatinine will peak in next few days. labs okay and patient without uremic symptoms. Continue supportive care. Yannick Dunne MD Suggestion: . Subjective Subjective: Pt doing well. Cr up to 9 . U. O up > 1.5L No uremic symptoms. Objective Vital Signs and I&Os Pleasant M NAD 150/90 80 98.8 Lungs clear Cor RRR Abd soft Ext neg edema Results Pertinent Lab Results: Cr 9.5 (7->8.7->9.5) 140/ 107 / 65 / 4.1 / 21 / 9.5\
[2017-10-27 15:25] LABS: ABSOLUTE BASOPHIL COUNT 0 /CUMM (0.0-0.2); ABSOLUTE EOSINOPHIL COUNT 0.2 /CUMM (0.0-0.7); ABSOLUTE GRANULOCYTE CT 9.3 /CUMM (1.4-6.5); ABSOLUTE LYMPH COUNT 0.4 /CUMM (1.2-3.4); ABSOLUTE MONOCYTE COUNT 0.6 /CUMM (0.10-0.60); BASOPHIL % 0.2 % (0.0-2.0); EOSINOPHIL % 1.8 % (0-5); HEMATOCRIT 34.9 % (42-52); MEAN CORPUSCULAR HGB 27.8 PG (27.0-31.0); MEAN CORPUSCULAR HGB CONC 33.6 G/DL (33.0-37.0); MEAN CORPUSCULAR VOLUME 82.7 FL (80.0-94.0); MEAN PLATELET VOLUME 9.2 FL (7.4-10.4); PLATELET COUNT 134 /CUMM (130-400); RBC DISTRIBUTION WIDTH 14.6 % (11.5-14.5); RED BLOOD CELL CT 4.22 /CUMM (4.70-6.10); WHITE BLOOD CELL COUNT 10.6 /CUMM (4.8-10.8)
[2017-10-27 15:53] LABS: GRANULOCYTE % 87.9 % (42.2-75.2)
[2017-10-27 16:00] VITALS: BP 150/85
[2017-10-28] VITALS: BP 150/90
[2017-10-28 04:36] LABS: ABSOLUTE BASOPHIL COUNT 0 /CUMM (0.0-0.2); ABSOLUTE EOSINOPHIL COUNT 0.4 /CUMM (0.0-0.7); ABSOLUTE GRANULOCYTE CT 7.7 /CUMM (1.4-6.5); ABSOLUTE LYMPH COUNT 0.6 /CUMM (1.2-3.4); ABSOLUTE MONOCYTE COUNT 0.7 /CUMM (0.10-0.60); BASOPHIL % 0.4 % (0.0-2.0); EOSINOPHIL % 3.8 % (0-5); HEMATOCRIT 33.1 % (42-52); MEAN CORPUSCULAR HGB 27.1 PG (27.0-31.0); MEAN CORPUSCULAR HGB CONC 32.7 G/DL (33.0-37.0); MEAN CORPUSCULAR VOLUME 82.9 FL (80.0-94.0); MEAN PLATELET VOLUME 8.9 FL (7.4-10.4); PLATELET COUNT 139 /CUMM (130-400); RBC DISTRIBUTION WIDTH 14.8 % (11.5-14.5); RED BLOOD CELL CT 3.99 /CUMM (4.70-6.10); WHITE BLOOD CELL COUNT 9.4 /CUMM (4.8-10.8)
[2017-10-28 08:00] VITALS: BP 154/92
--- NOTE | 2017-10-28 08:49 | PN- Resident CRCU ---
Subjective HPI/CRCU Issues: Patient seen and examined, sitting on the bed comfortable with no acute distress , but he report feeling tired, he also complained of itchy eyes, no SOB, no chest pain, SOB. No more maroon stool reported. He report that he was able to work with PT yesterday 24 Hour Events: No events Objective Vital Signs & I&O Last 8 Hrs of Vitals and I&O: Stable Exam General Appearance: well developed/nourished, no apparent distress, alert, awake Respiratory: normal breath sounds, chest non-tender, no respiratory distress Cardiovascular: regular rate/rhythm, normal peripheral pulses Gastrointestinal: normal bowel sounds, soft, tender Extremities: normal inspection, normal capillary refill, no edema, right arm swollen, weak Nutrition Nutrition: P.O. diet Current Medications: Current Medications Sig/Leigh Ann Start time Last Medication Dose Route Stop Time Status Admin Albuterol Sulfate 2 PUF Q4P PRN 10/29 1615 AC INH Amlodipine Besylate 5 MG ONCE ONE 10/29 1545 DC PO 10/29 1546 Amlodipine Besylate 2.5 MG DAILY 10/29 0913 AC 10/29 PO 1153 Artificial Tears 2 GTT TID 10/28 1400 AC 10/29 OPH 1430 Aspirin 81 MG DAILY 10/24 1300 AC 10/29 PO 0855 Ferrous Sulfate 325 MG BID 10/27 2100 AC 10/29 PO 0856 Levetiracetam 1,500 MG BID 10/26 2100 AC 10/29 PO 0856 Lorazepam 1 MG Q6-PRN PRN 10/23 1999 AC 10/26 IV 0429 Morphine Sulfate 1 MG Q6P PRN 10/23 1999 AC 10/29 IV 1352 Nitroglycerin 0.5 GM Q6 PRN 10/22 2200 AC TOP Omeprazole 40 MG DAILY AC 10/29 0700 AC 10/29 PO 0536 Sodium Chloride 1,000 ML Q10H 10/23 2200 AC 10/29 IV 0855 Tiotropium Dewar 1 PUF DAILY 10/29 1603 AC INH Impression/Plan Impression/Problem List Impression: Mr Cabrales is a 52 year old man w/ a PMHx of polysubstance abuse, benzodiazepine use, Seizures, Asthma, Crohns disease( dx'ed 1988, s/p colon resection w/ colostomy bag ), h/o rectal fistula, cervial spine radiculopathy, anxiety was brought to the hospital with a chief concern of altered mental status, and unresponsiveness on a.m. of 10/22/2017. 1. Respiratory- Stable at this time. - No e/o consolidation on CT scan - Aspiration pneumonitis in differential. - Continue Unasyn day 4 at this time. - Titrate off oxygen as tolerated. 2. Infectious- leukocytosis. In regards to leucocytosis, it could be due to aspiration pneumonitis and would continue to treat with unasyn pending cultures. - Monitor for any fever, worsening leukocytosis. -Antibiotic discontinued 3. Circulatory- elevated cardiac enzymes, hypotension patient had some cocaine induced cardiac ischemia with slightly elevated cardiac enzymes, which trended down, without evidence of STEMI. Severe rhabdomyolysis due to cocaine overdose with accompanying rise in troponins without evidence of ongoing coronary spasm or thrombus upon admission. Mild anterolateral hypokinesis related to spasm during the event, without complete occlusion to blood flow/STEMI (modest rise in troponins, no akinesis on echocardiogram). - Cardiac enzymes trended 1.05, 1.25, 0.85 - Monitor for any chest pain, dyspnea - For tachycardia, avoid all beta blockers at this time. - Use nitroglycerin, or calcium channel blockers if needed as per radar operator. - Treat hypotension with fluids. - continue baby aspirin - ECHO showed mild hypokinesis of mid to distal anterolateral wall, ejection fraction 55% - Maintain telemetry as he is still at risk of delayed of coronary vasospams. - Appreciate cardio recommendations 4. Metabolic-acute kidney injury, rhabdomyolysis, electrolyte abnormalities Etiology in his case is likely acute cocaine toxicity, likely leading to electrolyte abnormalities, rhabdomyolysis, hypocalcemia,hyperkalemia and acute kidney injury. He had anion gap metabolic acidosis, and normal osmolal gap likely from JEAN and cocaine use, which is normalized with NaHCO3 drip. Hyperkalemia is due to rhabdomyolysis and JEAN. Other electrolytes such as hypocalcemia ( corrected low ), and hyperphosphatemia is due to his rhabdomyolysis. - Continue to monitor CK DAILY-trending down today [id number] from - Check electrolytes, kidney functions daily - Worsening creatinine 3.4, 4, 4.9, 5.9, 7, 7.6, 8.7, today 9.5. Seen by pouncing machine operator today who recommended to continue supportive care -Currently on IV NS @50ml per hour - off note patient has good urine output 45-65 mL per hour - Low threshold for dialysis. - Dialysis in case of fluid overload, hyperkalemia, severe acidosis, uremia. - Monitor blood glucose levels given acute liver injury, and rhabdomyolysis - Strict ins and outs. -Appreciate nephro recommendations Patient has rahbdomyolysis from pressure injusry to the right shoulder muscle which is sever in the area of the involvement to cause that range of lab changes , he needs to follow up with Dr. Carr at his office after 4-6 weeks of outpatient PT or sooner if he fails to improve at all (even slowly) over the next few weeks or worsens at any point in the interim. He is a very good candidate for an inpatient rehabilitation program both to accelerate any return that he can get with regard to right shoulder function but also as an adjunct to medication and drug abuse rehabilitation so as to minimize his risk of recurrence or other (potentially more severe) consequences of his underlying causative issues. 5. Hematology-monitor leukocytosis - H&H and paletlet is stable at this time -Patient noted to have maroon colored stool today, he is stable. he refused to be seen by our GI specialist. please refer to the events note. 6. Alimentary-transaminitis, upper GI bleed He has elevated AST+ALT and normal Alk phos could be due to acute liver failure, rhabdomyolysis contributing to elevated AST or cocaine induce transaminitis. US abdomen and CT adomen negative for any acute pathology.There is no acute GI blood loss at this time, and would attribute this GI bleed to cocaine induced gastritis, and currently on protonix. LFT continue to improve today - monitor for any further bleeding. - Continue Protonix IV 40 bid at this time. tomorrow will switch to PO if remains hemodynamically stable. - GI on board - Strictly no NSAIDs - If needed, would need Tylenol very conservatively. -Follow-up daily LFT, INR 7. Neurology- paresthesias in right upper extremity Patient has right upper extremity pain, swelling, paresthesia status post fall .CT of the right arm showed scattered bubbles of air in the subcutaneous tissues distal to the catheter. There is scattered nonspecific subcutaneous edema. ortho was consulted to evaluate right upper extremity pain for any compartment syndrome. No recommendations were provided, ruled out compartment syndrome. Ultrasound Doppler was done, ruled out DVT. -Elevation of extremity, warm compressers - pain management Cocaine overdose/benzo withdrawal/polysubstance abuse - Benzodiazepines for cocaine use and avoid benzodiazepine withdrawal. - He should be on seizure precautions, since cocaine can cause decrease seizure threshold. -Continue home dose of Keppra 1500 mg twice daily other chronic medical problems crohns- Prior colon resection, w/ colostomy bag depression -Lexapro 20 mg daily on hold seizures -Keppra 750 mg, 4 pills/24 hours Insomina- Ambien 10 mg qhs on hold anxiety- Xanax 0.5 mg 4 pills/24 hours on hold #1 DVT prophylaxis- Alps/sc heparin #2 regular diet with low potassium #3 full-code Problem List: 1. Acute kidney injury 2. Soft tissue infection 3. History of seizure Pain Ratin Pain Location: right arm, abdomen Tomorrow's Labs & Rationales: cbc, bep Plan DVT/Prophylaxis: mechanical Code Status: Full Code
--- NOTE | 2017-10-28 10:11 | ULTRASOUND REPORT ---
EXAMINATION: US TRIPLEX UPPER EXTREMITY, RIGHT CLINICAL INFORMATION: This a 52-year-old male with right upper extremity swelling and edema. COMPARISON: None TECHNIQUE: Color-flow triplex imaging with spectral analysis and compression Doppler were performed on the lower extremity. FINDINGS: Respiratory variation, normal compression and augmented flow are noted throughout the upper extremity. The visualized venous segments show no evidence of deep venous thrombosis. IMPRESSION: Normal triplex scan without evidence of deep venous thrombosis involving the upper extremity.
--- NOTE | 2017-10-28 10:24 | PN- CRCU ---
Subjective HPI/Critical Care Issues: Appears to be stable Still has right upper extremity swelling and pain Eating more He did have maroon color output through his colostomy tube yesterday No nausea vomiting Did have an ultrasound of the upper extremity which was repeated with no evidence of DVT Cultures are unremarkable His blood work was reviewed continues to have significantly elevated creatinine Is normal his LFTs have improving his CPK was not checked which needs to be checked today White count 9.4 hemoglobin did drop since yesterday but it to 10.8 platelets are adequate His urine output has been adequate he still continues to make Neeson, urine Objective Current Medications: Current Medications Sig/Leigh Ann Start time Last Medication Dose Route Stop Time Status Admin Aspirin 81 MG DAILY 10/24 1300 AC 10/28 PO 0821 Ferrous Sulfate 325 MG BID 10/27 2099 AC 10/28 PO 0821 Heparin Sodium 5,000 UNIT Q8 10/25 1400 DC 10/27 (Porcine) SC 1410 Levetiracetam 1,500 MG BID 10/26 2099 AC 10/28 PO 0821 Lorazepam 1 MG Q6-PRN PRN 10/23 1999 AC 10/26 IV 0429 Morphine Sulfate 1 MG Q6P PRN 10/23 1999 AC 10/28 IV 0549 Nitroglycerin 0.5 GM Q6 PRN 10/22 2199 AC TOP Non-Formulary 0 SEE ADMIN CRITERIA 10/28 914 UNVr Medication ANY Ondansetron HCl 4 MG ONCE ONE 10/27 1745 DC 10/27 IV 10/27 1746 1735 Pantoprazole Sodium 40 MG BID 10/23 2099 AC 10/28 IV 0821 Sodium Chloride 1,000 ML Q10H 10/23 220 AC 10/28 IV 0834 Vital Signs & I&O Last 24 Hrs of Vitals and I&O: Vital Signs Date Time Temp Pulse Resp B/P B/P Pulse O2 O2 Flow FiO2 Mean Ox Delivery Rate 10/29 799 98.3 80 24 154/92 98 Room Air 10/28 0400 97 Room Air 10/28 0000 96 Room Air 10/28 0000 98.4 76 16 150/90 96 Room Air 10/28 1999 95 Room Air 10/27 1600 98.5 84 22 150/85 96 Room Air Intake & Output 10/28 1600 10/28 0810/28 0000 Intake Total 745 1120 Output Total 750 550 Balance -5 570 Intake, IV 385 400 Intake, Oral 360 720 Number 200 Bowel Movements Output, Stool 100 Output, Urine 650 550 Impression/Plan Impression/Plan Impression/Plan: Head: atraumatic, normal appearance Eyes: Bilateral: normal appearance, PERRL, EOMI. Ears, Nose, Throat: hearing grossly normal Neck: posterior cervical tenderness without deformity Respiratory: normal breath sounds, no respiratory distress, lungs clear, abrasion to left chest Cardiovascular: regular rate/rhythm Gastrointestinal: normal bowel sounds, soft, non-tender, no organomegaly, colostomy bag present Back: normal inspection, normal range of motion Extremities: tenderness to right shoulder with limited ROM no sig evidence of necrotizing fascitis, swelling persists Neurologic/Psych: awake, alert, oriented x 3 IMPRESSION Patient is a 52-year-old male with history of seizure disorder, polysubstance abuse, asthma, crohn's disease s/p colostomy, arthritis and anxiety presents to the ER with decreased mental status with drug overdose with multiple substances, (prob unintentional) issues * Acute renal failure due to rhabdo due to cocaine and rt upper ext injury and swelling,,worsening creatinine but has adequate urineoutput, on IV fluids * Resolved Sig met acidosis with muliple organ failure and dysfunction * Cocaine and benzo od better * Improving Severe Rhabdo sig no evidence of necrotizing fascitis, but pt has rt arm pain, and swelling ct noted and clinically seems to have improved pain, but swelling persists * Hypocalcemia and hence FAD has been stopped * Acute OK due to cocaine and rule out acs, prob cocaine induced heart injury vs mi, with lateral wall changes in the ekg, EKG now stable, echocardiogram does show wall motion abnormality probably related to coronary vasospasm. * Resolved Sig UGI bleed with vomiting with coffeeground on admission, now stable * Still Colostomy out put was reddish yesterday and now stable * REsolving High anion gap acidosis due to lactic acidosis * FLuid around the gb with altered lft needs ultrasound and no clinical evidence of harshal * PRevious colon resection / colostosy * S/p fall and injury to the rt upper ext rule out soft tissue and bony injury ortho on board * Previous c spine surg with djd REC IVF to continue Gentle and watch for chf Check cpk today Can increase and liberate his diet Follow sugar and rx hyperglycemia/hypoglycemia Cont to elevate the arm and rpt ultrasound in am to rule out dvt of IJ etc Change to po ppi Tejeda to cont Cardio/renal and gi eval appretiated Benzo with iv lorazepam for tachy and benzo withdrawal and rx of cocaine toxicity Continue heparin Continue to watch his upper extremity No beta or alpha blockers Follow lfts qod Prog guarded Pt critically ill tts 36 mins Code Status: Full Code
--- NOTE | 2017-10-28 10:27 | PN- Nephrology ---
Assessment/Plan Nephrology Assessment: Doing well. No uremic symptoms. Cr starting to plateau. As pointed out by Obdulia Finley RN yesterday. U.O has increased even though creatinine was rising suggesting the beginning of recovery. Agree with her that we can hold off on dialysis for now and with creatinine starting to plateau may be able to avoid dialysis entirely. GFR is still < 5 cc/min but I suspect it is starting to improve. Electrolytes and volume are okay and patient without uremic symptoms. Will probably watch over weekend before without dialysis. Yannick Dunne MD. Suggestion: . Subjective Subjective: Pt comfortable. good U.O. Objective Vital Signs and I&Os M NAD 154/92 80 98.3 Lungs clear Cor RRR Abd soft N/T Ext neg edema Results Pertinent Lab Results: 140 / 107 / 65 / 3.7 / 21 / 9.7 (9.5 yesterday) UO 1600/24 hrs
--- NOTE | 2017-10-28 12:02 | PN- Att Addend ---
Attending Addendum Attending Brief Note Patient still in ICU, seems in better spirits. 8 some more. Had some stools in the bag. Vital signs are stable no fever and no other major changes on physical. Appreciate all the consultants inputs and recommendations. His urine output is fair, despite having elevated BUN and creatinine other numbers are improving slowly. Will increase his diet continue the gentle hydration follow the CK and other labs closely Intake & Output 10/28 040 Intake Total 745 1120 1594 1036 2071 1060 Output Total 760 292 1850 600 1410 885 Balance -5 570 -56 436 661 175 Intake, IV 385 400 099 463 0435 600 Intake, Oral 360 720 984 174 6002 460 Number 200 Bowel Movements Output, Stool 100 450 450 400 Output, Urine 131 287 0776 600 960 485 Current Medications Sig/Leigh Ann Start time Last Medication Dose Route Stop Time Status Admin Artificial Tears 2 GTT TID 10/28 1400 UNVr OPH Aspirin 81 MG DAILY 10/24 1300 AC 10/28 PO 0821 Ferrous Sulfate 325 MG BID 10/27 2099 AC 10/28 PO 0821 Heparin Sodium 5,000 UNIT Q8 10/25 1400 DC 10/27 (Porcine) SC 1410 Levetiracetam 1,500 MG BID 10/26 2099 AC 10/28 PO 0821 Lorazepam 1 MG Q6-PRN PRN 10/23 1999 AC 10/26 IV 0429 Morphine Sulfate 1 MG Q6P PRN 10/23 1999 AC 10/28 IV 0549 Nitroglycerin 0.5 GM Q6 PRN 10/22 2199 AC TOP Non-Formulary 0 SEE ADMIN CRITERIA 10/28 0815 DC Medication ANY Ondansetron HCl 4 MG ONCE ONE 10/27 1745 DC 10/27 IV 10/27 1746 1735 Pantoprazole Sodium 40 MG BID 10/23 2099 AC 10/28 IV 0821 Sodium Chloride 1,000 ML Q10H 10/23 2199 AC 10/28 IV 0834 Laboratory Tests 10/28/17 0356: Anion Gap 12, Estimated GFR 6 L, Glucose 99, Calcium 7.8 L, Phosphorus 5.5 H, Magnesium 1.9, Total Bilirubin 0.8, AST 153 H, ALT 158 H, Creatine Kinase 5615 H, Albumin 2.5 L, CBC w Diff NO MAN DIFF REQ, RBC 3.99 L, MCV 82.9, MCH 27.1, MCHC 32.7 L, RDW 14.8 H, MPV 8.9, Gran % 82.0 H, Lymphocytes % 6.3 L, Monocytes % 7.5, Eosinophils % 3.8, Basophils % 0.4, Absolute Granulocytes 7.7 H, Absolute Lymphocytes 0.6 L, Absolute Monocytes 0.7 H, Absolute Eosinophils 0.4, Absolute Basophils 0 10/27/17 1424: CBC w Diff NO MAN DIFF REQ, RBC 4.22 L, MCV 82.7, MCH 27.8, MCHC 33.6, RDW 14.6 H, MPV 9.2, Gran % 87.9 H, Lymphocytes % 4.2 L, Monocytes % 5.9, Eosinophils % 1.8, Basophils % 0.2, Absolute Granulocytes 9.3 H, Absolute Lymphocytes 0.4 L, Absolute Monocytes 0.6, Absolute Eosinophils 0.2, Absolute Basophils 0 10/27/17 0343: Anion Gap 13, Estimated GFR 6 L, Glucose 106 H, Calcium 7.5 L, Phosphorus 5.3 H, Magnesium 2.0, Total Bilirubin 1.1, AST 239 H, ALT 197 H, Alkaline Phosphatase 57, Creatine Kinase 92518 H, Albumin 2.6 L, PT 13.1 H, INR 1.20 H, CBC w Diff MAN DIFF ORDERED, RBC 4.43 L, MCV 82.6, MCH 27.2, MCHC 32.9 L, RDW 14.7 H, MPV 8.3, Gran % 89.3 H, Lymphocytes % 3.9 L, Monocytes % 5.8, Eosinophils % 0.7, Basophils % 0.3, Absolute Granulocytes 11.7 H, Segmented Neutrophils 91 H, Absolute Lymphocytes 0.5 L, Lymphocytes 3 L, Monocytes 6, Absolute Monocytes 0.8 H, Absolute Eosinophils 0.1, Absolute Basophils 0, Platelet Estimate ADEQUATE, Polychromasia 1+, Hypochromic-Microcytic 1+, Ovalocytes FEW, Fld Total RBCs Counted 100 10/26/17 0415: Anion Gap 12, Estimated GFR 7 L, Glucose 101 H, Calcium 6.9 L, Phosphorus 4.7 H, Magnesium 2.0, Total Bilirubin 1.1, AST 340 H, ALT 230 H, Alkaline Phosphatase 56, Creatine Kinase 22173 H, Albumin 2.5 L, PT 13.5 H, INR 1.24 H, CBC w Diff MAN DIFF ORDERED, RBC 4.14 L, MCV 82.6, MCH 27.2, MCHC 33.0, RDW 15.4 H, MPV 8.8, Gran % 88.5 H, Lymphocytes % 5.3 L, Monocytes % 5.4, Eosinophils % 0.6, Basophils % 0.2, Absolute Granulocytes 9.1 H, Segmented Neutrophils 88 H, Band Neutrophils 9 H, Absolute Lymphocytes 0.5 L, Monocytes 3, Absolute Monocytes 0.6, Absolute Eosinophils 0.1, Absolute Basophils 0, Platelet Estimate ADEQUATE, Normochromic RBCs VERIFIED, Ovalocytes FEW, Fld Total RBCs Counted 100 10/25/171999: Anion Gap 12, Estimated GFR 8 L, Glucose 104 H, Calcium 6.3 L, Phosphorus 4.6 H, Magnesium 1.9, Total Bilirubin 1.0, AST 415 H, ALT 244 H, Creatine Kinase 66472 H, Albumin 2.4 L, CBC w Diff NO MAN DIFF REQ, RBC 4.30 L, MCV 83.1, MCH 27.3, MCHC 32.9 L, RDW 15.0 H, MPV 9.0, Gran % 91.1 H, Lymphocytes % 4.1 L, Monocytes % 4.2, Eosinophils % 0.4, Basophils % 0.2, Absolute Granulocytes 10.2 H, Absolute Lymphocytes 0.5 L, Absolute Monocytes 0.5, Absolute Eosinophils 0, Absolute Basophils 0, Hepatitis A IgM Ab NONREACTIVE, Hep Bs Antigen NONREACTIVE , Hep B Core IgM Ab Conf NONREACTIVE, Hepatitis C Antibody NONREACTIVE Vital Signs Date Time Temp Pulse Resp B/P B/P Pulse O2 O2 Flow FiO2 Mean Ox Delivery Rate 10/28 0800 98.3 80 24 154/92 98 Room Air 10/28 0400 97 Room Air 10/28 0000 96 Room Air 10/28 0000 98.4 76 16 150/90 96 Room Air 10/28 1999 95 Room Air 10/27 1600 98.5 84 22 150/85 96 Room Air
[2017-10-28 16:00] VITALS: BP 156/97; BP 158/90
[2017-10-28 18:00] VITALS: BP 167/95
[2017-10-28 23:45] VITALS: BP 158/96
[2017-10-29 05:01] LABS: ABSOLUTE BASOPHIL COUNT 0 /CUMM (0.0-0.2); ABSOLUTE EOSINOPHIL COUNT 0.5 /CUMM (0.0-0.7); ABSOLUTE GRANULOCYTE CT 6.9 /CUMM (1.4-6.5); ABSOLUTE LYMPH COUNT 0.6 /CUMM (1.2-3.4); ABSOLUTE MONOCYTE COUNT 0.9 /CUMM (0.10-0.60); BASOPHIL % 0.3 % (0.0-2.0); EOSINOPHIL % 5.4 % (0-5); GRANULOCYTE % 77.6 % (42.2-75.2); HEMATOCRIT 30.4 % (42-52); MEAN CORPUSCULAR HGB 27.3 PG (27.0-31.0); MEAN CORPUSCULAR HGB CONC 32.8 G/DL (33.0-37.0); MEAN CORPUSCULAR VOLUME 83.2 FL (80.0-94.0); MEAN PLATELET VOLUME 9.2 FL (7.4-10.4); PLATELET COUNT 146 /CUMM (130-400); RBC DISTRIBUTION WIDTH 14.8 % (11.5-14.5); RED BLOOD CELL CT 3.65 /CUMM (4.70-6.10); WHITE BLOOD CELL COUNT 8.9 /CUMM (4.8-10.8)
[2017-10-29 08:00] VITALS: BP 142/68
--- NOTE | 2017-10-29 09:06 | PN- Resident CRCU ---
Impression/Plan Impression/Problem List Impression: Mr Cabrales is a 52 year old man w/ a PMHx of polysubstance abuse, benzodiazepine use, Seizures, Asthma, Crohns disease( dx'ed 1988, s/p colon resection w/ colostomy bag ), h/o rectal fistula, cervial spine radiculopathy, anxiety was brought to the hospital with a chief concern of altered mental status, and unresponsiveness on a.m. of 10/22/2017. 1. Respiratory- Stable at this time. - No e/o consolidation on CT scan - Aspiration pneumonitis in differential. - Continue Unasyn day 4 at this time. - Titrate off oxygen as tolerated. 2. Infectious- leukocytosis. In regards to leucocytosis, it could be due to aspiration pneumonitis and would continue to treat with unasyn pending cultures. - Monitor for any fever, worsening leukocytosis. -Antibiotic discontinued 3. Circulatory- elevated cardiac enzymes, hypotension patient had some cocaine induced cardiac ischemia with slightly elevated cardiac enzymes, which trended down, without evidence of STEMI. Severe rhabdomyolysis due to cocaine overdose with accompanying rise in troponins without evidence of ongoing coronary spasm or thrombus upon admission. Mild anterolateral hypokinesis related to spasm during the event, without complete occlusion to blood flow/STEMI (modest rise in troponins, no akinesis on echocardiogram). - Cardiac enzymes trended 1.05, 1.25, 0.85 - Monitor for any chest pain, dyspnea - For tachycardia, avoid all beta blockers at this time. - Use nitroglycerin, or calcium channel blockers if needed as per hand fur cleaner. - Treat hypotension with fluids. - continue baby aspirin - ECHO showed mild hypokinesis of mid to distal anterolateral wall, ejection fraction 55% - Maintain telemetry as he is still at risk of delayed of coronary vasospams. - Appreciate cardio recommendations 4. Metabolic-acute kidney injury, rhabdomyolysis, electrolyte abnormalities Etiology in his case is likely acute cocaine toxicity, likely leading to electrolyte abnormalities, rhabdomyolysis, hypocalcemia,hyperkalemia and acute kidney injury. He had anion gap metabolic acidosis, and normal osmolal gap likely from JEAN and cocaine use, which is normalized with NaHCO3 drip. Hyperkalemia is due to rhabdomyolysis and JEAN. Other electrolytes such as hypocalcemia ( corrected low ), and hyperphosphatemia is due to his rhabdomyolysis. - Continue to monitor CK DAILY-trending down today [id number] from - Check electrolytes, kidney functions daily - Worsening creatinine 3.4, 4, 4.9, 5.9, 7, 7.6, 8.7, today 9.5. Seen by steam turbine assembler today who recommended to continue supportive care -Currently on IV NS @50ml per hour - off note patient has good urine output 45-65 mL per hour - Low threshold for dialysis. - Dialysis in case of fluid overload, hyperkalemia, severe acidosis, uremia. - Monitor blood glucose levels given acute liver injury, and rhabdomyolysis - Strict ins and outs. -Appreciate nephro recommendations Patient has rahbdomyolysis from pressure injusry to the right shoulder muscle which is sever in the area of the involvement to cause that range of lab changes , he needs to follow up with Dr. Carr at his office after 4-6 weeks of outpatient PT or sooner if he fails to improve at all (even slowly) over the next few weeks or worsens at any point in the interim. He is a very good candidate for an inpatient rehabilitation program both to accelerate any return that he can get with regard to right shoulder function but also as an adjunct to medication and drug abuse rehabilitation so as to minimize his risk of recurrence or other (potentially more severe) consequences of his underlying causative issues. 5. Hematology-monitor leukocytosis - H&H and paletlet is stable at this time -Patient noted to have maroon colored stool today, he is stable. he refused to be seen by our GI specialist. please refer to the events note. 6. Alimentary-transaminitis, upper GI bleed He has elevated AST+ALT and normal Alk phos could be due to acute liver failure, rhabdomyolysis contributing to elevated AST or cocaine induce transaminitis. US abdomen and CT adomen negative for any acute pathology.There is no acute GI blood loss at this time, and would attribute this GI bleed to cocaine induced gastritis, and currently on protonix. LFT continue to improve today - monitor for any further bleeding. - Continue Protonix IV 40 bid at this time. tomorrow will switch to PO if remains hemodynamically stable. - GI on board - Strictly no NSAIDs - If needed, would need Tylenol very conservatively. -Follow-up daily LFT, INR 7. Neurology- paresthesias in right upper extremity Patient has right upper extremity pain, swelling, paresthesia status post fall .CT of the right arm showed scattered bubbles of air in the subcutaneous tissues distal to the catheter. There is scattered nonspecific subcutaneous edema. ortho was consulted to evaluate right upper extremity pain for any compartment syndrome. No recommendations were provided, ruled out compartment syndrome. Ultrasound Doppler was done, ruled out DVT. -Elevation of extremity, warm compressers - pain management Cocaine overdose/benzo withdrawal/polysubstance abuse - Benzodiazepines for cocaine use and avoid benzodiazepine withdrawal. - He should be on seizure precautions, since cocaine can cause decrease seizure threshold. -Continue home dose of Keppra 1500 mg twice daily other chronic medical problems crohns- Prior colon resection, w/ colostomy bag depression -Lexapro 20 mg daily on hold seizures -Keppra 750 mg, 4 pills/24 hours Insomina- Ambien 10 mg qhs on hold anxiety- Xanax 0.5 mg 4 pills/24 hours on hold #1 DVT prophylaxis- Alps/sc heparin #2 regular diet with low potassium #3 full-code Plan DVT/Prophylaxis: mechanical Code Status: Full Code
--- NOTE | 2017-10-29 09:19 | PN- Resident CRCU ---
[place] 10/29/17 0918: Subjective HPI/CRCU Issues: 1. Cocaine toxicity 2. Rhabdoymyolysis 3. Acute kidney injury 4. Upper GI bleed 5. h/o Crohns s/p colostomy 6. Right shoulder injury 7. Elevated cardiac enzymes secondary to cocaine use 8. Hypomagnesemia 9. Polysubstance abuse 10. Chronic benzodiazepine use. 11. h/o seizures 24 Hour Events: Tmax: 98.2, P:86, RR:22, BP:142/68mmgh, O2 98% on RA. Objective Vital Signs & I&O Last 8 Hrs of Vitals and I&O: Stable Exam General Appearance: well developed/nourished, alert, awake, mild distress Respiratory: normal breath sounds, chest non-tender Cardiovascular: regular rate/rhythm, normal peripheral pulses Gastrointestinal: normal bowel sounds, soft, Tenderness on the colostomy site Extremities: normal inspection, normal capillary refill, Edema on the RUE Nutrition Nutrition: P.O. diet Current Medications: Current Medications Sig/Leigh Ann Start time Last Medication Dose Route Stop Time Status Admin Amlodipine Besylate 2.5 MG DAILY 10/29 0913 AC 10/29 PO 1153 Artificial Tears 2 GTT TID 10/28 1400 AC 10/29 OPH 0856 Aspirin 81 MG DAILY 10/24 1300 AC 10/29 PO 0855 Ferrous Sulfate 325 MG BID 10/27 2100 AC 10/29 PO 0856 Levetiracetam 1,500 MG BID 10/26 2100 AC 10/29 PO 0856 Lorazepam 1 MG Q6-PRN PRN 10/23 1999 AC 10/26 IV 0429 Morphine Sulfate 1 MG Q6P PRN 10/23 1999 AC 10/29 IV 0643 Nitroglycerin 0.5 GM Q6 PRN 10/22 2199 AC TOP Omeprazole 40 MG DAILY AC 10/29 0700 AC 10/29 PO 0536 Sodium Chloride 1,000 ML Q10H 10/23 220 AC 10/29 IV 0855 Impression/Plan Impression/Problem List Impression: Mr Cabrales is a 52 year old man w/ a PMHx of polysubstance abuse, benzodiazepine use, Seizures, Asthma, Crohns disease( dx'ed 1988, s/p colon resection w/ colostomy bag ), h/o rectal fistula, cervial spine radiculopathy, anxiety was brought to the hospital with a chief concern of altered mental status, and unresponsiveness on a.m. of 10/22/2017. 1. Respiratory- Stable at this time. - No e/o consolidation on CT scan - Aspiration pneumonitis in differential. - Continue Unasyn day 4 at this time. - Titrate off oxygen as tolerated. 2. Infectious- leukocytosis. Completed course of antibiotic with Unacyn for possible aspiration penumonia 3. Circulatory- elevated cardiac enzymes, hypotension patient had some cocaine induced cardiac ischemia with slightly elevated cardiac enzymes, which trended down, without evidence of STEMI. Severe rhabdomyolysis due to cocaine overdose with accompanying rise in troponins without evidence of ongoing coronary spasm or thrombus upon admission. Mild anterolateral hypokinesis related to spasm during the event, without complete occlusion to blood flow/STEMI (modest rise in troponins, no akinesis on echocardiogram). - Cardiac enzymes trended 1.05, 1.25, 0.85 - Monitor for any chest pain, dyspnea - For tachycardia, avoid all beta blockers at this time. - Use nitroglycerin, or calcium channel blockers if needed as per wellness coach. - Treat hypotension with fluids. - continue baby aspirin - ECHO showed mild hypokinesis of mid to distal anterolateral wall, ejection fraction 55% - Maintain telemetry as he is still at risk of delayed of coronary vasospams. - Appreciate cardio recommendations 4. Metabolic-acute kidney injury, rhabdomyolysis, electrolyte abnormalities Etiology in his case is likely acute cocaine toxicity, likely leading to electrolyte abnormalities, rhabdomyolysis, hypocalcemia,hyperkalemia and acute kidney injury. He had anion gap metabolic acidosis, and normal osmolal gap likely from JEAN and cocaine use, which is normalized with NaHCO3 drip. Hyperkalemia is due to rhabdomyolysis and JEAN. Other electrolytes such as hypocalcemia ( corrected low ), and hyperphosphatemia is due to his rhabdomyolysis. - Continue to monitor CK DAILY-trending down today [id number] from - Check electrolytes, kidney functions daily - Worsening creatinine 7, 7.6, 8.7, 9.5, 9.7 and today 9.7 Seen by wincher today who recommended to continue supportive care as his kidney is plateaued -Currently on IV NS @50ml per hour - off note patient has good urine output 45-65 mL per hour - Low threshold for dialysis. - Dialysis in case of fluid overload, hyperkalemia, severe acidosis, uremia. - Monitor blood glucose levels given acute liver injury, and rhabdomyolysis - Strict ins and outs. -Appreciate nephro recommendations Patient has rahbdomyolysis from pressure injusry to the right shoulder muscle which is sever in the area of the involvement to cause that range of lab changes , he needs to follow up with Dr. Carr at his office after 4-6 weeks of outpatient PT or sooner if he fails to improve at all (even slowly) over the next few weeks or worsens at any point in the interim. He is a very good candidate for an inpatient rehabilitation program both to accelerate any return that he can get with regard to right shoulder function but also as an adjunct to medication and drug abuse rehabilitation so as to minimize his risk of recurrence or other (potentially more severe) consequences of his underlying causative issues. 5. Hematology-monitor leukocytosis - H&H continue to drop today it's 9.9/30.4 it was 10.8/33.1 - Platelet stable -Green output from colostomy bag 6. Alimentary-transaminitis, upper GI bleed He has elevated AST+ALT and normal Alk phos could be due to acute liver failure, rhabdomyolysis contributing to elevated AST or cocaine induce transaminitis. US abdomen and CT adomen negative for any acute pathology.There is no acute GI blood loss at this time, and would attribute this GI bleed to cocaine induced gastritis, and currently on protonix. LFT continue to improve today - monitor for any further bleeding. - Continue Protonix IV 40 bid at this time. tomorrow will switch to PO if remains hemodynamically stable. -refused to be seen by GI anymore, he wanted to talk to his GI doctor Dr. Lavell Martin at [place]. If at any point his H&H dropped or he became hemodynamically unstable further plan to follow such as transfusion, and discuss with him again to be evaluated by our GI team. - Strictly no NSAIDs - If needed, would need Tylenol very conservatively. -Follow-up daily LFT, INR -On iron supplements 7. Neurology- paresthesias in right upper extremity Patient has right upper extremity pain, swelling, paresthesia status post fall .CT of the right arm showed scattered bubbles of air in the subcutaneous tissues distal to the catheter. There is scattered nonspecific subcutaneous edema. ortho was consulted to evaluate right upper extremity pain for any compartment syndrome. No recommendations were provided, ruled out compartment syndrome. Ultrasound Doppler was done, ruled out DVT. -Elevation of extremity, warm compressers - pain management Cocaine overdose/benzo withdrawal/polysubstance abuse - Benzodiazepines for cocaine use and avoid benzodiazepine withdrawal. - He should be on seizure precautions, since cocaine can cause decrease seizure threshold. -Continue home dose of Keppra 1500 mg twice daily other chronic medical problems crohns- Prior colon resection, w/ colostomy bag depression -Lexapro 20 mg daily on hold seizures -Keppra 750 mg, 4 pills/24 hours Insomina- Ambien 10 mg qhs on hold anxiety- Xanax 0.5 mg 4 pills/24 hours on hold #1 DVT prophylaxis- Alps/sc heparin #2 regular diet with low potassium #3 full-code Problem List: 1. Drug overdose 2. Acute kidney injury 3. Demand ischemia of myocardium Pain Ratin Tomorrow's Labs & Rationales: cbc, bep Plan DVT/Prophylaxis: mechanical Code Status: Full Code [facility] 10/29/17 1327: Attending MD Review Statement Attending Sign Off Attending Cosign Statement: I have: examined this patient, reviewed [email or web address] EMR data, personally reviewd images, discussd w/resident/PA/EMERGENCY ROOM TECH, discussed mgmt plan w/terry, discussed mgmt plan w/CM, discussed mgmt plan w/pt, agreed w/resident/PA/EMERGENCY ROOM TECH, amended to note. Other Findings: Head: atraumatic, normal appearance Eyes: Bilateral: normal appearance, PERRL, EOMI. Ears, Nose, Throat: hearing grossly normal Neck: posterior cervical tenderness without deformity Respiratory: normal breath sounds, no respiratory distress, lungs clear, abrasion to left chest Cardiovascular: regular rate/rhythm Gastrointestinal: normal bowel sounds, soft, non-tender, no organomegaly, colostomy bag present Back: normal inspection, normal range of motion Extremities: tenderness to right shoulder with limited ROM no sig evidence of necrotizing fascitis, swelling persists Neurologic/Psych: awake, alert, oriented x 3 IMPRESSION Patient is a 52-year-old male with history of seizure disorder, polysubstance abuse, asthma, crohn's disease s/p colostomy, arthritis and anxiety presents to the ER with decreased mental status with drug overdose with multiple substances, (prob unintentional) issues * Acute renal failure due to rhabdo due to cocaine and rt upper ext injury and swelling,,worsening creatinine but has adequate urineoutput, on IV fluids * Resolved Sig met acidosis with muliple organ failure and dysfunction * Cocaine and benzo od better * Improving Severe Rhabdo sig no evidence of necrotizing fascitis, but pt has rt arm pain, and swelling ct noted and clinically seems to have improved pain, but swelling persists * Hypocalcemia and hence FAD has been stopped * Acute NE due to cocaine and rule out acs, prob cocaine induced heart injury vs mi, with lateral wall changes in the ekg, EKG now stable, echocardiogram does show wall motion abnormality probably related to coronary vasospasm. * Resolved Sig UGI bleed with vomiting with coffeeground on admission, now stable * Still Colostomy out put was reddish yesterday and now stable * REsolving High anion gap acidosis due to lactic acidosis * FLuid around the gb with altered lft needs ultrasound and no clinical evidence of harshal * PRevious colon resection / colostosy * S/p fall and injury to the rt upper ext rule out soft tissue and bony injury ortho on board * Previous c spine surg with djd REC IVF to continue Gentle and watch Can increase and liberate his diet Follow sugar and rx hyperglycemia/hypoglycemia Change to po ppi Tejeda to cont Cardio/renal and gi eval appretiated Benzo with iv lorazepam for tachy and benzo withdrawal and rx of cocaine toxicity Continue heparin Continue to watch his upper extremity No beta or alpha blockers Follow lfts qod Prog guarded
--- NOTE | 2017-10-29 11:03 | PN- Att Addend ---
Attending Addendum Attending Brief Note Patient feeling better. Having urine output Vital signs are stable no fever. No major changes on physical appreciate nephrology's input and recommendations regarding to holding off with hemodialysis continue monitoring kidney function closely the patient is stable to be transferred to telemetry Intake & Output 10/29 040 Intake Total 537 073 5840 1120 1594 1036 Output Total 956 341 3402 550 1650 600 Balance -110 190 -55 570 -56 436 Intake, IV 400 400 785 400 794 476 Intake, Oral 240 440 660 720 800 560 Number 200 Bowel Movements Output, Stool 150 50 300 450 Output, Urine 138 611 5143 550 1200 600 Current Medications Sig/Leigh Ann Start time Last Medication Dose Route Stop Time Status Admin Amlodipine Besylate 2.5 MG DAILY 10/29 912 AC PO Artificial Tears 2 GTT TID 10/28 1400 AC 10/29 OPH 0856 Aspirin 81 MG DAILY 10/24 1300 AC 10/29 PO 0855 Ferrous Sulfate 325 MG BID 10/27 2099 AC 10/29 PO 0856 Levetiracetam 1,500 MG BID 10/26 2099 AC 10/29 PO 0856 Lorazepam 1 MG Q6-PRN PRN 10/23 1999 AC 10/26 IV 0429 Morphine Sulfate 1 MG Q6P PRN 10/23 1999 AC 10/29 IV 0643 Nitroglycerin 0.5 GM Q6 PRN 10/22 2199 AC TOP Non-Formulary 0 SEE ADMIN CRITERIA 10/28 914 DC Medication ANY Omeprazole 40 MG DAILY AC 10/29 07 AC 10/29 PO 0536 Pantoprazole Sodium 40 MG BID 10/23 2099 DC 10/28 IV 0821 Sodium Chloride 1,000 ML Q10H 10/23 2199 AC 10/29 IV 0855 Laboratory Tests 10/29/17 0426: Anion Gap 11, Estimated GFR 6 L, Glucose 120 H, Calcium 7.9 L, Phosphorus 5.3 H, Magnesium 1.8, Total Bilirubin 0.7, AST 104 H, ALT 130 H, Creatine Kinase Pending, Albumin 2.4 L, CBC w Diff NO MAN DIFF REQ, RBC 3.65 L, MCV 83.2, MCH 27.3, MCHC 32.8 L, RDW 14.8 H, MPV 9.2, Gran % 77.6 H, Lymphocytes % 7.0 L, Monocytes % 9.7 H, Eosinophils % 5.4 H, Basophils % 0.3, Absolute Granulocytes 6.9 H, Absolute Lymphocytes 0.6 L, Absolute Monocytes 0.9 H, Absolute Eosinophils 0.5, Absolute Basophils 0 10/28/17 0356: Anion Gap 12, Estimated GFR 6 L, Glucose 99, Calcium 7.8 L, Phosphorus 5.5 H, Magnesium 1.9, Total Bilirubin 0.8, AST 153 H, ALT 158 H, Creatine Kinase 5615 H, Albumin 2.5 L, CBC w Diff NO MAN DIFF REQ, RBC 3.99 L, MCV 82.9, MCH 27.1, MCHC 32.7 L, RDW 14.8 H, MPV 8.9, Gran % 82.0 H, Lymphocytes % 6.3 L, Monocytes % 7.5, Eosinophils % 3.8, Basophils % 0.4, Absolute Granulocytes 7.7 H, Absolute Lymphocytes 0.6 L, Absolute Monocytes 0.7 H, Absolute Eosinophils 0.4, Absolute Basophils 0 10/27/17 1424: CBC w Diff NO MAN DIFF REQ, RBC 4.22 L, MCV 82.7, MCH 27.8, MCHC 33.6, RDW 14.6 H, MPV 9.2, Gran % 87.9 H, Lymphocytes % 4.2 L, Monocytes % 5.9, Eosinophils % 1.8, Basophils % 0.2, Absolute Granulocytes 9.3 H, Absolute Lymphocytes 0.4 L, Absolute Monocytes 0.6, Absolute Eosinophils 0.2, Absolute Basophils 0 10/27/17 0343: Anion Gap 13, Estimated GFR 6 L, Glucose 106 H, Calcium 7.5 L, Phosphorus 5.3 H, Magnesium 2.0, Total Bilirubin 1.1, AST 239 H, ALT 197 H, Alkaline Phosphatase 57, Creatine Kinase 52210 H, Albumin 2.6 L, PT 13.1 H, INR 1.20 H, CBC w Diff MAN DIFF ORDERED, RBC 4.43 L, MCV 82.6, MCH 27.2, MCHC 32.9 L, RDW 14.7 H, MPV 8.3, Gran % 89.3 H, Lymphocytes % 3.9 L, Monocytes % 5.8, Eosinophils % 0.7, Basophils % 0.3, Absolute Granulocytes 11.7 H, Segmented Neutrophils 91 H, Absolute Lymphocytes 0.5 L, Lymphocytes 3 L, Monocytes 6, Absolute Monocytes 0.8 H, Absolute Eosinophils 0.1, Absolute Basophils 0, Platelet Estimate ADEQUATE, Polychromasia 1+, Hypochromic-Microcytic 1+, Ovalocytes FEW, Fld Total RBCs Counted 100 Vital Signs Date Time Temp Pulse Resp B/P B/P Pulse O2 O2 Flow FiO2 Mean Ox Delivery Rate 10/29 08 98.2 86 22 142/68 10/29 0800 96 Room Air Room Air 10/29 0800 98.2 86 22 142/68 98 Room Air Room Air 10/29 0400 99 Room Air 10/29 0000 99 Room Air 10/28 2345 98.3 88 26 158/96 99 Room Air 10/28 2000 98 Room Air 10/28 1800 98.2 76 28 167/95 10/28 1600 99.5 70 16 158/90 10/28 1600 96 Room Air Room Air 10/28 1600 98.2 78 18 156/97 99 Room Air Room Air
--- NOTE | 2017-10-29 12:12 | PN- Nephrology ---
Assessment/Plan Nephrology Assessment: JEAN - cocaine induced rhabdo. Cr finally plateaued. GFR likely around 5 cc/min. No emergent need for dialysis and hopefully will recover soon Follow daily labs/ supportive care. Yannick Dunne MD Suggestion: . Subjective Subjective: Pt comfortable. Cr 9.7 stable Objective Vital Signs and I&Os 160/80 80 98.2 Lungs clear Cor RRR Abd soft Ext neg edema Results Pertinent Lab Results: 141 / 109 / 69 / 3.6 / 22 / 9.7 (9.7) U.O 2L /24 hrs
[2017-10-29 14:47] VITALS: BP 172/100
--- NOTE | 2017-10-29 15:29 | Transfer of Care Summary ---
Hospital Course Course Hospital Course: Mr Cabrales is a 52 year old man w/ a PMHx of polysubstance abuse, benzodiazepine use, Seizures, Asthma, Crohns disease( dx'ed 1988, s/p colon resection w/ colostomy bag ), h/o rectal fistula, cervial spine radiculopathy, anxiety was brought to the hospital with a chief concern of altered mental status, and unresponsiveness on a.m. of 10/22/2017. Reported recreational use of cocaine the night prior to the admission. He was found to be unresponsive by the patient's family, and was found to be covered in dark vomitus at that time, and did not respond to verbal or tactile stimuli. and was given Narcan. He also fell on the right side of the chest and reported injury to the right arm and shoulder. At the time of admission-Vitals temp 97.1, MN 84, BP 70/44 ( improved to 123/66 after fluid resuscitation ), pulse ox 87% on room air. Pertinent lab findings- WBC 28.3 (10/22) bands 19-->10.3(10/26) Platelet count 280(10/22)-->122(/) Hb 16.3(/)-->11.3(/8) Electrolytes: Sodium 140(/)-->139(/8) Potassium 7.3 (5/4)-->3.9(5/5) Chloride 92(/)-->104(/8) Calcium 8.4 (/),5.7(/)-->6.9(/8) Phosphorous 7.8(/)-->4.7(/8) Liver chemistries: AST 338(5/)-->908(5/5)-->975 (5/5)-->340(/8) ALT 165(5/4)-->381(5/4)-->454(5/5)-->230(/8) Alk phos 127(/)-->56(/8) Alb 3.0 INR- 1.39(10/22)-->1.24(/8) Renal funciton: BUN 20(5/4)-->27 (5/5)-->56(5/8) Sr Cr 3.4 (5/4)-->3.4 (5/5)-->8.7(5/8) Glucose 211 Lactic acid: 9.6-->4.6-->1[place] [address]-->85[address]-->60806(5/8) Troponin I 1.05-->1.25-->0.85 PH 7.12, PCO2 37, PO2 85 pH 7.29, PCO2 44, PO2 86 Normal osmolal gap. U tox negative for salicylates, opiates 1659, negative for Tylenol, benzodiazepines greater than 800, cocaine greater than 1000, alcohol less than 10. EKG showed mckinnon waves, and non specific repolarization abnormaliites. No STTWI. Cultures: 1. Blood- negative 2. Respiratory- negative 3. Urine- negative Imaging: CT ABD & PELVIS W/O IV CONTRAST and CT CHEST WO IV CONTRAST 1. Fluid around the gallbladder and inferior right lobe of liver. This raises question of biliary disease. This can be further assessed with right upper quadrant ultrasound. 2. Status post colostomy. Status post resection of the left colon with placement of a Todd's pouch. No acute change of the bowel. 3. Nonobstructive 2 mm stone in the midpole of left kidney. No hydronephrosis. CT CERV SPINE WO IV CONTRAST; CT HEAD WO IV CONTRAST Head: No acute intracranial hemorrhage. There are multiple foci of the venous gas within the neck and face that were presumably introduced with line placement. Cervical spine: No acute cervical spinal fracture. There chronic changes of an anterior cervical discectomy and fusion at C6-C7. Bridging bone fuses the C5-C7 vertebral segments. US-LIMITED ABDOMEN Gallbladder wall thickening. No gallstones are seen. Trace pericholecystic fluid also present. These findings can be seen in the setting of liver disease, although acalculus cholecystitis is not excluded. There is hepatomegaly with increased hepatic echogenicity and coarse liver echotexture. While this could represent hepatic steatosis, underlying liver disease is also possible. XRY-SHOULDER COMPLETE-RIGHT No fracture. No dislocation. The glenohumeral joint and acromioclavicular joint are normal. No soft tissue calcification. Orthopedic plate and screw at lower cervical spine. XRY-PORTABLE CHEST XRAY Subtle coarsening bronchovascular markings bilateral infrahilar regions. This could be related to aspiration. Lungs otherwise clear. No effusion. Problem list: 1. Cocaine toxicity 2. Rhabdoymyolysis 4. Acute kidney injury 5. Anion gap metabolic acidosis 6. Leucocytosis, Sepsis 7. Lactic acidosis 8. Acute liver injury 9. Upper GI bleed 10. Hypocalcemia 11. Hyperphosphatemia 13. Hyperkalemia 14. h/o Crohns s/p colostomy 15. Right shoulder injury 16. Elevated cardiac enzymes secondary to cocaine use 17. Hypomagnesemia 18. Polysubstance abuse 19. Chronic benzodiazepine use. 20. h/o seizures Plan: He was admitted to intensive care unit for the management of acute kidney injury , elevated troponin in the setting of coacine abuse, he was seen by fuels engineer who attributed the elevation to demand ischemia, no evidence of coronary spasm and no myocardial damage observed on echocardiogram, thus the patient likely had mild coronary spasms during his episode of cocaine consumption as well as demand ischemia in the setting of acidosis. however they recommended to be notified if the patient has any chest pain, also B-blockers should be avoided. He has rhabdomyolysis, acute kidney injury. He was initially hypotensive, and responded to fluid challenge. Vitals remained stable while he was in the intensive care unit. Troponin I: 1.05-->1.25-->0.85. Severe rhabdomyolysis secondary to cocaine use, with peak CK of greater than 100 ,000, and was trended down. This likely led to severe JEAN, with worsening sr creatinine and BUN. As per nephrology, the plan is to continue hydration, no plan for dialysis in the meantime. His electrolyte abnormalities is resolved, currently he has borderline low K which we are not repleting giving the JEAN. Other issues, of elevated AST+ALT and normal Alk phos was due acute liver failure, rhabdomyolysis contributing to elevated AST or cocaine induce transaminitis were in the differential. US abdomen and CT adomen was negative for any acute pathology. While he was in the ICU, liver enzymes improved. Since he fell on the right side of the arm, and was found to have pain and swelling in the RUE, CT scan was done to rule out any acute pathology. Orthopedic surgery was consulted, who recommended conservative management at this time. He also recommended physical therapy at the time of discharge. #1 DVT prophylaxis- Alps giving dropping H&H #2 diet advanced as tolerated. #3 full-code #1 Central line- none #2 Arterial line- none #3 Goetz catheter- present 10/22/17 #4 Rectal tube- none. #5 NG tube- none. #6 IV/peripheral line- present 10/22/17 #7 IV drips- NS @50-150ml/hr #8 Vent settings none. #9 pressors- none. Consults: #1 nephrology-Dr. Glez/Dr. Dunne #2 cardiology-Dr. Loomis #3 gastroenterology-Dr. Hong ICU course from 10/27/2017 till 10/29/2017: Patient noted to have elevated Creatinine/BUN: 9.5/65,9.765, 9.69, he is actively followed by windows systems engineer who recommended to continue hydration, as his creatinine plateauted there is no plan for dialysis in the meantime. He needs daily lab to assess kidney funtion. At 10/27/2017: Output from colostomy bag noted to be maroon color stool (Guaic positive), which becomes green in color in the next with a noticed drop in H&H. he was complaining of abdominal pain at the site of colostomy bag he totally refused to be evaluated by our GI specialists, he stated that he usually has this kind of bowel movement which is related to Crohn's disease, he is very determined that he doesn't want to be evaluated by our GI specialists and he stated that he is going to talk to his GI doctor Dr. Lavell Martin at [facility]. If at any point his H&H dropped or he became hemodynamically unstable further plan to follow such as transfusion, and discuss with him again to be evaluated by our GI team. Will keep him today on IV PPI, if H&H remains stable will switch to po at am. Patient has rahbdomyolysis from pressure injusry to the right shoulder muscle which is sever in the area of the involvement to cause that range of lab changes , he needs to follow up with Dr. Carr at his office after 4-6 weeks of outpatient PT or sooner if he fails to improve at all (even slowly) over the next few weeks or worsens at any point in the interim. He is a very good candidate for an inpatient rehabilitation program both to accelerate any return that he can get with regard to right shoulder function but also as an adjunct to medication and drug abuse rehabilitation so as to minimize his risk of recurrence or other (potentially more severe) consequences of his underlying causative issues. -RUE DVT ruled out with dopper at 10/28/2017. -He has a goetz catheter -PT/OT working with the patient Complications: Non Pertinent Lab Results: As above Assessment/Plan: As above causative issues. -RUE DVT ruled out with dopper at 10/28/2017. Complications: Non Pertinent Lab Results: As above Assessment/Plan: 2. Infectious- leukocytosis. Completed course of antibiotic with Unacyn for possible aspiration penumonia 3. Circulatory- elevated cardiac enzymes, hypotension patient had some cocaine induced cardiac ischemia with slightly elevated cardiac enzymes, which trended down, without evidence of STEMI. Severe rhabdomyolysis due to cocaine overdose with accompanying rise in troponins without evidence of ongoing coronary spasm or thrombus upon admission. Mild anterolateral hypokinesis related to spasm during the event, without complete occlusion to blood flow/STEMI (modest rise in troponins, no akinesis on echocardiogram). - Cardiac enzymes trended 1.05, 1.25, 0.85 - Monitor for any chest pain, dyspnea - For tachycardia, avoid all beta blockers at this time. - Use nitroglycerin, or calcium channel blockers if needed as per fuels engineer. - Treat hypotension with fluids. - continue baby aspirin - ECHO showed mild hypokinesis of mid to distal anterolateral wall, ejection fraction 55% - Maintain telemetry as he is still at risk of delayed of coronary vasospams. - Appreciate cardio recommendations 4. Metabolic-acute kidney injury, rhabdomyolysis, electrolyte abnormalities Etiology in his case is likely acute cocaine toxicity, likely leading to electrolyte abnormalities, rhabdomyolysis, hypocalcemia,hyperkalemia and acute kidney injury. He had anion gap metabolic acidosis, and normal osmolal gap likely from JEAN and cocaine use, which is normalized with NaHCO3 drip. Hyperkalemia is due to rhabdomyolysis and JEAN. Other electrolytes such as hypocalcemia ( corrected low ), and hyperphosphatemia is due to his rhabdomyolysis. - Continue to monitor CK DAILY-trending down today [id number] from - Check electrolytes, kidney functions daily - Worsening creatinine 7, 7.6, 8.7, 9.5, 9.7 and today 9.7 Seen by windows systems engineer today who recommended to continue supportive care as his kidney is plateaued -Currently on IV NS @50ml per hour - off note patient has good urine output 45-65 mL per hour - Low threshold for dialysis. - Dialysis in case of fluid overload, hyperkalemia, severe acidosis, uremia. - Monitor blood glucose levels given acute liver injury, and rhabdomyolysis - Strict ins and outs. -Appreciate nephro recommendations Patient has rahbdomyolysis from pressure injusry to the right shoulder muscle which is sever in the area of the involvement to cause that range of lab changes , he needs to follow up with Dr. Carr at his office after 4-6 weeks of outpatient PT or sooner if he fails to improve at all (even slowly) over the next few weeks or worsens at any point in the interim. He is a very good candidate for an inpatient rehabilitation program both to accelerate any return that he can get with regard to right shoulder function but also as an adjunct to medication and drug abuse rehabilitation so as to minimize his risk of recurrence or other (potentially more severe) consequences of his underlying causative issues. 5. Hematology-monitor leukocytosis - H&H continue to drop today it's 9.9/30.4 it was 10.8/33.1 - Platelet stable -Green output from colostomy bag 6. Alimentary-transaminitis, upper GI bleed He has elevated AST+ALT and normal Alk phos could be due to acute liver failure, rhabdomyolysis contributing to elevated AST or cocaine induce transaminitis. US abdomen and CT adomen negative for any acute pathology.There is no acute GI blood loss at this time, and would attribute this GI bleed to cocaine induced gastritis, and currently on protonix. LFT continue to improve today - monitor for any further bleeding. - Continue Protonix IV 40 bid at this time. tomorrow will switch to PO if remains hemodynamically stable. -refused to be seen by GI anymore, he wanted to talk to his GI doctor Dr. Lavell Martin at [facility]. If at any point his H&H dropped or he became hemodynamically unstable further plan to follow such as transfusion, and discuss with him again to be evaluated by our GI team. - Strictly no NSAIDs - If needed, would need Tylenol very conservatively. -Follow-up daily LFT, INR -On iron supplements 7. Neurology- paresthesias in right upper extremity Patient has right upper extremity pain, swelling, paresthesia status post fall .CT of the right arm showed scattered bubbles of air in the subcutaneous tissues distal to the catheter. There is scattered nonspecific subcutaneous edema. ortho was consulted to evaluate right upper extremity pain for any compartment syndrome. No recommendations were provided, ruled out compartment syndrome. Ultrasound Doppler was done, ruled out DVT. -Elevation of extremity, warm compressers - pain management Cocaine overdose/benzo withdrawal/polysubstance abuse - Benzodiazepines for cocaine use and avoid benzodiazepine withdrawal. - He should be on seizure precautions, since cocaine can cause decrease seizure threshold. -Continue home dose of Keppra 1500 mg twice daily other chronic medical problems crohns- Prior colon resection, w/ colostomy bag depression -Lexapro 20 mg daily on hold seizures -Keppra 750 mg, 4 pills/24 hours Insomina- Ambien 10 mg qhs on hold anxiety- Xanax 0.5 mg 4 pills/24 hours on hold #1 DVT prophylaxis- Alps/sc heparin #2 regular diet with low potassium #3 full-code
[2017-10-29 15:39] VITALS: BP 166/98
[2017-10-29 19:07] VITALS: BP 17/90
--- NOTE | 2017-10-29 21:10 | ULTRASOUND REPORT ---
EXAMINATION: US TRIPLEX LOWER EXTREMITY, RIGHT CLINICAL INFORMATION: Edema. COMPARISON: Duplex Doppler ultrasound study 11/08/2012 TECHNIQUE: Color-flow triplex imaging with spectral analysis and compression Doppler were performed on the lower extremity. FINDINGS: Respiratory variation, normal compression and augmented flow are noted throughout the lower extremity. The visualized common femoral vein, superficial femoral vein, profunda femoral vein, popliteal vein and midcalf peroneal and posterior tibial venous segments show no evidence of deep venous thrombosis. There is no Santo's cyst. IMPRESSION: Normal triplex scan without evidence of deep venous thrombosis involving the lower extremity.
[2017-10-29 22:31] VITALS: BP 162/90
[2017-10-30 06:57] VITALS: BP 120/80
[2017-10-30 08:09] LABS: ABSOLUTE BASOPHIL COUNT 0 /CUMM (0.0-0.2); ABSOLUTE EOSINOPHIL COUNT 0.6 /CUMM (0.0-0.7); ABSOLUTE GRANULOCYTE CT 7.1 /CUMM (1.4-6.5); ABSOLUTE LYMPH COUNT 0.7 /CUMM (1.2-3.4); ABSOLUTE MONOCYTE COUNT 0.9 /CUMM (0.10-0.60); BASOPHIL % 0.3 % (0.0-2.0); EOSINOPHIL % 6.4 % (0-5); GRANULOCYTE % 75.7 % (42.2-75.2); HEMATOCRIT 32.2 % (42-52); MEAN CORPUSCULAR HGB 27.2 PG (27.0-31.0); MEAN CORPUSCULAR HGB CONC 32.5 G/DL (33.0-37.0); MEAN CORPUSCULAR VOLUME 83.8 FL (80.0-94.0); MEAN PLATELET VOLUME 8.9 FL (7.4-10.4); PLATELET COUNT 180 /CUMM (130-400); RBC DISTRIBUTION WIDTH 15.2 % (11.5-14.5); RED BLOOD CELL CT 3.85 /CUMM (4.70-6.10); WHITE BLOOD CELL COUNT 9.4 /CUMM (4.8-10.8)
--- NOTE | 2017-10-30 08:19 | PN- Nephrology ---
Assessment/Plan Nephrology Assessment: JEAN. Cr finally starting to fall. Continue support IVF. Continue daily labs Yannick Dunne MD Suggestion: . Subjective Subjective: Doing well. Out of ICU now Objective Vital Signs and I&Os Pleasant M NAD 120/90 76 98.8 Lungs clear Cor RRR Abd soft Ext neg edema ssssssssss Results Pertinent Lab Results: 143 / 108 / 66 / 3.5 / 23 / 9.0\
--- NOTE | 2017-10-30 09:03 | PN- Housestaff ---
Subjective Follow-up For: 1. Cocaine toxicity 2. Rhabdoymyolysis 3. Acute kidney injury 4. Upper GI bleed 5. h/o Crohns s/p colostomy 6. Right shoulder injury 7. Elevated cardiac enzymes secondary to cocaine use 8. Hypomagnesemia 9. Polysubstance abuse 10. Chronic benzodiazepine use. 11. h/o seizures Tele-Events Since Last Visit: Sinus rhythm with HR [id number] Subjective: Patient was seen and examined at bedside. He is resting comfortably. He had no acute events overnight. He states that he is feeling better than yesterday. He is currently complaining of right arm pain and swelling, which is unchanged. He rates the pain at about a 7/10, and says that it is a dull pain, he also complains of mild back pain. He currently has no other complaints and denies any chest pain, shortness of breath, palpitations, nausea, vomiting, fever, chills. Review of Systems Constitutional: Reports: no symptoms. Objective Last 24 Hrs of Vital Signs/I&O Vital Signs Date Time Temp Pulse Resp B/P B/P Pulse O2 O2 Flow FiO2 Mean Ox Delivery Rate 10/30 1600 97 10/30 1432 98.5 92 18 162/90 97 Room Air 10/30 0850 76 120/80 10/30 0657 98.8 76 18 120/80 97 Room Air 10/29 2231 98.8 75 20 162/90 95 Room Air 10/29 2156 85 162/90 Intake & Output 10/30 1600 10/30 0800 10/30 0000 Intake Total 900 640 930 Output Total 1100 900 600 Balance -200 -260 330 Intake, IV 400 300 150 Intake, Oral 500 340 780 Number 1 1 Bowel Movements Output, Stool 300 Output, Urine 800 900 600 Patient 172 lb Weight Weight Bed scale Measurement Method Physical Exam General Appearance: Alert, Oriented X3, Cooperative, No Acute Distress Skin Temp/Moisture Exam: Warm/Dry Cardiovascular: Regular Rate, Normal S1, Normal S2 Lungs: Clear to Auscultation, Normal Air Movement Abdomen: Normal Bowel Sounds, Soft, No Tenderness, ostomy site is not erythematous or painful Current Medications: Current Medications Sig/Leigh Ann Start time Last Medication Dose Route Stop Time Status Admin Albuterol Sulfate 2 PUF Q4P PRN 10/29 1615 AC 10/29 INH 1840 Amlodipine Besylate 5 MG DAILY 10/30 0900 AC 10/30 PO 0850 Artificial Tears 2 GTT TID 10/28 1400 AC 10/30 OPH 2056 Aspirin 81 MG DAILY 10/24 1300 AC 10/30 PO 0850 Chlorpromazine 25 MG ONCE ONE 10/30 0615 DC 10/30 PO 10/30 0616 0702 Ferrous Sulfate 325 MG BID 10/27 2100 AC 10/30 PO 2056 Levetiracetam 1,500 MG BID 10/26 2100 AC 10/30 PO 2056 Lorazepam 1 MG Q6-PRN PRN 10/22 2000 AC 10/26 IV 0429 Morphine Sulfate 1 MG Q4 HRS NEEDED PRN 10/29 1730 AC 10/30 IV 205 Nitroglycerin 0.5 GM Q6 PRN 10/220 AC TOP Omeprazole 40 MG DAILY AC 10/29 0700 AC 10/29 PO 0536 Ondansetron HCl 4 MG ONCE ONE 10/30 0345 DC 10/30 PO 10/30 0346 0333 Sodium Chloride 1,000 ML Q10H 10/23 2200 AC 10/30 IV 0316 Tiotropium [place] 1 PUF DAILY 10/29 1603 AC INH Last 24 Hrs of Lab/Sean Results Last 24 Hrs of Labs/Mics: Laboratory Tests 10/30/17 0640: Anion Gap 13, Estimated GFR 6 L, BUN/Creatinine Ratio 7.3, Creatine Kinase 1159 H, CBC w Diff NO MAN DIFF REQ, RBC 3.85 L, MCV 83.8, MCH 27.2, MCHC 32.5 L, RDW 15.2 H, MPV 8.9, Gran % 75.7 H, Lymphocytes % 7.7 L, Monocytes % 9.9 H, Eosinophils % 6.4 H, Basophils % 0.3, Absolute Granulocytes 7.1 H, Absolute Lymphocytes 0.7 L, Absolute Monocytes 0.9 H, Absolute Eosinophils 0.6, Absolute Basophils 0 Assessment/Plan Assessment: Mr Cabrales is a 52 year old man w/ a PMHx of polysubstance abuse, benzodiazepine use, Seizures, Asthma, Crohns disease( dx'ed 1988, s/p colon resection w/ colostomy bag ), h/o rectal fistula, cervial spine radiculopathy, anxiety was brought to the hospital with a chief concern of altered mental status, and unresponsiveness on a.m. of 10/22/2017. #type II ID Patient had mildly elevated troponins which peaked at 1.25 in the setting of JEAN.ECHO showed mild hypokinesis of mid to distal anterolateral wall, ejection fraction 55% -Continue ASA #Acute renal failure with rhabdomyolysis -will continue to monitor CK levels, trending down -Continue IV hydration -Continue to monitor renal function daily, creatinine trending down -No further recommendations appreciated -Strict I's and O's, Tejeda in place -Patient continues to complain of right arm pain and swelling, he states it is minimally improved from previous days Patient has rahbdomyolysis from pressure injusry to the right shoulder muscle which is sever in the area of the involvement to cause that range of lab changes , he needs to follow up with Dr. Carr at his office after 4-6 weeks of outpatient PT or sooner if he fails to improve at all (even slowly) over the next few weeks or worsens at any point in the interim. He is a very good candidate for an inpatient rehabilitation program both to accelerate any return that he can get with regard to right shoulder function but also as an adjunct to medication and drug abuse rehabilitation so as to minimize his risk of recurrence or other (potentially more severe) consequences of his underlying causative issues. #Transaminitis, upper GI bleed He has elevated AST+ALT and normal Alk phos could be due to acute liver failure, rhabdomyolysis contributing to elevated AST or cocaine induce transaminitis. US abdomen and CT adomen negative for any acute pathology.There is no acute GI blood loss at this time, and would attribute this GI bleed to cocaine induced gastritis, and currently on protonix. LFT continue to improve today - monitor for any further bleeding. - Continue Protonix IV 40 bid at this time. tomorrow will switch to PO if remains hemodynamically stable. -refused to be seen by GI anymore, he wanted to talk to his GI doctor Dr. Lavell Martin at [place]. If at any point his H&H dropped or he became hemodynamically unstable further plan to follow such as transfusion, and discuss with him again to be evaluated by our GI team. - Strictly no NSAIDs - If needed, would need Tylenol very conservatively. -Follow-up daily LFT, INR -On iron supplements 7. Neurology- paresthesias in right upper extremity Patient has right upper extremity pain, swelling, paresthesia status post fall .CT of the right arm showed scattered bubbles of air in the subcutaneous tissues. There is scattered nonspecific subcutaneous edema. ortho was consulted to evaluate right upper extremity pain for any compartment syndrome. No recommendations were provided, ruled out compartment syndrome. Ultrasound Doppler was done, ruled out DVT. -Elevation of extremity, warm compressers - pain management Cocaine overdose/benzo withdrawal/polysubstance abuse - Benzodiazepines for cocaine use and avoid benzodiazepine withdrawal. - He should be on seizure precautions, since cocaine can cause decrease seizure threshold. -Continue home dose of Keppra 1500 mg twice daily other chronic medical problems crohns- Prior colon resection, w/ colostomy bag depression -Lexapro 20 mg daily on hold seizures -Keppra 750 mg, 4 pills/24 hours Insomina- Ambien 10 mg qhs on hold anxiety- Xanax 0.5 mg 4 pills/24 hours on hold #1 DVT prophylaxis- Alps/sc heparin #2 regular diet with low potassium #3 full-code Problem List: 1. Drug overdose 2. Acute kidney injury 3. Demand ischemia of myocardium Pain Ratin Pain Location: RUE Pain Goal: Pain 7 or less Pain Plan: pain pathway Tomorrow's Labs & Rationales: CK, BEP, CBC
--- NOTE | 2017-10-30 12:46 | PN- Pulmonary ---
Subjective HPI/Critical Care Issues: Relatively stable doing well Urine output adequate Creatinine finally coming down Still has right upper extremity swelling and his swelling seems to be reducing Objective Current Medications: Current Medications Sig/Leigh Ann Start time Last Medication Dose Route Stop Time Status Admin Albuterol Sulfate 2 PUF Q4P PRN 10/29 1615 AC 10/29 INH 1840 Amlodipine Besylate 5 MG DAILY 10/30 0900 AC 10/30 PO 0850 Amlodipine Besylate 2.5 MG ONCE ONE 10/29 214 DC 10/29 PO 10/29 2145 2156 Amlodipine Besylate 5 MG ONCE ONE 10/29 1545 DC 10/29 PO 10/29 1546 1906 Amlodipine Besylate 2.5 MG DAILY 10/29 0913 DC 10/29 PO 1153 Artificial Tears 2 GTT TID 10/28 1400 AC 10/30 OPH 0850 Aspirin 81 MG DAILY 10/24 1300 AC 10/30 PO 0850 Chlorpromazine 25 MG ONCE ONE 10/30 0615 DC 10/30 PO 10/30 0616 0702 Ferrous Sulfate 325 MG BID 10/27 2100 AC 10/30 PO 0850 Levetiracetam 1,500 MG BID 10/26 2100 AC 10/30 PO 0850 Lorazepam 1 MG Q6-PRN PRN 10/22 2000 AC 10/26 IV 0429 Morphine Sulfate 1 MG Q4 HRS NEEDED PRN 10/29 1730 AC 10/30 IV 0653 Morphine Sulfate 1 MG Q6P PRN 10/23 1999 DC 10/29 IV 1352 Nitroglycerin 0.5 GM Q6 PRN 10/22 2200 AC TOP Nystatin 5 ML 4 TIMES/DAY 10/30 2135 DC PO Omeprazole 40 MG DAILY AC 10/29 0700 AC 10/29 PO 0536 Ondansetron HCl 4 MG ONCE ONE 10/30 0345 DC 10/30 PO 10/30 0346 0333 Sodium Chloride 1,000 ML Q10H 10/23 2200 AC 10/30 IV 0316 Tiotropium [place] 1 PUF DAILY 10/29 1603 AC INH Zolpidem Tartrate 10 MG ONCE ONE 10/29 2144 DC 10/29 PO 10/29 2145 2153 Vital Signs & I&O Last 24 Hrs of Vitals and I&O: Vital Signs Date Time Temp Pulse Resp B/P B/P Pulse O2 O2 Flow FiO2 Mean Ox Delivery Rate 10/30 0850 76 120/80 10/30 0657 98.8 76 18 120/80 97 Room Air 10/29 2231 98.8 75 20 162/90 95 Room Air 10/29 2156 85 162/90 10/29 1907 76 17/90 10/29 1906 70 170/90 10/29 1600 96 Room Air 10/29 1539 74 166/98 10/29 1447 98.2 75 20 172/100 98 Room Air Intake & Output 10/30 1600 10/30 0800 10/30 0000 Intake Total 640 930 Output Total 900 600 Balance -260 330 Intake, IV 300 150 Intake, Oral 340 780 Number 1 Bowel Movements Output, Urine 900 600 Patient 172 lb Weight Weight Bed scale Measurement Method Laboratory Tests 10/30 10/29 0640 0426 Chemistry Sodium (137 - 145 mmol/L) 143 141 Potassium (3.5 - 5.1 mmol/L) 3.5 3.6 Chloride (98 - 107 mmol/L) 108 H 109 H Carbon Dioxide (22 - 30 mmol/L) 23 22 Anion Gap (5 - 16) 13 11 BUN (9 - 20 mg/dL) 66 H 69 H Creatinine (0.7 - 1.2 mg/dL) 9.0 *H 9.7 *H Estimated GFR (>60 ml/min) 6 L 6 L BUN/Creatinine Ratio (7 - 25 %) 7.3 Glucose (65 - 99 mg/dL) 120 H Calcium (8.4 - 10.2 mg/dL) 7.9 L Phosphorus (2.5 - 4.5 mg/dL) 5.3 H Magnesium (1.6 - 2.3 mg/dL) 1.8 Total Bilirubin (0.2 - 1.3 mg/dL) 0.7 AST (17 - 59 U/L) 104 H ALT (21 - 72 U/L) 130 H Creatine Kinase (55 - 170 U/L) 1159 H 2376 H Albumin (3.5 - 5.0 g/dL) 2.4 L Hematology CBC w Diff NO MAN DIFF REQ NO MAN DIFF REQ WBC (4.8 - 10.8 /CUMM) 9.4 8.9 RBC (4.70 - 6.10 /CUMM) 3.85 L 3.65 L Hgb (14.0 - 18.0 G/DL) 10.5 L 9.9 L Hct (42 - 52 %) 32.2 L 30.4 L MCV (80.0 - 94.0 FL) 83.8 83.2 MCH (27.0 - 31.0 PG) 27.2 27.3 MCHC (33.0 - 37.0 G/DL) 32.5 L 32.8 L RDW (11.5 - 14.5 %) 15.2 H 14.8 H Plt Count (130 - 400 /CUMM) 180 146 MPV (7.4 - 10.4 FL) 8.9 9.2 Gran % (42.2 - 75.2 %) 75.7 H 77.6 H Lymphocytes % (20.5 - 51.1 %) 7.7 L 7.0 L Monocytes % (1.7 - 9.3 %) 9.9 H 9.7 H Eosinophils % (0 - 5 %) 6.4 H 5.4 H Basophils % (0.0 - 2.0 %) 0.3 0.3 Absolute Granulocytes (1.4 - 6.5 /CUMM) 7.1 H 6.9 H Absolute Lymphocytes (1.2 - 3.4 /CUMM) 0.7 L 0.6 L Absolute Monocytes (0.10 - 0.60 /CUMM) 0.9 H 0.9 H Absolute Eosinophils (0.0 - 0.7 /CUMM) 0.6 0.5 Absolute Basophils (0.0 - 0.2 /CUMM) 0 0 Impression/Plan Impression/Plan Impression/Plan: Head: atraumatic, normal appearance Eyes: Bilateral: normal appearance, PERRL, EOMI. Ears, Nose, Throat: hearing grossly normal Neck: posterior cervical tenderness without deformity Respiratory: normal breath sounds, no respiratory distress, lungs clear, abrasion to left chest Cardiovascular: regular rate/rhythm Gastrointestinal: normal bowel sounds, soft, non-tender, no organomegaly, colostomy bag present Back: normal inspection, normal range of motion Extremities: tenderness to right shoulder with limited ROM no sig evidence of necrotizing fascitis, swelling persists Neurologic/Psych: awake, alert, oriented x 3 IMPRESSION Patient is a 52-year-old male with history of seizure disorder, polysubstance abuse, asthma, crohn's disease s/p colostomy, arthritis and anxiety presents to the ER with decreased mental status with drug overdose with multiple substances, (prob unintentional) issues * Acute renal failure due to rhabdo due to cocaine and rt upper ext injury and swelling,,worsening creatinine but has adequate urineoutput, on IV fluids * Resolved Sig met acidosis with muliple organ failure and dysfunction * Cocaine and benzo od better * Improving Severe Rhabdo sig no evidence of necrotizing fascitis, but pt has rt arm pain, and swelling ct noted and clinically seems to have improved pain, but swelling persists * Hypocalcemia and hence FAD has been stopped * Acute [place] due to cocaine and rule out acs, prob cocaine induced heart injury vs mi, with lateral wall changes in the ekg, EKG now stable, echocardiogram does show wall motion abnormality probably related to coronary vasospasm. * Resolved Sig UGI bleed with vomiting with coffeeground on admission, now stable * Still Colostomy out put was reddish yesterday and now stable * REsolving High anion gap acidosis due to lactic acidosis * FLuid around the gb with altered lft needs ultrasound and no clinical evidence of harshal * PRevious colon resection / colostosy * S/p fall and injury to the rt upper ext rule out soft tissue and bony injury ortho on board * Previous c spine surg with djd REC IVF to continue Gentle and watch for pulm edema Follow sugar and rx hyperglycemia/hypoglycemia Change to po ppi Tejeda to cont Continue heparin sub cut Continue to watch his upper extremity for further swelling No beta or alpha blockers Prog guarded
[2017-10-30 14:32] VITALS: BP 162/90
[2017-10-31] VITALS: BP 162/98
[2017-10-31 06:30] VITALS: BP 160/96
--- NOTE | 2017-10-31 08:23 | PN- Housestaff ---
Subjective Follow-up For: 1. Cocaine toxicity 2. Rhabdoymyolysis 3. Acute kidney injury 4. Upper GI bleed 5. h/o Crohns s/p colostomy 6. Right shoulder injury 7. Elevated cardiac enzymes secondary to cocaine use 8. Hypomagnesemia 9. Polysubstance abuse 10. Chronic benzodiazepine use. 11. h/o seizures Tele-Events Since Last Visit: NSR with HR 64-80. No overnight events. Subjective: Patient was seen and examined at bedside. Reports feeling well. Denies any complaints at this time. Review of Systems Constitutional: Reports: no symptoms. Objective Last 24 Hrs of Vital Signs/I&O Vital Signs Date Time Temp Pulse Resp B/P B/P Pulse O2 O2 Flow FiO2 Mean Ox Delivery Rate 10/31 0847 81 160/96 10/31 0630 98.3 81 16 160/96 98 10/31 0000 98.7 81 18 162/98 97 10/30 1600 97 10/30 1432 98.5 92 18 162/90 97 Room Air Intake & Output 10/31 1600 10/31 0800 10/31 0000 Intake Total 540 1030 Output Total 650 1175 Balance -110 -145 Intake, IV 300 350 Intake, Oral 240 680 Output, Stool 350 Output, Urine 650 825 Physical Exam General Appearance: Alert, Oriented X3, Cooperative, No Acute Distress Skin: No Rashes, No Breakdown Skin Temp/Moisture Exam: Warm/Dry Sepsis Skin Exam (color): Normal for Ethnicity HEENT: Atraumatic Cardiovascular: Normal S1, Normal S2, No Murmurs Lungs: Normal Air Movement Abdomen: Soft, No Tenderness Neurological: Normal Speech Extremities: right arm swelling with some tenderness Last 24 Hrs of Lab/Sean Results Last 24 Hrs of Labs/Mics: Laboratory Tests 10/31/17 0705: Anion Gap 11, Estimated GFR 8 L, BUN/Creatinine Ratio 8.4, Creatine Kinase 606 H, CBC w Diff NO MAN DIFF REQ, RBC 3.71 L, MCV 84.1, MCH 27.2, MCHC 32.3 L, RDW 15.1 H, MPV 8.7, Gran % 78.6 H, Lymphocytes % 8.0 L, Monocytes % 7.7, Eosinophils % 5.4 H, Basophils % 0.3, Absolute Granulocytes 7.9 H, Absolute Lymphocytes 0.8 L, Absolute Monocytes 0.8 H, Absolute Eosinophils 0.5, Absolute Basophils 0 Assessment/Plan Assessment: Mr Cabrales is a 52 year old man w/ a PMHx of polysubstance abuse, benzodiazepine use, Seizures, Asthma, Crohns disease( dx'ed 1988, s/p colon resection w/ colostomy bag ), h/o rectal fistula, cervial spine radiculopathy, anxiety was brought to the hospital with a chief concern of altered mental status, and unresponsiveness on a.m. of 10/22/2017. Assessment and Plan: #type II DC Patient had mildly elevated troponins which peaked at 1.25 on 10/22/17 likely in the setting of JEAN. ECHO showed mild hypokinesis of mid to distal anterolateral wall, ejection fraction 55% -Continue ASA #Acute renal failure with rhabdomyolysis -CK trending down. No need to monitor further -Continue IV hydration -Continue to monitor renal function daily, creatinine trending down -Strict I's and O's. Continue Tejeda in place #Transaminitis, upper GI bleed - monitor for any further bleeding. - Continue PO Omeprazole -refused to be seen by GI anymore, he wanted to talk to his GI doctor Dr. Lavell Martin at [place]. If at any point his H&H drops or he becomes hemodynamically unstable further plan to follow such as transfusion, and discuss with him again to be evaluated by our GI team. - Strictly no NSAIDs - If needed, would need Tylenol very conservatively. -Follow-up daily LFT, INR -On iron supplements Paresthesias in right upper extremity Patient has right upper extremity pain, swelling, paresthesia status post fall .CT of the right arm showed scattered bubbles of air in the subcutaneous tissues. There is scattered nonspecific subcutaneous edema. Ultrasound Doppler was done, ruled out DVT. - COntinue Elevation of extremity, warm compressers - pain management Cocaine overdose/benzo withdrawal/polysubstance abuse - Continue seizure precautions -Continue home dose of Keppra 1500 mg twice daily other chronic medical problems crohns- Prior colon resection, w/ colostomy bag depression -Lexapro 20 mg daily on hold seizures -Keppra 750 mg, 4 pills/24 hours Insomina- Ambien 10 mg qhs on hold anxiety- Xanax 0.5 mg 4 pills/24 hours on hold #1 DVT prophylaxis- Alps/sc heparin #2 regular diet with low potassium #3 full-code Problem List: 1. Acute kidney injury Pain Ratin Pain Location: none Pain Goal: Remain pain free Pain Plan: none Tomorrow's Labs & Rationales: CBC, BEP crohns- Prior colon resection, w/ colostomy bag depression -Lexapro 20 mg daily on hold seizures -Keppra 750 mg, 4 pills/24 hours Insomina- Ambien 10 mg qhs on hold anxiety- Xanax 0.5 mg 4 pills/24 hours on hold #1 DVT prophylaxis- Alps/sc heparin #2 regular diet with low potassium #3 full-code Problem List: 1. Acute kidney injury Pain Ratin Pain Location: none Pain Goal: Remain pain free Pain Plan: none Tomorrow's Labs & Rationales: CBC, BEP
[2017-10-31 08:42] LABS: ABSOLUTE BASOPHIL COUNT 0 /CUMM (0.0-0.2); ABSOLUTE EOSINOPHIL COUNT 0.5 /CUMM (0.0-0.7); ABSOLUTE GRANULOCYTE CT 7.9 /CUMM (1.4-6.5); ABSOLUTE LYMPH COUNT 0.8 /CUMM (1.2-3.4); ABSOLUTE MONOCYTE COUNT 0.8 /CUMM (0.10-0.60); BASOPHIL % 0.3 % (0.0-2.0); EOSINOPHIL % 5.4 % (0-5); GRANULOCYTE % 78.6 % (42.2-75.2); HEMATOCRIT 31.2 % (42-52); MEAN CORPUSCULAR HGB 27.2 PG (27.0-31.0); MEAN CORPUSCULAR HGB CONC 32.3 G/DL (33.0-37.0); MEAN CORPUSCULAR VOLUME 84.1 FL (80.0-94.0); MEAN PLATELET VOLUME 8.7 FL (7.4-10.4); PLATELET COUNT 187 /CUMM (130-400); RBC DISTRIBUTION WIDTH 15.1 % (11.5-14.5); RED BLOOD CELL CT 3.71 /CUMM (4.70-6.10)
--- NOTE | 2017-10-31 12:03 | PN- Pulmonary ---
Subjective HPI/Critical Care Issues: Sleeping and creatinine trending down Arm still swollen Objective Current Medications: Current Medications Sig/Leigh Ann Start time Last Medication Dose Route Stop Time Status Admin Albuterol Sulfate 2 PUF Q4P PRN 10/29 1615 AC 10/29 INH 1840 Amlodipine Besylate 5 MG DAILY 10/30 0900 AC 10/31 PO 0847 Artificial Tears 2 GTT TID 10/28 1400 AC 10/31 OPH 0847 Aspirin 81 MG DAILY 10/24 1300 AC 10/31 PO 0847 Ferrous Sulfate 325 MG BID 10/27 2100 AC 10/31 PO 0847 Levetiracetam 1,500 MG BID 10/26 2100 AC 10/31 PO 0847 Lorazepam 1 MG Q6-PRN PRN 10/22 2000 AC 10/26 IV 0429 Morphine Sulfate 1 MG Q4 HRS NEEDED PRN 10/29 1730 AC 10/31 IV 0555 Nitroglycerin 0.5 GM Q6 PRN 10/22 2200 AC TOP Omeprazole 40 MG DAILY AC 10/29 0700 AC 10/29 PO 0536 Sodium Chloride 1,000 ML Q10H 10/23 2200 AC 10/31 IV 0015 Tiotropium [place] 1 PUF DAILY 10/29 1603 AC INH Vital Signs & I&O Last 24 Hrs of Vitals and I&O: Vital Signs Date Time Temp Pulse Resp B/P B/P Pulse O2 O2 Flow FiO2 Mean Ox Delivery Rate 10/31 0847 81 160/96 10/31 0630 98.3 81 16 160/96 98 10/31 0000 98.7 81 18 162/98 97 10/30 1600 97 10/30 1432 98.5 92 18 162/90 97 Room Air Intake & Output 10/31 1600 10/31 0800 10/31 0000 Intake Total 540 1030 Output Total 650 1175 Balance -110 -145 Intake, IV 300 350 Intake, Oral 240 680 Output, Stool 350 Output, Urine 650 825 Laboratory Tests 10/31 10/30 0705 0640 Chemistry Sodium (137 - 145 mmol/L) 142 143 Potassium (3.5 - 5.1 mmol/L) 3.4 L 3.5 Chloride (98 - 107 mmol/L) 109 H 108 H Carbon Dioxide (22 - 30 mmol/L) 22 23 Anion Gap (5 - 16) 11 13 BUN (9 - 20 mg/dL) 62 H 66 H Creatinine (0.7 - 1.2 mg/dL) 7.4 *H 9.0 *H Estimated GFR (>60 ml/min) 8 L 6 L BUN/Creatinine Ratio (7 - 25 %) 8.4 7.3 Creatine Kinase (55 - 170 U/L) 606 H 1159 H Hematology CBC w Diff NO MAN DIFF REQ NO MAN DIFF REQ WBC (4.8 - 10.8 /CUMM) 10.0 9.4 RBC (4.70 - 6.10 /CUMM) 3.71 L 3.85 L Hgb (14.0 - 18.0 G/DL) 10.1 L 10.5 L Hct (42 - 52 %) 31.2 L 32.2 L MCV (80.0 - 94.0 FL) 84.1 83.8 MCH (27.0 - 31.0 PG) 27.2 27.2 MCHC (33.0 - 37.0 G/DL) 32.3 L 32.5 L RDW (11.5 - 14.5 %) 15.1 H 15.2 H Plt Count (130 - 400 /CUMM) 187 180 MPV (7.4 - 10.4 FL) 8.7 8.9 Gran % (42.2 - 75.2 %) 78.6 H 75.7 H Lymphocytes % (20.5 - 51.1 %) 8.0 L 7.7 L Monocytes % (1.7 - 9.3 %) 7.7 9.9 H Eosinophils % (0 - 5 %) 5.4 H 6.4 H Basophils % (0.0 - 2.0 %) 0.3 0.3 Absolute Granulocytes (1.4 - 6.5 /CUMM) 7.9 H 7.1 H Absolute Lymphocytes (1.2 - 3.4 /CUMM) 0.8 L 0.7 L Absolute Monocytes (0.10 - 0.60 /CUMM) 0.8 H 0.9 H Absolute Eosinophils (0.0 - 0.7 /CUMM) 0.5 0.6 Absolute Basophils (0.0 - 0.2 /CUMM) 0 0 Impression/Plan Impression/Plan Impression/Plan: Head: atraumatic, normal appearance Eyes: Bilateral: normal appearance, PERRL, EOMI. Ears, Nose, Throat: hearing grossly normal Neck: posterior cervical tenderness without deformity Respiratory: normal breath sounds, no respiratory distress, lungs clear, abrasion to left chest Cardiovascular: regular rate/rhythm Gastrointestinal: normal bowel sounds, soft, non-tender, no organomegaly, colostomy bag present Back: normal inspection, normal range of motion Extremities: tenderness to right shoulder with limited ROM no sig evidence of necrotizing fascitis, swelling persists Neurologic/Psych: awake, alert, oriented x 3 IMPRESSION Patient is a 52-year-old male with history of seizure disorder, polysubstance abuse, asthma, crohn's disease s/p colostomy, arthritis and anxiety presents to the ER with decreased mental status with drug overdose with multiple substances, (prob unintentional) issues * Improving Acute renal failure due to rhabdo due to cocaine and rt upper ext injury and swelling,,worsening creatinine but has adequate urineoutput, on IV fluids * Resolved Sig met acidosis with muliple organ failure and dysfunction * Cocaine and benzo od better * Improving Severe Rhabdo sig no evidence of necrotizing fascitis, but pt has rt arm pain, and swelling ct noted and clinically seems to have improved pain, but swelling persists * REsolved Acute [place] due to cocaine and rule out acs, prob cocaine induced heart injury vs mi, with lateral wall changes in the ekg, EKG now stable, echocardiogram does show wall motion abnormality probably related to coronary vasospasm. * Resolved Sig UGI bleed with vomiting with coffeeground on admission, now stable * Crohns and colostomy stable * S/p fall and injury to the rt upper ext rule out soft tissue and bony injury ortho on board * Previous c spine surg with djd REC IVF to continue Gentle and watch for pulm edema Follow sugar and rx hyperglycemia/hypoglycemia Change to po ppi Tejeda to cont and can be dcd in am if creat continues to fall Start heparin sub cut Continue to watch his upper extremity for further swelling Cont asa Watch hemoglobin Prog guarded
[2017-10-31 15:02] VITALS: BP 142/84
[2017-10-31 21:20] VITALS: BP 154/84
[2017-11-01 06:27] VITALS: BP 150/92
--- NOTE | 2017-11-01 07:03 | PN- Housestaff ---
Subjective Follow-up For: Rhabdoymyolysis Acute kidney injury Upper GI bleed h/o Crohns s/p colostomy Right shoulder injury Elevated troponins cocaine use Polysubstance abuse benzodiazepine dependence h/o seizures Tele-Events Since Last Visit: sinus rhythm, no events Subjective: no complaints renal function improving, on IVFs, urine output improved spontaneous diuresis, Tejeda right upper and lower extremity edema persists Review of Systems Constitutional: Reports: see HPI. Objective Last 24 Hrs of Vital Signs/I&O Vital Signs Date Time Temp Pulse Resp B/P B/P Pulse O2 O2 Flow FiO2 Mean Ox Delivery Rate 11/01 08 79 176/94 11/01 0805 79 176/94 11/01 0800 Room Air 11/01 0627 98.3 78 18 150/92 97 Room Air 11/01 0000 Room Air 10/31 2120 98.2 76 154/84 98 Room Air 10/31 1502 98.3 80 18 142/84 95 Room Air Intake & Output 11/01 1600 11/01 0800 11/01 0000 Intake Total 600 280 Output Total 1200 650 Balance -600 -370 Intake, IV 400 180 Intake, Oral 200 100 Output, Urine 1200 650 Patient 78.67 kg Weight Physical Exam General Appearance: Alert, Oriented X3, Cooperative, No Acute Distress Cardiovascular: Regular Rate, Normal S1, Normal S2, No Murmurs Lungs: Clear to Auscultation, Normal Air Movement Abdomen: Normal Bowel Sounds, Soft, No Tenderness, No Masses, +Tejeda, +colostomy Extremities: No Clubbing, No Cyanosis, Normal Pulses, RUE/RLE 2+ pitting edema Current Medications: Current Medications Sig/Leigh Ann Start time Last Medication Dose Route Stop Time Status Admin Albuterol Sulfate 2 PUF Q4P PRN 10/29 1615 AC 10/29 INH 1840 Amlodipine Besylate 5 MG DAILY 10/30 0900 AC 11/01 PO 08 Artificial Tears 2 GTT TID 10/28 1400 AC 11/01 OPH 0810 Aspirin 81 MG DAILY 10/24 1300 AC 11/01 PO 08 Ferrous Sulfate 325 MG BID 10/27 2100 AC 11/01 PO 08 Heparin Sodium 5,000 UNIT Q8 10/31 1400 AC 11/01 (Porcine) SC 0600 Levetiracetam 1,500 MG BID 10/26 2100 AC 11/01 PO 08 Lorazepam 1 MG Q6-PRN PRN 10/23 1999 AC 11/01 IV 0041 Morphine Sulfate 1 MG Q4 HRS NEEDED PRN 10/29 1730 AC 11/01 IV 0723 Nitroglycerin 0.5 GM Q6 PRN 10/22 2199 AC TOP Omeprazole 40 MG DAILY AC 10/29 0700 AC 11/01 PO 0600 Sodium Chloride 1,000 ML Q10H 10/23 2199 AC 11/01 IV 0605 Tiotropium [place] 1 PUF DAILY 10/29 1603 AC INH Last 24 Hrs of Lab/Sean Results Last 24 Hrs of Labs/Mics: Laboratory Tests 11/01/17 0620: Anion Gap 9, Estimated GFR 11 L, BUN/Creatinine Ratio 9.5, Total Bilirubin 0.8, Direct Bilirubin 0.3, AST 38, ALT 85 H, Alkaline Phosphatase 49, Total Protein 4.8 L, Albumin 2.4 L, CBC w Diff NO MAN DIFF REQ, RBC 3.53 L, MCV 84.3, MCH 27.1, MCHC 32.2 L, RDW 15.4 H, MPV 8.8, Gran % 78.6 H, Lymphocytes % 8.4 L, Monocytes % 7.8, Eosinophils % 4.7, Basophils % 0.5, Absolute Granulocytes 8.5 H, Absolute Lymphocytes 0.9 L, Absolute Monocytes 0.9 H, Absolute Eosinophils 0.5, Absolute Basophils 0.1 Assessment/Plan Assessment: 52 year old man with PMHx of polysubstance abuse, seizures, Crohns disease s/p colectomy/colostomy was BIBA unresponsive, suspected overdose vs seizure, rhabdomyolysis and acute kidney injury, likely ATN, resolving without dialysis. Type II NSTEMI: Elevated troponins which peaked at 1.25, trending down Echocardiogram showed mild hypokinesis anterolateral wall, LVEF 55% Continue ASA, no beta aaron with cocaine use Urine toxicology was positive for cocaine Acute kidney injury in the setting of rhabdomyolysis: CK trending down. No need to monitor further Nephrology consultation, follow up recommendations Continue IV hydration NS @ 50cc/hr, Tejeda catheter, strict I/Os Trend renal function daily Creatinine trending down, peaked at 9.7 now 5.5 Upper GI bleed: Hematemesis, with maroon guiaic positive colostomy PO PPI GI doctor Dr. Lavell Martin at [place] CBC stable No NSAIDs Continue iron supplementation Paresthesia RUE: CT of the right arm showed air subcutaneous tissues and subcutaneous edema Ultrasound Doppler was done, ruled out DVT. Continue right extremity elevation for edema Continue analgesia Hopefully edema will improve with improved renal function, mobilization of fluids Seizures: Continue Keppra 1500 mg twice daily Continue seizure precautions Polysubstance abuse: Urine toxicology positive for cocaine and benzodiazepine Social work consultation for aftercare Depression: Continue Lexapro 20mg daily Anxiety: Benozdiazepine dependent Xanax on hold Ativan per CIWA DVT ppx-ALPs, subcutaneous heparin Low potassium diet Full code Problem List: 1. Elevated troponin 2. Demand ischemia of myocardium 3. Acute kidney injury 4. Drug overdose 5. Polysubstance overdose 6. Crohns disease Pain Ratin Pain Location: right shoulder Pain Goal: Pain 4 or less Pain Plan: prn Tomorrow's Labs & Rationales: bep
[2017-11-01 08:05] VITALS: BP 176/94
[2017-11-01 08:29] LABS: ABSOLUTE BASOPHIL COUNT 0.1 /CUMM (0.0-0.2); ABSOLUTE EOSINOPHIL COUNT 0.5 /CUMM (0.0-0.7); ABSOLUTE GRANULOCYTE CT 8.5 /CUMM (1.4-6.5); ABSOLUTE LYMPH COUNT 0.9 /CUMM (1.2-3.4); ABSOLUTE MONOCYTE COUNT 0.9 /CUMM (0.10-0.60); BASOPHIL % 0.5 % (0.0-2.0); EOSINOPHIL % 4.7 % (0-5); GRANULOCYTE % 78.6 % (42.2-75.2); HEMATOCRIT 29.8 % (42-52); MEAN CORPUSCULAR HGB 27.1 PG (27.0-31.0); MEAN CORPUSCULAR HGB CONC 32.2 G/DL (33.0-37.0); MEAN CORPUSCULAR VOLUME 84.3 FL (80.0-94.0); MEAN PLATELET VOLUME 8.8 FL (7.4-10.4); PLATELET COUNT 199 /CUMM (130-400); RBC DISTRIBUTION WIDTH 15.4 % (11.5-14.5); RED BLOOD CELL CT 3.53 /CUMM (4.70-6.10); WHITE BLOOD CELL COUNT 10.9 /CUMM (4.8-10.8)
--- NOTE | 2017-11-01 11:10 | PN- Att Addend ---
Attending Addendum Attending Brief Note Patient in bed therapist working on edema of right arm, mother at the bed site, waiter/waitress captain evaluating kidney function, slowly coming down. BP slightly elevated, afebrile, no new changes on physical, continue present treatments and have psych. see the patient again. Intake & Output 11/01 1600 11/01 0400 10/31 1600 10/31 0400 10/30 1600 10/30 0400 Intake Total 638 245 4372 1030 1540 930 Output Total 9466 553 7002 1175 2000 600 Balance -600 -370 -460 -145 -460 330 Intake, IV 400 180 700 350 700 150 Intake, Oral 200 100 740 680 840 780 Number 2 Bowel Movements Output, Stool 250 350 300 Output, Urine 0227 205 9964 825 1700 600 Patient 173 lb 172 lb Weight Weight Bed scale Measurement Method Current Medications Sig/Leigh Ann Start time Last Medication Dose Route Stop Time Status Admin Albuterol Sulfate 2 PUF Q4P PRN 10/29 1615 AC 10/29 INH 1840 Amlodipine Besylate 5 MG DAILY 10/30 0900 AC 11/01 PO 0806 Artificial Tears 2 GTT TID 10/28 1400 AC 11/01 OPH 0810 Aspirin 81 MG DAILY 10/24 1300 AC 11/01 PO 0806 Ferrous Sulfate 325 MG BID 10/27 2100 AC 11/01 PO 0806 Heparin Sodium 5,000 UNIT Q8 10/31 1400 AC 11/01 (Porcine) SC 0600 Levetiracetam 1,500 MG BID 10/26 2100 AC 11/01 PO 0806 Lorazepam 1 MG Q6-PRN PRN 10/22 2000 AC 11/01 IV 0041 Morphine Sulfate 1 MG Q4 HRS NEEDED PRN 10/29 1730 AC 11/01 IV 0723 Nitroglycerin 0.5 GM Q6 PRN 10/22 2200 AC TOP Omeprazole 40 MG DAILY AC 10/29 0700 AC 11/01 PO 0600 Sodium Chloride 1,000 ML Q10H 10/23 2200 AC 11/01 IV 0605 Tiotropium [place] 1 PUF DAILY 10/29 1603 AC INH Laboratory Tests 11/01/17 0620: Anion Gap 9, Estimated GFR 11 L, BUN/Creatinine Ratio 9.5, Total Bilirubin 0.8, Direct Bilirubin 0.3, AST 38, ALT 85 H, Alkaline Phosphatase 49, Total Protein 4.8 L, Albumin 2.4 L, CBC w Diff NO MAN DIFF REQ, RBC 3.53 L, MCV 84.3, MCH 27.1, MCHC 32.2 L, RDW 15.4 H, MPV 8.8, Gran % 78.6 H, Lymphocytes % 8.4 L, Monocytes % 7.8, Eosinophils % 4.7, Basophils % 0.5, Absolute Granulocytes 8.5 H, Absolute Lymphocytes 0.9 L, Absolute Monocytes 0.9 H, Absolute Eosinophils 0.5, Absolute Basophils 0.1 10/31/17 0705: Anion Gap 11, Estimated GFR 8 L, BUN/Creatinine Ratio 8.4, Creatine Kinase 606 H, CBC w Diff NO MAN DIFF REQ, RBC 3.71 L, MCV 84.1, MCH 27.2, MCHC 32.3 L, RDW 15.1 H, MPV 8.7, Gran % 78.6 H, Lymphocytes % 8.0 L, Monocytes % 7.7, Eosinophils % 5.4 H, Basophils % 0.3, Absolute Granulocytes 7.9 H, Absolute Lymphocytes 0.8 L, Absolute Monocytes 0.8 H, Absolute Eosinophils 0.5, Absolute Basophils 0 10/30/17 0640: Anion Gap 13, Estimated GFR 6 L, BUN/Creatinine Ratio 7.3, Creatine Kinase 1159 H, CBC w Diff NO MAN DIFF REQ, RBC 3.85 L, MCV 83.8, MCH 27.2, MCHC 32.5 L, RDW 15.2 H, MPV 8.9, Gran % 75.7 H, Lymphocytes % 7.7 L, Monocytes % 9.9 H, Eosinophils % 6.4 H, Basophils % 0.3, Absolute Granulocytes 7.1 H, Absolute Lymphocytes 0.7 L, Absolute Monocytes 0.9 H, Absolute Eosinophils 0.6, Absolute Basophils 0 Vital Signs Date Time Temp Pulse Resp B/P B/P Pulse O2 O2 Flow FiO2 Mean Ox Delivery Rate 11/01 0806 79 176/94 11/01 0805 79 176/94 11/01 0800 Room Air 11/01 0627 98.3 78 18 150/92 97 Room Air 11/01 0000 Room Air 10/31 2120 98.2 76 154/84 98 Room Air 10/31 1502 98.3 80 18 142/84 95 Room Air
--- NOTE | 2017-11-01 11:12 | PN- Nephrology ---
Assessment/Plan Nephrology Assessment: 1. Acute kidney injury due to rhabdomyolysis. His CPK is well below 10,000, so that high-dose fluids not required. Suggestion: 1. No change in therapy. 2. Avoid nephrotoxins 3 expect his renal function will return to his previously normal baseline within a few months Subjective Subjective: Patient feels well. His mother is visiting. Objective Vital Signs and I&Os Vital Signs Date Time Temp Pulse Resp B/P B/P Pulse O2 O2 Flow FiO2 Mean Ox Delivery Rate 11/01 0806 79 176/94 11/01 0805 79 176/94 11/01 0800 Room Air 11/01 0627 98.3 78 18 150/92 97 Room Air 11/01 0000 Room Air 10/31 2120 98.2 76 154/84 98 Room Air 10/31 1502 98.3 80 18 142/84 95 Room Air Intake & Output 11/01 1600 11/01 0400 10/31 1600 10/31 0400 10/30 1600 10/30 0400 Intake Total 626 373 7350 1030 1540 930 Output Total 6695 837 6160 1175 2000 600 Balance -600 -370 -460 -145 -460 330 Intake, IV 400 180 700 350 700 150 Intake, Oral 200 100 740 680 840 780 Number 2 Bowel Movements Output, Stool 250 350 300 Output, Urine 3645 686 0598 825 1700 600 Patient 173 lb 172 lb Weight Weight Bed scale Measurement Method Physical Exam General Appearance: well developed/nourished, no apparent distress, alert, awake Head: atraumatic, normal appearance, active bleeding Ears, Nose, Throat: normal pharynx Neck: normal inspection, supple, full range of motion, trachea mid line, no midline tenderness Respiratory: normal breath sounds, chest non-tender, no respiratory distress Cardiovascular: regular rate/rhythm, edema Peripheral Pulses: 1+ tibialis posterior (R), 1+ tibialis posterior (L), 1+ dorsalis pedis (R), 1+ dorsalis pedis (L) Abdomen: normal bowel sounds, soft, non-tender, no organomegaly Back: normal range of motion Extremities: normal inspection, pedal edema, also has some penile edema Neurologic/Psychiatric: awake, alert, oriented x 3 Current Medications: Current Medications Sig/Leigh Ann Start time Last Medication Dose Route Stop Time Status Admin Albuterol Sulfate 2 PUF Q4P PRN 10/29 1615 AC 10/29 INH 1840 Amlodipine Besylate 5 MG DAILY 10/30 0900 AC 11/01 PO 0806 Artificial Tears 2 GTT TID 10/28 1400 AC 11/01 OPH 0810 Aspirin 81 MG DAILY 10/24 1300 AC 11/01 PO 0806 Ferrous Sulfate 325 MG BID 10/27 2100 AC 11/01 PO 0806 Heparin Sodium 5,000 UNIT Q8 10/31 1400 AC 11/01 (Porcine) SC 0600 Levetiracetam 1,500 MG BID 10/26 2100 AC 11/01 PO 0806 Lorazepam 1 MG Q6-PRN PRN 10/22 2000 AC 11/01 IV 0041 Morphine Sulfate 1 MG Q4 HRS NEEDED PRN 10/29 1730 AC 11/01 IV 0723 Nitroglycerin 0.5 GM Q6 PRN 10/22 2200 AC TOP Omeprazole 40 MG DAILY AC 10/29 0700 AC 11/01 PO 0600 Sodium Chloride 1,000 ML Q10H 10/23 2200 AC 11/01 IV 0605 Tiotropium [place] 1 PUF DAILY 10/29 1603 AC INH Results Pertinent Lab Results: Laboratory Tests 11/01 10/31 0620 0705 Chemistry Sodium (137 - 145 mmol/L) 142 142 Potassium (3.5 - 5.1 mmol/L) 3.2 L 3.4 L Chloride (98 - 107 mmol/L) 112 H 109 H Carbon Dioxide (22 - 30 mmol/L) 21 L 22 Anion Gap (5 - 16) 9 11 BUN (9 - 20 mg/dL) 52 H 62 H Creatinine (0.7 - 1.2 mg/dL) 5.5 *H 7.4 *H Estimated GFR (>60 ml/min) 11 L 8 L BUN/Creatinine Ratio (7 - 25 %) 9.5 8.4 Total Bilirubin (0.2 - 1.3 mg/dL) 0.8 Direct Bilirubin (< 0.4 mg/dL) 0.3 AST (17 - 59 U/L) 38 ALT (21 - 72 U/L) 85 H Alkaline Phosphatase (< 127 U/L) 49 Creatine Kinase (55 - 170 U/L) 606 H Total Protein (6.3 - 8.2 g/dL) 4.8 L Albumin (3.5 - 5.0 g/dL) 2.4 L Hematology CBC w Diff NO MAN DIFF REQ NO MAN DIFF REQ WBC (4.8 - 10.8 /CUMM) 10.9 H 10.0 RBC (4.70 - 6.10 /CUMM) 3.53 L 3.71 L Hgb (14.0 - 18.0 G/DL) 9.6 L 10.1 L Hct (42 - 52 %) 29.8 L 31.2 L MCV (80.0 - 94.0 FL) 84.3 84.1 MCH (27.0 - 31.0 PG) 27.1 27.2 MCHC (33.0 - 37.0 G/DL) 32.2 L 32.3 L RDW (11.5 - 14.5 %) 15.4 H 15.1 H Plt Count (130 - 400 /CUMM) 199 187 MPV (7.4 - 10.4 FL) 8.8 8.7 Gran % (42.2 - 75.2 %) 78.6 H 78.6 H Lymphocytes % (20.5 - 51.1 %) 8.4 L 8.0 L Monocytes % (1.7 - 9.3 %) 7.8 7.7 Eosinophils % (0 - 5 %) 4.7 5.4 H Basophils % (0.0 - 2.0 %) 0.5 0.3 Absolute Granulocytes (1.4 - 6.5 /CUMM) 8.5 H 7.9 H Absolute Lymphocytes (1.2 - 3.4 /CUMM) 0.9 L 0.8 L Absolute Monocytes (0.10 - 0.60 /CUMM) 0.9 H 0.8 H Absolute Eosinophils (0.0 - 0.7 /CUMM) 0.5 0.5 Absolute Basophils (0.0 - 0.2 /CUMM) 0.1 0 05/12 0640 Chemistry Sodium (137 - 145 mmol/L) 143 Potassium (3.5 - 5.1 mmol/L) 3.5 Chloride (98 - 107 mmol/L) 108 H Carbon Dioxide (22 - 30 mmol/L) 23 Anion Gap (5 - 16) 13 BUN (9 - 20 mg/dL) 66 H Creatinine (0.7 - 1.2 mg/dL) 9.0 *H Estimated GFR (>60 ml/min) 6 L BUN/Creatinine Ratio (7 - 25 %) 7.3 Creatine Kinase (55 - 170 U/L) 1159 H Hematology CBC w Diff NO MAN DIFF REQ WBC (4.8 - 10.8 /CUMM) 9.4 RBC (4.70 - 6.10 /CUMM) 3.85 L Hgb (14.0 - 18.0 G/DL) 10.5 L Hct (42 - 52 %) 32.2 L MCV (80.0 - 94.0 FL) 83.8 MCH (27.0 - 31.0 PG) 27.2 MCHC (33.0 - 37.0 G/DL) 32.5 L RDW (11.5 - 14.5 %) 15.2 H Plt Count (130 - 400 /CUMM) 180 MPV (7.4 - 10.4 FL) 8.9 Gran % (42.2 - 75.2 %) 75.7 H Lymphocytes % (20.5 - 51.1 %) 7.7 L Monocytes % (1.7 - 9.3 %) 9.9 H Eosinophils % (0 - 5 %) 6.4 H Basophils % (0.0 - 2.0 %) 0.3 Absolute Granulocytes (1.4 - 6.5 /CUMM) 7.1 H Absolute Lymphocytes (1.2 - 3.4 /CUMM) 0.7 L Absolute Monocytes (0.10 - 0.60 /CUMM) 0.9 H Absolute Eosinophils (0.0 - 0.7 /CUMM) 0.6 Absolute Basophils (0.0 - 0.2 /CUMM) 0
[2017-11-01 15:02] VITALS: BP 144/84
[2017-11-01 23:18] VITALS: BP 158/88
[2017-11-02 06:42] VITALS: BP 152/84
--- NOTE | 2017-11-02 06:59 | PN- Housestaff ---
Subjective Follow-up For: Rhabdoymyolysis Acute kidney injury Upper GI bleed h/o Crohns s/p colostomy Right shoulder injury Elevated troponins cocaine use Polysubstance abuse benzodiazepine dependence h/o seizures Tele-Events Since Last Visit: sinus rhythm HR 80s-90s no events Subjective: ambulating, still complaining of pain and has been receiving IV morphine for abdominal pain/right shoulder pain, kidney function improving, no new complaints Review of Systems Constitutional: Reports: see HPI. Objective Last 24 Hrs of Vital Signs/I&O Vital Signs Date Time Temp Pulse Resp B/P B/P Pulse O2 O2 Flow FiO2 Mean Ox Delivery Rate 11/02 0953 81 158/74 11/02 0642 98.6 79 20 152/84 94 Room Air 11/01 2318 98.7 73 18 158/88 98 Room Air 11/01 1502 98.3 76 18 144/84 98 Room Air Intake & Output 11/02 1600 11/02 0800 11/02 0000 Intake Total 680 1152.25 Output Total Balance 680 1152.25 Intake, IV 10.25 Intake, Oral 680 1142 Patient 77.366 kg Weight Physical Exam General Appearance: Alert, Oriented X3, Cooperative, No Acute Distress Cardiovascular: Regular Rate, Normal S1, Normal S2, No Murmurs Lungs: Clear to Auscultation, Normal Air Movement Abdomen: Normal Bowel Sounds, Soft, No Tenderness, No Masses, +colostomy Extremities: No Clubbing, No Cyanosis, Normal Pulses, RUE/RLE 2+ pitting edema Current Medications: Current Medications Sig/Leigh Ann Start time Last Medication Dose Route Stop Time Status Admin Albuterol Sulfate 2 PUF Q4P PRN 10/29 1615 AC 10/29 INH 1840 Alprazolam 0.25 MG TID PRN 11/02 1115 UNVr PO 11/09 1114 Amlodipine Besylate 5 MG DAILY 10/30 0900 AC 11/02 PO 0953 Artificial Tears 2 GTT TID 10/28 1400 AC 11/02 OPH 0954 Aspirin 81 MG DAILY 10/24 1300 AC 11/02 PO 0952 Ferrous Sulfate 325 MG BID 10/27 2100 AC 11/02 PO 0952 Heparin Sodium 5,000 UNIT Q8 10/31 1400 AC 11/02 (Porcine) SC 0621 Levetiracetam 1,500 MG BID 10/26 2100 AC 11/02 PO 0952 Lorazepam 1 MG Q6-PRN PRN 10/22 2000 DC 11/02 IV 0053 Morphine Sulfate 1 MG Q4 HRS NEEDED PRN 10/29 1730 DC 11/02 IV 0623 Nitroglycerin 0.5 GM Q6 PRN 10/22 2200 AC TOP Omeprazole 40 MG DAILY AC 10/29 0700 AC 11/02 PO 0620 Oxycodone/ 1 TAB Q6P PRN 11/02 1115 UNVr Acetaminophen PO Patient Medication 1 ED ONE ONE 11/01 1515 DC Teaching ED 11/01 1516 Potassium Chloride 20 MEQ ONCE ONE 11/02 1100 DC PO 11/02 1101 Potassium Chloride 20 MEQ ONCE ONE 11/02 0830 DC 11/02 PO 11/02 0831 0952 Sodium Chloride 1,000 ML Q10H 10/23 2200 DC 11/01 IV 0605 Tiotropium [place] 1 PUF DAILY 10/29 1603 AC INH Last 24 Hrs of Lab/Sean Results Last 24 Hrs of Labs/Mics: Laboratory Tests 11/02/17 0620: Anion Gap 10, Estimated GFR 15 L, BUN/Creatinine Ratio 11.2 Assessment/Plan Assessment: 52 year old man with PMHx of polysubstance abuse, seizures, Crohns disease s/p colectomy/colostomy was BIBA unresponsive, suspected overdose vs seizure, rhabdomyolysis and acute kidney injury, likely ATN, resolving without dialysis. Type II NSTEMI: Elevated troponins which peaked at 1.25, trending down Echocardiogram showed mild hypokinesis anterolateral wall, LVEF 55% Continue ASA, no beta aaron with cocaine use Urine toxicology was positive for cocaine Acute kidney injury in the setting of rhabdomyolysis: CK trending down. No need to monitor further Nephrology consultation, follow up recommendations Discontinued IVFs and goetz catheter Trend renal function daily Creatinine trending down, peaked at 9.7 now 4.3 Changed IV morphine to PO Percocet Upper GI bleed: Hematemesis, with maroon guiaic positive colostomy PO PPI GI doctor Dr. Lavell Martin at [place] CBC stable No NSAIDs Continue iron supplementation Paresthesia RUE: CT of the right arm showed air subcutaneous tissues and subcutaneous edema Ultrasound Doppler was done, ruled out DVT. Continue right extremity elevation for edema Continue analgesia Edema expected to improve with improved renal function, mobilization of fluids Seizures: Continue Keppra 1500 mg twice daily Continue seizure precautions Polysubstance abuse: Urine toxicology positive for cocaine and benzodiazepine Social work consultation for aftercare, possibly IOP although patient remains on benzos Depression: Continue Lexapro 20mg daily Anxiety: Benozdiazepine dependent Xanax 0.5 QID decreased to 0.25mg TID DVT ppx-ALPs, subcutaneous heparin Regular diet Full code Problem List: 1. Drug overdose 2. Acute kidney injury 3. Demand ischemia of myocardium 4. Elevated troponin 5. Polysubstance overdose 6. Benzodiazepine dependence 7. Rhabdomyolysis Pain Ratin Pain Location: right shoulder Pain Goal: Pain 4 or less Pain Plan: percocet prn Tomorrow's Labs & Rationales: bep
--- NOTE | 2017-11-02 10:29 | PN- Att Addend ---
Attending Addendum Attending Brief Note No new complaints patient comfortable in bed vital signs are stable no fever but no new changes on physical. BUN and creatinine slowly coming down potassium is still low at 3.2, will replace no other changes. Please have psych see the patient , Tejeda catheter will be removed today, and medications will be switched to by mouth continue monitoring kidney function and potassium Intake & Output 11/02 1600 11/02 0400 11/01 1600 11/01 0400 10/31 1600 10/31 0400 Intake Total 680 1152.25 4751 257 8589 1030 Output Total 2550 650 1900 1175 Balance 680 1152.25 -965 -370 -460 -145 Intake, IV 10.25 725 180 700 350 Intake, Oral 680 1142 860 100 740 680 Output, Stool 100 250 350 Output, Urine 2450 650 1650 825 Patient 171 lb 173 lb Weight Current Medications Sig/Leigh Ann Start time Last Medication Dose Route Stop Time Status Admin Albuterol Sulfate 2 PUF Q4P PRN 10/29 1615 AC 10/29 INH 1840 Amlodipine Besylate 5 MG DAILY 10/30 0900 AC 11/02 PO 0953 Artificial Tears 2 GTT TID 10/28 1400 AC 11/02 OPH 0954 Aspirin 81 MG DAILY 10/24 1300 AC 11/02 PO 0952 Ferrous Sulfate 325 MG BID 10/27 2100 AC 11/02 PO 0952 Heparin Sodium 5,000 UNIT Q8 10/31 1400 AC 11/02 (Porcine) SC 0621 Levetiracetam 1,500 MG BID 10/26 2100 AC 11/02 PO 0952 Lorazepam 1 MG Q6-PRN PRN 10/22 2000 AC 11/02 IV 0053 Morphine Sulfate 1 MG Q4 HRS NEEDED PRN 10/29 1730 AC 11/02 IV 0623 Nitroglycerin 0.5 GM Q6 PRN 10/22 2200 AC TOP Omeprazole 40 MG DAILY AC 10/29 0700 AC 11/02 PO 0620 Patient Medication 1 ED ONE ONE 11/01 1515 DC Teaching ED 11/01 1516 Potassium Chloride 20 MEQ ONCE ONE 11/02 0830 DC 11/02 PO 11/02 0831 0952 Sodium Chloride 1,000 ML Q10H 10/23 2200 DC 11/01 IV 0605 Tiotropium [place] 1 PUF DAILY 10/29 1603 AC INH Laboratory Tests 11/02/17 0620: Anion Gap 10, Estimated GFR 15 L, BUN/Creatinine Ratio 11.2 11/01/17 0620: Anion Gap 9, Estimated GFR 11 L, BUN/Creatinine Ratio 9.5, Total Bilirubin 0.8, Direct Bilirubin 0.3, AST 38, ALT 85 H, Alkaline Phosphatase 49, Total Protein 4.8 L, Albumin 2.4 L, CBC w Diff NO MAN DIFF REQ, RBC 3.53 L, MCV 84.3, MCH 27.1, MCHC 32.2 L, RDW 15.4 H, MPV 8.8, Gran % 78.6 H, Lymphocytes % 8.4 L, Monocytes % 7.8, Eosinophils % 4.7, Basophils % 0.5, Absolute Granulocytes 8.5 H, Absolute Lymphocytes 0.9 L, Absolute Monocytes 0.9 H, Absolute Eosinophils 0.5, Absolute Basophils 0.1 10/31/17 0705: Anion Gap 11, Estimated GFR 8 L, BUN/Creatinine Ratio 8.4, Creatine Kinase 606 H, CBC w Diff NO MAN DIFF REQ, RBC 3.71 L, MCV 84.1, MCH 27.2, MCHC 32.3 L, RDW 15.1 H, MPV 8.7, Gran % 78.6 H, Lymphocytes % 8.0 L, Monocytes % 7.7, Eosinophils % 5.4 H, Basophils % 0.3, Absolute Granulocytes 7.9 H, Absolute Lymphocytes 0.8 L, Absolute Monocytes 0.8 H, Absolute Eosinophils 0.5, Absolute Basophils 0 Vital Signs Date Time Temp Pulse Resp B/P B/P Pulse O2 O2 Flow FiO2 Mean Ox Delivery Rate 11/02 0953 81 158/74 11/02 0642 98.6 79 20 152/84 94 Room Air 11/01 2318 98.7 73 18 158/88 98 Room Air 11/01 1502 98.3 76 18 144/84 98 Room Air
--- NOTE | 2017-11-02 13:27 | PN- Nephrology ---
Assessment/Plan Nephrology Assessment: 1. JEAN-recovering 2. Hypokalemia Suggestion: 1. No change 2. Replace by mouth Subjective Subjective: Patient feels well. No complaints offered Objective Vital Signs and I&Os Vital Signs Date Time Temp Pulse Resp B/P B/P Pulse O2 O2 Flow FiO2 Mean Ox Delivery Rate 11/02 0953 81 158/74 11/02 0642 98.6 79 20 152/84 94 Room Air 11/01 2318 98.7 73 18 158/88 98 Room Air 11/01 1502 98.3 76 18 144/84 98 Room Air Intake & Output 11/02 1600 11/02 0400 11/01 1600 11/01 0400 10/31 1600 10/31 0400 Intake Total 680 1152.25 6867 631 3706 1030 Output Total 2550 650 1900 1175 Balance 680 1152.25 -965 -370 -460 -145 Intake, IV 10.25 725 180 700 350 Intake, Oral 680 1142 860 100 740 680 Output, Stool 100 250 350 Output, Urine 2450 650 1650 825 Patient 171 lb 173 lb Weight Physical Exam General Appearance: well developed/nourished, no apparent distress, alert Head: atraumatic, normal appearance Neck: normal inspection, no midline tenderness Respiratory: normal breath sounds, chest non-tender Cardiovascular: regular rate/rhythm Peripheral Pulses: 2+ tibialis posterior (R), 2+ tibialis posterior (L), 2+ dorsalis pedis (R), 2+ dorsalis pedis (L) Abdomen: normal bowel sounds, soft, non-tender, no organomegaly Back: normal inspection, no vertebral tenderness Extremities: swelling Neurologic/Psychiatric: no motor/sensory deficits, awake, alert Skin: intact, normal color Lymphatic: adenopathy Current Medications: Current Medications Sig/Leigh Ann Start time Last Medication Dose Route Stop Time Status Admin Albuterol Sulfate 2 PUF Q4P PRN 10/29 1615 AC 10/29 INH 1840 Alprazolam 0.25 MG TIDPRN PRN 11/02 1115 AC PO 11/09 1114 Amlodipine Besylate 5 MG DAILY 10/30 0900 AC 11/02 PO 0953 Artificial Tears 2 GTT TID 10/28 1400 AC 11/02 OPH 0954 Aspirin 81 MG DAILY 10/24 1300 AC 11/02 PO 0952 Ferrous Sulfate 325 MG BID 10/27 2100 AC 11/02 PO 0952 Heparin Sodium 5,000 UNIT Q8 10/31 1400 AC 11/02 (Porcine) SC 0621 Levetiracetam 1,500 MG BID 10/26 2100 AC 11/02 PO 0952 Lorazepam 1 MG Q6-PRN PRN 10/22 2000 DC 11/02 IV 0053 Morphine Sulfate 1 MG Q4 HRS NEEDED PRN 10/29 1730 DC 11/02 IV 0623 Nitroglycerin 0.5 GM Q6 PRN 10/22 2200 AC TOP Omeprazole 40 MG DAILY AC 10/29 0700 AC 11/02 PO 0620 Oxycodone/ 1 TAB Q6P PRN 11/02 1115 AC Acetaminophen PO Patient Medication 1 ED ONE ONE 11/01 1515 DC Teaching ED 11/01 1516 Potassium Chloride 20 MEQ ONCE ONE 11/02 1100 DC 11/02 PO 11/02 1101 1235 Potassium Chloride 20 MEQ ONCE ONE 11/02 0830 DC 11/02 PO 11/02 0831 0952 Tiotropium [place] 1 PUF DAILY 10/29 1603 AC INH Results Pertinent Lab Results: Laboratory Tests 11/02 11/01 0620 0620 Chemistry Sodium (137 - 145 mmol/L) 143 142 Potassium (3.5 - 5.1 mmol/L) 3.2 L 3.2 L Chloride (98 - 107 mmol/L) 110 H 112 H Carbon Dioxide (22 - 30 mmol/L) 23 21 L Anion Gap (5 - 16) 10 9 BUN (9 - 20 mg/dL) 48 H 52 H Creatinine (0.7 - 1.2 mg/dL) 4.3 H 5.5 *H Estimated GFR (>60 ml/min) 15 L 11 L BUN/Creatinine Ratio (7 - 25 %) 11.2 9.5 Total Bilirubin (0.2 - 1.3 mg/dL) 0.8 Direct Bilirubin (< 0.4 mg/dL) 0.3 AST (17 - 59 U/L) 38 ALT (21 - 72 U/L) 85 H Alkaline Phosphatase (< 127 U/L) 49 Total Protein (6.3 - 8.2 g/dL) 4.8 L Albumin (3.5 - 5.0 g/dL) 2.4 L Hematology CBC w Diff NO MAN DIFF REQ WBC (4.8 - 10.8 /CUMM) 10.9 H RBC (4.70 - 6.10 /CUMM) 3.53 L Hgb (14.0 - 18.0 G/DL) 9.6 L Hct (42 - 52 %) 29.8 L MCV (80.0 - 94.0 FL) 84.3 MCH (27.0 - 31.0 PG) 27.1 MCHC (33.0 - 37.0 G/DL) 32.2 L RDW (11.5 - 14.5 %) 15.4 H Plt Count (130 - 400 /CUMM) 199 MPV (7.4 - 10.4 FL) 8.8 Gran % (42.2 - 75.2 %) 78.6 H Lymphocytes % (20.5 - 51.1 %) 8.4 L Monocytes % (1.7 - 9.3 %) 7.8 Eosinophils % (0 - 5 %) 4.7 Basophils % (0.0 - 2.0 %) 0.5 Absolute Granulocytes (1.4 - 6.5 /CUMM) 8.5 H Absolute Lymphocytes (1.2 - 3.4 /CUMM) 0.9 L Absolute Monocytes (0.10 - 0.60 /CUMM) 0.9 H Absolute Eosinophils (0.0 - 0.7 /CUMM) 0.5 Absolute Basophils (0.0 - 0.2 /CUMM) 0.1 /13 0705 Chemistry Sodium (137 - 145 mmol/L) 142 Potassium (3.5 - 5.1 mmol/L) 3.4 L Chloride (98 - 107 mmol/L) 109 H Carbon Dioxide (22 - 30 mmol/L) 22 Anion Gap (5 - 16) 11 BUN (9 - 20 mg/dL) 62 H Creatinine (0.7 - 1.2 mg/dL) 7.4 *H Estimated GFR (>60 ml/min) 8 L BUN/Creatinine Ratio (7 - 25 %) 8.4 Creatine Kinase (55 - 170 U/L) 606 H Hematology CBC w Diff NO MAN DIFF REQ WBC (4.8 - 10.8 /CUMM) 10.0 RBC (4.70 - 6.10 /CUMM) 3.71 L Hgb (14.0 - 18.0 G/DL) 10.1 L Hct (42 - 52 %) 31.2 L MCV (80.0 - 94.0 FL) 84.1 MCH (27.0 - 31.0 PG) 27.2 MCHC (33.0 - 37.0 G/DL) 32.3 L RDW (11.5 - 14.5 %) 15.1 H Plt Count (130 - 400 /CUMM) 187 MPV (7.4 - 10.4 FL) 8.7 Gran % (42.2 - 75.2 %) 78.6 H Lymphocytes % (20.5 - 51.1 %) 8.0 L Monocytes % (1.7 - 9.3 %) 7.7 Eosinophils % (0 - 5 %) 5.4 H Basophils % (0.0 - 2.0 %) 0.3 Absolute Granulocytes (1.4 - 6.5 /CUMM) 7.9 H Absolute Lymphocytes (1.2 - 3.4 /CUMM) 0.8 L Absolute Monocytes (0.10 - 0.60 /CUMM) 0.8 H Absolute Eosinophils (0.0 - 0.7 /CUMM) 0.5 Absolute Basophils (0.0 - 0.2 /CUMM) 0
[2017-11-02 14:26] VITALS: BP 142/80
[2017-11-02 23:13] VITALS: BP 140/78
[2017-11-03 06:24] VITALS: BP 156/96
--- NOTE | 2017-11-03 07:12 | PN- Housestaff ---
See Addendum Subjective Follow-up For: Rhabdoymyolysis Acute kidney injury Upper GI bleed h/o Crohns s/p colostomy Right shoulder injury Elevated troponins cocaine use Polysubstance abuse benzodiazepine dependence h/o seizures Tele-Events Since Last Visit: sinus rhythm HR 60s-80s Subjective: no new complaints or overnight events Review of Systems Constitutional: Reports: see HPI. Objective Last 24 Hrs of Vital Signs/I&O Vital Signs Date Time Temp Pulse Resp B/P B/P Pulse O2 O2 Flow FiO2 Mean Ox Delivery Rate 11/03 0807 72 158/96 11/03 0806 72 158/96 11/03 0800 Room Air 11/03 0624 98.3 71 12 156/96 98 Room Air 11/02 2313 97.8 76 18 140/78 96 11/02 1426 98.1 80 20 142/80 94 Room Air 11/02 0953 81 158/74 Intake & Output 11/03 1600 11/03 0800 11/03 0000 Intake Total 175 275 Output Total 100 Balance 175 175 Intake, Oral 175 275 Output, Stool 100 Patient 75.75 kg Weight Weight Bed scale Measurement Method Physical Exam General Appearance: Alert, Oriented X3, Cooperative, No Acute Distress Cardiovascular: Regular Rate, Normal S1, Normal S2, No Murmurs Lungs: Clear to Auscultation, Normal Air Movement Abdomen: Normal Bowel Sounds, Soft, No Tenderness, No Masses, +colostomy Extremities: No Clubbing, No Cyanosis, Normal Pulses, RUE/RLE 2+ pitting edema, limited ROM right shoulder Current Medications: Current Medications Sig/Leigh Ann Start time Last Medication Dose Route Stop Time Status Admin Albuterol Sulfate 2 PUF Q4P PRN 10/29 1615 AC 10/29 INH 1840 Alprazolam 0.25 MG TIDPRN PRN 11/02 1115 AC 11/02 PO 11/09 1114 2205 Amlodipine Besylate 5 MG DAILY 10/30 0900 AC 11/03 PO 0807 Artificial Tears 2 GTT TID 10/28 1400 AC 11/03 OPH 0809 Aspirin 81 MG DAILY 10/24 1300 AC 11/03 PO 0807 Ferrous Sulfate 325 MG BID 10/27 2100 AC 11/03 PO 0807 Heparin Sodium 5,000 UNIT Q8 10/31 1400 AC 11/03 (Porcine) SC 0558 Levetiracetam 1,500 MG BID 10/26 2100 AC 11/03 PO 0807 Lorazepam 1 MG Q6-PRN PRN 10/22 2000 DC 11/02 IV 0053 Morphine Sulfate 1 MG Q4 HRS NEEDED PRN 10/29 1730 DC 11/02 IV 0623 Nitroglycerin 0.5 GM Q6 PRN 10/22 2200 AC TOP Omeprazole 40 MG DAILY AC 10/29 0700 AC 11/03 PO 0558 Oxycodone/ 1 TAB Q6P PRN 11/02 1115 AC 11/03 Acetaminophen PO 0324 Potassium Chloride 20 MEQ ONCE ONE 11/02 1100 DC 11/02 PO 11/02 1101 1235 Tiotropium [place] 1 PUF DAILY 10/29 1603 AC INH Last 24 Hrs of Lab/Sean Results Last 24 Hrs of Labs/Mics: Laboratory Tests 11/03/17 0655: Anion Gap 12, Estimated GFR 20 L, BUN/Creatinine Ratio 12.4 Assessment/Plan Assessment: 52 year old man with PMHx of polysubstance abuse, seizures, Crohns disease s/p colectomy/colostomy was BIBA unresponsive, suspected overdose vs seizure, rhabdomyolysis and acute kidney injury, likely ATN, resolving without dialysis. Type II NSTEMI: Elevated troponins which peaked at 1.25, trending down Echocardiogram showed mild hypokinesis anterolateral wall, LVEF 55% Continue ASA, no beta aaron with cocaine use Urine toxicology was positive for cocaine Acute kidney injury in the setting of rhabdomyolysis: CK trending down. No need to monitor further Nephrology consultation, follow up recommendations Discontinued IVFs and goetz catheter Trend renal function daily Creatinine trending down, peaked at 9.7 now 3.3 Changed IV morphine to PO Percocet Upper GI bleed: Hematemesis, with maroon guiaic positive colostomy PO PPI GI doctor Dr. Lavell Martin at [place] CBC stable No NSAIDs Continue iron supplementation Paresthesia RUE: CT of the right arm showed air subcutaneous tissues and subcutaneous edema Ultrasound Doppler was done, ruled out DVT. Continue right extremity elevation for edema Continue analgesia Edema expected to improve with improved renal function, mobilization of fluids Seizures: Continue Keppra 1500 mg twice daily Continue seizure precautions Polysubstance abuse: Urine toxicology positive for cocaine and benzodiazepine Social work consultation for aftercare, possibly IOP although patient remains on benzos Depression: Continue Lexapro 20mg daily Anxiety: Benozdiazepine dependent Xanax 0.5 QID decreased to 0.25mg TID DVT ppx-ALPs, subcutaneous heparin Regular diet Full code Stable for discharge, outpatient follow up with cardiology, gastroenterology, orthopedics, and psychiatry, would benefit from substance abuse treatment Home physical and occupational therapy Problem List: 1. Rhabdomyolysis 2. Drug overdose 3. Acute kidney injury 4. Demand ischemia of myocardium 5. Elevated troponin 6. Polysubstance overdose 7. Benzodiazepine dependence Pain Ratin Pain Location: right shoulder Pain Goal: Pain 4 or less Pain Plan: prn Tomorrow's Labs & Rationales: bep, if not discharged
[2017-11-03 08:06] VITALS: BP 158/96
[2017-11-03 08:07] VITALS: BP 158/96
--- NOTE | 2017-11-03 08:30 | Discharge Summary ---
Visit Information Visit Dates Admission Date: 10/22/17 Discharge Date: 11/03/17 Hospital Course Course Attending Physician: Fredy Pérez MD Primary Care Physician: Beto CAPPS,Fredy Hospital Course: 52 year old man with past medical history significant for polysubstance abuse with benzodiazepine dependence, seizure disorder, and Crohn's disease s/p colon resection and colostomy was brought in for altered mental status after being found unresponsive laying in dark vomit on 10/22/2017 for an unknown amount of time, with a reported response to naloxone administration prior to arrival. The patient reported cocaine and benzodiazepine use, but not opioids, consistent with his urine toxicology (opioids were detectable but not at the threshold for significance). He had complaints of pain in the right arm and chest on initial evaluation. Patient was hypotensive on presentation but this was responsive to crystalloid bolus. His admission labs were notable for leukocytosis, hyperkalemia, acute kidney injury, elevated creatine kinase, hyperphosphatemia, transaminitis, coagulopathy with an elevated INR, high anion gap metabolic acidosis, lactic acidemia, and troponin elevation to 1.25, all for which he was admitted to critical care. He was managed for acute kidney injury, severe rhabdomyolysis, and coronary vasospasm from acute cocaine toxicity, leading to electrolyte abnormalities. Beta blockers were avoided. Cardiology was consulted. Aspirin and beta blockers were avoided in the setting of GI bleed and cocaine use. Echocardiogram showed mild hypokinesis of mid to distal anterolateral wall with preserved ejection fraction. Troponins trended down 1.05>1.25>0.85. The patient was started on aspirin and statin therapy upon discharge and referred for cardiology follow up. His hypotension likely contributed to probable shock liver with transaminitis that resolved with time and fluid resuscitation. CT and ultrasound imaging of the abdomen revealed likely hepatic steatosis. His dark vomitus was probably hematemesis, and he later developed maroon colored output in his colostomy. His GI bleed was attributed to cocaine induced gastritis, and was treated with PPI therapy. No EGD was done. His CBC was stable, and aspirin was able to be started with spontaneous resolution of GI bleeding. The patient's preference was to follow up with his outpatient senior reliability engineer, Dr. Lavell Martin at [place]. His leukocytosis was attributed to aspiration pneumonitis and was treated with Unasyn. He was found to have severe rhabdomyolysis secondary to cocaine use, with peak CK of greater than 100,000 and this trended down with fluid administration. Nephrology was consulted. He was initially treated with sodium bicarbonate intravenously for the management of elevated anion gap metabolic acidosis. Despite aggressive intravenous fluids, he did develop severe acute kidney injury secondary to severe rhabdomyolysis and acute tubular necrosis, fortunately he maintained his urine output and did not need hemodialysis. With renal failure and rhabdomyolysis he developed severe electrolyte abnormalities, notably hyperkalemia and hypocalcemia that were treated. Later as his renal function improved, he developed hypokalemia and needed potassium supplementation. His creatinine peaked at 9.7 and trended down to 3.3 on the day of discharge. He did have both right upper and right lower extremity edema from his rhabdomyolysis and presumably laying on that side unresponsive for a number of hours. These were evaluated with both CT and ultrasound which did not reveal any thrombus. His renal function is expected to resolve over the next several weeks. He should be re-evaluated by nephrology as an outpatient and have his kidney function monitored. He should follow up with orthopedic surgery following physical and occupational therapy for his pressure necrosis injury to the right upper extremity. The patient was instructed to continue physicial and occupational therapy and outpatient follow up with cardiology, nephrology, gastroenterology, psychiatry, and orthopedic surgery. The patient was recommended to do an intensive outpatient therapy program for polysubstance abuse. The patient will need to have his xanax tapered by his outpatient psychiatrist (Dr. Jun Fry [facility]) in order to participate in [facility], he was treated with ativan during his hospital course here for benzodiazepine dependence and history of withdrawal seizures. The patient was also instructed to have blood work for basic electrolyte panel including BUN and creatinine to monitor renal function improvement and hypokalemia in one week. Allergies: Coded Allergies: adalimumab (Severe, ANAPHYLAXIS 03/02/16) shellfish derived (Severe, SOB, SWELLING 03/02/16) venom-honey bee (BEE VENOM (HONEY BEE)) (Severe, SWELLING 03/02/16) Iodinated Contrast- Oral and IV Dye (IODINATED CONTRAST MEDIA - IV DYE) (UNKNOWN PER PT 03/02/16) infliximab (BLOTCHES, HIVES, DYSPNEA 03/02/16) Significant Procedures: Echocardiogram CONCLUSIONS Normal left ventricular size. Mild hypokinesis of mid to distal alejandrina-lateral wall, under reserve of difficulty obtaining good short axis views of LV. The ejection fraction is visually estimated at 55 %. Normal left ventricular diastolic filling pattern for age. The right ventricle is normal in size and function. The left atrium is normal in size. There is trace mitral regurgitation. Structurally normal aortic valve without significant sclerosis or stenosis. There is mild tricuspid regurgitation. Pulmonary artery systolic pressure is normal. Normal pericardium without effusion. Epicardial fat. CT Head and Neck IMPRESSION: Head: No acute intracranial hemorrhage. There are multiple foci of the venous gas within the neck and face that were presumably introduced with line placement. Cervical spine: No acute cervical spinal fracture. There chronic changes of an anterior cervical discectomy and fusion at C6-C7. Bridging bone fuses the C5-C7 vertebral segments. CT Chest and Abdomen IMPRESSION: 1. Fluid around the gallbladder and inferior right lobe of liver. This raises question of biliary disease. This can be further assessed with right upper quadrant ultrasound. 2. Status post colostomy. Status post resection of the left colon with placement of a Todd's pouch. No acute change of the bowel. 3. Nonobstructive 2 mm stone in the midpole of left kidney. No hydronephrosis. Right upper quadrant ultrasound IMPRESSION: Gallbladder wall thickening. No gallstones are seen. Trace pericholecystic fluid also present. These findings can be seen in the setting of liver disease, although acalculus cholecystitis is not excluded. There is hepatomegaly with increased hepatic echogenicity and coarse liver echotexture. While this could represent hepatic steatosis, underlying liver disease is also possible. Right upper and lower extremity doppler ultrasound IMPRESSION: Normal triplex scan without evidence of deep venous thrombosis involving the upper extremity IMPRESSION: Normal triplex scan without evidence of deep venous thrombosis involving the lower extremity. Right upper extremity CT IMPRESSION: Intravenous catheter in the volar-medial aspect of the elbow-proximal forearm. There are a few scattered bubbles of air in the subcutaneous tissues distal to the catheter. There is scattered nonspecific subcutaneous edema. There is a suggestion of some low density in a few forearm muscles but this could also be artifact. MRI without and with contrast may be considered for further evaluation. This would be much more sensitive for muscle abnormalities. Disposition Summary Disposition Principal Diagnosis: Type II NSTEMI in the setting of cocaine toxicity Acute kidney injury secondary to rhabdoymyolysis Elevated anion gap metabolic acidosis in the setting of acute renal failure and lactic acidemia Acute kidney injury with hyperkalemia, acute tubular necrosis Acute liver injury with transaminitis and synthetic dysfunction Upper GI bleed with Crohn's disease s/p colectomy and colostomy Right shoulder injury Right upper and lower extremity edema Polysubstance abuse with benzodiazepine dependence History of seizure disorder Other metabolic abnormalities including hypocalcemia, hyperphosphatemia, hypomagnesemia Additional Diagnosis: History of seizure disorder Polysubstance abuse Asthma Crohn's disease s/p colectomy Cervical spine stenosis s/p cervical fusion Discharge Disposition: home health services Discharge Instructions General Discharge Information Code Status: Full Code Patient's Diet: Heart healthy diet Patient's Activity: As tolerated. Physical and occupational therapy is recommended after discharge. Follow-Up Instructions/Appts: Please follow up with your primary care physician, nephrology, cardiology, senior reliability engineer, orthopedic surgery, and psychiatrist. You are recommended to follow up with Jo[facility] or another intensive outpatient therapy for substance abuse. Medications at Discharge Discharge Medications: Continue taking these medications: Zolpidem Tartrate (Zolpidem Tartrate) 10 MG TABLET 1 Tablet ORAL Every night as needed Qty = 30 Comments: NOT GIVEN IN HOSPITAL Alprazolam (Alprazolam) 0.5 MG TABLET 1 Tablet ORAL 4 TIMES A DAY Comments: Last Taken: 11/02/17 Time: 10PM Levetiracetam (Keppra) 750 MG TABLET 2 Tablet ORAL TWICE DAILY Qty = 360 Comments: Last Taken: 11/03/17 Time: 8AM Ipratropium/Albuterol Sulfate (Combivent Respimat Inhal [place]) 20 MCG-100 MCG/ ACTUATION MIST.INHAL 1 PUFF Inhale through mouth as needed for ASTHMA Qty = 4 Comments: NOT GIVEN IN HOSPITAL Albuterol Sulfate (Albuterol Sulfate) 2.5 MG/3 ML (0.083 %) VIAL.NEB 1 Vial Inhale Solution As Directed as needed for ASTHMA Comments: NOT GIVEN IN HOSPITAL Escitalopram Oxalate (Escitalopram Oxalate) 10 MG TABLET 1 Tablet ORAL DAILY Qty = 30 Comments: Last Taken: 10/26/17 Time: 12PM Multivitamin (Daily Multiple Vitamin) 1 EACH TABLET 1 Tablet ORAL DAILY Comments: NOT GIVEN IN HOSPITAL Start taking the following new medications: Atorvastatin Calcium (Atorvastatin Calcium) 40 MG TABLET 1 Tablet ORAL DAILY Qty = 30 No Refills Instructions: . Comments: NOT GIVEN IN HOSPITAL Aspirin (Ecotrin*) 81 MG TABLET.DR 1 Tablet ORAL DAILY Qty = 30 No Refills Comments: Last Taken: 11/03/17 Time: 8AM Copies To: Lavell Martin MD; Lilly CAPPS,Jun Nogueira; Karel Vega MD; Juan Hong MD, V.; Fredy Pérez MD; Jun Galindo MD, MD Review Statement Documenting Attending: Fredy Pérez MD Copies To: Karel Vega MD; Juan Hong MD, V.; Fredy Pérez MD, MD Review Statement Documenting Attending: Fredy Pérez MD Copies To: Karel Vega MD; Juan Hong MD, V.; Fredy Pérez MD, MD Review Statement Documenting Attending: Fredy Pérez MD Documenting Attending: Fredy Pérez MD
--- NOTE | 2017-11-03 09:02 | Patient Discharge Instructions ---
Discharge Instructions General Discharge Information You were seen/treated for: Rhabdomyolysis Altered mental status (substance abuse/seizures) Cocaine abuse Acute kidney injury Type II NSTEMI GI bleeding Special Instructions: You should follow up with your GI doctor, lab scientist, orthopedics, proration clerk (kidney), psychiatrist, and primary care physician. You will need to get your kidney function checked to make sure it continues to improve. You are recommended to go to treatment for polysubstance abuse. You will need to do physical and occupational therapy for your right arm after discharge. Acute Coronary Syndrome Inclusion Criteria At DC or during hospital stay patient has or had the following: ACS DIAGNOSIS Yes Discharge Core Measures Meds if any: Prescribed or Continued at Discharge Aspirin Yes Beta-Dorita No Statin Yes Meds if any: NOT Prescribed or Continued at Discharge No Beta-Dorita d/t cocaine abuse Congestive Heart Failure Inclusion Criteria At DC or during hospital stay patient has or had the following: CHF DIAGNOSIS No Discharge Core Measures Meds if any: Prescribed or Continued at Discharge Meds if any: NOT Prescribed or Continued at Discharge Cerebrovascular accident Inclusion Criteria At DC or during hospital stay patient has or had the following: CVA/TIA Diagnosis No Discharge Core Measures Meds if any: Prescribed or Continued at Discharge Meds if any: NOT Prescribed or Continued at Discharge Venous thromboembolism Inclusion Criteria VTE Diagnosis No VTE Type NONE VTE Confirmed by (Test) NONE Discharge Core Measures - Per Current guidelines, there needs to be overlap - treatment for the first 5 days of Warfarin therapy. - If discharged on Warfarin prior to 5 days of - overlap therapy, the patient will need to be - assessed for post discharge needs including - *Post discharge parental anticoagulation - *Warfarin and/or parental anticoagulation education - *Follow up date to check INR post discharge At least 5 days overlap therapy as Inpatient No Meds if any: Prescribed or Continued at Discharge Note: Overlap Therapy is Warfarin and Anticoagulant Meds if any: NOT Prescribed or Continued at Discharge
[2017-11-03] MEDS ORDERED: ATORVASTATIN CA40 M1 PO ×2 (09:06→09:14)
[2017-11-03] MEDS ORDERED: ASPIRIN EC81 M1 PO (09:06)
--- NOTE | 2017-11-03 09:50 | PN- Att Addend ---
Attending Addendum Attending Brief Note Patient doing better vital signs are stable, no fever and no new changes on physical. Kidney function slowly coming down monitoring potassium and replacing gently and if okay with nephrology and psychiatry will let the patient go home today to follow with all the specialists and myself. See the CMR and follow blood work as an outpatient. Intake & Output 11/03 0400 11/02 0400 11/01 0400 Intake Total 108 741 0752 1152.25 1585 280 Output Total 859 830 3315 650 Balance 175 882 583 8219.25 -965 -370 Intake, IV 10.25 725 180 Intake, Oral 246 664 0073 1142 860 100 Output, Stool 100 100 Output, Urine 850 2450 650 Patient 167 lb 171 lb 173 lb Weight Weight Bed scale Measurement Method Laboratory Tests 11/03/17 0655: Anion Gap 12, Estimated GFR 20 L, BUN/Creatinine Ratio 12.4, Triglycerides 126, Cholesterol 127, LDL Cholesterol, Calc 73, HDL Cholesterol 29 L, Cholesterol/ HDL Ratio 4 11/02/17 0620: Anion Gap 10, Estimated GFR 15 L, BUN/Creatinine Ratio 11.2 11/01/17 0620: Anion Gap 9, Estimated GFR 11 L, BUN/Creatinine Ratio 9.5, Total Bilirubin 0.8, Direct Bilirubin 0.3, AST 38, ALT 85 H, Alkaline Phosphatase 49, Total Protein 4.8 L, Albumin 2.4 L, CBC w Diff NO MAN DIFF REQ, RBC 3.53 L, MCV 84.3, MCH 27.1, MCHC 32.2 L, RDW 15.4 H, MPV 8.8, Gran % 78.6 H, Lymphocytes % 8.4 L, Monocytes % 7.8, Eosinophils % 4.7, Basophils % 0.5, Absolute Granulocytes 8.5 H, Absolute Lymphocytes 0.9 L, Absolute Monocytes 0.9 H, Absolute Eosinophils 0.5, Absolute Basophils 0.1 Vital Signs Date Time Temp Pulse Resp B/P B/P Pulse O2 O2 Flow FiO2 Mean Ox Delivery Rate 11/03 0807 72 158/96 11/03 0806 72 158/96 11/03 0800 Room Air 11/03 0624 98.3 71 12 156/96 98 Room Air 11/02 2313 97.8 76 18 140/78 96 11/02 1426 98.1 80 20 142/80 94 Room Air 11/02 0953 81 158/74
--- NOTE | 2017-11-03 12:19 | PN- Nephrology ---
Assessment/Plan Nephrology Assessment: 1. Acute kidney injury due to rhabdomyolysis. Currently his renal function continues to improve. It is hoped that it would return to normal. 2. Hypokalemia. Would encourage increased potassium foods. I'm not so found to twice a day of potassium supplements although his renal function is improving. Suggestion: 1. I see no reason to maintain him in house. 2. Suspect that he will return to completely normal. 3. No furosemide for now Subjective Subjective: Patient feels okay. He is awaiting discharge. Objective Vital Signs and I&Os Vital Signs Date Time Temp Pulse Resp B/P B/P Pulse O2 O2 Flow FiO2 Mean Ox Delivery Rate 11/03 0807 72 158/96 11/03 0806 72 158/96 11/03 0800 Room Air 11/03 0624 98.3 71 12 156/96 98 Room Air 11/02 2313 97.8 76 18 140/78 96 11/02 1426 98.1 80 20 142/80 94 Room Air Intake & Output 11/03 1600 11/03 0400 11/02 1600 11/02 0400 11/01 1600 11/01 0400 Intake Total 524 055 8835 1152.25 1585 280 Output Total 443 887 3514 650 Balance 175 039 709 3023.25 -965 -370 Intake, IV 10.25 725 180 Intake, Oral 878 952 1032 1142 860 100 Output, Stool 100 100 Output, Urine 850 2450 650 Patient 167 lb 171 lb 173 lb Weight Weight Bed scale Measurement Method Physical Exam: General Appearance: well developed/nourished, no apparent distress, alert Head: atraumatic, normal appearance Neck: normal inspection, no midline tenderness Respiratory: normal breath sounds, chest non-tender Cardiovascular: regular rate/rhythm Abdomen: normal bowel sounds, soft, non-tender, no organomegaly Back: normal inspection, no vertebral tenderness Extremities: swelling Neurologic/Psychiatric: no motor/sensory deficits, awake, alert Skin: intact, normal color Current Medications: Current Medications Sig/Leigh Ann Start time Last Medication Dose Route Stop Time Status Admin Albuterol Sulfate 2 PUF Q4P PRN 10/29 1615 AC 10/29 INH 1840 Alprazolam 0.25 MG TIDPRN PRN 11/02 1115 AC 11/02 PO 11/09 111 2205 Amlodipine Besylate 5 MG DAILY 10/30 0900 AC 11/03 PO 0807 Artificial Tears 2 GTT TID 10/28 1400 AC 11/03 OPH 0809 Aspirin 81 MG DAILY 10/24 1300 AC 11/03 PO 0807 Ferrous Sulfate 325 MG BID 10/27 2100 AC 11/03 PO 0807 Heparin Sodium 5,000 UNIT Q8 10/31 1400 AC 11/03 (Porcine) SC 0558 Levetiracetam 1,500 MG BID 10/26 2100 AC 11/03 PO 0807 Nitroglycerin 0.5 GM Q6 PRN 10/22 2200 AC TOP Omeprazole 40 MG DAILY AC 10/29 0700 AC 11/03 PO 0558 Oxycodone/ 1 TAB Q6P PRN 11/02 1115 AC 11/03 Acetaminophen PO 0324 Potassium Chloride 60 MEQ ONCE ONE 11/03 0930 DC 11/03 PO 11/03 0931 0934 Potassium Chloride 20 MEQ ONCE ONE 11/03 0930 CAN PO 11/03 0931 Tiotropium [place] 1 PUF DAILY 10/29 1603 AC INH Results Pertinent Lab Results: Laboratory Tests 11/03 11/02 11/01 0655 0620 0620 Chemistry Sodium (137 - 145 mmol/L) 146 H 143 142 Potassium (3.5 - 5.1 mmol/L) 3.4 L 3.2 L 3.2 L Chloride (98 - 107 mmol/L) 111 H 110 H 112 H Carbon Dioxide (22 - 30 mmol/L) 23 23 21 L Anion Gap (5 - 16) 12 10 9 BUN (9 - 20 mg/dL) 41 H 48 H 52 H Creatinine (0.7 - 1.2 mg/dL) 3.3 H 4.3 H 5.5 *H Estimated GFR (>60 ml/min) 20 L 15 L 11 L BUN/Creatinine Ratio (7 - 25 %) 12.4 11.2 9.5 Total Bilirubin (0.2 - 1.3 mg/dL) 0.8 Direct Bilirubin (< 0.4 mg/dL) 0.3 AST (17 - 59 U/L) 38 ALT (21 - 72 U/L) 85 H Alkaline Phosphatase (< 127 U/L) 49 Total Protein (6.3 - 8.2 g/dL) 4.8 L Albumin (3.5 - 5.0 g/dL) 2.4 L Triglycerides (<150 mg/dL) 126 Cholesterol (< 200 MG/DL) 127 LDL Cholesterol, Calc (65 - 129 mg/dL) 73 HDL Cholesterol (40 - 60 mg/dL) 29 L Cholesterol/HDL Ratio (0.00 - 4.88 %) 4 Hematology CBC w Diff NO MAN DIFF REQ WBC (4.8 - 10.8 /CUMM) 10.9 H RBC (4.70 - 6.10 /CUMM) 3.53 L Hgb (14.0 - 18.0 G/DL) 9.6 L Hct (42 - 52 %) 29.8 L MCV (80.0 - 94.0 FL) 84.3 MCH (27.0 - 31.0 PG) 27.1 MCHC (33.0 - 37.0 G/DL) 32.2 L RDW (11.5 - 14.5 %) 15.4 H Plt Count (130 - 400 /CUMM) 199 MPV (7.4 - 10.4 FL) 8.8 Gran % (42.2 - 75.2 %) 78.6 H Lymphocytes % (20.5 - 51.1 %) 8.4 L Monocytes % (1.7 - 9.3 %) 7.8 Eosinophils % (0 - 5 %) 4.7 Basophils % (0.0 - 2.0 %) 0.5 Absolute Granulocytes (1.4 - 6.5 /CUMM) 8.5 H Absolute Lymphocytes (1.2 - 3.4 /CUMM) 0.9 L Absolute Monocytes (0.10 - 0.60 /CUMM) 0.9 H Absolute Eosinophils (0.0 - 0.7 /CUMM) 0.5 Absolute Basophils (0.0 - 0.2 /CUMM) 0.1
== END 2017-11-03 12:43 | disposition home health service (06) | DRG 917 ==
LOC: ERH 13:11 → ERHI 19:42 → CRI 19:42 → EDBEDREQ 20:02 → CRI 22:37 → ENTRNSPT 10-29 13:47 → EDTRNSPTSTS 10-29 13:54 → 1NO 10-29 14:18 → CMPTRNSPT 10-29 14:27 → 1NO 10-29 20:20 → ENPENDDIS 11-03 09:12 → ENTRNSPT 11-03 12:01 → EDTRNSPTSTS 11-03 12:11 → EDTRNSPT 11-03 12:11 → 1NO 11-03 12:43 → CMPTRNSPT 11-03 13:03
PROVIDERS: Dermatology; Hospitalist; Internal Medicine; Internal Medicine Endocrinology, Diabetes & Metabolism; Physician Assistant; Preventive Medicine Public Health & General Preventive Medicine; Student in an Organized Health Care Education/Training Program
DX: T40.5X3A Poisoning by cocaine, assault, initial encounter (principal); I21.9 Acute myocardial infarction, unspecified; N17.0 Acute kidney failure with tubular necrosis; K50.90 Crohn's disease, unspecified, without complications; E83.39 Other disorders of phosphorus metabolism; E83.42 Hypomagnesemia; E83.51 Hypocalcemia; I21.A1 Myocardial infarction type 2; F13.20 Sedative, hypnotic or anxiolytic dependence, uncomplicated; E87.2 Acidosis; M62.82 Rhabdomyolysis; K92.2 Gastrointestinal hemorrhage, unspecified; K71.10 Toxic liver disease with hepatic necrosis, without coma; R34 Anuria and oliguria; E87.5 Hyperkalemia; I45.10 Unspecified right bundle-branch block; R41.82 Altered mental status, unspecified; G40.901 Epilepsy, unspecified, not intractable, with status epilepticus; M54.12 Radiculopathy, cervical region; F32.9 Major depressive disorder, single episode, unspecified; F41.9 Anxiety disorder, unspecified; Y92.019 Unspecified place in single-family (private) house as the place of occurrence of the external cause; Z93.3 Colostomy status; R00.0 Tachycardia, unspecified; Z88.8 Allergy status to other drugs, medicaments and biological substances; Z79.51 Long term (current) use of inhaled steroids; Z93.4 Other artificial openings of gastrointestinal tract status
CPT/HCPCS: 1NP; 84133; 84300; CCU; 36415; 36592; 71045; 73030-RT; 74176; 80307; 81001; 82436; 82570; 87040; 87070; 87086; 93005; 93010; 93306; 96374; 96375; 97110-GO; 97116-GO; 97161-GP; 97167-GO; 97530-GO; 99291; G0480; J0131; J0610; J1644; J1815; J1953; J2185; J2270; J2310; J2405; J3101; J3230; J3490; J7042; J7060